=== PATIENT | female | born 1960 | race Two or more races ===

== ENCOUNTER 2018-12-26 00:18 | Inpatient (IN) | payer OTHER ==
[~2018-12-26] VITALS: Ht 165.1 cm; Wt 49.9 kg
--- NOTE | 2018-12-26 00:20 | NUR ---
ED Nurse Note: [facility]. Patients states that patient has been having black tarry stools. Patient had a syncopal episode. Patient's eased her to the ground. No s/s of head injury. BS on scene 208. Patient reports 10/10 pressure pain. AO4. Facial grimacing; and grasping site. VSS attached to monitor.
[2018-12-26] MEDS ORDERED: METFORMIN HCL500 M4 ORAL (00:23)
--- NOTE | 2018-12-26 00:40 | NUR ---
ED Nurse Note: Blood and urine collected; sent down to lab.
[2018-12-26] MEDS ORDERED: Morphine Sulfate 4mg/ml Inj (IV USE ONLY) IVP ONE ×2 (00:45→03:45)
[2018-12-26 00:57] VITALS: BP 116/96
[2018-12-26 00:59] LABS: BASOPHILS % (AUTO) 0.8 % (0.0-2.0); HEMATOCRIT 42.1 % (37.0-47.0); HEMOGLOBIN 14.2 G/DL (12.0-16.0); LYMPHOCYTES % (AUTO) 13.3 % (20.0-45.0); MEAN CORPUSCULAR VOLUME 80 FL (80-99); MONOCYTES % (AUTO) 5.4 % (1.0-10.0); NEUTROPHILS % (AUTO) 80.5 % (45.0-75.0); PLATELET COUNT 274 K/UL (150-450); RED BLOOD COUNT 5.26 M/UL (4.20-5.40); RED CELL DISTRIBUTION WIDTH 11.1 % (11.6-14.8); WHITE BLOOD COUNT 10.5 K/UL (4.8-10.8)
[2018-12-26 01:02] LABS: APPEARANCE,URINE CLEAR; BILIRUBIN, URINE NEGATIVE (NEGATIVE); COLOR,URINE PALE YELLOW; GLUCOSE, URINE (UA) 4+ (NEGATIVE); KETONES,URINE 4+ (NEGATIVE); LEUKOCYTE ESTERASE ,URINE 2+ (NEGATIVE); NITRITE,URINE NEGATIVE (NEGATIVE); PH,URINE 5 (4.5-8.0); PROTEIN,URINE 2+ (NEGATIVE); UROBILINOGEN,URINE NORMAL MG/DL (0.0-1.0)
[2018-12-26 01:11] LABS: ANION GAP 17 mmol/L (5-15); BLOOD UREA NITROGEN 34 mg/dL (7-18); CARBON DIOXIDE 22 MMOL/L (21-32); CHLORIDE 102 MMOL/L (98-107); CREATININE 1.2 MG/DL (0.55-1.30); POTASSIUM 4.1 MMOL/L (3.5-5.1); SODIUM 141 MMOL/L (136-145)
[2018-12-26 01:16] LABS: ALANINE AMINOTRANSFERASE 22 U/L (12-78); ALBUMIN 3.6 G/DL (3.4-5.0); ALBUMIN/GLOBULIN RATIO 0.7 (1.0-2.7); ALKALINE PHOSPHATASE 71 U/L (46-116); ASPARTATE AMINO TRANSFERASE 41 U/L (15-37); BILIRUBIN,TOTAL 0.5 MG/DL (0.2-1.0)
[2018-12-26] MEDS ORDERED: cefTRIAXone 1 GM in NS 55 ML IVPB ONE (01:30)
--- NOTE | 2018-12-26 01:35 | NUR ---
ED Nurse Note: states he will come back when pt wakes up. [phone]
--- NOTE | 2018-12-26 01:36 | Emergency Room Report ---
History of Present Illness General Chief Complaint: Syncope Source: Patient Present Illness HPI This is a 58-year-old female who has a history insulin-dependent diabetes. She presents with chief complaint of syncope. Also has nausea vomiting diarrhea. Patient is visiting from [place] for her brother's birthday green party. Since yesterday she has multiple episodes of vomiting and diarrhea. Also with diffuse abdominal cramping. Tonight she got up to go to the bathroom and had a syncopal episode. Witnessed by her . He was holding her and put her to the ground. Patient complaining of chest pain also. Unable to keep anything down. [place] dehydrated. Vomiting is nonbloody and nonbilious. Diarrhea is watery and profuse. Allergies: Coded Allergies: No Known Allergies (Unverified , 12/26/18) Patient History Past Medical History: see triage record, old chart reviewed, DM Past Surgical History: Pertinent Family History: none Social History: Denies: smoking Last Menstrual Period: UNK Now: No Immunizations: other Reviewed Nursing Documentation: PMH: Agreed; PSxH: Agreed Nursing Documentation-PMH Past Medical History: No History, Except For Hx Diabetes: Yes Review of Systems Eye: Denies: eye pain, blurred vision ENT: Denies: ear pain, nose congestion, throat swelling Respiratory: Denies: cough, shortness of breath Cardiovascular: Reports: chest pain; Denies: palpitations Gastrointestinal: Reports: abdominal pain, diarrhea, nausea, vomiting Musculoskeletal: Denies: back pain, joint pain Skin: Denies: rash Neurological: Denies: headache, numbness Endocrine: Denies: increased thirst, increased urine Hematologic/Lymphatic: Denies: easy bruising All Other Systems: negative except mentioned in HPI Physical Exam Vital Signs Date Time Temp Pulse Resp B/P (MAP) Pulse Ox O2 Delivery O2 Flow Rate FiO2 12/26/18 00:18 86 16 136/100 97 Room Air 12/26/18 00:57 98.7 vitals unremarkable Sp02 EP Interpretation: reviewed, normal General Appearance: well appearing, no apparent distress, alert Head: normocephalic, atraumatic Eyes: bilateral eye PERRL, bilateral eye EOMI ENT: hearing grossly normal, normal pharynx Neck: full range of motion, supple, no meningismus Respiratory: chest non-tender, lungs clear, normal breath sounds Cardiovascular #1: regular rate, rhythm, no murmur Gastrointestinal: no mass, no organomegaly, no bruit, non-distended, tenderness - Diffuse, decreased bowel sounds Musculoskeletal: back normal, gait/station normal, normal range of motion Psychiatric: mood/affect normal Skin: warm/dry Medical Decision Making Diagnostic Impression: Primary Impression: Abdominal pain Qualified Codes: R10.84 - Generalized abdominal pain Additional Impressions: Nausea vomiting and diarrhea Syncope and collapse Hyperglycemia due to type 1 diabetes mellitus Dehydration UTI (urinary tract infection) Qualified Codes: N30.00 - Acute cystitis without hematuria ER Course Patient presents with syncope secondary to dehydration. This is due to her nausea vomiting and diarrhea. She felt much better now. Blood sugars improved. No evidence of acute abdomen. Abdomen exam is soft. We'll discharge home. Lab Results Impression labs unremarkable EKG Diagnostic Results Rate: normal Rhythm: NSR ST Segments: no acute changes Rhythm Strip Diag. Results EP Interpretation: yes Rate: 83 Rhythm: NSR, no PVC's, no ectopy Chest X-Ray Diagnostic Results Chest X-Ray Diagnostic Results : Chest X-Ray Ordered: Yes # of Views/Limited/Complete: 1 View Indication: Chest Pain EP Interpretation: Yes Interpretation: no consolidation, no effusion, no pneumothorax, no acute cardiopulmonary disease Impression: No acute disease Electronically Signed by: Dinesh Brown MD Last Vital Signs Date Time Temp Pulse Resp B/P (MAP) Pulse Ox O2 Delivery O2 Flow Rate FiO2 12/26/18 01:22 98.7 12/26/18 00:57 90 16 116/96 97 Room Air Status: improved Disposition: HOME, SELF-CARE Condition: Stable Scripts Ondansetron* (ZOFRAN*) 4 Mg Tablet 4 MG ORAL Q6H PRN for Nausea & Vomiting, #10 TAB Prov: Dinesh Brown MD 12/26/18 Cephalexin* (KEFLEX*) 500 Mg Capsule 500 MG ORAL TID, #21 CAP Prov: Dinesh Brown MD 12/26/18 Referrals: NOT CHOSEN IPA/,REFERRING (PCP) Additional Instructions: Increase fluids. Follow-up with your DrTania in 7 days. Return if worse. Dinesh Brown MD Dec 26, 2018 01:36
[2018-12-26] MEDS ORDERED: CEPHALEXIN500 MG ORAL (02:52)
[2018-12-26] MEDS ORDERED: ZOFRAN4 M3 ORAL (02:52)
[2018-12-26] MEDS ORDERED: Pantoprazole Inj ONE (03:09)
[2018-12-26] MEDS ORDERED: Pantoprazole Inj IVP ONE (03:15)
--- NOTE | 2018-12-26 03:50 | NUR ---
TRANSFER TO FLOOR: Patient transferred to [facility] as ordered, per MD Asim . Report given to ALONZO Sandoval. Belongings list completed with receiving RN. PT AO4. ANDREI. VSS.
--- NOTE | 2018-12-26 04:10 | NUR ---
NURSE NOTES: Patient admitted from ER via rney for N/V/D/syncope. Patient aox4 at this time, weak d/t pain, but ambulatory. RAC 20g intact. Belongings verified at bedside, no valuables except for necklace/earrings worn by patient. Pt still moaning c/o epigastric pain, morphine given in ER prior to arrival to floor. Oriented to new room and unit, provided with call light, instructed to call for assistance. Call placed to Dr. Dailey for admission orders.
[2018-12-26] MEDS ORDERED: Acetaminophen 500mg (ES) tab ORAL PRN (04:30)
[2018-12-26] MEDS: Morphine Sulfate 4mg/ml Inj (IV USE ONLY) IVP PRN (06:46)
[2018-12-26 06:48] LABS: HEMATOCRIT 34.5 % (37.0-47.0); HEMOGLOBIN 11.5 G/DL (12.0-16.0); MEAN CORPUSCULAR VOLUME 82 FL (80-99); PLATELET COUNT 228 K/UL (150-450); RED BLOOD COUNT 4.21 M/UL (4.20-5.40); RED CELL DISTRIBUTION WIDTH 11.4 % (11.6-14.8); WHITE BLOOD COUNT 10.7 K/UL (4.8-10.8)
--- NOTE | 2018-12-26 07:45 | NUR ---
NURSE NOTES: Received report from Jaime ROSADO. On rounds patient is awake alert and oriented x4, in bed. No s/s acute distress noted. IVF running per order. Patient reporting pain and nausea that is controlled at this time. Fall precautions maintained. NPO maintained. Side rails upx3, bed low and locked, call light in reach. Will continue to monitor.
--- NOTE | 2018-12-26 07:47 | NUR ---
HAND-OFF: Report given to Vanesas ROSADO.
[2018-12-26 08:00] VITALS: BP 120/89
[2018-12-26 09:37] LABS: ALANINE AMINOTRANSFERASE 18 U/L (12-78); ALBUMIN 2.6 G/DL (3.4-5.0); ALBUMIN/GLOBULIN RATIO 0.7 (1.0-2.7); ALKALINE PHOSPHATASE 53 U/L (46-116); ANION GAP 12 mmol/L (5-15); ASPARTATE AMINO TRANSFERASE 14 U/L (15-37); BILIRUBIN,TOTAL 0.2 MG/DL (0.2-1.0); BLOOD UREA NITROGEN 28 mg/dL (7-18); CALCIUM 7.7 MG/DL (8.5-10.1); CARBON DIOXIDE 22 MMOL/L (21-32); CHLORIDE 110 MMOL/L (98-107); CREATININE 0.9 MG/DL (0.55-1.30); POTASSIUM 3.7 MMOL/L (3.5-5.1); SODIUM 144 MMOL/L (136-145)
[2018-12-26 12:00] VITALS: BP 124/83
--- NOTE | 2018-12-26 12:20 | Diagnostic Imaging Report ---
Indication: Dyspnea Comparison: None A single view chest radiograph was obtained. Findings: Cardiomediastinal appearance is within normal limits for age. The lungs are clear. Pulmonary vascularity is appropriate. The diaphragmatic contour is smooth and costophrenic angles are sharp. No pleural effusions are identified. The bones are unremarkable. Impression: No acute findings
--- NOTE | 2018-12-26 13:56 | NUR ---
*-* INSURANCE *-* ALL CLINICALS HAVE BEEN FAXED TO: [employer] REF#[id number] FAX CLINICALS TO [phone]
--- NOTE | 2018-12-26 15:29 | GI Initial Consult Note ---
History of Present Illness General Date patient seen: Dec 26, 2018 Time patient seen: 10:00 Reason for Hospitalization: Syncope Referring physician: LOU COVARRUBIAS Reason for Consultation: Persistent nausea vomiting Present Illness HPI This is a 58-year-old female who has a history insulin-dependent diabetes. She presents with chief complaint of syncope. Also has nausea vomiting diarrhea. Patient is visiting from [place] for her brother's birthday green party. Since yesterday she has multiple episodes of vomiting and diarrhea. Also with diffuse abdominal cramping. Tonight she got up to go to the bathroom and had a syncopal episode. Witnessed by her . He was holding her and put her to the ground. Patient complaining of chest pain also. Unable to keep anything down. [place] dehydrated. Vomiting is nonbloody and nonbilious. Diarrhea is watery and profuse. GI consulted for epigastric pain. Patient seen, awake alert oriented x4 has complaint of severe chest pain which she described as a pounding pressure. EKG was done in the emergency room noted a normal sinus rhythm. Negative chest x- ray. Normal troponin levels. Patient states that she is here visiting from [place], is vegetarian and had severe nausea vomiting for approximately 1 day. Patient denies any emesis or coffee-ground. In the patient stated she had severe diarrhea with no noted transient or melena. Patient has been n.p.o. for approximately 1 day, states her nausea vomiting has improved. No history of endoscopic or colonoscopy. Home Meds Reported Medications Metformin Hcl (METFORMIN HCL ER) 500 Mg Tab.er.24, ORAL DAILY, TAB 12/26/18 Med list reviewed/reconciled: Yes Allergies: Coded Allergies: No Known Allergies (Unverified , 12/26/18) Patient History History Provided By: Patient, Medical Record PMH Narrative Past Medical History: see triage record, old chart reviewed, DM Past Surgical History: Pertinent Family History: none Social History: Denies: smoking Last Menstrual Period: UNK Now: No Immunizations: other Reviewed Nursing Documentation: PMH: Agreed; PSxH: Agreed Nursing Documentation-PM Past Medical History: No History, Except For Hx Diabetes: Yes Past Surgical History: none Social History: Denies: smoking, alcohol use, drug use, other Review of Systems All Other Systems: negative except mentioned in HPI Physical Exam Vital Signs Date Time Temp Pulse Resp B/P (MAP) Pulse Ox O2 Delivery O2 Flow Rate FiO2 12/26/18 00:18 86 16 136/100 97 Room Air 12/26/18 00:57 98.7 Sp02 EP Interpretation: reviewed, normal Labs Laboratory Tests Test 12/26/18 00:30 12/26/18 00:50 12/26/18 05:10 12/26/18 07:50 White Blood Count 10.5 K/UL (4.8-10.8) 10.7 K/UL (4.8-10.8) Red Blood Count 5.26 M/UL (4.20-5.40) 4.21 M/UL (4.20-5.40) Hemoglobin 14.2 G/DL (12.0-16.0) 11.5 G/DL (12.0-16.0) L Hematocrit 42.1 % (37.0-47.0) 34.5 % (37.0-47.0) L Mean Corpuscular Volume 80 FL (80-99) 82 FL (80-99) Mean Corpuscular Hemoglobin 27.0 PG (27.0-31.0) 27.4 PG (27.0-31.0) Mean Corpuscular Hemoglobin Concent 33.8 G/DL (32.0-36.0) 33.4 G/DL (32.0-36.0) Red Cell Distribution Width 11.1 % (11.6-14.8) L 11.4 % (11.6-14.8) L Platelet Count 274 K/UL (150-450) 228 K/UL (150-450) Mean Platelet Volume 7.7 FL (6.5-10.1) 6.9 FL (6.5-10.1) Neutrophils (%) (Auto) 80.5 % (45.0-75.0) H % (45.0-75.0) Lymphocytes (%) (Auto) 13.3 % (20.0-45.0) L % (20.0-45.0) Monocytes (%) (Auto) 5.4 % (1.0-10.0) % (1.0-10.0) Eosinophils (%) (Auto) 0.0 % (0.0-3.0) % (0.0-3.0) Basophils (%) (Auto) 0.8 % (0.0-2.0) % (0.0-2.0) Sodium Level 141 MMOL/L (136-145) 144 MMOL/L (136-145) Potassium Level 4.1 MMOL/L (3.5-5.1) 3.7 MMOL/L (3.5-5.1) Chloride Level 102 MMOL/L (98-107) 110 MMOL/L (98-107) H Carbon Dioxide Level 22 MMOL/L (21-32) 22 MMOL/L (21-32) Anion Gap 17 mmol/L (5-15) H 12 mmol/L (5-15) Blood Urea Nitrogen 34 mg/dL (7-18) H 28 mg/dL (7-18) H Creatinine 1.2 MG/DL (0.55-1.30) 0.9 MG/DL (0.55-1.30) Estimat Glomerular Filtration Rate 46.2 mL/min (>60) > 60 mL/min (>60) Glucose Level 221 MG/DL (74-106) H 305 MG/DL (74-106) H Calcium Level 10.0 MG/DL (8.5-10.1) 7.7 MG/DL (8.5-10.1) #L Total Bilirubin 0.5 MG/DL (0.2-1.0) 0.2 MG/DL (0.2-1.0) Aspartate Amino Transf (AST/SGOT) 41 U/L (15-37) H 14 U/L (15-37) L Alanine Aminotransferase (ALT/SGPT) 22 U/L (12-78) 18 U/L (12-78) Alkaline Phosphatase 71 U/L (46-116) 53 U/L (46-116) Troponin I 0.000 ng/mL (0.000-0.056) Total Protein 8.7 G/DL (6.4-8.2) H 6.3 G/DL (6.4-8.2) L Albumin 3.6 G/DL (3.4-5.0) 2.6 G/DL (3.4-5.0) L Globulin 5.1 g/dL 3.7 g/dL Albumin/Globulin Ratio 0.7 (1.0-2.7) L 0.7 (1.0-2.7) L Lipase 41 U/L (73-393) L Urine Color Pale yellow Urine Appearance Clear Urine pH 5 (4.5-8.0) Urine Specific [place] 1.020 (1.005-1.035) Urine Protein 2+ (NEGATIVE) H Urine Glucose (UA) 4+ (NEGATIVE) H Urine Ketones 4+ (NEGATIVE) H Urine Blood 1+ (NEGATIVE) H Urine Nitrite Negative (NEGATIVE) Urine Bilirubin Negative (NEGATIVE) Urine Urobilinogen Normal MG/DL (0.0-1.0) Urine Leukocyte Esterase 2+ (NEGATIVE) H Urine RBC 2-4 /HPF (0 - 2) H Urine WBC 40-60 /HPF (0 - 2) H Urine Squamous Epithelial Cells Moderate /LPF (NONE/OCC) H Urine Bacteria Few /HPF (NONE) Differential Total Cells Counted 100 Neutrophils % (Manual) 84 % (45-75) H Lymphocytes % (Manual) 7 % (20-45) L Monocytes % (Manual) 4 % (1-10) Eosinophils % (Manual) 0 % (0-3) Basophils % (Manual) 0 % (0-2) Band Neutrophils 5 % (0-8) Platelet Estimate Adequate Platelet Morphology Normal Red Blood Cell Morphology Normal General Appearance: well appearing, no apparent distress, alert Head: normocephalic EENT: PERRL/EOMI, normal ENT inspection Neck: supple Respiratory: normal breath sounds, no respiratory distress Cardiovascular: normal rate Gastrointestinal: normal inspection, non tender, soft, normal bowel sounds, non -distended Rectal: deferred Genitourinary: no CVA tenderness Musculoskeletal: normal inspection, back normal Neurologic: normal inspection, alert, oriented x3, responsive Psychiatric: normal inspection, judgement/insight normal, memory normal Skin: normal inspection, normal color, no rash, warm/dry, palpation normal, well hydrated Lymphatic: normal inspection, no adenopathy Current Medications Current Medications Medications (Trade) Dose Ordered Sig/Adalberto Route PRN Reason Start Time Stop Time Status Last Admin Dose Admin Acetaminophen (Tylenol) 500 mg Q4H PRN ORAL Mild Pain/Temp > 100.5 12/26/18 04:30 01/25/19 04:29 Ceftriaxone Sodium 1 gm/ Dextrose 55 ml @ 110 mls/hr Q24H IVPB 12/26/18 20:00 01/02/19 19:59 Dextrose (Dextrose 50%) 25 ml Q30M PRN IV Hypoglycemia 12/26/18 04:30 01/25/19 04:29 Dextrose (Dextrose 50%) 50 ml Q30M PRN IV Hypoglycemia 12/26/18 04:30 01/25/19 04:29 Metoclopramide HCl (Reglan) 10 mg THREE TIMES A DAY ORAL 12/26/18 13:00 01/25/19 12:59 12/26/18 13:24 Morphine Sulfate (Morphine Sulfate) 2 mg Q4H PRN IVP mod-sev 4-10 pain 12/26/18 04:30 01/02/19 04:29 12/26/18 06:46 Ondansetron HCl (Zofran) 4 mg Q6H PRN IVP Nausea & Vomiting 12/26/18 04:30 01/25/19 04:29 12/26/18 13:24 Pantoprazole (Protonix) 40 mg BIAC ORAL 12/26/18 16:30 01/25/19 16:29 Sodium Chloride 1,000 ml @ 65 mls/hr [id number] IV 12/26/18 05:00 01/25/19 04:59 12/26/18 06:41 GI: Plan Problems: (1) Gastroparesis (2) Gastroenteritis (3) Electrolyte imbalance (4) Nausea vomiting and diarrhea (5) Abdominal pain (6) Dehydration (7) Hyperglycemia due to type 1 diabetes mellitus (8) GERD (gastroesophageal reflux disease) Plan cardiac work up negative Will consider endoscopy if patient has persistent abdominal pain We will give PPI twice daily Clear liquid diet, advance as tolerated PRN transfusions Zofran as needed, Reglan ATC for persistent vomiting p.o. And IV hydration plus electrolyte correction fu labs outpatient GI procedures Discussed with Dr. Graham. Thank you for this patient referral, we will follow. The patient was seen and examined at bedside and all new and available data was reviewed in the patients chart. I agree with the above findings, impression and plan. (Patient seen earlier today. Signature stamp does not reflect patient encounter time.). - MD Stephanie Rivera,[facility], [place] [employer] Dec 26, 2018 15:29
[2018-12-26 16:00] VITALS: BP 129/86
--- NOTE | 2018-12-26 16:55 | NUR ---
Social Service Note Letter completed per patient's request indicating date of hospitalization to provide airlines. Will continue to be available as needed.
--- NOTE | 2018-12-26 17:58 | Cardiology Report ---
APPROVED REPORT EKG Measurement Heart [id number] Normal sinus rhythm T wave abnormality, consider inferolateral ischemia Abnormal ECG
--- NOTE | 2018-12-26 19:00 | NUR ---
NURSE NOTES: Patient tolerating clear liquid diet well so far, will endorse to nightshift to advance per order. Reporting less pain, no episodes of emesis, 1 episode of nausea on my shift. Will continue to monitor.
--- NOTE | 2018-12-26 19:24 | NUR ---
HAND-OFF: Report given to Jaime ROSADO. Patient in stable condition.
[2018-12-26 20:00] VITALS: BP 144/90
--- NOTE | 2018-12-26 20:00 | NUR ---
NURSE NOTES: Patient received in bed, asleep, resting, easily arousable. No acute distress. IVF infusing. Denies pain. Commode at bedside. Call light in reach, instructed to call for assistance. Will continue to monitor.
[2018-12-26] MEDS: cefTRIAXone 1 GM in D5W 55 ML IVPB SCH (20:34)
--- NOTE | 2018-12-26 20:47 | NUR ---
CASE MANAGEMENT: REVIEW 58/F PRESENTED TO ED FROM A [facility] CC: INTRACTABLE VOMITING . PAIN 08/29 SI: DEHYDRATION . GASTROPARESIS T 98.7 HR 90 RR 16 BP 116/96 SAT 97% ROOM AIR H/H 11.5/34.5 BUN 34 IS: ZOFRAN IV X1 PROTONIX IV X1 NS IVF BOLUS X1 MORPHINE IV X1 CEFTRIAXONE IV X1 PATIENT ADMITTED TO MED/SURG UNIT 12/26/2017 DCP: PATIENT IS FROM A [facility]
[2018-12-26] MEDS ORDERED: Levemir Flexpen SUBQ SCH (22:30)
[2018-12-26] MEDS: NovoLOG Insulin Flexpen SUBQ SCH (22:34)
--- NOTE | 2018-12-26 23:30 | Consultation ---
DATE OF CONSULTATION: 12/26/2018 NOTE: POOR AUDIO INFECTIOUS DISEASE CONSULTATION CONSULTING PHYSICIAN: Ravi Roman M.D. PRIMARY ATTENDING PHYSICIAN: Ondina Dailey M.D. REASON FOR CONSULT: UTI. HISTORY OF PRESENT ILLNESS: The patient is a 58-year-old female with history of nausea vomiting after having a syncopal episode. The patient has nausea, vomiting, and pain in the abdomen. She went to the bathroom for vomiting and then passed out. Apparently, was there and prevented the fall. PAST MEDICAL HISTORY: Significant for diabetes mellitus. MEDICATIONS: Protonix, metoclopramide, Tylenol, morphine sulfate, Zofran, one dose ceftriaxone in ER. ALLERGIES: No known drug allergies. SOCIAL HISTORY: Originally from [place]. Lives in [place] and was in [place] with the family. . No history of alcohol, drug abuse, or smoking. REVIEW OF SYSTEMS: No fever. No chills. Has nausea. No more vomiting. Tolerate liquids. Left upper abdominal pain. No diarrhea. No problem passing urine. PHYSICAL EXAMINATION: VITAL SIGNS: Temperature 98.6, pulse 84, and blood pressure 124/82. GENERAL APPEARANCE: Seems to be in thin. In no acute distress. HEAD AND NECK: [place] conjunctiva. No oral lesion. HEART: Regular. LUNGS: Clear. ABDOMEN: Soft. No costovertebral angle tenderness. EXTREMITIES: Has no edema. LABORATORY DATA: WBC 7.4, hemoglobin 11.5, hematocrit 34.5, and platelets 233. Sodium 144, potassium 3.7, chloride 110, BUN 20, and creatinine 0.9. Glucose is 305. Chest x-ray was negative. UA showed wbc 40 to 60, rbc 2 to 4, leukocyte esterase 2+, nitrite negative, glucose 4+, and ketones 4+. IMPRESSION: Pyuria. UTI. The patient has nausea, vomiting, syncopal episode most likely was vasovagal. Dehydration. RECOMMENDATIONS: We will continue with ceftriaxone and hydration. We will follow up the cultures. At the end of my exam, I thank Dr. Dailey for involving me in the care of this patient. Ravi Roman M.D. DR: MONIK JOB#: [id number] CC: ZAIRE
[2018-12-27] VITALS: BP 148/91
--- NOTE | 2018-12-27 | History and Physical Report ---
DATE OF ADMISSION: 12/26/2018 NOTE: "POOR AUDIO QUALITY" HISTORY OF PRESENT ILLNESS: The patient is visiting with her from [place], [place], when the patient started having vomiting and diarrhea. The patient also had elevated sugar. The patient is diabetic, takes medications pills only for the past year and a half, mainly metformin. The patient has complained of diarrhea, vomiting, and abdominal cramps for the past 2 days and is very weak and also had some chest pain. Admitted for vomiting and elevated sugar. PAST MEDICAL HISTORY: Significant for NIDDM, GERD, glaucoma. PAST SURGICAL HISTORY: , possible eye surgery. ALLERGIES: No known allergies. MEDICATIONS: Include metformin. FAMILY HISTORY: Does have history of diabetes. SOCIAL HISTORY: The patient denies history of smoking. No history of drug and alcohol abuse. REVIEW OF SYSTEMS: HEENT: Denies headache. RESPIRATORY: Denies shortness of breath. Denies cough. CARDIOVASCULAR: Does have chest pain. Denies orthopnea. GASTROINTESTINAL: Reports having diarrhea, vomiting, and abdominal cramps for 2 days. No rectal bleeding. EXTREMITIES: Denies pain in lower extremities. CENTRAL NERVOUS SYSTEM: No change in vision or speech pattern. Feels very weak. PHYSICAL EXAMINATION: VITAL SIGNS: Temperature 98.5, pulse 88, blood pressure 120/89. HEENT: PERRLA. NECK: Supple. No lymphadenopathy. CHEST: Clear to auscultation CARDIOVASCULAR: Regular rate and rhythm. No murmurs or extra sounds. GASTROINTESTINAL: Mild epigastric tenderness. Abdomen is soft. No rebound. EXTREMITIES: No edema. Moves all four extremities. Reflexes on both sides. LABORATORY DATA: WBC 10.5, hemoglobin 15.2, platelet count . Sodium 141, potassium 4.1, BUN of 34, creatinine 1.2, glucose of 221. Lipase of 41. ASSESSMENT AND PLAN: Abdominal pain and cramps, diarrhea, vomiting, weakness, could be due to elevated sugar and the patient also has elevated sugar. I have basically consulted Dr. Graham, Dr. Bowen, Dr. Ravi Roman, Dr. Julio Beaver for the management of the blood sugar and also for as well as for fluid management as well as Dr. Graham will help us with finding out why the patient was having intractable vomiting. It could be due to elevated sugar. The patient admitted for dehydration as well. Ondina Dailey M.D. DR: Dao JOB#: [id number] CC:
[2018-12-27 03:51] VITALS: BP 134/82
[2018-12-27] MEDS: NovoLOG Insulin Flexpen SUBQ SCH ×4 (05:35→20:50)
[2018-12-27 06:54] LABS: BASOPHILS % (AUTO) 0.4 % (0.0-2.0); HEMATOCRIT 38.1 % (37.0-47.0); HEMOGLOBIN 12.8 G/DL (12.0-16.0); LYMPHOCYTES % (AUTO) 17.4 % (20.0-45.0); MEAN CORPUSCULAR VOLUME 81 FL (80-99); MONOCYTES % (AUTO) 4.9 % (1.0-10.0); NEUTROPHILS % (AUTO) 77.4 % (45.0-75.0); PLATELET COUNT 247 K/UL (150-450); RED BLOOD COUNT 4.69 M/UL (4.20-5.40); RED CELL DISTRIBUTION WIDTH 11.5 % (11.6-14.8); WHITE BLOOD COUNT 10.6 K/UL (4.8-10.8)
[2018-12-27 07:15] LABS: ANION GAP 16 mmol/L (5-15); BLOOD UREA NITROGEN 18 mg/dL (7-18); CALCIUM 8.2 MG/DL (8.5-10.1); CARBON DIOXIDE 21 MMOL/L (21-32); CHLORIDE 104 MMOL/L (98-107); CREATININE 0.8 MG/DL (0.55-1.30); PHOSPHORUS 1.5 MG/DL (2.5-4.9); POTASSIUM 2.9 MMOL/L (3.5-5.1); SODIUM 141 MMOL/L (136-145)
--- NOTE | 2018-12-27 07:21 | NUR ---
HAND-OFF: Report given to Aly ROSADO.
[2018-12-27 08:00] VITALS: BP 154/84
--- NOTE | 2018-12-27 08:07 | NUR ---
NURSE NOTES: Received report from ALONZO Sandoval. Pt is in the bed. AAO. On the RA. No s.s of respiratory distress or discomfort noted. Bed is in the lowest position. Call light is within the reach. Will continue to monitor
[2018-12-27] MEDS ORDERED: Potassium Phosphate 30 MM in NS 275 ML IV SCH (10:00)
--- NOTE | 2018-12-27 11:54 | GI Progress Note ---
Assessment/Plan Problems: (1) GERD (gastroesophageal reflux disease) ICD Codes: K21.9 - Gastro-esophageal reflux disease without esophagitis SNOMED: 365065712 (2) Hyperglycemia due to type 1 diabetes mellitus ICD Codes: E10.65 - Type 1 diabetes mellitus with hyperglycemia; R19.7 - Diarrhea, unspecified SNOMED: 072364904908895, 86663991 (3) Nausea vomiting and diarrhea ICD Codes: R11.2 - Nausea with vomiting, unspecified; R19.7 - Diarrhea, unspecified SNOMED: 9268001 (4) Gastroparesis ICD Codes: K31.84 - Gastroparesis SNOMED: 980813258 (5) Abdominal pain ICD Codes: R10.9 - Unspecified abdominal pain SNOMED: 93497977, 16838234 Qualifiers: Qualified Codes: R10.84 - Generalized abdominal pain (6) Electrolyte imbalance ICD Codes: E87.8 - Other disorders of electrolyte and fluid balance, not elsewhere classified SNOMED: 977052001 (7) Gastroenteritis ICD Codes: K52.9 - Noninfective gastroenteritis and colitis, unspecified SNOMED: 05895824 (8) Dehydration ICD Codes: E86.0 - Dehydration SNOMED: 21460495, 84846502 Status: not improved, unchanged Status Narrative Discussed with Dr. Graham Assessment/Plan cardiac work up negative EGD scheduled tomorrow. - NPO @ OR. We will give PPI twice daily Clear liquid diet, advance as tolerated PRN transfusions Zofran as needed, Reglan ATC for persistent vomiting p.o. And IV hydration plus electrolyte correction fu labs The patient was seen and examined at bedside and all new and available data was reviewed in the patients chart. I agree with the above findings, impression and plan. (Patient seen earlier today. Signature stamp does not reflect patient encounter time.). - Franco Graham MD Subjective Subjective Patient still complains of abdominal pain Still has complaint of overall generalized weakness Unable to tolerate food Objective Last 24 Hour Vital Signs Date Time Temp Pulse Resp B/P (MAP) Pulse Ox O2 Delivery O2 Flow Rate FiO2 12/27/18 09:00 Room Air 12/27/18 08:00 98.3 95 19 154/84 (107) 99 12/27/18 03:51 98.3 94 19 134/82 (99) 97 12/27/18 00:00 98.9 100 18 148/91 (110) 97 12/26/18 21:00 Room Air 12/26/18 20:00 98.6 82 18 144/90 (108) 97 12/26/18 16:00 98.8 80 18 129/86 (100) 98 12/26/18 12:00 98.6 84 18 124/83 (97) 97 Intake and Output 12/26/18 12/27/18 19:00 07:00 Intake Total 1600 ml 1065 ml Balance 1600 ml 1065 ml Intake Oral 820 ml 360 ml IV Total 780 ml 705 ml # Voids 6 3 Laboratory Tests Test 12/27/18 06:00 White Blood Count 10.6 K/UL (4.8-10.8) Red Blood Count 4.69 M/UL (4.20-5.40) Hemoglobin 12.8 G/DL (12.0-16.0) Hematocrit 38.1 % (37.0-47.0) Mean Corpuscular Volume 81 FL (80-99) Mean Corpuscular Hemoglobin 27.3 PG (27.0-31.0) Mean Corpuscular Hemoglobin Concent 33.7 G/DL (32.0-36.0) Red Cell Distribution Width 11.5 % (11.6-14.8) L Platelet Count 247 K/UL (150-450) Mean Platelet Volume 6.6 FL (6.5-10.1) Neutrophils (%) (Auto) 77.4 % (45.0-75.0) H Lymphocytes (%) (Auto) 17.4 % (20.0-45.0) L Monocytes (%) (Auto) 4.9 % (1.0-10.0) Eosinophils (%) (Auto) 0.0 % (0.0-3.0) Basophils (%) (Auto) 0.4 % (0.0-2.0) Sodium Level 141 MMOL/L (136-145) Potassium Level 2.9 MMOL/L (3.5-5.1) L Chloride Level 104 MMOL/L (98-107) Carbon Dioxide Level 21 MMOL/L (21-32) Anion Gap 16 mmol/L (5-15) H Blood Urea Nitrogen 18 mg/dL (7-18) Creatinine 0.8 MG/DL (0.55-1.30) Estimat Glomerular Filtration Rate > 60 mL/min (>60) Glucose Level 219 MG/DL (74-106) H Calcium Level 8.2 MG/DL (8.5-10.1) L Phosphorus Level 1.5 MG/DL (2.5-4.9) L Magnesium Level 1.8 MG/DL (1.8-2.4) Height (Feet): 5 Height (Inches): 4.00 Weight (Pounds): 124 General Appearance: WD/WN, no apparent distress, alert Cardiovascular: normal rate Respiratory/Chest: normal breath sounds, no respiratory distress Abdominal Exam: normal bowel sounds, non tender, soft Extremities: normal range of motion, non-tender Matt Brown NP Dec 27, 2018 11:54
[2018-12-27 12:00] VITALS: BP 147/82
--- NOTE | 2018-12-27 14:09 | Infectious Diseases Prog Note ---
Assessment/Plan Assessment/Plan A; Pyuria/UTI Syncope Dehydration DM Nausea/Vomiting Hypokalemia P: Continue Rocephin Will f/u cultures Subjective ROS Limited/Unobtainable: No Constitutional: Reports: no symptoms, other - feels better Respiratory: Reports: no symptoms Cardiovascular: Reports: no symptoms Gastrointestinal/Abdominal: Reports: no symptoms Genitourinary: Reports: no symptoms Skin: Reports: other - erythema & swelling of IV site Allergies: Coded Allergies: No Known Allergies (Unverified , 12/26/18) Objective Vital Signs Last 24 Hour Vital Signs Date Time Temp Pulse Resp B/P (MAP) Pulse Ox O2 Delivery O2 Flow Rate FiO2 12/27/18 12:00 98.1 91 20 147/82 (103) 100 91 12/27/18 09:00 Room Air 12/27/18 08:00 98.3 95 19 154/84 (107) 99 12/27/18 03:51 98.3 94 19 134/82 (99) 97 12/27/18 00:00 98.9 100 18 148/91 (110) 97 12/26/18 21:00 Room Air 12/26/18 20:00 98.6 82 18 144/90 (108) 97 12/26/18 16:00 98.8 80 18 129/86 (100) 98 Height (Feet): 5 Height (Inches): 4.00 Weight (Pounds): 124 General Appearance: no acute distress HEENT: mucous membranes moist Respiratory/Chest: lungs clear Cardiovascular: normal rate Abdomen: soft, non tender Extremities: no edema Neurologic/Psychiatric: alert, oriented x 3, responsive Microbiology Date/Time Source Procedure Growth Status 12/26/18 00:50 Urine,Clean Catch Urine Culture - Preliminary Gram Negative Bacillus 1 Resulted Laboratory Tests Test 12/27/18 06:00 White Blood Count 10.6 K/UL (4.8-10.8) Red Blood Count 4.69 M/UL (4.20-5.40) Hemoglobin 12.8 G/DL (12.0-16.0) Hematocrit 38.1 % (37.0-47.0) Mean Corpuscular Volume 81 FL (80-99) Mean Corpuscular Hemoglobin 27.3 PG (27.0-31.0) Mean Corpuscular Hemoglobin Concent 33.7 G/DL (32.0-36.0) Red Cell Distribution Width 11.5 % (11.6-14.8) L Platelet Count 247 K/UL (150-450) Mean Platelet Volume 6.6 FL (6.5-10.1) Neutrophils (%) (Auto) 77.4 % (45.0-75.0) H Lymphocytes (%) (Auto) 17.4 % (20.0-45.0) L Monocytes (%) (Auto) 4.9 % (1.0-10.0) Eosinophils (%) (Auto) 0.0 % (0.0-3.0) Basophils (%) (Auto) 0.4 % (0.0-2.0) Sodium Level 141 MMOL/L (136-145) Potassium Level 2.9 MMOL/L (3.5-5.1) L Chloride Level 104 MMOL/L (98-107) Carbon Dioxide Level 21 MMOL/L (21-32) Anion Gap 16 mmol/L (5-15) H Blood Urea Nitrogen 18 mg/dL (7-18) Creatinine 0.8 MG/DL (0.55-1.30) Estimat Glomerular Filtration Rate > 60 mL/min (>60) Glucose Level 219 MG/DL (74-106) H Calcium Level 8.2 MG/DL (8.5-10.1) L Phosphorus Level 1.5 MG/DL (2.5-4.9) L Magnesium Level 1.8 MG/DL (1.8-2.4) Current Medications Medications (Trade) Dose Ordered Sig/Adalberto Route PRN Reason Start Time Stop Time Status Last Admin Dose Admin Acetaminophen (Tylenol) 500 mg Q4H PRN ORAL Mild Pain/Temp > 100.5 12/26/18 04:30 01/25/19 04:29 Ceftriaxone Sodium 1 gm/ Dextrose 55 ml @ 110 mls/hr Q24H IVPB 12/26/18 20:00 01/02/19 19:59 12/26/18 20:34 Dextrose (Dextrose 50%) 25 ml Q30M PRN IV Hypoglycemia 12/26/18 04:30 01/25/19 04:29 Dextrose (Dextrose 50%) 50 ml Q30M PRN IV Hypoglycemia 12/26/18 04:30 01/25/19 04:29 Insulin Aspart (NovoLOG) BEFORE MEALS AND HS SUBQ 12/26/18 22:30 01/25/19 22:29 12/27/18 12:00 Insulin Detemir (Levemir) 15 units BEDTIME SUBQ 12/26/18 22:30 01/25/19 22:29 12/26/18 22:32 Metoclopramide HCl (Reglan) 10 mg THREE TIMES A DAY ORAL 12/26/18 13:00 01/25/19 12:59 12/27/18 09:14 Morphine Sulfate (Morphine Sulfate) 2 mg Q4H PRN IVP mod-sev 4-10 pain 12/26/18 04:30 01/02/19 04:29 12/26/18 06:46 Ondansetron HCl (Zofran) 4 mg Q6H PRN IVP Nausea & Vomiting 12/26/18 04:30 01/25/19 04:29 12/27/18 07:00 Pantoprazole (Protonix) 40 mg BIAC ORAL 12/26/18 16:30 01/25/19 16:29 12/27/18 05:35 Potassium Phosphate 30 mm/ Sodium Chloride 285 ml @ 47.5 mls/hr ONCE IV 12/27/18 10:00 12/27/18 18:00 12/27/18 10:11 Sodium Chloride 1,000 ml @ 65 mls/hr [id number] IV 12/26/18 05:00 01/25/19 04:59 12/27/18 11:57 Ravi Roman MD Dec 27, 2018 14:09
--- NOTE | 2018-12-27 15:13 | Consultation ---
Consult Note Consult Note This is a 58-year-old female who has a history insulin-dependent diabetes. She presents with chief complaint of syncope. Also has nausea vomiting diarrhea. Patient is visiting from [place] for her brother's birthday libertarian. Since yesterday she has multiple episodes of vomiting and diarrhea. Also with diffuse abdominal cramping. Tonight she got up to go to the bathroom and had a syncopal episode. Witnessed by her . He was holding her and put her to the ground. Patient complaining of chest pain also. Unable to keep anything down. [place] dehydrated. Vomiting is nonbloody and nonbilious. Diarrhea is watery and profuse. No Known Allergies (Unverified , 12/26/18) Past Medical History: see triage record, old chart reviewed, DM Past Surgical History: Pertinent Family History: none Social History: Denies: smoking Last Menstrual Period: UNK Now: No Immunizations: other Reviewed Nursing Documentation: PMH: Agreed; PSxH: Agreed Past Medical History: No History, Except For Hx Diabetes: Yes Assessment/Plan Dehydration UTI Electrolytre imbalance Syncope Abdominal pain Nausea vomiting and diarrhea Hyperglycemia due to type 1 diabetes mellitus increase HS Levemir k and Phos and Mag supplement Antibiotics Monitor Prabhakar Wong MD Dec 27, 2018 15:13
--- NOTE | 2018-12-27 15:30 | Consultation ---
DATE OF CONSULTATION: 12/27/2018 ENDOCRINOLOGY CONSULTATION: CONSULTING PHYSICIAN: Julio Beaver M.D. REFERRING PHYSICIAN: Ondina Dailey M.D. REASON FOR CONSULTATION: Diabetes management. HISTORY OF PRESENT ILLNESS: The patient is a 58-year-old female, visiting from [place], admitted to the hospital with elevated glucose, urinary tract infection. Glucose is elevated and Endocrinology was consulted to assist in management of hyperglycemia. The patient is on hormonal therapy. PAST MEDICAL HISTORY: 1. Diabetes. 2. GERD. 3. Glaucoma. PAST SURGICAL HISTORY: . ALLERGIES TO MEDICATIONS: None. MEDICATIONS: Metformin. FAMILY HISTORY: Diabetes. SOCIAL HISTORY: No smoking, alcohol, or drug use. REVIEW OF SYSTEMS: As per HPI. LABORATORY DATA: WBC 10, hemoglobin 12, hematocrit 38, platelets of 247. Sodium 145, potassium 3.7, chloride 110, bicarbonate 22, BUN 28, creatinine 0.9, glucose 307, calcium 7.7. PHYSICAL EXAMINATION: VITAL SIGNS: Blood pressure 138/82, pulse of 94, temperature 98.2, respiratory rate of 19. HEENT: Pupils are equal and reactive to light. Sclerae are anicteric. NECK: No JVD. HEART: Regular. LUNGS: Clear. ABDOMEN: Positive bowel sounds. EXTREMITIES: No clubbing, cyanosis, or edema. DIAGNOSES: 1. Urinary tract infection. 2. Diabetes out of control. 3. Abdominal pain. DISCUSSION: 1. Discontinue metformin due to current GI symptoms. 2. Start basal bolus insulin therapy with Levemir and NovoLog. Dosage will be adjusted to control. 3. Further adjustment according to blood glucose values. 4. Check hemoglobin A1c to assess diabetes control. Thank you, Dr. Dailey, for the courtesy of this consultation. Julio Beaver M.D. DR: ALONZO/TERESSA JOB#: [id number] CC:
[2018-12-27 16:00] VITALS: BP 144/77
[2018-12-27] MEDS ORDERED: Tubing IV Secondary IV ONE (16:33)
[2018-12-27] MEDS ORDERED: 1/2 NS 1000ml IV ONE (16:33)
--- NOTE | 2018-12-27 19:31 | NUR ---
HAND-OFF: Report given to ALONZO Andersen.
--- NOTE | 2018-12-27 19:53 | NUR ---
NURSE NOTES: Patient in bed, awake, alert and verbally responsive. ABle to make needs known. Respiration is even and unlabored. No complaint of pain or discomfort noted. IV site noted. Iv fluid is infusing as ordered. Skin is warm and dry to touch. NPO at midnight, patient is aware. Call light is at bedside. Will continue plan of care.
[2018-12-27 20:00] VITALS: BP 150/95
[2018-12-27] MEDS: cefTRIAXone 1 GM in D5W 55 ML IVPB SCH (20:46)
[2018-12-27] MEDS: Levemir Flexpen SUBQ SCH (20:49)
--- NOTE | 2018-12-27 21:51 | General Progress Note ---
Assessment/Plan Problem List: (1) Dehydration ICD Codes: E86.0 - Dehydration SNOMED: 53803646, 30446819 (2) Gastroenteritis ICD Codes: K52.9 - Noninfective gastroenteritis and colitis, unspecified SNOMED: 37738407 (3) Electrolyte imbalance ICD Codes: E87.8 - Other disorders of electrolyte and fluid balance, not elsewhere classified SNOMED: 182083684 (4) Abdominal pain ICD Codes: R10.9 - Unspecified abdominal pain SNOMED: 10812544, 25717486 Qualifiers: Qualified Codes: R10.84 - Generalized abdominal pain (5) Gastroparesis ICD Codes: K31.84 - Gastroparesis SNOMED: 630286484 (6) Nausea vomiting and diarrhea ICD Codes: R11.2 - Nausea with vomiting, unspecified; R19.7 - Diarrhea, unspecified SNOMED: 4157320 (7) Hyperglycemia due to type 1 diabetes mellitus ICD Codes: E10.65 - Type 1 diabetes mellitus with hyperglycemia; R19.7 - Diarrhea, unspecified SNOMED: 728017564034375, 61267683 (8) GERD (gastroesophageal reflux disease) ICD Codes: K21.9 - Gastro-esophageal reflux disease without esophagitis SNOMED: 029803771 Status: progressing Assessment/Plan nausea and vomitting is improving' niddm.sugar is improving weak lyte abnormality is improving r/o gastroenteritis Subjective Gastrointestinal/Abdominal: Reports: abdominal pain, nausea Allergies: Coded Allergies: No Known Allergies (Unverified , 12/26/18) Objective Last 24 Hour Vital Signs Date Time Temp Pulse Resp B/P (MAP) Pulse Ox O2 Delivery O2 Flow Rate FiO2 12/27/18 21:00 Room Air 12/27/18 20:00 97.9 94 17 150/95 (113) 97 12/27/18 16:00 98.7 87 18 144/77 (99) 99 12/27/18 12:00 98.1 91 20 147/82 (103) 100 91 12/27/18 09:00 Room Air 12/27/18 08:00 98.3 95 19 154/84 (107) 99 12/27/18 03:51 98.3 94 19 134/82 (99) 97 12/27/18 00:00 98.9 100 18 148/91 (110) 97 Intake and Output 12/26/18 12/27/18 19:00 07:00 Intake Total 1600 ml 1130 ml Balance 1600 ml 1130 ml Intake Oral 820 ml 360 ml IV Total 780 ml 770 ml # Voids 6 3 Laboratory Tests 12/27/18 06:00: White Blood Count 10.6, Red Blood Count 4.69, Hemoglobin 12.8, Hematocrit 38.1, Mean Corpuscular Volume 81, Mean Corpuscular Hemoglobin 27.3, Mean Corpuscular Hemoglobin Concent 33.7, Red Cell Distribution Width 11.5L, Platelet Count 247, Mean Platelet Volume 6.6, Neutrophils (%) (Auto) 77.4H, Lymphocytes (%) (Auto) 17.4L, Monocytes (%) (Auto) 4.9, Eosinophils (%) (Auto) 0.0, Basophils (%) (Auto ) 0.4, Sodium Level 141, Potassium Level 2.9L, Chloride Level 104, Carbon Dioxide Level 21, Anion Gap 16H, Blood Urea Nitrogen 18, Creatinine 0.8, Estimat Glomerular Filtration Rate > 60, Glucose Level 219H, Calcium Level 8.2L , Phosphorus Level 1.5L, Magnesium Level 1.8, C-Reactive Protein, Quantitative 2.9H Height (Feet): 5 Height (Inches): 4.00 Weight (Pounds): 124 Respiratory/Chest: lungs clear Abdomen: tender Ondina Dailey MD Dec 27, 2018 21:51
[2018-12-28] VITALS: BP 137/72
[2018-12-28 04:00] VITALS: BP 155/89
[2018-12-28] MEDS: NovoLOG Insulin Flexpen SUBQ SCH ×4 (06:27→21:26)
--- NOTE | 2018-12-28 06:59 | NUR ---
HAND-OFF: Report given to Gigi Lu.
[2018-12-28 07:06] LABS: BASOPHILS % (AUTO) 0.4 % (0.0-2.0); EOSINOPHILS % (AUTO) 0.1 % (0.0-3.0); HEMOGLOBIN 12.9 G/DL (12.0-16.0); LYMPHOCYTES % (AUTO) 34.3 % (20.0-45.0); MEAN CORPUSCULAR VOLUME 80 FL (80-99); MONOCYTES % (AUTO) 8.4 % (1.0-10.0); NEUTROPHILS % (AUTO) 56.7 % (45.0-75.0); PLATELET COUNT 223 K/UL (150-450); RED BLOOD COUNT 4.76 M/UL (4.20-5.40); RED CELL DISTRIBUTION WIDTH 11.3 % (11.6-14.8); WHITE BLOOD COUNT 7.5 K/UL (4.8-10.8)
--- NOTE | 2018-12-28 07:21 | Anethesia Preoperative Eval ---
Anesthesia Pre-op PMH/ROS General Date of Evaluation: Dec 28, 2018 Time of Evaluation: 07:19 Anesthesiologist: cat Mallampati Score Class I : Soft palate, uvula, fauces, pillars visible Class II: Soft palate, uvula, fauces visible Class III: Soft palate, base of uvula visible Class IV: Only hard plate visible Surgeon: yandel Diagnosis: gerd, intractable vomiting Surgical Procedure: egd Allergies: Coded Allergies: No Known Allergies (Unverified , 12/26/18) Anesthesia Pre-op Phys. Exam Physician Exam Last Vital Signs Date Time Temp Pulse Resp B/P (MAP) Pulse Ox O2 Delivery O2 Flow Rate FiO2 12/28/18 04:00 97.0 93 16 155/89 (111) 97 12/27/18 21:00 Room Air Anesthesia Pre-op A/P Labs Hematology Test 12/28/18 04:45 White Blood Count 7.5 K/UL (4.8-10.8) Red Blood Count 4.76 M/UL (4.20-5.40) Hemoglobin 12.9 G/DL (12.0-16.0) Hematocrit 38.0 % (37.0-47.0) Mean Corpuscular Volume 80 FL (80-99) Mean Corpuscular Hemoglobin 27.0 PG (27.0-31.0) Mean Corpuscular Hemoglobin Concent 33.8 G/DL (32.0-36.0) Red Cell Distribution Width 11.3 % (11.6-14.8) L Platelet Count 223 K/UL (150-450) Mean Platelet Volume 6.6 FL (6.5-10.1) Neutrophils (%) (Auto) 56.7 % (45.0-75.0) Lymphocytes (%) (Auto) 34.3 % (20.0-45.0) Monocytes (%) (Auto) 8.4 % (1.0-10.0) Eosinophils (%) (Auto) 0.1 % (0.0-3.0) Basophils (%) (Auto) 0.4 % (0.0-2.0) Coagulation Test 12/28/18 04:45 Prothrombin Time 10.7 SEC (9.30-11.50) Prothromb Time International Ratio 1.0 (0.9-1.1) Activated Partial Thromboplast Time 22 SEC (23-33) L Chemistry Test 12/28/18 04:45 Sodium Level Pending Potassium Level Pending Chloride Level Pending Carbon Dioxide Level Pending Blood Urea Nitrogen Pending Creatinine Pending Estimat Glomerular Filtration Rate Pending Glucose Level Pending Hemoglobin A1c Pending Uric Acid Pending Calcium Level Pending Phosphorus Level Pending Magnesium Level Pending Total Bilirubin Pending Gamma Glutamyl Transpeptidase Pending Aspartate Amino Transf (AST/SGOT) Pending Alanine Aminotransferase (ALT/SGPT) Pending Alkaline Phosphatase Pending Pro-B-Type Natriuretic Peptide Pending Total Protein Pending Albumin Pending Globulin Pending Triglycerides Level Pending Cholesterol Level Pending LDL Cholesterol Pending HDL Cholesterol Pending Cholesterol/HDL Ratio Pending Vitamin B12 Level Pending Folate Pending Thyroid Stimulating Hormone (TSH) Pending Risk Assessment & Plan Assessment: hypokalemic 2.9. today's lab pending. asa3 Plan: awaiting serum level for potassium. if still hypokalemic, it must be corrected prior to procedure. Katina Fuentes MD Dec 28, 2018 07:21
[2018-12-28 07:24] LABS: ALANINE AMINOTRANSFERASE 32 U/L (12-78); ALBUMIN 2.7 G/DL (3.4-5.0); ALBUMIN/GLOBULIN RATIO 0.7 (1.0-2.7); ALKALINE PHOSPHATASE 52 U/L (46-116); ANION GAP 11 mmol/L (5-15); ASPARTATE AMINO TRANSFERASE 18 U/L (15-37); BILIRUBIN,TOTAL 0.4 MG/DL (0.2-1.0); CALCIUM 8.3 MG/DL (8.5-10.1); CARBON DIOXIDE 27 MMOL/L (21-32); CHLORIDE 101 MMOL/L (98-107); CHOLESTEROL 183 MG/DL (< 200); CREATININE 0.5 MG/DL (0.55-1.30); GAMMA GLUTAMYL TRANSPEPTIDASE 41 U/L (5-85); HDL CHOLESTEROL 43 MG/DL (40-60); PHOSPHORUS 1.7 MG/DL (2.5-4.9); POTASSIUM 2.8 MMOL/L (3.5-5.1); SODIUM 139 MMOL/L (136-145); TRIGLYCERIDES 137 MG/DL (30-150)
[2018-12-28 07:31] LABS: BLOOD UREA NITROGEN 9 mg/dL (7-18)
--- NOTE | 2018-12-28 07:45 | NUR ---
NURSE NOTES: Received report from ALONZO Andersen. Pt is in the bed. On the RA. No s/s of respiratory distress or discomfort noted. Emphasized NPO and scheduled procedure. Pt verbalized understanding. Bed is in the lowest position. Call light is within the reach. Will continue to monitor
--- NOTE | 2018-12-28 07:53 | NUR ---
NURSE NOTES: Received call from Fior from the lab. Pt is positive for ESBL (urine). Dr Leana Roman notified
[2018-12-28 08:00] VITALS: BP 154/78
[2018-12-28] MEDS ORDERED: D5 1/2NS w/KCl 20mEq 1,000 ML IV SCH (10:00)
[2018-12-28 12:00] VITALS: BP 152/84
--- NOTE | 2018-12-28 14:45 | Nephrology Progress Note ---
Assessment/Plan Problem List: (1) Dehydration (2) UTI (urinary tract infection) (3) Gastroparesis (4) Nausea vomiting and diarrhea (5) Hyperglycemia due to type 1 diabetes mellitus Assessment Dehydration UTI Electrolytre imbalance Syncope Abdominal pain Nausea vomiting and diarrhea Hyperglycemia due to type 1 diabetes mellitus Plan add Zestril increase HS Levemir k and Phos and Mag supplement as needed Antibiotics Monitor lytes Subjective ROS Limited/Unobtainable: No Constitutional: Reports: weakness Objective Objective Last 24 Hour Vital Signs Date Time Temp Pulse Resp B/P (MAP) Pulse Ox O2 Delivery O2 Flow Rate FiO2 12/28/18 12:00 98.1 89 20 152/84 (106) 97 12/28/18 09:00 Room Air 12/28/18 08:00 99.3 98 18 154/78 (103) 97 12/28/18 04:00 97.0 93 16 155/89 (111) 97 12/28/18 00:00 97.7 90 16 137/72 (93) 100 12/27/18 21:00 Room Air 12/27/18 20:00 97.9 94 17 150/95 (113) 97 12/27/18 16:00 98.7 87 18 144/77 (99) 99 Intake and Output 12/27/18 12/28/18 19:00 07:00 Intake Total 865.0 ml 705 ml Balance 865.0 ml 705 ml Intake Oral 480 ml IV Total 385.0 ml 705 ml # Voids 4 4 Laboratory Tests 12/28/18 04:45: White Blood Count 7.5, Red Blood Count 4.76, Hemoglobin 12.9, Hematocrit 38.0, Mean Corpuscular Volume 80, Mean Corpuscular Hemoglobin 27.0, Mean Corpuscular Hemoglobin Concent 33.8, Red Cell Distribution Width 11.3L, Platelet Count 223, Mean Platelet Volume 6.6, Neutrophils (%) (Auto) 56.7, Lymphocytes (%) (Auto) 34.3, Monocytes (%) (Auto) 8.4, Eosinophils (%) (Auto) 0.1, Basophils (%) (Auto ) 0.4, Prothrombin Time 10.7, Prothromb Time International Ratio 1.0, Activated Partial Thromboplast Time 22L, Sodium Level 139, Potassium Level 2.8L, Chloride Level 101, Carbon Dioxide Level 27, Anion Gap 11, Blood Urea Nitrogen 9, Creatinine 0.5L, Estimat Glomerular Filtration Rate > 60, Glucose Level 123H, Hemoglobin A1c 13.7H, Uric Acid 5.6, Calcium Level 8.3L, Phosphorus Level 1.7L, Magnesium Level 2.3, Total Bilirubin 0.4, Gamma Glutamyl Transpeptidase 41, Aspartate Amino Transf (AST/SGOT) 18, Alanine Aminotransferase (ALT/SGPT) 32, Alkaline Phosphatase 52, Pro-B-Type Natriuretic Peptide 594H, Total Protein 6.5 , Albumin 2.7L, Globulin 3.8, Albumin/Globulin Ratio 0.7L, Triglycerides Level 137, Cholesterol Level 183, LDL Cholesterol 118H, HDL Cholesterol 43, Cholesterol/HDL Ratio 4.3, Vitamin B12 Level 907, Folate 18.3, Thyroid Stimulating Hormone (TSH) 0.843 Height (Feet): 5 Height (Inches): 5.00 Weight (Pounds): 124 General Appearance: no apparent distress Cardiovascular: tachycardia Respiratory/Chest: decreased breath sounds Abdomen: soft Prabhakar Bowen MD Dec 28, 2018 14:45
--- NOTE | 2018-12-28 14:55 | NUR ---
*-* INSURANCE *-* UPDATED CLINICALS HAVE BEEN FAXED TO: [facility] REF#[id number] FAX CLINICALS TO [phone]
[2018-12-28 16:00] VITALS: BP 149/95
--- NOTE | 2018-12-28 16:03 | GI Progress Note ---
Assessment/Plan Problems: (1) GERD (gastroesophageal reflux disease) ICD Codes: K21.9 - Gastro-esophageal reflux disease without esophagitis SNOMED: 237902890 (2) Hyperglycemia due to type 1 diabetes mellitus ICD Codes: E10.65 - Type 1 diabetes mellitus with hyperglycemia; R19.7 - Diarrhea, unspecified SNOMED: 542333471273861, 92577998 (3) Nausea vomiting and diarrhea ICD Codes: R11.2 - Nausea with vomiting, unspecified; R19.7 - Diarrhea, unspecified SNOMED: 8489973 (4) Gastroparesis ICD Codes: K31.84 - Gastroparesis SNOMED: 225450287 (5) Abdominal pain ICD Codes: R10.9 - Unspecified abdominal pain SNOMED: 95646074, 20963505 Qualifiers: Qualified Codes: R10.84 - Generalized abdominal pain (6) Electrolyte imbalance ICD Codes: E87.8 - Other disorders of electrolyte and fluid balance, not elsewhere classified SNOMED: 539370391 (7) Gastroenteritis ICD Codes: K52.9 - Noninfective gastroenteritis and colitis, unspecified SNOMED: 10898035 (8) Dehydration ICD Codes: E86.0 - Dehydration SNOMED: 60823573, 13651894 Status: stable Status Narrative Discussed with Dr. Graham. Assessment/Plan cardiac work up negative EGD cancelled due to hypokalemia. We will give PPI twice daily Clear liquid diet, advance as tolerated PRN transfusions Zofran as needed, Reglan ATC for persistent vomiting p.o. And IV hydration plus electrolyte correction fu labs The patient was seen and examined at bedside and all new and available data was reviewed in the patients chart. I agree with the above findings, impression and plan. (Patient seen earlier today. Signature stamp does not reflect patient encounter time.). - Franco Graham MD Subjective Subjective Patient still complains of abdominal pain Still has complaint of overall generalized weakness Unable to tolerate food has constant nausea Objective Last 24 Hour Vital Signs Date Time Temp Pulse Resp B/P (MAP) Pulse Ox O2 Delivery O2 Flow Rate FiO2 12/28/18 12:00 98.1 89 20 152/84 (106) 97 12/28/18 09:00 Room Air 12/28/18 08:00 99.3 98 18 154/78 (103) 97 12/28/18 04:00 97.0 93 16 155/89 (111) 97 12/28/18 00:00 97.7 90 16 137/72 (93) 100 12/27/18 21:00 Room Air 12/27/18 20:00 97.9 94 17 150/95 (113) 97 Intake and Output 12/27/18 12/28/18 19:00 07:00 Intake Total 865.0 ml 705 ml Balance 865.0 ml 705 ml Intake Oral 480 ml IV Total 385.0 ml 705 ml # Voids 4 4 Laboratory Tests Test 12/28/18 04:45 White Blood Count 7.5 K/UL (4.8-10.8) Red Blood Count 4.76 M/UL (4.20-5.40) Hemoglobin 12.9 G/DL (12.0-16.0) Hematocrit 38.0 % (37.0-47.0) Mean Corpuscular Volume 80 FL (80-99) Mean Corpuscular Hemoglobin 27.0 PG (27.0-31.0) Mean Corpuscular Hemoglobin Concent 33.8 G/DL (32.0-36.0) Red Cell Distribution Width 11.3 % (11.6-14.8) L Platelet Count 223 K/UL (150-450) Mean Platelet Volume 6.6 FL (6.5-10.1) Neutrophils (%) (Auto) 56.7 % (45.0-75.0) Lymphocytes (%) (Auto) 34.3 % (20.0-45.0) Monocytes (%) (Auto) 8.4 % (1.0-10.0) Eosinophils (%) (Auto) 0.1 % (0.0-3.0) Basophils (%) (Auto) 0.4 % (0.0-2.0) Prothrombin Time 10.7 SEC (9.30-11.50) Prothromb Time International Ratio 1.0 (0.9-1.1) Activated Partial Thromboplast Time 22 SEC (23-33) L Sodium Level 139 MMOL/L (136-145) Potassium Level 2.8 MMOL/L (3.5-5.1) L Chloride Level 101 MMOL/L (98-107) Carbon Dioxide Level 27 MMOL/L (21-32) Anion Gap 11 mmol/L (5-15) Blood Urea Nitrogen 9 mg/dL (7-18) Creatinine 0.5 MG/DL (0.55-1.30) L Estimat Glomerular Filtration Rate > 60 mL/min (>60) Glucose Level 123 MG/DL (74-106) H Hemoglobin A1c 13.7 % (4.3-6.0) H Uric Acid 5.6 MG/DL (2.6-7.2) Calcium Level 8.3 MG/DL (8.5-10.1) L Phosphorus Level 1.7 MG/DL (2.5-4.9) L Magnesium Level 2.3 MG/DL (1.8-2.4) Total Bilirubin 0.4 MG/DL (0.2-1.0) Gamma Glutamyl Transpeptidase 41 U/L (5-85) Aspartate Amino Transf (AST/SGOT) 18 U/L (15-37) Alanine Aminotransferase (ALT/SGPT) 32 U/L (12-78) Alkaline Phosphatase 52 U/L (46-116) C-Reactive Protein, Quantitative 1.0 mg/dL (0.00-0.90) H Pro-B-Type Natriuretic Peptide 594 pg/mL (0-125) H Total Protein 6.5 G/DL (6.4-8.2) Albumin 2.7 G/DL (3.4-5.0) L Globulin 3.8 g/dL Albumin/Globulin Ratio 0.7 (1.0-2.7) L Triglycerides Level 137 MG/DL (30-150) Cholesterol Level 183 MG/DL (< 200) LDL Cholesterol 118 mg/dL (<100) H HDL Cholesterol 43 MG/DL (40-60) Cholesterol/HDL Ratio 4.3 (3.3-4.4) Vitamin B12 Level 907 PG/ML (193-986) Folate 18.3 NG/ML (8.6-58.9) Thyroid Stimulating Hormone (TSH) 0.843 uiU/mL (0.358-3.740) Height (Feet): 5 Height (Inches): 5.00 Weight (Pounds): 124 General Appearance: WD/WN, no apparent distress, alert Cardiovascular: normal rate Respiratory/Chest: normal breath sounds, no respiratory distress Abdominal Exam: normal bowel sounds, non tender, soft Extremities: normal range of motion, non-tender Brown,Arabella-Leo ALMOND SORTER Dec 28, 2018 16:03
--- NOTE | 2018-12-28 16:07 | Infectious Diseases Prog Note ---
Assessment/Plan Assessment/Plan A; UTI with ESBL E. coli Syncope Dehydration DM Nausea/Vomiting Hypokalemia P: Change Rocephin to Cipro Waiting for EGD Subjective ROS Limited/Unobtainable: No Constitutional: Reports: fatigue Respiratory: Reports: no symptoms Cardiovascular: Reports: no symptoms Gastrointestinal/Abdominal: Reports: nausea, other - epigastric pain Genitourinary: Reports: no symptoms Allergies: Coded Allergies: No Known Allergies (Unverified , 12/26/18) Objective Vital Signs Last 24 Hour Vital Signs Date Time Temp Pulse Resp B/P (MAP) Pulse Ox O2 Delivery O2 Flow Rate FiO2 12/28/18 12:00 98.1 89 20 152/84 (106) 97 12/28/18 09:00 Room Air 12/28/18 08:00 99.3 98 18 154/78 (103) 97 12/28/18 04:00 97.0 93 16 155/89 (111) 97 12/28/18 00:00 97.7 90 16 137/72 (93) 100 12/27/18 21:00 Room Air 12/27/18 20:00 97.9 94 17 150/95 (113) 97 Height (Feet): 5 Height (Inches): 5.00 Weight (Pounds): 124 HEENT: mucous membranes moist Respiratory/Chest: normal breath sounds Cardiovascular: normal rate Abdomen: soft, non tender Extremities: no edema Neurologic/Psychiatric: alert, oriented x 3, responsive Microbiology Date/Time Source Procedure Growth Status 12/26/18 00:50 Urine,Clean Catch Urine Culture - Final Escherichia Coli - Esbl Complete Laboratory Tests Test 12/28/18 04:45 White Blood Count 7.5 K/UL (4.8-10.8) Red Blood Count 4.76 M/UL (4.20-5.40) Hemoglobin 12.9 G/DL (12.0-16.0) Hematocrit 38.0 % (37.0-47.0) Mean Corpuscular Volume 80 FL (80-99) Mean Corpuscular Hemoglobin 27.0 PG (27.0-31.0) Mean Corpuscular Hemoglobin Concent 33.8 G/DL (32.0-36.0) Red Cell Distribution Width 11.3 % (11.6-14.8) L Platelet Count 223 K/UL (150-450) Mean Platelet Volume 6.6 FL (6.5-10.1) Neutrophils (%) (Auto) 56.7 % (45.0-75.0) Lymphocytes (%) (Auto) 34.3 % (20.0-45.0) Monocytes (%) (Auto) 8.4 % (1.0-10.0) Eosinophils (%) (Auto) 0.1 % (0.0-3.0) Basophils (%) (Auto) 0.4 % (0.0-2.0) Prothrombin Time 10.7 SEC (9.30-11.50) Prothromb Time International Ratio 1.0 (0.9-1.1) Activated Partial Thromboplast Time 22 SEC (23-33) L Sodium Level 139 MMOL/L (136-145) Potassium Level 2.8 MMOL/L (3.5-5.1) L Chloride Level 101 MMOL/L (98-107) Carbon Dioxide Level 27 MMOL/L (21-32) Anion Gap 11 mmol/L (5-15) Blood Urea Nitrogen 9 mg/dL (7-18) Creatinine 0.5 MG/DL (0.55-1.30) L Estimat Glomerular Filtration Rate > 60 mL/min (>60) Glucose Level 123 MG/DL (74-106) H Hemoglobin A1c 13.7 % (4.3-6.0) H Uric Acid 5.6 MG/DL (2.6-7.2) Calcium Level 8.3 MG/DL (8.5-10.1) L Phosphorus Level 1.7 MG/DL (2.5-4.9) L Magnesium Level 2.3 MG/DL (1.8-2.4) Total Bilirubin 0.4 MG/DL (0.2-1.0) Gamma Glutamyl Transpeptidase 41 U/L (5-85) Aspartate Amino Transf (AST/SGOT) 18 U/L (15-37) Alanine Aminotransferase (ALT/SGPT) 32 U/L (12-78) Alkaline Phosphatase 52 U/L (46-116) C-Reactive Protein, Quantitative 1.0 mg/dL (0.00-0.90) H Pro-B-Type Natriuretic Peptide 594 pg/mL (0-125) H Total Protein 6.5 G/DL (6.4-8.2) Albumin 2.7 G/DL (3.4-5.0) L Globulin 3.8 g/dL Albumin/Globulin Ratio 0.7 (1.0-2.7) L Triglycerides Level 137 MG/DL (30-150) Cholesterol Level 183 MG/DL (< 200) LDL Cholesterol 118 mg/dL (<100) H HDL Cholesterol 43 MG/DL (40-60) Cholesterol/HDL Ratio 4.3 (3.3-4.4) Vitamin B12 Level 907 PG/ML (193-986) Folate 18.3 NG/ML (8.6-58.9) Thyroid Stimulating Hormone (TSH) 0.843 uiU/mL (0.358-3.740) Current Medications Medications (Trade) Dose Ordered Sig/Adalberto Route PRN Reason Start Time Stop Time Status Last Admin Dose Admin Acetaminophen (Tylenol) 500 mg Q4H PRN ORAL Mild Pain/Temp > 100.5 12/26/18 04:30 01/25/19 04:29 Ciprofloxacin (Cipro 500mg tab) 500 mg EVERY 12 HOURS ORAL 12/28/18 21:00 01/04/19 20:59 Dextrose (Dextrose 50%) 25 ml Q30M PRN IV Hypoglycemia 12/26/18 04:30 01/25/19 04:29 Dextrose (Dextrose 50%) 50 ml Q30M PRN IV Hypoglycemia 12/26/18 04:30 01/25/19 04:29 Dextrose/ Electrolytes 1,000 ml @ 50 mls/hr Q20H IV 12/28/18 16:00 01/27/19 15:59 Insulin Aspart (NovoLOG) BEFORE MEALS AND HS SUBQ 12/26/18 22:30 01/25/19 22:29 12/27/18 20:50 Insulin Detemir (Levemir) 25 units BEDTIME SUBQ 12/27/18 21:00 01/25/19 22:29 12/27/18 20:49 Lisinopril (Zestril) 2.5 mg DAILY ORAL 12/28/18 15:00 01/27/19 14:59 Metoclopramide HCl (Reglan) 10 mg THREE TIMES A DAY ORAL 12/26/18 13:00 01/25/19 12:59 12/27/18 09:14 Morphine Sulfate (Morphine Sulfate) 2 mg Q4H PRN IVP mod-sev 4-10 pain 12/26/18 04:30 01/02/19 04:29 12/26/18 06:46 Ondansetron HCl (Zofran) 4 mg Q6H PRN IVP Nausea & Vomiting 12/26/18 04:30 01/25/19 04:29 12/28/18 10:43 Pantoprazole (Protonix) 40 mg BIAC ORAL 12/26/18 16:30 01/25/19 16:29 12/28/18 06:13 Potassium Chloride (K-Dur) 40 meq TWICE A DAY ORAL 12/28/18 18:00 01/27/19 17:59 Sodium Phosphate 30 mm/Sodium Chloride 285 ml @ 47.5 mls/hr ONCE IVPB 12/28/18 17:00 12/28/18 23:00 Ravi Roman MD Dec 28, 2018 16:07
[2018-12-28] MEDS ORDERED: Sodium Phosphate 30 MM in NS 275 ML IVPB SCH (17:00)
[2018-12-28] MEDS: Lisinopril 2.5mg tab ORAL SCH (17:05)
--- NOTE | 2018-12-28 19:41 | NUR ---
HAND-OFF: Report given to ALONZO Gibson.
--- NOTE | 2018-12-28 19:55 | NUR ---
NURSE NOTES: Pt received asleep, woke up to say hello, sodium phosphate running, bed in lowest position, call light within reach, able to make needs known.
[2018-12-28 20:00] VITALS: BP 132/77
[2018-12-28] MEDS: Ciprofloxacin 500mg tab ORAL SCH (21:23)
[2018-12-28] MEDS: Levemir Flexpen SUBQ SCH (21:26)
--- NOTE | 2018-12-28 23:22 | General Progress Note ---
Assessment/Plan Problem List: (1) Dehydration ICD Codes: E86.0 - Dehydration SNOMED: 28393687, 89585884 (2) Gastroenteritis ICD Codes: K52.9 - Noninfective gastroenteritis and colitis, unspecified SNOMED: 22166997 (3) Electrolyte imbalance ICD Codes: E87.8 - Other disorders of electrolyte and fluid balance, not elsewhere classified SNOMED: 142183207 (4) Abdominal pain ICD Codes: R10.9 - Unspecified abdominal pain SNOMED: 65554578, 32521980 Qualifiers: Qualified Codes: R10.84 - Generalized abdominal pain (5) Gastroparesis ICD Codes: K31.84 - Gastroparesis SNOMED: 640061395 (6) Nausea vomiting and diarrhea ICD Codes: R11.2 - Nausea with vomiting, unspecified; R19.7 - Diarrhea, unspecified SNOMED: 2865986 (7) Hyperglycemia due to type 1 diabetes mellitus ICD Codes: E10.65 - Type 1 diabetes mellitus with hyperglycemia; R19.7 - Diarrhea, unspecified SNOMED: 814808953680452, 63757918 (8) GERD (gastroesophageal reflux disease) ICD Codes: K21.9 - Gastro-esophageal reflux disease without esophagitis SNOMED: 254493552 Status: progressing Assessment/Plan nausea and vomitting is improving' dc in am check labs afebrile niddm.sugar is improving weak lyte abnormality is improving Subjective Gastrointestinal/Abdominal: Reports: nausea Allergies: Coded Allergies: No Known Allergies (Unverified , 12/26/18) Objective Last 24 Hour Vital Signs Date Time Temp Pulse Resp B/P (MAP) Pulse Ox O2 Delivery O2 Flow Rate FiO2 12/28/18 21:00 Room Air 12/28/18 20:00 98.9 90 18 132/77 (95) 97 12/28/18 17:05 149/95 12/28/18 16:00 97.9 94 20 149/95 (113) 100 12/28/18 12:00 98.1 89 20 152/84 (106) 97 12/28/18 09:00 Room Air 12/28/18 08:00 99.3 98 18 154/78 (103) 97 12/28/18 04:00 97.0 93 16 155/89 (111) 97 12/28/18 00:00 97.7 90 16 137/72 (93) 100 Intake and Output 12/27/18 12/28/18 19:00 07:00 Intake Total 865.0 ml 705 ml Balance 865.0 ml 705 ml Intake Oral 480 ml IV Total 385.0 ml 705 ml # Voids 4 4 Laboratory Tests 12/28/18 04:45: White Blood Count 7.5, Red Blood Count 4.76, Hemoglobin 12.9, Hematocrit 38.0, Mean Corpuscular Volume 80, Mean Corpuscular Hemoglobin 27.0, Mean Corpuscular Hemoglobin Concent 33.8, Red Cell Distribution Width 11.3L, Platelet Count 223, Mean Platelet Volume 6.6, Neutrophils (%) (Auto) 56.7, Lymphocytes (%) (Auto) 34.3, Monocytes (%) (Auto) 8.4, Eosinophils (%) (Auto) 0.1, Basophils (%) (Auto ) 0.4, Prothrombin Time 10.7, Prothromb Time International Ratio 1.0, Activated Partial Thromboplast Time 22L, Sodium Level 139, Potassium Level 2.8L, Chloride Level 101, Carbon Dioxide Level 27, Anion Gap 11, Blood Urea Nitrogen 9, Creatinine 0.5L, Estimat Glomerular Filtration Rate > 60, Glucose Level 123H, Hemoglobin A1c 13.7H, Uric Acid 5.6, Calcium Level 8.3L, Phosphorus Level 1.7L, Magnesium Level 2.3, Total Bilirubin 0.4, Gamma Glutamyl Transpeptidase 41, Aspartate Amino Transf (AST/SGOT) 18, Alanine Aminotransferase (ALT/SGPT) 32, Alkaline Phosphatase 52, C-Reactive Protein, Quantitative 1.0H, Pro-B-Type Natriuretic Peptide 594H, Total Protein 6.5, Albumin 2.7L, Globulin 3.8, Albumin /Globulin Ratio 0.7L, Triglycerides Level 137, Cholesterol Level 183, LDL Cholesterol 118H, HDL Cholesterol 43, Cholesterol/HDL Ratio 4.3, Vitamin B12 Level 907, Folate 18.3, Thyroid Stimulating Hormone (TSH) 0.843 Height (Feet): 5 Height (Inches): 5.00 Weight (Pounds): 124 Respiratory/Chest: lungs clear Abdomen: soft Ondina Dailey MD Dec 28, 2018 23:22
[2018-12-29] VITALS: BP 150/90
[2018-12-29 04:00] VITALS: BP 157/88
[2018-12-29] MEDS: Morphine Sulfate 4mg/ml Inj (IV USE ONLY) IVP PRN (06:18)
[2018-12-29] MEDS: NovoLOG Insulin Flexpen SUBQ SCH ×4 (06:19→20:56)
[2018-12-29 07:02] LABS: ALANINE AMINOTRANSFERASE 29 U/L (12-78); ALBUMIN 2.4 G/DL (3.4-5.0); ALBUMIN/GLOBULIN RATIO 0.7 (1.0-2.7); ALKALINE PHOSPHATASE 53 U/L (46-116); ANION GAP 8 mmol/L (5-15); ASPARTATE AMINO TRANSFERASE 16 U/L (15-37); BILIRUBIN,TOTAL 0.6 MG/DL (0.2-1.0); BLOOD UREA NITROGEN 8 mg/dL (7-18); CALCIUM 8.3 MG/DL (8.5-10.1); CARBON DIOXIDE 29 MMOL/L (21-32); CHLORIDE 102 MMOL/L (98-107); CREATININE 0.5 MG/DL (0.55-1.30); PHOSPHORUS 2.6 MG/DL (2.5-4.9); SODIUM 139 MMOL/L (136-145)
[2018-12-29 07:05] LABS: POTASSIUM 2.7 MMOL/L (3.5-5.1)
[2018-12-29 07:09] LABS: BASOPHILS % (AUTO) 0.4 % (0.0-2.0); EOSINOPHILS % (AUTO) 0.2 % (0.0-3.0); HEMATOCRIT 36.3 % (37.0-47.0); HEMOGLOBIN 12.3 G/DL (12.0-16.0); LYMPHOCYTES % (AUTO) 38.9 % (20.0-45.0); MEAN CORPUSCULAR VOLUME 80 FL (80-99); MONOCYTES % (AUTO) 11.3 % (1.0-10.0); NEUTROPHILS % (AUTO) 49.2 % (45.0-75.0); PLATELET COUNT 206 K/UL (150-450); RED BLOOD COUNT 4.53 M/UL (4.20-5.40); RED CELL DISTRIBUTION WIDTH 11.1 % (11.6-14.8); WHITE BLOOD COUNT 5.4 K/UL (4.8-10.8)
[2018-12-29] MEDS ORDERED: Tubing IV Secondary IV ONE (07:40)
--- NOTE | 2018-12-29 07:43 | NUR ---
NURSE NOTES: received report from ALONZO Gibson. patient in bed, alert, verbally responsive. no distress noted. weak. iv intact. bed in the lowest position. call light within reach. alarm on. will continue to monitor.
--- NOTE | 2018-12-29 07:46 | NUR ---
NURSE NOTES: Called DR Bowen and left voicemail, pt K 2.7. Dr. Beaver ordered 40meq Potassium Oral now and 40 meq Potassium IV stat. Orders put in the system and endorsed to morning shift nurse Radha.
--- NOTE | 2018-12-29 07:50 | NUR ---
HAND-OFF: Report given to ALONZO Garcia.
--- NOTE | 2018-12-29 07:54 | General Progress Note ---
Assessment/Plan Problem List: (1) Diabetes mellitus out of control ICD Codes: E11.65 - Type 2 diabetes mellitus with hyperglycemia SNOMED: 21540153, 612693565 (2) Electrolyte imbalance ICD Codes: E87.8 - Other disorders of electrolyte and fluid balance, not elsewhere classified SNOMED: 102955853 (3) Abdominal pain ICD Codes: R10.9 - Unspecified abdominal pain SNOMED: 24520015, 16695512 Qualifiers: Qualified Codes: R10.84 - Generalized abdominal pain Assessment/Plan continue Levemir 25 units qhs continue NISS ac / hs KCL 40 mep IV and PO x one now Subjective Allergies: Coded Allergies: No Known Allergies (Unverified , 12/26/18) All Systems: reviewed and negative except above Subjective K continues to be low Item Value Date Time Bedside Blood Glucose 161 mg/dl H 12/29/18 0630 Bedside Blood Glucose 187 mg/dl H 12/28/18 2126 Bedside Blood Glucose 185 mg/dl H 12/28/18 1706 Bedside Blood Glucose 114 mg/dl 12/28/18 1130 Objective Last 24 Hour Vital Signs Date Time Temp Pulse Resp B/P (MAP) Pulse Ox O2 Delivery O2 Flow Rate FiO2 12/29/18 04:00 98.2 96 18 157/88 (111) 98 12/29/18 00:00 98.7 92 18 150/90 (110) 98 12/28/18 21:00 Room Air 12/28/18 20:00 98.9 90 18 132/77 (95) 97 12/28/18 17:05 149/95 12/28/18 16:00 97.9 94 20 149/95 (113) 100 12/28/18 12:00 98.1 89 20 152/84 (106) 97 12/28/18 09:00 Room Air 12/28/18 08:00 99.3 98 18 154/78 (103) 97 Intake and Output 12/28/18 12/29/18 18:59 06:59 Intake Total 1947.5 ml Output Total 1300 ml Balance 647.5 ml Intake Oral 1900 ml IV Total 47.5 ml Output Urine Total 1300 ml # Voids 3 Laboratory Tests 12/29/18 05:20: White Blood Count 5.4, Red Blood Count 4.53, Hemoglobin 12.3, Hematocrit 36.3L, Mean Corpuscular Volume 80, Mean Corpuscular Hemoglobin 27.2, Mean Corpuscular Hemoglobin Concent 34.0, Red Cell Distribution Width 11.1L, Platelet Count 206, Mean Platelet Volume 6.7, Neutrophils (%) (Auto) 49.2, Lymphocytes (%) (Auto) 38.9, Monocytes (%) (Auto) 11.3H, Eosinophils (%) (Auto) 0.2, Basophils (%) ( Auto) 0.4, Sodium Level 139, Potassium Level 2.7*L, Chloride Level 102, Carbon Dioxide Level 29, Anion Gap 8, Blood Urea Nitrogen 8, Creatinine 0.5L, Estimat Glomerular Filtration Rate > 60, Glucose Level 167H, Uric Acid 4.7, Calcium Level 8.3L, Phosphorus Level 2.6, Magnesium Level 1.7L, Total Bilirubin 0.6, Aspartate Amino Transf (AST/SGOT) 16, Alanine Aminotransferase (ALT/SGPT) 29, Alkaline Phosphatase 53, Pro-B-Type Natriuretic Peptide 487H, Total Protein 5.8L , Albumin 2.4L, Globulin 3.4, Albumin/Globulin Ratio 0.7L Height (Feet): 5 Height (Inches): 5.00 Weight (Pounds): 124 General Appearance: no apparent distress Neck: normal alignment Cardiovascular: normal rate Respiratory/Chest: lungs clear Abdomen: normal bowel sounds Objective Current Medications Medications (Trade) Dose Ordered Sig/Adalberto Route PRN Reason Start Time Stop Time Status Last Admin Dose Admin Acetaminophen (Tylenol) 500 mg Q4H PRN ORAL Mild Pain/Temp > 100.5 12/26/18 04:30 01/25/19 04:29 Ciprofloxacin (Cipro 500mg tab) 500 mg EVERY 12 HOURS ORAL 12/28/18 21:00 01/04/19 20:59 12/28/18 21:23 Dextrose (Dextrose 50%) 25 ml Q30M PRN IV Hypoglycemia 12/26/18 04:30 01/25/19 04:29 Dextrose (Dextrose 50%) 50 ml Q30M PRN IV Hypoglycemia 12/26/18 04:30 01/25/19 04:29 Dextrose/ Electrolytes 1,000 ml @ 50 mls/hr Q20H IV 12/28/18 16:00 01/27/19 15:59 Insulin Aspart (NovoLOG) BEFORE MEALS AND HS SUBQ 12/26/18 22:30 01/25/19 22:29 12/29/18 06:19 Insulin Detemir (Levemir) 25 units BEDTIME SUBQ 12/27/18 21:00 01/25/19 22:29 12/28/18 21:26 Lisinopril (Zestril) 2.5 mg DAILY ORAL 12/28/18 15:00 01/27/19 14:59 12/28/18 17:05 Metoclopramide HCl (Reglan) 10 mg THREE TIMES A DAY ORAL 12/26/18 13:00 01/25/19 12:59 12/28/18 17:04 Morphine Sulfate (Morphine Sulfate) 2 mg Q4H PRN IVP mod-sev 4-10 pain 12/26/18 04:30 01/02/19 04:29 12/29/18 06:18 Ondansetron HCl (Zofran) 4 mg Q6H PRN IVP Nausea & Vomiting 12/26/18 04:30 01/25/19 04:29 12/28/18 10:43 Pantoprazole (Protonix) 40 mg BIAC ORAL 12/26/18 16:30 01/25/19 16:29 12/29/18 06:15 Potassium Chloride 100 ml @ 100 mls/hr Q1H IVPB 12/29/18 08:00 12/29/18 11:59 Potassium Chloride (K-Dur) 40 meq ONCE ORAL 12/29/18 08:00 12/29/18 09:00 Potassium Chloride (K-Dur) 40 meq TWICE A DAY ORAL 12/28/18 18:00 01/27/19 17:59 12/28/18 17:05 Julio Beaver MD Dec 29, 2018 07:54
[2018-12-29 08:00] VITALS: BP 110/58
[2018-12-29] MEDS: Ciprofloxacin 500mg tab ORAL SCH ×2 (08:06→20:49)
[2018-12-29] MEDS: Lisinopril 2.5mg tab ORAL SCH ×3 (08:08→20:50)
--- NOTE | 2018-12-29 11:06 | Infectious Diseases Prog Note ---
Assessment/Plan Assessment/Plan antibiotics : ciprofloxacin A 1. e.coli UTI 2. diabetes mellitus 3. hypokalemia P 1. continue ciprofloxacin 2. will follow up cultures Subjective Constitutional: Denies: fever Respiratory: Reports: shortness of breath, dry cough Gastrointestinal/Abdominal: Reports: nausea, vomiting; Denies: diarrhea Musculoskeletal: Reports: pain - in abdomen Allergies: Coded Allergies: No Known Allergies (Unverified , 12/26/18) Objective Vital Signs Last 24 Hour Vital Signs Date Time Temp Pulse Resp B/P (MAP) Pulse Ox O2 Delivery O2 Flow Rate FiO2 12/29/18 09:00 Room Air 12/29/18 08:39 110/58 12/29/18 08:08 110/58 12/29/18 08:00 98.8 99 19 110/58 (75) 96 12/29/18 04:00 98.2 96 18 157/88 (111) 98 12/29/18 00:00 98.7 92 18 150/90 (110) 98 12/28/18 21:00 Room Air 12/28/18 20:00 98.9 90 18 132/77 (95) 97 12/28/18 17:05 149/95 12/28/18 16:00 97.9 94 20 149/95 (113) 100 12/28/18 12:00 98.1 89 20 152/84 (106) 97 Height (Feet): 5 Height (Inches): 5.00 Weight (Pounds): 124 Laboratory Tests Test 12/29/18 05:20 White Blood Count 5.4 K/UL (4.8-10.8) Red Blood Count 4.53 M/UL (4.20-5.40) Hemoglobin 12.3 G/DL (12.0-16.0) Hematocrit 36.3 % (37.0-47.0) L Mean Corpuscular Volume 80 FL (80-99) Mean Corpuscular Hemoglobin 27.2 PG (27.0-31.0) Mean Corpuscular Hemoglobin Concent 34.0 G/DL (32.0-36.0) Red Cell Distribution Width 11.1 % (11.6-14.8) L Platelet Count 206 K/UL (150-450) Mean Platelet Volume 6.7 FL (6.5-10.1) Neutrophils (%) (Auto) 49.2 % (45.0-75.0) Lymphocytes (%) (Auto) 38.9 % (20.0-45.0) Monocytes (%) (Auto) 11.3 % (1.0-10.0) H Eosinophils (%) (Auto) 0.2 % (0.0-3.0) Basophils (%) (Auto) 0.4 % (0.0-2.0) Sodium Level 139 MMOL/L (136-145) Potassium Level 2.7 MMOL/L (3.5-5.1) *L Chloride Level 102 MMOL/L (98-107) Carbon Dioxide Level 29 MMOL/L (21-32) Anion Gap 8 mmol/L (5-15) Blood Urea Nitrogen 8 mg/dL (7-18) Creatinine 0.5 MG/DL (0.55-1.30) L Estimat Glomerular Filtration Rate > 60 mL/min (>60) Glucose Level 167 MG/DL (74-106) H Uric Acid 4.7 MG/DL (2.6-7.2) Calcium Level 8.3 MG/DL (8.5-10.1) L Phosphorus Level 2.6 MG/DL (2.5-4.9) Magnesium Level 1.7 MG/DL (1.8-2.4) L Total Bilirubin 0.6 MG/DL (0.2-1.0) Aspartate Amino Transf (AST/SGOT) 16 U/L (15-37) Alanine Aminotransferase (ALT/SGPT) 29 U/L (12-78) Alkaline Phosphatase 53 U/L (46-116) Pro-B-Type Natriuretic Peptide 487 pg/mL (0-125) H Total Protein 5.8 G/DL (6.4-8.2) L Albumin 2.4 G/DL (3.4-5.0) L Globulin 3.4 g/dL Albumin/Globulin Ratio 0.7 (1.0-2.7) L Current Medications Medications (Trade) Dose Ordered Sig/Adalberto Route PRN Reason Start Time Stop Time Status Last Admin Dose Admin Acetaminophen (Tylenol) 500 mg Q4H PRN ORAL Mild Pain/Temp > 100.5 12/26/18 04:30 01/25/19 04:29 Ciprofloxacin (Cipro 500mg tab) 500 mg EVERY 12 HOURS ORAL 12/28/18 21:00 01/04/19 20:59 12/29/18 08:06 Dextrose (Dextrose 50%) 25 ml Q30M PRN IV Hypoglycemia 12/26/18 04:30 01/25/19 04:29 Dextrose (Dextrose 50%) 50 ml Q30M PRN IV Hypoglycemia 12/26/18 04:30 01/25/19 04:29 Dextrose/ Electrolytes 1,000 ml @ 50 mls/hr Q20H IV 12/28/18 16:00 01/27/19 15:59 Insulin Aspart (NovoLOG) BEFORE MEALS AND HS SUBQ 12/26/18 22:30 01/25/19 22:29 12/29/18 06:19 Insulin Detemir (Levemir) 25 units BEDTIME SUBQ 12/27/18 21:00 01/25/19 22:29 12/28/18 21:26 Lisinopril (Zestril) 2.5 mg Q12HR ORAL 12/29/18 09:00 01/28/19 08:59 Metoclopramide HCl (Reglan) 10 mg THREE TIMES A DAY ORAL 12/26/18 13:00 01/25/19 12:59 12/29/18 08:07 Morphine Sulfate (Morphine Sulfate) 2 mg Q4H PRN IVP mod-sev 4-10 pain 12/26/18 04:30 01/02/19 04:29 12/29/18 06:18 Ondansetron HCl (Zofran) 4 mg Q6H PRN IVP Nausea & Vomiting 12/26/18 04:30 01/25/19 04:29 12/29/18 08:07 Pantoprazole (Protonix) 40 mg BIAC ORAL 12/26/18 16:30 01/25/19 16:29 12/29/18 06:15 Potassium Chloride 100 ml @ 100 mls/hr Q1H IVPB 12/29/18 08:00 12/29/18 11:59 12/29/18 10:15 Potassium Chloride (K-Dur) 40 meq TWICE A DAY ORAL 12/28/18 18:00 01/27/19 17:59 12/29/18 08:39 Tray Moore MD Dec 29, 2018 11:06
[2018-12-29 12:00] VITALS: BP 140/81
--- NOTE | 2018-12-29 12:11 | Nephrology Progress Note ---
Assessment/Plan Problem List: (1) Dehydration (2) UTI (urinary tract infection) (3) Gastroparesis (4) Nausea vomiting and diarrhea (5) Hyperglycemia due to type 1 diabetes mellitus Assessment Dehydration UTI Electrolytre imbalance Syncope Abdominal pain Nausea vomiting and diarrhea Hyperglycemia due to type 1 diabetes mellitus Plan add Zestril increase HS Levemir k and Phos and Mag supplement as needed Antibiotics Monitor lytes Subjective ROS Limited/Unobtainable: No Constitutional: Reports: other - no diarrhea Objective Objective Last 24 Hour Vital Signs Date Time Temp Pulse Resp B/P (MAP) Pulse Ox O2 Delivery O2 Flow Rate FiO2 12/29/18 09:00 Room Air 12/29/18 08:39 110/58 12/29/18 08:08 110/58 12/29/18 08:00 98.8 99 19 110/58 (75) 96 12/29/18 04:00 98.2 96 18 157/88 (111) 98 12/29/18 00:00 98.7 92 18 150/90 (110) 98 12/28/18 21:00 Room Air 12/28/18 20:00 98.9 90 18 132/77 (95) 97 12/28/18 17:05 149/95 12/28/18 16:00 97.9 94 20 149/95 (113) 100 Intake and Output 12/28/18 12/29/18 19:00 07:00 Intake Total 1947.5 ml Output Total 1300 ml Balance 647.5 ml Intake Oral 1900 ml IV Total 47.5 ml Output Urine Total 1300 ml # Voids 3 Laboratory Tests 12/29/18 05:20: White Blood Count 5.4, Red Blood Count 4.53, Hemoglobin 12.3, Hematocrit 36.3L, Mean Corpuscular Volume 80, Mean Corpuscular Hemoglobin 27.2, Mean Corpuscular Hemoglobin Concent 34.0, Red Cell Distribution Width 11.1L, Platelet Count 206, Mean Platelet Volume 6.7, Neutrophils (%) (Auto) 49.2, Lymphocytes (%) (Auto) 38.9, Monocytes (%) (Auto) 11.3H, Eosinophils (%) (Auto) 0.2, Basophils (%) ( Auto) 0.4, Sodium Level 139, Potassium Level 2.7*L, Chloride Level 102, Carbon Dioxide Level 29, Anion Gap 8, Blood Urea Nitrogen 8, Creatinine 0.5L, Estimat Glomerular Filtration Rate > 60, Glucose Level 167H, Uric Acid 4.7, Calcium Level 8.3L, Phosphorus Level 2.6, Magnesium Level 1.7L, Total Bilirubin 0.6, Aspartate Amino Transf (AST/SGOT) 16, Alanine Aminotransferase (ALT/SGPT) 29, Alkaline Phosphatase 53, Pro-B-Type Natriuretic Peptide 487H, Total Protein 5.8L , Albumin 2.4L, Globulin 3.4, Albumin/Globulin Ratio 0.7L Height (Feet): 5 Height (Inches): 5.00 Weight (Pounds): 124 General Appearance: no apparent distress Respiratory/Chest: lungs clear Abdomen: soft Objective no change Prabhakar Bowen MD Dec 29, 2018 12:10
--- NOTE | 2018-12-29 14:35 | NUR ---
CASE MANAGEMENT: REVIEW SI: UTI . GASTROPARESIS EGD 12/28 T 98.8 89 RR 24 BP 157/88 SAT 96% ROOM AIR K 2.7 BNP 487 IS: REGLAN PO TID MAG SULFATE IV@100ML/HR CIPRO PO Q12HR K-DUR PO BID D5NS w/20mEq IVF @50ML/HR FULL LIQUID PO DIET MED/SURG STATUS DCP: PATIENT IS FROM A [facility]
[2018-12-29 16:00] VITALS: BP 156/98
--- NOTE | 2018-12-29 16:42 | GI Progress Note ---
Assessment/Plan Problems: (1) GERD (gastroesophageal reflux disease) ICD Codes: K21.9 - Gastro-esophageal reflux disease without esophagitis SNOMED: 447836515 (2) Hyperglycemia due to type 1 diabetes mellitus ICD Codes: E10.65 - Type 1 diabetes mellitus with hyperglycemia; R19.7 - Diarrhea, unspecified SNOMED: 094309701242930, 65067152 (3) Nausea vomiting and diarrhea ICD Codes: R11.2 - Nausea with vomiting, unspecified; R19.7 - Diarrhea, unspecified SNOMED: 9263624 (4) Gastroparesis ICD Codes: K31.84 - Gastroparesis SNOMED: 772954164 (5) Abdominal pain ICD Codes: R10.9 - Unspecified abdominal pain SNOMED: 48558581, 01798769 Qualifiers: Qualified Codes: R10.84 - Generalized abdominal pain (6) Electrolyte imbalance ICD Codes: E87.8 - Other disorders of electrolyte and fluid balance, not elsewhere classified SNOMED: 655444480 (7) Gastroenteritis ICD Codes: K52.9 - Noninfective gastroenteritis and colitis, unspecified SNOMED: 34384845 (8) Dehydration ICD Codes: E86.0 - Dehydration SNOMED: 41551390, 43439364 Status: unchanged Status Narrative Discussed with Dr. Graham. Assessment/Plan cardiac work up negative severe hypokalemia EGD cancelled due to hypokalemia, rescheduled for monday. electrolyte correction We will give PPI twice daily Clear liquid diet, advance as tolerated PRN transfusions Zofran as needed, Reglan ATC for persistent vomiting p.o. And IV hydration plus electrolyte correction fu labs The patient was seen and examined at bedside and all new and available data was reviewed in the patients chart. I agree with the above findings, impression and plan. (Patient seen earlier today. Signature stamp does not reflect patient encounter time.). - Franco Graham MD Subjective Subjective Patient still complains of abdominal pain Still has complaint of overall generalized weakness Unable to tolerate food has constant nausea Objective Last 24 Hour Vital Signs Date Time Temp Pulse Resp B/P (MAP) Pulse Ox O2 Delivery O2 Flow Rate FiO2 12/29/18 12:00 98.8 89 24 140/81 (100) 98 12/29/18 09:00 Room Air 12/29/18 08:39 110/58 12/29/18 08:08 110/58 12/29/18 08:00 98.8 99 19 110/58 (75) 96 12/29/18 04:00 98.2 96 18 157/88 (111) 98 12/29/18 00:00 98.7 92 18 150/90 (110) 98 12/28/18 21:00 Room Air 12/28/18 20:00 98.9 90 18 132/77 (95) 97 12/28/18 17:05 149/95 Intake and Output 12/28/18 12/29/18 19:00 07:00 Intake Total 1947.5 ml Output Total 1300 ml Balance 647.5 ml Intake Oral 1900 ml IV Total 47.5 ml Output Urine Total 1300 ml # Voids 3 Laboratory Tests Test 12/29/18 05:20 White Blood Count 5.4 K/UL (4.8-10.8) Red Blood Count 4.53 M/UL (4.20-5.40) Hemoglobin 12.3 G/DL (12.0-16.0) Hematocrit 36.3 % (37.0-47.0) L Mean Corpuscular Volume 80 FL (80-99) Mean Corpuscular Hemoglobin 27.2 PG (27.0-31.0) Mean Corpuscular Hemoglobin Concent 34.0 G/DL (32.0-36.0) Red Cell Distribution Width 11.1 % (11.6-14.8) L Platelet Count 206 K/UL (150-450) Mean Platelet Volume 6.7 FL (6.5-10.1) Neutrophils (%) (Auto) 49.2 % (45.0-75.0) Lymphocytes (%) (Auto) 38.9 % (20.0-45.0) Monocytes (%) (Auto) 11.3 % (1.0-10.0) H Eosinophils (%) (Auto) 0.2 % (0.0-3.0) Basophils (%) (Auto) 0.4 % (0.0-2.0) Sodium Level 139 MMOL/L (136-145) Potassium Level 2.7 MMOL/L (3.5-5.1) *L Chloride Level 102 MMOL/L (98-107) Carbon Dioxide Level 29 MMOL/L (21-32) Anion Gap 8 mmol/L (5-15) Blood Urea Nitrogen 8 mg/dL (7-18) Creatinine 0.5 MG/DL (0.55-1.30) L Estimat Glomerular Filtration Rate > 60 mL/min (>60) Glucose Level 167 MG/DL (74-106) H Uric Acid 4.7 MG/DL (2.6-7.2) Calcium Level 8.3 MG/DL (8.5-10.1) L Phosphorus Level 2.6 MG/DL (2.5-4.9) Magnesium Level 1.7 MG/DL (1.8-2.4) L Total Bilirubin 0.6 MG/DL (0.2-1.0) Aspartate Amino Transf (AST/SGOT) 16 U/L (15-37) Alanine Aminotransferase (ALT/SGPT) 29 U/L (12-78) Alkaline Phosphatase 53 U/L (46-116) Pro-B-Type Natriuretic Peptide 487 pg/mL (0-125) H Total Protein 5.8 G/DL (6.4-8.2) L Albumin 2.4 G/DL (3.4-5.0) L Globulin 3.4 g/dL Albumin/Globulin Ratio 0.7 (1.0-2.7) L Height (Feet): 5 Height (Inches): 5.00 Weight (Pounds): 124 General Appearance: WD/WN, no apparent distress, alert Cardiovascular: normal rate Respiratory/Chest: normal breath sounds, no respiratory distress Abdominal Exam: normal bowel sounds, non tender, soft Extremities: normal range of motion, non-tender Matt Brown NP Dec 29, 2018 16:42
--- NOTE | 2018-12-29 18:23 | General Progress Note ---
Assessment/Plan Problem List: (1) Dehydration ICD Codes: E86.0 - Dehydration SNOMED: 20586710, 28173092 (2) Gastroenteritis ICD Codes: K52.9 - Noninfective gastroenteritis and colitis, unspecified SNOMED: 30997159 (3) Electrolyte imbalance ICD Codes: E87.8 - Other disorders of electrolyte and fluid balance, not elsewhere classified SNOMED: 178040936 (4) Abdominal pain ICD Codes: R10.9 - Unspecified abdominal pain SNOMED: 58927993, 35780247 Qualifiers: Qualified Codes: R10.84 - Generalized abdominal pain (5) Gastroparesis ICD Codes: K31.84 - Gastroparesis SNOMED: 914953352 (6) Nausea vomiting and diarrhea ICD Codes: R11.2 - Nausea with vomiting, unspecified; R19.7 - Diarrhea, unspecified SNOMED: 4148055 (7) Hyperglycemia due to type 1 diabetes mellitus ICD Codes: E10.65 - Type 1 diabetes mellitus with hyperglycemia; R19.7 - Diarrhea, unspecified SNOMED: 264919678851492, 75753795 (8) GERD (gastroesophageal reflux disease) ICD Codes: K21.9 - Gastro-esophageal reflux disease without esophagitis SNOMED: 245884848 Status: progressing Assessment/Plan gastroparesis from diabetes r/o gastroenteritis nause no vomitting reviewed chart and labs Subjective ROS Limited/Unobtainable: Yes Allergies: Coded Allergies: No Known Allergies (Unverified , 12/26/18) Objective Last 24 Hour Vital Signs Date Time Temp Pulse Resp B/P (MAP) Pulse Ox O2 Delivery O2 Flow Rate FiO2 12/29/18 16:00 98.8 88 19 156/98 (117) 97 12/29/18 12:00 98.8 89 24 140/81 (100) 98 12/29/18 09:00 Room Air 12/29/18 08:39 110/58 12/29/18 08:08 110/58 12/29/18 08:00 98.8 99 19 110/58 (75) 96 12/29/18 04:00 98.2 96 18 157/88 (111) 98 12/29/18 00:00 98.7 92 18 150/90 (110) 98 12/28/18 21:00 Room Air 12/28/18 20:00 98.9 90 18 132/77 (95) 97 Intake and Output 2/8/19 2/9/19 19:00 07:00 Intake Total 1947.5 ml Output Total 1300 ml Balance 647.5 ml Intake Oral 1900 ml IV Total 47.5 ml Output Urine Total 1300 ml # Voids 3 Laboratory Tests 12/29/18 05:20: White Blood Count 5.4, Red Blood Count 4.53, Hemoglobin 12.3, Hematocrit 36.3L, Mean Corpuscular Volume 80, Mean Corpuscular Hemoglobin 27.2, Mean Corpuscular Hemoglobin Concent 34.0, Red Cell Distribution Width 11.1L, Platelet Count 206, Mean Platelet Volume 6.7, Neutrophils (%) (Auto) 49.2, Lymphocytes (%) (Auto) 38.9, Monocytes (%) (Auto) 11.3H, Eosinophils (%) (Auto) 0.2, Basophils (%) ( Auto) 0.4, Sodium Level 139, Potassium Level 2.7*L, Chloride Level 102, Carbon Dioxide Level 29, Anion Gap 8, Blood Urea Nitrogen 8, Creatinine 0.5L, Estimat Glomerular Filtration Rate > 60, Glucose Level 167H, Uric Acid 4.7, Calcium Level 8.3L, Phosphorus Level 2.6, Magnesium Level 1.7L, Total Bilirubin 0.6, Aspartate Amino Transf (AST/SGOT) 16, Alanine Aminotransferase (ALT/SGPT) 29, Alkaline Phosphatase 53, Pro-B-Type Natriuretic Peptide 487H, Total Protein 5.8L , Albumin 2.4L, Globulin 3.4, Albumin/Globulin Ratio 0.7L Height (Feet): 5 Height (Inches): 5.00 Weight (Pounds): 124 Cardiovascular: regular rhythm Respiratory/Chest: lungs clear Abdomen: soft Ondina Dailey MD Dec 29, 2018 18:23
--- NOTE | 2018-12-29 19:22 | NUR ---
HAND-OFF: Report given to ALONZO Francois.
[2018-12-29 20:00] VITALS: BP 131/82
--- NOTE | 2018-12-29 20:00 | NUR ---
NURSE NOTES: Patient received sitting on chair. IV is intact and patent, assisted to the bathroom and back to bed safely. IVF infusing. NAD at this time. Call light in reach. Will continue to monitor.
[2018-12-29] MEDS: Levemir Flexpen SUBQ SCH (20:56)
[2018-12-30] VITALS: BP 134/87
[2018-12-30 04:00] VITALS: BP 124/77
[2018-12-30] MEDS: NovoLOG Insulin Flexpen SUBQ SCH ×4 (06:05→20:15)
[2018-12-30 07:06] LABS: ALANINE AMINOTRANSFERASE 17 U/L (12-78); ALBUMIN 2.4 G/DL (3.4-5.0); ALBUMIN/GLOBULIN RATIO 0.7 (1.0-2.7); ALKALINE PHOSPHATASE 52 U/L (46-116); ANION GAP 6 mmol/L (5-15); ASPARTATE AMINO TRANSFERASE 13 U/L (15-37); BILIRUBIN,TOTAL 0.6 MG/DL (0.2-1.0); BLOOD UREA NITROGEN 8 mg/dL (7-18); CALCIUM 8.7 MG/DL (8.5-10.1); CARBON DIOXIDE 28 MMOL/L (21-32); CHLORIDE 107 MMOL/L (98-107); CREATININE 0.7 MG/DL (0.55-1.30); PHOSPHORUS 2.4 MG/DL (2.5-4.9); POTASSIUM 3.7 MMOL/L (3.5-5.1); SODIUM 141 MMOL/L (136-145)
[2018-12-30 07:11] LABS: BASOPHILS % (AUTO) 0.6 % (0.0-2.0); EOSINOPHILS % (AUTO) 1.6 % (0.0-3.0); HEMATOCRIT 35.5 % (37.0-47.0); LYMPHOCYTES % (AUTO) 52.9 % (20.0-45.0); MEAN CORPUSCULAR VOLUME 81 FL (80-99); MONOCYTES % (AUTO) 9.2 % (1.0-10.0); NEUTROPHILS % (AUTO) 35.8 % (45.0-75.0); PLATELET COUNT 222 K/UL (150-450); RED BLOOD COUNT 4.41 M/UL (4.20-5.40); WHITE BLOOD COUNT 6.7 K/UL (4.8-10.8)
--- NOTE | 2018-12-30 07:20 | NUR ---
HAND-OFF: Report given to Anne Marie ROSADO.
--- NOTE | 2018-12-30 07:36 | NUR ---
NURSE NOTES: Received patient in bed, resting and alert X4. Patient denies pain. No signs of respiratory distress. Patient in room air. Bed in lowest position, call light within reach. Will continue to monitor.
[2018-12-30 08:00] VITALS: BP 169/106
--- NOTE | 2018-12-30 08:15 | General Progress Note ---
Assessment/Plan Problem List: (1) Diabetes mellitus out of control ICD Codes: E11.65 - Type 2 diabetes mellitus with hyperglycemia SNOMED: 03104757, 974245233 (2) Electrolyte imbalance ICD Codes: E87.8 - Other disorders of electrolyte and fluid balance, not elsewhere classified SNOMED: 879236636 (3) Abdominal pain ICD Codes: R10.9 - Unspecified abdominal pain SNOMED: 89963256, 28157586 Qualifiers: Qualified Codes: R10.84 - Generalized abdominal pain Assessment/Plan continue Levemir 25 units qhs add Starlix 60 mg ac tid continue NISS ac / hs Subjective Allergies: Coded Allergies: No Known Allergies (Unverified , 12/26/18) All Systems: reviewed and negative except above Subjective events noted K is normal this morning EGD cancelled yesterday - scheduled for tomorrow fair glucose values Item Value Date Time Bedside Blood Glucose 127 mg/dl H 12/30/18 0623 Bedside Blood Glucose 264 mg/dl H 12/29/18 2100 Bedside Blood Glucose 173 mg/dl H 12/29/18 1635 Bedside Blood Glucose 130 mg/dl H 12/29/18 1216 Bedside Blood Glucose 161 mg/dl H 12/29/18 0630 Objective Last 24 Hour Vital Signs Date Time Temp Pulse Resp B/P (MAP) Pulse Ox O2 Delivery O2 Flow Rate FiO2 12/30/18 04:00 98.6 82 18 124/77 (93) 100 12/30/18 00:00 98.5 87 19 134/87 (103) 99 12/29/18 21:00 Room Air 12/29/18 20:50 122/71 12/29/18 20:00 99.7 87 18 131/82 (98) 98 12/29/18 16:00 98.8 88 19 156/98 (117) 97 12/29/18 12:00 98.8 89 24 140/81 (100) 98 12/29/18 09:00 Room Air 12/29/18 08:39 110/58 Intake and Output 12/29/18 12/30/18 18:59 06:59 Intake Total 1300 ml 960 ml Balance 1300 ml 960 ml Intake Oral 360 ml IV Total 100 ml 600 ml Other 1200 ml # Voids 2 Laboratory Tests 12/30/18 06:15: White Blood Count 6.7, Red Blood Count 4.41, Hemoglobin 12.0, Hematocrit 35.5L, Mean Corpuscular Volume 81, Mean Corpuscular Hemoglobin 27.3, Mean Corpuscular Hemoglobin Concent 33.9, Red Cell Distribution Width 11.0L, Platelet Count 222, Mean Platelet Volume 6.6, Neutrophils (%) (Auto) 35.8L, Lymphocytes (%) (Auto) 52.9H, Monocytes (%) (Auto) 9.2, Eosinophils (%) (Auto) 1.6, Basophils (%) (Auto ) 0.6, Sodium Level 141, Potassium Level 3.7, Chloride Level 107, Carbon Dioxide Level 28, Anion Gap 6, Blood Urea Nitrogen 8, Creatinine 0.7, Estimat Glomerular Filtration Rate > 60, Glucose Level 128H, Calcium Level 8.7, Phosphorus Level 2.4L, Magnesium Level 2.0, Total Bilirubin 0.6, Aspartate Amino Transf (AST/SGOT) 13L, Alanine Aminotransferase (ALT/SGPT) 17, Alkaline Phosphatase 52, Total Protein 5.8L, Albumin 2.4L, Globulin 3.4, Albumin/ Globulin Ratio 0.7L Height (Feet): 5 Height (Inches): 5.00 Weight (Pounds): 124 General Appearance: no apparent distress Neck: normal alignment Cardiovascular: normal rate Respiratory/Chest: lungs clear Abdomen: normal bowel sounds Edema: no edema noted Arm (L), no edema noted Arm (R), no edema noted Leg (L), no edema noted Leg (R), no edema noted Pedal (L), no edema noted Pedal (R), no edema noted Generalized Objective Current Medications Medications (Trade) Dose Ordered Sig/Adalberto Route PRN Reason Start Time Stop Time Status Last Admin Dose Admin Acetaminophen (Tylenol) 500 mg Q4H PRN ORAL Mild Pain/Temp > 100.5 12/26/18 04:30 01/25/19 04:29 Ciprofloxacin (Cipro 500mg tab) 500 mg EVERY 12 HOURS ORAL 12/28/18 21:00 01/04/19 20:59 12/29/18 20:49 Dextrose (Dextrose 50%) 25 ml Q30M PRN IV Hypoglycemia 12/26/18 04:30 01/25/19 04:29 Dextrose (Dextrose 50%) 50 ml Q30M PRN IV Hypoglycemia 12/26/18 04:30 01/25/19 04:29 Dextrose/ Electrolytes 1,000 ml @ 50 mls/hr Q20H IV 12/28/18 16:00 01/27/19 15:59 12/29/18 12:24 Insulin Aspart (NovoLOG) BEFORE MEALS AND HS SUBQ 12/26/18 22:30 01/25/19 22:29 12/30/18 06:05 Insulin Detemir (Levemir) 25 units BEDTIME SUBQ 12/27/18 21:00 01/25/19 22:29 12/29/18 20:56 Lisinopril (Zestril) 2.5 mg Q12HR ORAL 12/29/18 09:00 01/28/19 08:59 12/29/18 20:50 Metoclopramide HCl (Reglan) 5 mg THREE TIMES A DAY ORAL 12/29/18 13:00 01/25/19 12:59 12/29/18 18:39 Morphine Sulfate (Morphine Sulfate) 2 mg Q4H PRN IVP mod-sev 4-10 pain 12/26/18 04:30 01/02/19 04:29 12/29/18 06:18 Ondansetron HCl (Zofran) 4 mg Q6H PRN IVP Nausea & Vomiting 12/26/18 04:30 01/25/19 04:29 12/29/18 08:07 Pantoprazole (Protonix) 40 mg BIAC ORAL 12/26/18 16:30 01/25/19 16:29 12/30/18 06:01 Potassium Chloride (K-Dur) 40 meq TWICE A DAY ORAL 12/28/18 18:00 01/27/19 17:59 12/29/18 18:38 Julio Beaver MD Dec 30, 2018 08:15
[2018-12-30] MEDS: Morphine Sulfate 4mg/ml Inj (IV USE ONLY) IVP PRN (09:12)
[2018-12-30] MEDS: Lisinopril 2.5mg tab ORAL SCH ×2 (09:25→20:13)
[2018-12-30] MEDS: Ciprofloxacin 500mg tab ORAL SCH ×2 (09:25→20:12)
[2018-12-30] MEDS ORDERED: Potassium Phosphate 30 MM in NS 275 ML IV ONE (11:00)
[2018-12-30] MEDS: Nateglinide 60mg tab ORAL SCH ×3 (11:30→17:09)
--- NOTE | 2018-12-30 11:57 | Nephrology Progress Note ---
Assessment/Plan Problem List: (1) Dehydration (2) UTI (urinary tract infection) (3) Gastroparesis (4) Nausea vomiting and diarrhea (5) Hyperglycemia due to type 1 diabetes mellitus Assessment Dehydration UTI Electrolytre imbalance Syncope Abdominal pain Nausea vomiting and diarrhea Hyperglycemia due to type 1 diabetes mellitus Plan DC MS K phos add Zestril increase HS Levemir k and Phos and Mag supplement as needed Antibiotics Monitor lytes Subjective ROS Limited/Unobtainable: No Constitutional: Reports: malaise, other - nausea with pain shots Objective Objective Last 24 Hour Vital Signs Date Time Temp Pulse Resp B/P (MAP) Pulse Ox O2 Delivery O2 Flow Rate FiO2 12/30/18 09:25 169/106 12/30/18 09:00 Room Air 12/30/18 08:00 98.8 91 19 169/106 (127) 100 12/30/18 04:00 98.6 82 18 124/77 (93) 100 12/30/18 00:00 98.5 87 19 134/87 (103) 99 12/29/18 21:00 Room Air 12/29/18 20:50 122/71 12/29/18 20:00 99.7 87 18 131/82 (98) 98 12/29/18 16:00 98.8 88 19 156/98 (117) 97 12/29/18 12:00 98.8 89 24 140/81 (100) 98 Intake and Output 12/29/18 12/30/18 19:00 07:00 Intake Total 1350 ml 960 ml Balance 1350 ml 960 ml Intake Oral 360 ml IV Total 150 ml 600 ml Other 1200 ml # Voids 2 Laboratory Tests 12/30/18 06:15: White Blood Count 6.7, Red Blood Count 4.41, Hemoglobin 12.0, Hematocrit 35.5L, Mean Corpuscular Volume 81, Mean Corpuscular Hemoglobin 27.3, Mean Corpuscular Hemoglobin Concent 33.9, Red Cell Distribution Width 11.0L, Platelet Count 222, Mean Platelet Volume 6.6, Neutrophils (%) (Auto) 35.8L, Lymphocytes (%) (Auto) 52.9H, Monocytes (%) (Auto) 9.2, Eosinophils (%) (Auto) 1.6, Basophils (%) (Auto ) 0.6, Sodium Level 141, Potassium Level 3.7, Chloride Level 107, Carbon Dioxide Level 28, Anion Gap 6, Blood Urea Nitrogen 8, Creatinine 0.7, Estimat Glomerular Filtration Rate > 60, Glucose Level 128H, Calcium Level 8.7, Phosphorus Level 2.4L, Magnesium Level 2.0, Total Bilirubin 0.6, Aspartate Amino Transf (AST/SGOT) 13L, Alanine Aminotransferase (ALT/SGPT) 17, Alkaline Phosphatase 52, Total Protein 5.8L, Albumin 2.4L, Globulin 3.4, Albumin/ Globulin Ratio 0.7L Height (Feet): 5 Height (Inches): 5.00 Weight (Pounds): 124 General Appearance: no apparent distress Objective no change Prabhakar Bowne MD Dec 30, 2018 11:57
[2018-12-30 12:00] VITALS: BP 148/87
[2018-12-30] MEDS ORDERED: Hydromorphone 0.5mg/0.5ml inj IVP PRN (12:00)
--- NOTE | 2018-12-30 12:02 | Infectious Diseases Prog Note ---
Assessment/Plan Assessment/Plan A; UTI with ESBL E. coli Syncope Dehydration DM Nausea/Vomiting Hypokalemia corrected P: Continue Cipro Waiting for EGD Subjective ROS Limited/Unobtainable: Yes Constitutional: Reports: anorexia Respiratory: Reports: no symptoms Cardiovascular: Reports: no symptoms Gastrointestinal/Abdominal: Reports: other - epigastric pain Genitourinary: Reports: no symptoms Allergies: Coded Allergies: No Known Allergies (Unverified , 12/26/18) Objective Vital Signs Last 24 Hour Vital Signs Date Time Temp Pulse Resp B/P (MAP) Pulse Ox O2 Delivery O2 Flow Rate FiO2 12/30/18 09:25 169/106 12/30/18 09:00 Room Air 12/30/18 08:00 98.8 91 19 169/106 (127) 100 12/30/18 04:00 98.6 82 18 124/77 (93) 100 12/30/18 00:00 98.5 87 19 134/87 (103) 99 12/29/18 21:00 Room Air 12/29/18 20:50 122/71 12/29/18 20:00 99.7 87 18 131/82 (98) 98 12/29/18 16:00 98.8 88 19 156/98 (117) 97 12/29/18 12:00 98.8 89 24 140/81 (100) 98 Height (Feet): 5 Height (Inches): 5.00 Weight (Pounds): 124 General Appearance: no acute distress HEENT: mucous membranes moist Respiratory/Chest: lungs clear Cardiovascular: normal rate Abdomen: soft, non tender Extremities: no edema Neurologic/Psychiatric: alert, oriented x 3, responsive Laboratory Tests Test 12/30/18 06:15 White Blood Count 6.7 K/UL (4.8-10.8) Red Blood Count 4.41 M/UL (4.20-5.40) Hemoglobin 12.0 G/DL (12.0-16.0) Hematocrit 35.5 % (37.0-47.0) L Mean Corpuscular Volume 81 FL (80-99) Mean Corpuscular Hemoglobin 27.3 PG (27.0-31.0) Mean Corpuscular Hemoglobin Concent 33.9 G/DL (32.0-36.0) Red Cell Distribution Width 11.0 % (11.6-14.8) L Platelet Count 222 K/UL (150-450) Mean Platelet Volume 6.6 FL (6.5-10.1) Neutrophils (%) (Auto) 35.8 % (45.0-75.0) L Lymphocytes (%) (Auto) 52.9 % (20.0-45.0) H Monocytes (%) (Auto) 9.2 % (1.0-10.0) Eosinophils (%) (Auto) 1.6 % (0.0-3.0) Basophils (%) (Auto) 0.6 % (0.0-2.0) Sodium Level 141 MMOL/L (136-145) Potassium Level 3.7 MMOL/L (3.5-5.1) Chloride Level 107 MMOL/L (98-107) Carbon Dioxide Level 28 MMOL/L (21-32) Anion Gap 6 mmol/L (5-15) Blood Urea Nitrogen 8 mg/dL (7-18) Creatinine 0.7 MG/DL (0.55-1.30) Estimat Glomerular Filtration Rate > 60 mL/min (>60) Glucose Level 128 MG/DL (74-106) H Calcium Level 8.7 MG/DL (8.5-10.1) Phosphorus Level 2.4 MG/DL (2.5-4.9) L Magnesium Level 2.0 MG/DL (1.8-2.4) Total Bilirubin 0.6 MG/DL (0.2-1.0) Aspartate Amino Transf (AST/SGOT) 13 U/L (15-37) L Alanine Aminotransferase (ALT/SGPT) 17 U/L (12-78) Alkaline Phosphatase 52 U/L (46-116) Total Protein 5.8 G/DL (6.4-8.2) L Albumin 2.4 G/DL (3.4-5.0) L Globulin 3.4 g/dL Albumin/Globulin Ratio 0.7 (1.0-2.7) L Current Medications Medications (Trade) Dose Ordered Sig/Adalberto Route PRN Reason Start Time Stop Time Status Last Admin Dose Admin Acetaminophen (Tylenol) 500 mg Q4H PRN ORAL Mild Pain/Temp > 100.5 12/26/18 04:30 01/25/19 04:29 Acetaminophen (Tylenol) 650 mg Q6H ORAL 12/30/18 12:00 3/12/19 11:59 UNV Ciprofloxacin (Cipro 500mg tab) 500 mg EVERY 12 HOURS ORAL 12/28/18 21:00 01/04/19 20:59 12/30/18 09:25 Dextrose (Dextrose 50%) 25 ml Q30M PRN IV Hypoglycemia 12/26/18 04:30 01/25/19 04:29 Dextrose (Dextrose 50%) 50 ml Q30M PRN IV Hypoglycemia 12/26/18 04:30 01/25/19 04:29 Dextrose/ Electrolytes 1,000 ml @ 50 mls/hr Q20H IV 12/28/18 16:00 01/27/19 15:59 12/30/18 09:24 Insulin Aspart (NovoLOG) BEFORE MEALS AND HS SUBQ 12/26/18 22:30 01/25/19 22:29 12/30/18 06:05 Insulin Detemir (Levemir) 25 units BEDTIME SUBQ 12/27/18 21:00 01/25/19 22:29 12/29/18 20:56 Lisinopril (Zestril) 5 mg Q12HR ORAL 12/30/18 21:00 01/28/19 08:59 UNV Metoclopramide HCl (Reglan) 5 mg THREE TIMES A DAY ORAL 12/29/18 13:00 01/25/19 12:59 12/30/18 09:25 Nateglinide (Starlix) 60 mg TIAC ORAL 12/30/18 11:30 01/29/19 11:29 Ondansetron HCl (Zofran) 4 mg Q6H PRN IVP Nausea & Vomiting 12/26/18 04:30 01/25/19 04:29 12/30/18 09:25 Pantoprazole (Protonix) 40 mg BIAC ORAL 12/26/18 16:30 01/25/19 16:29 12/30/18 06:01 Potassium Phosphate 30 mm/ Sodium Chloride 285 ml @ 47.5 mls/hr ONCE ONCE IV 12/30/18 11:00 12/30/18 16:59 Potassium Chloride (K-Dur) 40 meq TWICE A DAY ORAL 12/28/18 18:00 01/27/19 17:59 12/29/18 18:38 Ravi Roman MD Dec 30, 2018 12:02
--- NOTE | 2018-12-30 13:29 | NUR ---
CASE MANAGEMENT: REVIEW 12/30/2018 SI: UTI . GASTROPARESIS EGD 12/28 T 98.1 HR 110 RR 18 B/P 141/73 SATS 99% ON RA NO LABS TODAY IS: REGLAN PO TID MAG SULFATE IV@100ML/HR CIPRO PO Q12HR K-DUR PO BID D5NS w/20mEq IVF @50ML/HR FULL LIQUID PO DIET MED/SURG STATUS DCP: PATIENT IS FROM [facility]
--- NOTE | 2018-12-30 16:40 | GI Progress Note ---
Assessment/Plan Problems: (1) GERD (gastroesophageal reflux disease) ICD Codes: K21.9 - Gastro-esophageal reflux disease without esophagitis SNOMED: 536196255 (2) Hyperglycemia due to type 1 diabetes mellitus ICD Codes: E10.65 - Type 1 diabetes mellitus with hyperglycemia; R19.7 - Diarrhea, unspecified SNOMED: 366335519042756, 23955518 (3) Nausea vomiting and diarrhea ICD Codes: R11.2 - Nausea with vomiting, unspecified; R19.7 - Diarrhea, unspecified SNOMED: 5874214 (4) Gastroparesis ICD Codes: K31.84 - Gastroparesis SNOMED: 609291846 (5) Abdominal pain ICD Codes: R10.9 - Unspecified abdominal pain SNOMED: 93478653, 16405037 Qualifiers: Qualified Codes: R10.84 - Generalized abdominal pain (6) Electrolyte imbalance ICD Codes: E87.8 - Other disorders of electrolyte and fluid balance, not elsewhere classified SNOMED: 264579471 (7) Gastroenteritis ICD Codes: K52.9 - Noninfective gastroenteritis and colitis, unspecified SNOMED: 25285746 (8) Dehydration ICD Codes: E86.0 - Dehydration SNOMED: 15127612, 62219415 Status: unchanged Status Narrative Discussed with Dr. Graham. Assessment/Plan cardiac work up negative severe hypokalemia EGD cancelled due to hypokalemia, rescheduled for tomorrow. electrolyte correction We will give PPI twice daily Clear liquid diet, advance as tolerated PRN transfusions Zofran as needed, Reglan ATC for persistent vomiting p.o. And IV hydration plus electrolyte correction fu labs The patient was seen and examined at bedside and all new and available data was reviewed in the patients chart. I agree with the above findings, impression and plan. (Patient seen earlier today. Signature stamp does not reflect patient encounter time.). - Franco Graham MD Subjective Subjective Patient still complains of abdominal pain Still has complaint of overall generalized weakness Unable to tolerate food has constant nausea Objective Last 24 Hour Vital Signs Date Time Temp Pulse Resp B/P (MAP) Pulse Ox O2 Delivery O2 Flow Rate FiO2 12/30/18 12:00 98.2 89 19 148/87 (107) 100 12/30/18 09:25 169/106 12/30/18 09:00 Room Air 12/30/18 08:00 98.8 91 19 169/106 (127) 100 12/30/18 04:00 98.6 82 18 124/77 (93) 100 12/30/18 00:00 98.5 87 19 134/87 (103) 99 12/29/18 21:00 Room Air 12/29/18 20:50 122/71 12/29/18 20:00 99.7 87 18 131/82 (98) 98 Intake and Output 12/29/18 12/30/18 19:00 07:00 Intake Total 1350 ml 960 ml Balance 1350 ml 960 ml Intake Oral 360 ml IV Total 150 ml 600 ml Other 1200 ml # Voids 2 Laboratory Tests Test 12/30/18 06:15 White Blood Count 6.7 K/UL (4.8-10.8) Red Blood Count 4.41 M/UL (4.20-5.40) Hemoglobin 12.0 G/DL (12.0-16.0) Hematocrit 35.5 % (37.0-47.0) L Mean Corpuscular Volume 81 FL (80-99) Mean Corpuscular Hemoglobin 27.3 PG (27.0-31.0) Mean Corpuscular Hemoglobin Concent 33.9 G/DL (32.0-36.0) Red Cell Distribution Width 11.0 % (11.6-14.8) L Platelet Count 222 K/UL (150-450) Mean Platelet Volume 6.6 FL (6.5-10.1) Neutrophils (%) (Auto) 35.8 % (45.0-75.0) L Lymphocytes (%) (Auto) 52.9 % (20.0-45.0) H Monocytes (%) (Auto) 9.2 % (1.0-10.0) Eosinophils (%) (Auto) 1.6 % (0.0-3.0) Basophils (%) (Auto) 0.6 % (0.0-2.0) Sodium Level 141 MMOL/L (136-145) Potassium Level 3.7 MMOL/L (3.5-5.1) Chloride Level 107 MMOL/L (98-107) Carbon Dioxide Level 28 MMOL/L (21-32) Anion Gap 6 mmol/L (5-15) Blood Urea Nitrogen 8 mg/dL (7-18) Creatinine 0.7 MG/DL (0.55-1.30) Estimat Glomerular Filtration Rate > 60 mL/min (>60) Glucose Level 128 MG/DL (74-106) H Calcium Level 8.7 MG/DL (8.5-10.1) Phosphorus Level 2.4 MG/DL (2.5-4.9) L Magnesium Level 2.0 MG/DL (1.8-2.4) Total Bilirubin 0.6 MG/DL (0.2-1.0) Aspartate Amino Transf (AST/SGOT) 13 U/L (15-37) L Alanine Aminotransferase (ALT/SGPT) 17 U/L (12-78) Alkaline Phosphatase 52 U/L (46-116) Total Protein 5.8 G/DL (6.4-8.2) L Albumin 2.4 G/DL (3.4-5.0) L Globulin 3.4 g/dL Albumin/Globulin Ratio 0.7 (1.0-2.7) L Height (Feet): 5 Height (Inches): 5.00 Weight (Pounds): 124 General Appearance: WD/WN, no apparent distress, alert Cardiovascular: normal rate Respiratory/Chest: normal breath sounds, no respiratory distress Abdominal Exam: normal bowel sounds, non tender, soft Extremities: normal range of motion, non-tender Matt Brown NP Dec 30, 2018 16:40
--- NOTE | 2018-12-30 19:48 | NUR ---
HAND-OFF: Report given to Katina Hurtado RN.
[2018-12-30 20:00] VITALS: BP 116/66
--- NOTE | 2018-12-30 20:00 | NUR ---
NURSE NOTES: Addendum: 12/31/18 at 0256 by CHASE FOSS RN NURSE NOTES: 12/30/181999: Patient received. Assisted with ambulation to bathroom. Consent for EGD signed, placed in chart. No distress noted. IV site intact and patent, fluids running. NPO at midnight. Will continue to monitor.
[2018-12-30] MEDS: Levemir Flexpen SUBQ SCH (20:23)
--- NOTE | 2018-12-30 21:27 | General Progress Note ---
Assessment/Plan Problem List: (1) Dehydration ICD Codes: E86.0 - Dehydration SNOMED: 39897058, 00774967 (2) Gastroenteritis ICD Codes: K52.9 - Noninfective gastroenteritis and colitis, unspecified SNOMED: 12407615 (3) Electrolyte imbalance ICD Codes: E87.8 - Other disorders of electrolyte and fluid balance, not elsewhere classified SNOMED: 979584741 (4) Abdominal pain ICD Codes: R10.9 - Unspecified abdominal pain SNOMED: 20144924, 86035864 Qualifiers: Qualified Codes: R10.84 - Generalized abdominal pain (5) Gastroparesis ICD Codes: K31.84 - Gastroparesis SNOMED: 636830756 (6) Nausea vomiting and diarrhea ICD Codes: R11.2 - Nausea with vomiting, unspecified; R19.7 - Diarrhea, unspecified SNOMED: 9508082 (7) Hyperglycemia due to type 1 diabetes mellitus ICD Codes: E10.65 - Type 1 diabetes mellitus with hyperglycemia; R19.7 - Diarrhea, unspecified SNOMED: 437640772707619, 78080660 (8) GERD (gastroesophageal reflux disease) ICD Codes: K21.9 - Gastro-esophageal reflux disease without esophagitis SNOMED: 105642505 Status: progressing Assessment/Plan still nausious niddm check lytes afebrile no vomitting reviewed chart and labs Subjective ROS Limited/Unobtainable: Yes Allergies: Coded Allergies: No Known Allergies (Unverified , 12/26/18) Objective Last 24 Hour Vital Signs Date Time Temp Pulse Resp B/P (MAP) Pulse Ox O2 Delivery O2 Flow Rate FiO2 12/30/18 20:13 116/66 12/30/18 20:00 98.1 78 18 116/66 (83) 99 12/30/18 12:00 98.2 89 19 148/87 (107) 100 12/30/18 09:25 169/106 12/30/18 09:00 Room Air 12/30/18 08:00 98.8 91 19 169/106 (127) 100 12/30/18 04:00 98.6 82 18 124/77 (93) 100 12/30/18 00:00 98.5 87 19 134/87 (103) 99 Intake and Output 12/29/18 12/30/18 19:00 07:00 Intake Total 1350 ml 960 ml Balance 1350 ml 960 ml Intake Oral 360 ml IV Total 150 ml 600 ml Other 1200 ml # Voids 2 Laboratory Tests 12/30/18 06:15: White Blood Count 6.7, Red Blood Count 4.41, Hemoglobin 12.0, Hematocrit 35.5L, Mean Corpuscular Volume 81, Mean Corpuscular Hemoglobin 27.3, Mean Corpuscular Hemoglobin Concent 33.9, Red Cell Distribution Width 11.0L, Platelet Count 222, Mean Platelet Volume 6.6, Neutrophils (%) (Auto) 35.8L, Lymphocytes (%) (Auto) 52.9H, Monocytes (%) (Auto) 9.2, Eosinophils (%) (Auto) 1.6, Basophils (%) (Auto ) 0.6, Sodium Level 141, Potassium Level 3.7, Chloride Level 107, Carbon Dioxide Level 28, Anion Gap 6, Blood Urea Nitrogen 8, Creatinine 0.7, Estimat Glomerular Filtration Rate > 60, Glucose Level 128H, Calcium Level 8.7, Phosphorus Level 2.4L, Magnesium Level 2.0, Total Bilirubin 0.6, Aspartate Amino Transf (AST/SGOT) 13L, Alanine Aminotransferase (ALT/SGPT) 17, Alkaline Phosphatase 52, Total Protein 5.8L, Albumin 2.4L, Globulin 3.4, Albumin/ Globulin Ratio 0.7L Height (Feet): 5 Height (Inches): 5.00 Weight (Pounds): 124 Cardiovascular: normal rate Respiratory/Chest: lungs clear Abdomen: soft Ondina Dailey MD Dec 30, 2018 21:27
[2018-12-31] VITALS (10 sets, daily range): BP systolic 86–159; BP diastolic 60–89
[2018-12-31] MEDS: Nateglinide 60mg tab ORAL SCH ×3 (05:51→17:24)
[2018-12-31] MEDS: NovoLOG Insulin Flexpen SUBQ SCH ×4 (06:40→20:25)
[2018-12-31 06:58] LABS: BASOPHILS % (AUTO) 0.6 % (0.0-2.0); EOSINOPHILS % (AUTO) 2.4 % (0.0-3.0); HEMATOCRIT 39.7 % (37.0-47.0); HEMOGLOBIN 13.3 G/DL (12.0-16.0); LYMPHOCYTES % (AUTO) 45.9 % (20.0-45.0); MEAN CORPUSCULAR VOLUME 81 FL (80-99); MONOCYTES % (AUTO) 7.5 % (1.0-10.0); NEUTROPHILS % (AUTO) 43.7 % (45.0-75.0); PLATELET COUNT 280 K/UL (150-450); RED BLOOD COUNT 4.92 M/UL (4.20-5.40); RED CELL DISTRIBUTION WIDTH 11.4 % (11.6-14.8); WHITE BLOOD COUNT 6.9 K/UL (4.8-10.8)
--- NOTE | 2018-12-31 07:01 | NUR ---
HAND-OFF: Report given to ALONZO Regalado.
[2018-12-31 07:06] LABS: INR 1.1 (0.9-1.1)
[2018-12-31 07:07] LABS: ANION GAP 6 mmol/L (5-15); BLOOD UREA NITROGEN 6 mg/dL (7-18); CARBON DIOXIDE 28 MMOL/L (21-32); CHLORIDE 106 MMOL/L (98-107); CREATININE 0.6 MG/DL (0.55-1.30); POTASSIUM 3.9 MMOL/L (3.5-5.1); SODIUM 140 MMOL/L (136-145)
--- NOTE | 2018-12-31 07:07 | General Progress Note ---
Assessment/Plan Problem List: (1) Diabetes mellitus out of control ICD Codes: E11.65 - Type 2 diabetes mellitus with hyperglycemia SNOMED: 94715707, 312034868 (2) Electrolyte imbalance ICD Codes: E87.8 - Other disorders of electrolyte and fluid balance, not elsewhere classified SNOMED: 828333834 (3) Abdominal pain ICD Codes: R10.9 - Unspecified abdominal pain SNOMED: 24624133, 00823764 Qualifiers: Qualified Codes: R10.84 - Generalized abdominal pain Assessment/Plan continue Levemir 25 units qhs continue Starlix 60 mg ac tid continue NISS ac / hs Rx for diabetic medications left in chart Subjective Allergies: Coded Allergies: No Known Allergies (Unverified , 12/26/18) All Systems: reviewed and negative except above Subjective events noted Item Value Date Time Bedside Blood Glucose 159 mg/dl H 12/31/18 0640 Bedside Blood Glucose 159 mg/dl H 12/30/18 2100 Bedside Blood Glucose 135 mg/dl H 12/30/18 1717 Bedside Blood Glucose 137 mg/dl H 12/30/18 1217 Bedside Blood Glucose 127 mg/dl H 12/30/18 0623 Objective Last 24 Hour Vital Signs Date Time Temp Pulse Resp B/P (MAP) Pulse Ox O2 Delivery O2 Flow Rate FiO2 12/31/18 04:00 98.1 82 18 141/87 (105) 97 12/30/18 21:00 Room Air 12/30/18 20:13 116/66 12/30/18 20:00 98.1 78 18 116/66 (83) 99 12/30/18 12:00 98.2 89 19 148/87 (107) 100 12/30/18 09:25 169/106 12/30/18 09:00 Room Air 12/30/18 08:00 98.8 91 19 169/106 (127) 100 Intake and Output 12/30/18 12/31/18 18:59 06:59 Intake Total 650 ml Balance 650 ml IV Total 50 ml Other 600 ml # Voids 3 Laboratory Tests 12/31/18 06:30: White Blood Count 6.9, Red Blood Count 4.92, Hemoglobin 13.3, Hematocrit 39.7, Mean Corpuscular Volume 81, Mean Corpuscular Hemoglobin 27.0, Mean Corpuscular Hemoglobin Concent 33.4, Red Cell Distribution Width 11.4L, Platelet Count 280, Mean Platelet Volume 6.6, Neutrophils (%) (Auto) 43.7L, Lymphocytes (%) (Auto) 45.9H, Monocytes (%) (Auto) 7.5, Eosinophils (%) (Auto) 2.4, Basophils (%) (Auto ) 0.6, Prothrombin Time [Pending], Prothromb Time International Ratio [Pending] , Activated Partial Thromboplast Time [Pending], Sodium Level [Pending], Potassium Level [Pending], Chloride Level [Pending], Carbon Dioxide Level [ Pending], Blood Urea Nitrogen [Pending], Creatinine [Pending], Estimat Glomerular Filtration Rate [Pending], Glucose Level [Pending], Calcium Level [ Pending] Height (Feet): 5 Height (Inches): 5.00 Weight (Pounds): 124 General Appearance: no apparent distress Neck: normal alignment Cardiovascular: normal rate Respiratory/Chest: lungs clear Abdomen: normal bowel sounds Pelvis: normal external exam Objective Current Medications Medications (Trade) Dose Ordered Sig/Adalberto Route PRN Reason Start Time Stop Time Status Last Admin Dose Admin Acetaminophen (Tylenol) 500 mg Q4H PRN ORAL Mild Pain/Temp > 100.5 12/26/18 04:30 01/25/19 04:29 Acetaminophen (Tylenol) 650 mg Q6HR ORAL 12/30/18 12:00 01/29/19 11:59 Ciprofloxacin (Cipro 500mg tab) 500 mg EVERY 12 HOURS ORAL 12/28/18 21:00 01/04/19 20:59 12/30/18 20:12 Dextrose (Dextrose 50%) 25 ml Q30M PRN IV Hypoglycemia 12/26/18 04:30 01/25/19 04:29 Dextrose (Dextrose 50%) 50 ml Q30M PRN IV Hypoglycemia 12/26/18 04:30 01/25/19 04:29 Dextrose/ Electrolytes 1,000 ml @ 50 mls/hr Q20H IV 12/28/18 16:00 01/27/19 15:59 12/30/18 09:24 Hydromorphone HCl (Dilaudid) 0.5 mg Q4H PRN IVP For brak through Pain 12/30/18 12:00 01/06/19 11:59 12/30/18 14:27 Insulin Aspart (NovoLOG) BEFORE MEALS AND HS SUBQ 12/26/18 22:30 01/25/19 22:29 12/31/18 06:40 Insulin Detemir (Levemir) 25 units BEDTIME SUBQ 12/27/18 21:00 01/25/19 22:29 12/30/18 20:23 Lisinopril (Zestril) 5 mg Q12HR ORAL 12/30/18 21:00 01/28/19 08:59 12/30/18 20:13 Metoclopramide HCl (Reglan) 5 mg THREE TIMES A DAY ORAL 12/29/18 13:00 01/25/19 12:59 12/30/18 17:09 Nateglinide (Starlix) 60 mg TIAC ORAL 12/30/18 11:30 01/29/19 11:29 12/30/18 17:09 Ondansetron HCl (Zofran) 4 mg Q6H PRN IVP Nausea & Vomiting 12/26/18 04:30 01/25/19 04:29 12/30/18 09:25 Pantoprazole (Protonix) 40 mg BIAC ORAL 12/26/18 16:30 01/25/19 16:29 12/30/18 17:09 Potassium Chloride (K-Dur) 40 meq TWICE A DAY ORAL 12/28/18 18:00 01/27/19 17:59 12/30/18 17:10 Julio Beaver MD Dec 31, 2018 07:07
--- NOTE | 2018-12-31 07:49 | NUR ---
NURSE NOTES: pt in bed with no sob nor in any form of distress noted. EGD on hold due to no anesthesiologist at this time. Per GI RN, they will come back for pt when the anesthesiologist available. kept NPO. will continue to monitor
[2018-12-31] MEDS ORDERED: LR 1000ml 1,000 ML IVLG SCH (08:58)
--- NOTE | 2018-12-31 08:58 | Anethesia Preoperative Eval ---
Anesthesia Pre-op PMH/ROS General Date of Evaluation: Dec 31, 2018 Anesthesiologist: Edwardo ASA Score: ASA 2 Mallampati Score Class I : Soft palate, uvula, fauces, pillars visible Class II: Soft palate, uvula, fauces visible Class III: Soft palate, base of uvula visible Class IV: Only hard plate visible Mallampati Classification: Class II Surgeon: Santos Diagnosis: N/V Surgical Procedure: EGD Anesthesia History: none Family History: no anesthesia problems Allergies: Coded Allergies: No Known Allergies (Unverified , 12/26/18) Medications: see eMAR Patient NPO?: Yes NPO Date: Dec 30, 2018 NPO Time: 22:00 Past Medical History Cardiovascular: Denies: HTN, CAD, NV, valve dz, arrhythmia, other Pulmonary: Denies: asthma, COPD, LEAH, other Gastrointestinal/Genitourinary: Reports: GERD; Denies: CRI, ESRD, other Neurologic/Psychiatric: Denies: dementia, CVA, depression/anxiety, TIA, other Endocrine: Reports: DM; Denies: hypothyroidism, steroids, other HEENT: Denies: cataract (L), cataract (R), glaucoma, SQUAXIN (L), SQUAXIN (R), other Hematology/Immune: Denies: anemia, DVT, bleeding disorder, other Musculoskeletal/Integumentary: Denies: OA, RA, DJD, DDD, edema, other PSxH Narrative: c/s, eye sx Anesthesia Pre-op Phys. Exam Physician Exam Last Vital Signs Date Time Temp Pulse Resp B/P (MAP) Pulse Ox O2 Delivery O2 Flow Rate FiO2 12/31/18 04:00 98.1 82 18 141/87 (105) 97 12/30/18 21:00 Room Air Constitutional: NAD Cardiovascular: RRR Respiratory: CTA Airway Exam Mallampati Score: Class II MO: full ROM: full Anesthesia Pre-op A/P Labs Hematology Test 12/31/18 06:30 White Blood Count 6.9 K/UL (4.8-10.8) Red Blood Count 4.92 M/UL (4.20-5.40) Hemoglobin 13.3 G/DL (12.0-16.0) Hematocrit 39.7 % (37.0-47.0) Mean Corpuscular Volume 81 FL (80-99) Mean Corpuscular Hemoglobin 27.0 PG (27.0-31.0) Mean Corpuscular Hemoglobin Concent 33.4 G/DL (32.0-36.0) Red Cell Distribution Width 11.4 % (11.6-14.8) L Platelet Count 280 K/UL (150-450) Mean Platelet Volume 6.6 FL (6.5-10.1) Neutrophils (%) (Auto) 43.7 % (45.0-75.0) L Lymphocytes (%) (Auto) 45.9 % (20.0-45.0) H Monocytes (%) (Auto) 7.5 % (1.0-10.0) Eosinophils (%) (Auto) 2.4 % (0.0-3.0) Basophils (%) (Auto) 0.6 % (0.0-2.0) Coagulation Test 12/31/18 06:30 Prothrombin Time 11.1 SEC (9.30-11.50) Prothromb Time International Ratio 1.1 (0.9-1.1) Activated Partial Thromboplast Time 22 SEC (23-33) L Chemistry Test 12/31/18 06:30 Sodium Level 140 MMOL/L (136-145) Potassium Level 3.9 MMOL/L (3.5-5.1) Chloride Level 106 MMOL/L (98-107) Carbon Dioxide Level 28 MMOL/L (21-32) Anion Gap 6 mmol/L (5-15) Blood Urea Nitrogen 6 mg/dL (7-18) L Creatinine 0.6 MG/DL (0.55-1.30) Estimat Glomerular Filtration Rate > 60 mL/min (>60) Glucose Level 159 MG/DL (74-106) H Calcium Level 9.0 MG/DL (8.5-10.1) Studies Pre-op Studies: EKG - sr Risk Assessment & Plan Assessment: ASA II Plan: MAC Status Change Before Surgery: No Pre-Antibiotics Drug: N/A Marquita Meyer MD Dec 31, 2018 08:58
[2018-12-31] MEDS ORDERED: DiphenhydrAMINE 50mg/ml Inj IVP PRN (09:00)
[2018-12-31] MEDS ORDERED: Propofol 200mg/20ml IV ONE (09:00)
[2018-12-31] MEDS ORDERED: Lidocaine 1% MPF 10mg/ml 5ml ONE (09:00)
[2018-12-31] MEDS ORDERED: LR 1000ml ONE (09:00)
[2018-12-31] MEDS ORDERED: Metoclopramide 10mg/2ml Inj IVP PRN (09:00)
--- NOTE | 2018-12-31 09:01 | Immediate Post-Op Evaluation ---
Immediate Post-Op Evalulation Immediate Post-Op Evalulation Procedure: EGD Date of Evaluation: Dec 31, 2018 Time of Evaluation: 09:29 IV Fluids: 150 Blood Products: 0 Estimated Blood Loss: 0 Urinary Output: 0 Blood Pressure Systolic: 105 Blood Pressure Diastolic: 68 Pulse Rate: 78 Respiratory Rate: 16 O2 Sat by Pulse Oximetry: 100 Temperature (Fahrenheit): 97.6 Pain Score (1-10): 0 Nausea: No Vomiting: No Complications 0 Patient Status: awake, reacts, patent, none Hydration Status: adequate Drug: N/A Marquita Meyer MD Dec 31, 2018 09:01
--- NOTE | 2018-12-31 09:06 | Pre-Procedure Note/Attestation ---
Pre-Procedure Note/Attestation Complete Prior to Procedure Planned Procedure: not applicable Procedure Narrative: egd Indications for Procedure Pre-Operative Diagnosis: N/V Attestation I attest that I discussed the nature of the procedure; its benefits; risks and complications; and alternatives (and the risks and benefits of such alternatives ), prior to the procedure, with the patient (or the patient's legal strategic partnership representative). I attest that, if there was a reasonable possibility of needing a blood transfusion, the patient (or the patient's legal strategic partnership representative) was given the [facility] standardized written summary, pursuant to the Samuel [place] Blood Safety Act ([place] Health and Safety Code # 1645, as amended). I attest that I re-evaluated the patient just prior to the surgery and that there has been no change in the patient's H&P, except as documented below: Franco Graham MD Dec 31, 2018 09:06
[2018-12-31] MEDS ORDERED: NS 500ML IVPB ONE (09:07)
--- NOTE | 2018-12-31 09:22 | Endoscopy Procedure Note ---
Endoscopy Procedure Note General Indication for Procedure: nausea and vomiting Procedures Performed: EGD Operative Findings/Diagnosis: candidia esophagitis Specimen: yes Pt Tolerated Procedure Well: Yes Estimated Blood Loss: none Anesthesia Anesthesiologist: [place] Anesthesia: MAC Inserted Devices Implant(s) used?: No GI Core Measures 50 yrs or older w/o bx or poly: Not Applicable 10yrs. F/U not recommended: Not Applicable Franco Graham MD Dec 31, 2018 09:22
--- NOTE | 2018-12-31 09:49 | 48 Hour Post Anesthesia Eval ---
Post Anesthesia Evaluation Procedure: EGD Date of Evaluation: Dec 31, 2018 Airway: patent Nausea: No Vomiting: No Pain Intensity: 0 Hydration Status: adequate Cardiopulmonary Status: at baseline Mental Status/LOC: patient returned to baseline Post-Anesthesia Complications: 0 Follow-up care needed: N/A - further care as per Marquita Zhao MD Dec 31, 2018 09:49
[2018-12-31] MEDS: Ciprofloxacin 500mg tab ORAL SCH ×2 (10:23→20:24)
[2018-12-31] MEDS: Lisinopril 2.5mg tab ORAL SCH ×2 (10:24→20:28)
[2018-12-31 11:22] LABS: PHOSPHORUS 3.7 MG/DL (2.5-4.9)
--- NOTE | 2018-12-31 12:34 | Infectious Diseases Prog Note ---
Assessment/Plan Assessment/Plan A; Marilyn esophagitis UTI with ESBL E. coli Syncope Dehydration DM Nausea/Vomiting Hypokalemia corrected P: Continue Cipro increase dose of Fluconazole to 400 mg Subjective ROS Limited/Unobtainable: No HEENT: Reports: other Respiratory: Reports: no symptoms Gastrointestinal/Abdominal: Reports: no symptoms, other - had EGD today Genitourinary: Reports: no symptoms Allergies: Coded Allergies: No Known Allergies (Unverified , 12/26/18) Objective Vital Signs Last 24 Hour Vital Signs Date Time Temp Pulse Resp B/P (MAP) Pulse Ox O2 Delivery O2 Flow Rate FiO2 12/31/18 10:24 119/81 12/31/18 09:47 97.4 75 16 129/89 97 12/31/18 09:47 78 16 100 12/31/18 09:40 77 16 130/80 98 12/31/18 09:35 74 15 114/71 100 12/31/18 09:30 75 14 111/85 100 Nasal Cannula 3 12/31/18 09:24 97.6 78 16 105/68 100 Nasal Cannula 3 12/31/18 09:00 Room Air 12/31/18 08:00 98.2 81 18 119/69 (86) 97 12/31/18 04:00 98.1 82 18 141/87 (105) 97 12/30/18 21:00 Room Air 12/30/18 20:13 116/66 12/30/18 20:00 98.1 78 18 116/66 (83) 99 Height (Feet): 5 Height (Inches): 5.00 Weight (Pounds): 124 General Appearance: no acute distress HEENT: mucous membranes moist Respiratory/Chest: normal breath sounds Cardiovascular: normal rate Abdomen: soft, non tender Neurologic/Psychiatric: alert, oriented x 3, responsive Laboratory Tests Test 12/31/18 06:30 White Blood Count 6.9 K/UL (4.8-10.8) Red Blood Count 4.92 M/UL (4.20-5.40) Hemoglobin 13.3 G/DL (12.0-16.0) Hematocrit 39.7 % (37.0-47.0) Mean Corpuscular Volume 81 FL (80-99) Mean Corpuscular Hemoglobin 27.0 PG (27.0-31.0) Mean Corpuscular Hemoglobin Concent 33.4 G/DL (32.0-36.0) Red Cell Distribution Width 11.4 % (11.6-14.8) L Platelet Count 280 K/UL (150-450) Mean Platelet Volume 6.6 FL (6.5-10.1) Neutrophils (%) (Auto) 43.7 % (45.0-75.0) L Lymphocytes (%) (Auto) 45.9 % (20.0-45.0) H Monocytes (%) (Auto) 7.5 % (1.0-10.0) Eosinophils (%) (Auto) 2.4 % (0.0-3.0) Basophils (%) (Auto) 0.6 % (0.0-2.0) Prothrombin Time 11.1 SEC (9.30-11.50) Prothromb Time International Ratio 1.1 (0.9-1.1) Activated Partial Thromboplast Time 22 SEC (23-33) L Sodium Level 140 MMOL/L (136-145) Potassium Level 3.9 MMOL/L (3.5-5.1) Chloride Level 106 MMOL/L (98-107) Carbon Dioxide Level 28 MMOL/L (21-32) Anion Gap 6 mmol/L (5-15) Blood Urea Nitrogen 6 mg/dL (7-18) L Creatinine 0.6 MG/DL (0.55-1.30) Estimat Glomerular Filtration Rate > 60 mL/min (>60) Glucose Level 159 MG/DL (74-106) H Calcium Level 9.0 MG/DL (8.5-10.1) Phosphorus Level 3.7 MG/DL (2.5-4.9) Magnesium Level 1.8 MG/DL (1.8-2.4) Current Medications Medications (Trade) Dose Ordered Sig/Adalberto Route PRN Reason Start Time Stop Time Status Last Admin Dose Admin Acetaminophen (Tylenol) 500 mg Q4H PRN ORAL Mild Pain/Temp > 100.5 12/26/18 04:30 01/25/19 04:29 Acetaminophen (Tylenol) 650 mg Q4H PRN ORAL Mild Pain (Pain Scale 1-3) 12/31/18 09:00 12/31/18 14:00 Acetaminophen (Tylenol) 650 mg Q6HR ORAL 12/30/18 12:00 01/29/19 11:59 12/31/18 12:15 Ciprofloxacin (Cipro 500mg tab) 500 mg EVERY 12 HOURS ORAL 12/28/18 21:00 01/04/19 20:59 12/31/18 10:23 Dextrose (Dextrose 50%) 25 ml Q30M PRN IV Hypoglycemia 12/26/18 04:30 01/25/19 04:29 Dextrose (Dextrose 50%) 50 ml Q30M PRN IV Hypoglycemia 12/26/18 04:30 01/25/19 04:29 Dextrose/ Electrolytes 1,000 ml @ 50 mls/hr Q20H IV 12/28/18 16:00 01/27/19 15:59 12/30/18 09:24 Diphenhydramine HCl (Benadryl) 25 mg Q15M PRN IVP Itching 12/31/18 09:00 12/31/18 14:00 Fluconazole (Diflucan) 100 mg DAILY ORAL 01/01/19 09:00 01/08/19 08:59 Hydralazine HCl (Apresoline) 5 mg Q30M PRN IV SBP>160 OR___/DBP>90 OR___ 12/31/18 09:00 12/31/18 14:00 Hydromorphone HCl (Dilaudid) 0.5 mg Q4H PRN IVP For brak through Pain 12/30/18 12:00 01/06/19 11:59 12/30/18 14:27 Insulin Aspart (NovoLOG) BEFORE MEALS AND HS SUBQ 12/26/18 22:30 01/25/19 22:29 12/31/18 12:17 Insulin Detemir (Levemir) 25 units BEDTIME SUBQ 12/27/18 21:00 01/25/19 22:29 12/30/18 20:23 Lactated Ringer's 1,000 ml @ 10 mls/hr Q24H IVLG 12/31/18 08:58 12/31/18 14:00 Lisinopril (Zestril) 5 mg Q12HR ORAL 12/30/18 21:00 01/28/19 08:59 12/31/18 10:24 Metoclopramide HCl (Reglan) 5 mg THREE TIMES A DAY ORAL 12/29/18 13:00 01/25/19 12:59 12/31/18 12:19 Metoclopramide HCl (Reglan) 10 mg Q1H PRN IVP Nausea & Vomiting 12/31/18 09:00 12/31/18 14:00 Nateglinide (Starlix) 60 mg TIAC ORAL 12/30/18 11:30 01/29/19 11:29 12/31/18 12:14 Ondansetron HCl (Zofran) 4 mg Q1H PRN IVP Nausea & Vomiting 12/31/18 09:00 12/31/18 14:00 Ondansetron HCl (Zofran) 4 mg Q6H PRN IVP Nausea & Vomiting 12/26/18 04:30 01/25/19 04:29 12/30/18 09:25 Pantoprazole (Protonix) 40 mg BIAC ORAL 12/26/18 16:30 01/25/19 16:29 12/30/18 17:09 Potassium Chloride (K-Dur) 40 meq TWICE A DAY ORAL 12/28/18 18:00 01/27/19 17:59 12/31/18 10:23 Ravi Roman MD Dec 31, 2018 12:34
--- NOTE | 2018-12-31 12:50 | Nephrology Progress Note ---
Assessment/Plan Problem List: (1) Dehydration (2) UTI (urinary tract infection) (3) Gastroparesis (4) Nausea vomiting and diarrhea (5) Hyperglycemia due to type 1 diabetes mellitus Assessment Dehydration UTI Electrolytre imbalance Syncope Abdominal pain Nausea vomiting and diarrhea Hyperglycemia due to type 1 diabetes mellitus Plan DC MS K phos add Zestril increase HS Levemir k and Phos and Mag supplement as needed Antibiotics Monitor lytes Subjective ROS Limited/Unobtainable: No Constitutional: Reports: malaise Objective Objective Last 24 Hour Vital Signs Date Time Temp Pulse Resp B/P (MAP) Pulse Ox O2 Delivery O2 Flow Rate FiO2 12/31/18 10:24 119/81 12/31/18 09:47 97.4 75 16 129/89 97 12/31/18 09:47 78 16 100 12/31/18 09:40 77 16 130/80 98 12/31/18 09:35 74 15 114/71 100 12/31/18 09:30 75 14 111/85 100 Nasal Cannula 3 12/31/18 09:24 97.6 78 16 105/68 100 Nasal Cannula 3 12/31/18 09:00 Room Air 12/31/18 08:00 98.2 81 18 119/69 (86) 97 12/31/18 04:00 98.1 82 18 141/87 (105) 97 12/30/18 21:00 Room Air 12/30/18 20:13 116/66 12/30/18 20:00 98.1 78 18 116/66 (83) 99 Intake and Output 12/30/18 12/31/18 18:59 06:59 Intake Total 650 ml Balance 650 ml IV Total 50 ml Other 600 ml # Voids 3 Laboratory Tests 12/31/18 06:30: White Blood Count 6.9, Red Blood Count 4.92, Hemoglobin 13.3, Hematocrit 39.7, Mean Corpuscular Volume 81, Mean Corpuscular Hemoglobin 27.0, Mean Corpuscular Hemoglobin Concent 33.4, Red Cell Distribution Width 11.4L, Platelet Count 280, Mean Platelet Volume 6.6, Neutrophils (%) (Auto) 43.7L, Lymphocytes (%) (Auto) 45.9H, Monocytes (%) (Auto) 7.5, Eosinophils (%) (Auto) 2.4, Basophils (%) (Auto ) 0.6, Prothrombin Time 11.1, Prothromb Time International Ratio 1.1, Activated Partial Thromboplast Time 22L, Sodium Level 140, Potassium Level 3.9, Chloride Level 106, Carbon Dioxide Level 28, Anion Gap 6, Blood Urea Nitrogen 6L, Creatinine 0.6, Estimat Glomerular Filtration Rate > 60, Glucose Level 159H, Calcium Level 9.0, Phosphorus Level 3.7, Magnesium Level 1.8 Height (Feet): 5 Height (Inches): 5.00 Weight (Pounds): 124 General Appearance: no apparent distress Objective no change Prabhakar Bowen MD Dec 31, 2018 12:50
--- NOTE | 2018-12-31 13:30 | NUR ---
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 97.4 HR 87 RR 18 B/P 129/84 RA 98% IS: DIFLUCAN PO CIPRO PO IVF D5KCL @ 50ML/HR MED/SURG STATUS
[2018-12-31] MEDS ORDERED: Gastrograffin 30ml ORAL PRN (14:30)
[2018-12-31] MEDS ORDERED: Gastrograffin 30ml RECTAL PRN (14:30)
[2018-12-31] MEDS ORDERED: Isovue-300 100ml vial INJ PRN (14:30)
--- NOTE | 2018-12-31 14:30 | Procedure Note ---
DATE OF PROCEDURE: 12/31/2018 SURGEON: Franco Graham M.D. PROCEDURE: Upper endoscopy with biopsy. ANESTHESIA: Per Dr. Brooke. INSTRUMENT: Olympus adult flexible upper endoscope. INDICATION: Persistent nausea and vomiting. REASON FOR PROCEDURE: The procedure, risks, benefits, and possible consequences, including hemorrhage, aspiration, perforation and infection, and alternative treatments, were explained to the patient/legal guardian by Dr. Franco Graham and the patient/legal guardian understood and accepted these risks. PROCEDURE IN DETAIL: After informed consent was obtained and the patient was adequately sedated, the Olympus upper endoscope was advanced from mouth into the second portion of duodenum and retroflexion was performed in the stomach. The patient's GE junction was found to be about 37 cm from the incisors. There was evidence of possible Marilyn esophagitis in the esophagus. With this white patches, we did a brush biopsy to diagnose. In the stomach, there was diffuse gastritis. Random biopsies from antrum and body was obtained to rule out H. pylori infection. The rest of the examination grossly within normal limits. At this time, the upper endoscope was retrieved and procedure was terminated. SUMMARY OF FINDINGS: 1. Possible Marilyn esophagitis. 2. Gastritis, status post biopsy. RECOMMENDATION: 1. Start fluconazole 100 mg p.o. daily for 7 to 10 days. 2. Follow up biopsy results and treat accordingly. 3. The patient's nausea and vomiting possibly due to combination of the diabetes and also UTI. If the patient has persistent vomiting, we will recommend CT of the abdomen and pelvis. I want to thank, Dr. Ondina Dailey, for this kind referral. Franco Graham M.D. DR: TAY JOB#: [id number] CC: Ondina Dailey M.D.; Fax#: [phone] [facility]
--- NOTE | 2018-12-31 19:21 | NUR ---
HAND-OFF: Report given to ALONZO Zafar.
--- NOTE | 2018-12-31 19:21 | NUR ---
NURSE NOTES: Received patient on bed sitting, no s/s of any distress, denies any pain as of this time. IV line patent and intact, NPO post MN patient is aware. Bed in low position and locked, call light within reach, will continue to monitor.
[2018-12-31] MEDS: Levemir Flexpen SUBQ SCH (20:26)
[2018-12-31] MEDS ORDERED: Zolpidem 5mg tab ORAL PRN (20:45)
--- NOTE | 2018-12-31 21:33 | General Progress Note ---
Assessment/Plan Problem List: (1) Dehydration ICD Codes: E86.0 - Dehydration SNOMED: 28697700, 56209748 (2) Gastroenteritis ICD Codes: K52.9 - Noninfective gastroenteritis and colitis, unspecified SNOMED: 12816490 (3) Electrolyte imbalance ICD Codes: E87.8 - Other disorders of electrolyte and fluid balance, not elsewhere classified SNOMED: 089360170 (4) Abdominal pain ICD Codes: R10.9 - Unspecified abdominal pain SNOMED: 57619898, 58002236 Qualifiers: Qualified Codes: R10.84 - Generalized abdominal pain (5) Gastroparesis ICD Codes: K31.84 - Gastroparesis SNOMED: 472002360 (6) Nausea vomiting and diarrhea ICD Codes: R11.2 - Nausea with vomiting, unspecified; R19.7 - Diarrhea, unspecified SNOMED: 0540618 (7) Hyperglycemia due to type 1 diabetes mellitus ICD Codes: E10.65 - Type 1 diabetes mellitus with hyperglycemia; R19.7 - Diarrhea, unspecified SNOMED: 957451215965979, 20710072 (8) GERD (gastroesophageal reflux disease) ICD Codes: K21.9 - Gastro-esophageal reflux disease without esophagitis SNOMED: 096314120 Status: progressing Assessment/Plan has jessica esophagitis diflucan was ordered no vomitting reviewed chart and labs Subjective ROS Limited/Unobtainable: Yes Constitutional: Reports: no symptoms Allergies: Coded Allergies: No Known Allergies (Unverified , 12/26/18) Objective Last 24 Hour Vital Signs Date Time Temp Pulse Resp B/P (MAP) Pulse Ox O2 Delivery O2 Flow Rate FiO2 12/31/18 20:28 96/60 12/31/18 17:51 98.3 12/31/18 16:00 98.3 86 18 152/89 (110) 98 12/31/18 12:00 98.3 87 18 159/86 (110) 99 12/31/18 10:24 119/81 12/31/18 09:47 97.4 75 16 129/89 97 12/31/18 09:47 78 16 100 12/31/18 09:40 77 16 130/80 98 12/31/18 09:35 74 15 114/71 100 12/31/18 09:30 75 14 111/85 100 Nasal Cannula 3 2/11/19 09:24 97.6 78 16 105/68 100 Nasal Cannula 3 12/31/18 09:00 Room Air 12/31/18 08:00 98.2 81 18 119/69 (86) 97 12/31/18 04:00 98.1 82 18 141/87 (105) 97 Intake and Output 12/30/18 12/31/18 19:00 07:00 Intake Total 600 ml Balance 600 ml Other 600 ml # Voids 3 Laboratory Tests 12/31/18 06:30: White Blood Count 6.9, Red Blood Count 4.92, Hemoglobin 13.3, Hematocrit 39.7, Mean Corpuscular Volume 81, Mean Corpuscular Hemoglobin 27.0, Mean Corpuscular Hemoglobin Concent 33.4, Red Cell Distribution Width 11.4L, Platelet Count 280, Mean Platelet Volume 6.6, Neutrophils (%) (Auto) 43.7L, Lymphocytes (%) (Auto) 45.9H, Monocytes (%) (Auto) 7.5, Eosinophils (%) (Auto) 2.4, Basophils (%) (Auto ) 0.6, Prothrombin Time 11.1, Prothromb Time International Ratio 1.1, Activated Partial Thromboplast Time 22L, Sodium Level 140, Potassium Level 3.9, Chloride Level 106, Carbon Dioxide Level 28, Anion Gap 6, Blood Urea Nitrogen 6L, Creatinine 0.6, Estimat Glomerular Filtration Rate > 60, Glucose Level 159H, Calcium Level 9.0, Phosphorus Level 3.7, Magnesium Level 1.8 Height (Feet): 5 Height (Inches): 5.00 Weight (Pounds): 124 Cardiovascular: normal rate Respiratory/Chest: lungs clear Abdomen: soft Ondina Dailey MD Dec 31, 2018 21:33
[2019-01-01 04:00] VITALS: BP 134/76
[2019-01-01] MEDS: Nateglinide 60mg tab ORAL SCH ×3 (06:12→16:56)
[2019-01-01] MEDS: NovoLOG Insulin Flexpen SUBQ SCH ×4 (06:13→20:45)
--- NOTE | 2019-01-01 06:51 | General Progress Note ---
Assessment/Plan Problem List: (1) Diabetes mellitus out of control ICD Codes: E11.65 - Type 2 diabetes mellitus with hyperglycemia SNOMED: 27414582, 888898953 (2) Electrolyte imbalance ICD Codes: E87.8 - Other disorders of electrolyte and fluid balance, not elsewhere classified SNOMED: 076487680 (3) Abdominal pain ICD Codes: R10.9 - Unspecified abdominal pain SNOMED: 41813267, 07007191 Qualifiers: Qualified Codes: R10.84 - Generalized abdominal pain Assessment/Plan continue Levemir 25 units qhs continue Starlix 60 mg ac tid continue NISS ac / hs Rx for diabetic medications left in chart Subjective Allergies: Coded Allergies: No Known Allergies (Unverified , 12/26/18) All Systems: reviewed and negative except above Subjective events noted Item Value Date Time Bedside Blood Glucose 162 mg/dl H 01/01/19 0625 Bedside Blood Glucose 223 mg/dl H 12/31/18 2100 Bedside Blood Glucose 274 mg/dl H 12/31/18 1727 Bedside Blood Glucose 242 mg/dl H 12/31/18 1217 Bedside Blood Glucose 159 mg/dl H 12/31/18 0640 Objective Last 24 Hour Vital Signs Date Time Temp Pulse Resp B/P (MAP) Pulse Ox O2 Delivery O2 Flow Rate FiO2 01/01/19 04:00 97.5 76 16 134/76 (95) 98 12/31/18 21:00 Room Air 12/31/18 20:28 96/60 12/31/18 20:00 96.8 83 16 97/60 (72) 98 12/31/18 17:51 98.3 12/31/18 16:00 98.3 86 18 152/89 (110) 98 12/31/18 12:00 98.3 87 18 159/86 (110) 99 12/31/18 10:24 119/81 12/31/18 09:47 97.4 75 16 129/89 97 12/31/18 09:47 78 16 100 12/31/18 09:40 77 16 130/80 98 12/31/18 09:35 74 15 114/71 100 12/31/18 09:30 75 14 111/85 100 Nasal Cannula 3 12/31/18 09:24 97.6 78 16 105/68 100 Nasal Cannula 3 12/31/18 09:00 Room Air 12/31/18 08:00 98.2 81 18 119/69 (86) 97 Intake and Output 12/31/18 01/01/19 19:00 07:00 Intake Total 600 ml Output Total 0 ml Balance 600 ml Intake Oral 480 ml IV Total 120 ml Estimated Blood Loss 0 ml # Voids 3 3 Height (Feet): 5 Height (Inches): 5.00 Weight (Pounds): 124 General Appearance: no apparent distress Neck: normal alignment Cardiovascular: normal rate Respiratory/Chest: lungs clear Abdomen: normal bowel sounds Objective Current Medications Medications (Trade) Dose Ordered Sig/Adalberto Route PRN Reason Start Time Stop Time Status Last Admin Dose Admin Acetaminophen (Tylenol) 500 mg Q4H PRN ORAL Mild Pain/Temp > 100.5 12/26/18 04:30 01/25/19 04:29 Acetaminophen (Tylenol) 650 mg Q6HR ORAL 12/30/18 12:00 01/29/19 11:59 01/01/19 06:13 Ciprofloxacin (Cipro 500mg tab) 500 mg EVERY 12 HOURS ORAL 12/28/18 21:00 01/04/19 20:59 12/31/18 20:24 Dextrose (Dextrose 50%) 25 ml Q30M PRN IV Hypoglycemia 12/26/18 04:30 01/25/19 04:29 Dextrose (Dextrose 50%) 50 ml Q30M PRN IV Hypoglycemia 12/26/18 04:30 01/25/19 04:29 Dextrose/ Electrolytes 1,000 ml @ 50 mls/hr Q20H IV 12/28/18 16:00 01/27/19 15:59 12/31/18 18:00 Diatrizoate Meglum/ Diatrizoate Sod (Gastrografin) 30 ml NOW PRN ORAL Radiology Procedure 12/31/18 14:30 01/01/19 23:59 Diatrizoate Meglum/ Diatrizoate Sod (Gastrografin) 60 ml NOW PRN RECTAL Radiology Procedure 12/31/18 14:30 01/01/19 23:59 Fluconazole (Diflucan) 400 mg DAILY ORAL 01/01/19 09:00 01/08/19 08:59 Hydromorphone HCl (Dilaudid) 0.5 mg Q4H PRN IVP For brak through Pain 12/30/18 12:00 01/06/19 11:59 12/30/18 14:27 Insulin Aspart (NovoLOG) BEFORE MEALS AND HS SUBQ 12/26/18 22:30 01/25/19 22:29 01/01/19 06:13 Insulin Detemir (Levemir) 25 units BEDTIME SUBQ 12/27/18 21:00 01/25/19 22:29 12/31/18 20:26 Iopamidol (Isovue-300 100ml) 100 ml NOW PRN INJ Radiology Procedure 12/31/18 14:30 01/01/19 23:59 Lisinopril (Zestril) 5 mg Q12HR ORAL 12/30/18 21:00 01/28/19 08:59 12/31/18 10:24 Metoclopramide HCl (Reglan) 5 mg THREE TIMES A DAY ORAL 12/29/18 13:00 01/25/19 12:59 12/31/18 17:21 Nateglinide (Starlix) 60 mg TIAC ORAL 12/30/18 11:30 01/29/19 11:29 01/01/19 06:12 Ondansetron HCl (Zofran) 4 mg Q6H PRN IVP Nausea & Vomiting 12/26/18 04:30 01/25/19 04:29 12/30/18 09:25 Pantoprazole (Protonix) 40 mg BIAC ORAL 12/26/18 16:30 01/25/19 16:29 01/01/19 06:12 Potassium Chloride (K-Dur) 40 meq TWICE A DAY ORAL 12/28/18 18:00 01/27/19 17:59 12/31/18 17:21 Zolpidem Tartrate (Ambien) 5 mg HSPRN PRN ORAL Insomnia 12/31/18 20:45 01/07/19 20:44 12/31/18 20:43 Julio Beaver MD Jan 01, 2019 06:51
--- NOTE | 2019-01-01 07:25 | NUR ---
HAND-OFF: Report given to Javi ROSADO.
--- NOTE | 2019-01-01 07:25 | NUR ---
NURSE NOTES: pt in bed with no sob nor in any form of distress noted. denies any n/v. IVF running with no adverse reaction noted. call light within reach. will continue to monitor
[2019-01-01 08:00] VITALS: BP 136/80
[2019-01-01 08:09] LABS: BASOPHILS % (AUTO) 0.5 % (0.0-2.0); EOSINOPHILS % (AUTO) 2.2 % (0.0-3.0); HEMATOCRIT 35.2 % (37.0-47.0); HEMOGLOBIN 11.9 G/DL (12.0-16.0); LYMPHOCYTES % (AUTO) 44.8 % (20.0-45.0); MEAN CORPUSCULAR VOLUME 81 FL (80-99); MONOCYTES % (AUTO) 8.2 % (1.0-10.0); NEUTROPHILS % (AUTO) 44.4 % (45.0-75.0); PLATELET COUNT 230 K/UL (150-450); RED BLOOD COUNT 4.32 M/UL (4.20-5.40); RED CELL DISTRIBUTION WIDTH 11.4 % (11.6-14.8); WHITE BLOOD COUNT 5.7 K/UL (4.8-10.8)
[2019-01-01] MEDS: Ciprofloxacin 500mg tab ORAL SCH ×2 (08:10→20:44)
[2019-01-01] MEDS: Lisinopril 2.5mg tab ORAL SCH ×2 (08:10→20:46)
[2019-01-01] MEDS: Fluconazole 100mg tab ORAL SCH (08:14)
[2019-01-01 08:18] LABS: ANION GAP 7 mmol/L (5-15); BLOOD UREA NITROGEN 4 mg/dL (7-18); CALCIUM 8.8 MG/DL (8.5-10.1); CARBON DIOXIDE 26 MMOL/L (21-32); CHLORIDE 109 MMOL/L (98-107); CREATININE 0.6 MG/DL (0.55-1.30); SODIUM 142 MMOL/L (136-145)
[2019-01-01] MEDS ORDERED: Fluconazole 100mg tab ORAL SCH (09:00)
--- NOTE | 2019-01-01 09:28 | NUR ---
*-* INSURANCE *-* UPDATED CLINICALS HAVE BEEN FAXED TO: [facility] REF#[id number] TORREY:HUSAM P:[phone] F:[phone]
[2019-01-01 09:42] LABS: PHOSPHORUS 2.8 MG/DL (2.5-4.9)
--- NOTE | 2019-01-01 11:10 | Nephrology Progress Note ---
Assessment/Plan Problem List: (1) Dehydration (2) UTI (urinary tract infection) (3) Gastroparesis (4) Nausea vomiting and diarrhea (5) Hyperglycemia due to type 1 diabetes mellitus (6) Marilyn esophagitis Assessment Dehydration UTI Electrolytre imbalance Syncope Abdominal pain Nausea vomiting and diarrhea Hyperglycemia due to type 1 diabetes mellitus Plan DC MS K and phos and mag as needed add Zestril DC IV fluid BS control Antibiotics on Fluconozol Monitor lytes Subjective ROS Limited/Unobtainable: No Constitutional: Reports: malaise Objective Objective Last 24 Hour Vital Signs Date Time Temp Pulse Resp B/P (MAP) Pulse Ox O2 Delivery O2 Flow Rate FiO2 01/01/19 09:56 Room Air 01/01/19 08:10 136/80 01/01/19 08:00 97.7 78 18 136/80 (98) 98 01/01/19 04:00 97.5 76 16 134/76 (95) 98 12/31/18 21:00 Room Air 12/31/18 20:28 96/60 12/31/18 20:00 96.8 83 16 97/60 (72) 98 12/31/18 17:51 98.3 12/31/18 16:00 98.3 86 18 152/89 (110) 98 12/31/18 12:00 98.3 87 18 159/86 (110) 99 Intake and Output 12/31/18 01/01/19 19:00 07:00 Intake Total 650 ml 600 ml Output Total 0 ml Balance 650 ml 600 ml Intake Oral 480 ml IV Total 170 ml 600 ml Estimated Blood Loss 0 ml # Voids 3 3 Laboratory Tests 01/01/19 07:30: White Blood Count 5.7, Red Blood Count 4.32, Hemoglobin 11.9L, Hematocrit 35.2L , Mean Corpuscular Volume 81, Mean Corpuscular Hemoglobin 27.5, Mean Corpuscular Hemoglobin Concent 33.7, Red Cell Distribution Width 11.4L, Platelet Count 230, Mean Platelet Volume 6.7, Neutrophils (%) (Auto) 44.4L, Lymphocytes (%) (Auto) 44.8, Monocytes (%) (Auto) 8.2, Eosinophils (%) (Auto) 2.2, Basophils (%) (Auto) 0.5, Sodium Level 142, Potassium Level 4.0, Chloride Level 109H, Carbon Dioxide Level 26, Anion Gap 7, Blood Urea Nitrogen 4L, Creatinine 0.6, Estimat Glomerular Filtration Rate > 60, Glucose Level 141H, Calcium Level 8.8, Phosphorus Level 2.8, Magnesium Level 1.6L Height (Feet): 5 Height (Inches): 5.00 Weight (Pounds): 124 General Appearance: no apparent distress Respiratory/Chest: lungs clear Abdomen: soft Objective no change Prabhakar Bowen MD Jan 01, 2019 11:09
--- NOTE | 2019-01-01 11:42 | NUR ---
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 97.5 HR 76 RR 16 B/P 134/76 MG 1.6 IS: MAGNESIUM IV DIFLUCAN PO CIPRO PO K-DUR PO PROTONIX PO MED/SURG STATUS
[2019-01-01 12:00] VITALS: BP 133/79
--- NOTE | 2019-01-01 13:40 | Infectious Diseases Prog Note ---
Assessment/Plan Assessment/Plan A; Marilyn esophagitis UTI with ESBL E. coli Syncope Dehydration DM Nausea/Vomiting Hypokalemia corrected P: Continue Cipro X 1 day Continue Fluconazole 400 mg X 2 weeks Will f/u CT scan of abdomen Subjective ROS Limited/Unobtainable: No Constitutional: Reports: no symptoms Respiratory: Reports: no symptoms Cardiovascular: Reports: no symptoms Gastrointestinal/Abdominal: Reports: diarrhea, other - developed after taking contranst for CT Genitourinary: Reports: no symptoms Allergies: Coded Allergies: No Known Allergies (Unverified , 12/26/18) Objective Vital Signs Last 24 Hour Vital Signs Date Time Temp Pulse Resp B/P (MAP) Pulse Ox O2 Delivery O2 Flow Rate FiO2 01/01/19 13:00 97.7 01/01/19 12:00 98.1 91 18 133/79 (97) 98 01/01/19 09:56 Room Air 01/01/19 08:10 136/80 01/01/19 08:00 97.7 78 18 136/80 (98) 98 01/01/19 04:00 97.5 76 16 134/76 (95) 98 12/31/18 21:00 Room Air 12/31/18 20:28 96/60 12/31/18 20:00 96.8 83 16 97/60 (72) 98 12/31/18 16:00 98.3 86 18 152/89 (110) 98 Height (Feet): 5 Height (Inches): 5.00 Weight (Pounds): 124 General Appearance: no acute distress HEENT: mucous membranes moist Respiratory/Chest: lungs clear Cardiovascular: normal rate Abdomen: soft, non tender Extremities: no edema Neurologic/Psychiatric: alert, oriented x 3, responsive Laboratory Tests Test 01/01/19 07:30 White Blood Count 5.7 K/UL (4.8-10.8) Red Blood Count 4.32 M/UL (4.20-5.40) Hemoglobin 11.9 G/DL (12.0-16.0) L Hematocrit 35.2 % (37.0-47.0) L Mean Corpuscular Volume 81 FL (80-99) Mean Corpuscular Hemoglobin 27.5 PG (27.0-31.0) Mean Corpuscular Hemoglobin Concent 33.7 G/DL (32.0-36.0) Red Cell Distribution Width 11.4 % (11.6-14.8) L Platelet Count 230 K/UL (150-450) Mean Platelet Volume 6.7 FL (6.5-10.1) Neutrophils (%) (Auto) 44.4 % (45.0-75.0) L Lymphocytes (%) (Auto) 44.8 % (20.0-45.0) Monocytes (%) (Auto) 8.2 % (1.0-10.0) Eosinophils (%) (Auto) 2.2 % (0.0-3.0) Basophils (%) (Auto) 0.5 % (0.0-2.0) Sodium Level 142 MMOL/L (136-145) Potassium Level 4.0 MMOL/L (3.5-5.1) Chloride Level 109 MMOL/L (98-107) H Carbon Dioxide Level 26 MMOL/L (21-32) Anion Gap 7 mmol/L (5-15) Blood Urea Nitrogen 4 mg/dL (7-18) L Creatinine 0.6 MG/DL (0.55-1.30) Estimat Glomerular Filtration Rate > 60 mL/min (>60) Glucose Level 141 MG/DL (74-106) H Calcium Level 8.8 MG/DL (8.5-10.1) Phosphorus Level 2.8 MG/DL (2.5-4.9) Magnesium Level 1.6 MG/DL (1.8-2.4) L Current Medications Medications (Trade) Dose Ordered Sig/Adalberto Route PRN Reason Start Time Stop Time Status Last Admin Dose Admin Acetaminophen (Tylenol) 500 mg Q4H PRN ORAL Mild Pain/Temp > 100.5 12/26/18 04:30 01/25/19 04:29 Acetaminophen (Tylenol) 650 mg Q6HR ORAL 12/30/18 12:00 01/29/19 11:59 01/01/19 12:30 Ciprofloxacin (Cipro 500mg tab) 500 mg EVERY 12 HOURS ORAL 12/28/18 21:00 01/04/19 20:59 01/01/19 08:10 Dextrose (Dextrose 50%) 25 ml Q30M PRN IV Hypoglycemia 12/26/18 04:30 01/25/19 04:29 Dextrose (Dextrose 50%) 50 ml Q30M PRN IV Hypoglycemia 12/26/18 04:30 01/25/19 04:29 Diatrizoate Meglum/ Diatrizoate Sod (Gastrografin) 30 ml NOW PRN ORAL Radiology Procedure 12/31/18 14:30 01/01/19 23:59 Diatrizoate Meglum/ Diatrizoate Sod (Gastrografin) 60 ml NOW PRN RECTAL Radiology Procedure 12/31/18 14:30 01/01/19 23:59 Fluconazole (Diflucan) 400 mg DAILY ORAL 01/01/19 09:00 01/08/19 08:59 01/01/19 08:14 Hydromorphone HCl (Dilaudid) 0.5 mg Q4H PRN IVP For brak through Pain 12/30/18 12:00 01/06/19 11:59 12/30/18 14:27 Insulin Aspart (NovoLOG) BEFORE MEALS AND HS SUBQ 12/26/18 22:30 01/25/19 22:29 01/01/19 12:29 Insulin Detemir (Levemir) 25 units BEDTIME SUBQ 12/27/18 21:00 01/25/19 22:29 12/31/18 20:26 Iopamidol (Isovue-300 100ml) 100 ml NOW PRN INJ Radiology Procedure 12/31/18 14:30 01/01/19 23:59 Lisinopril (Zestril) 5 mg Q12HR ORAL 12/30/18 21:00 01/28/19 08:59 01/01/19 08:10 Magnesium Sulfate 100 ml @ 100 mls/hr Q1H IVPB 01/01/19 12:00 01/01/19 15:59 01/01/19 12:29 Metoclopramide HCl (Reglan) 5 mg THREE TIMES A DAY ORAL 12/29/18 13:00 01/25/19 12:59 01/01/19 12:29 Nateglinide (Starlix) 60 mg TIAC ORAL 12/30/18 11:30 01/29/19 11:29 01/01/19 12:29 Ondansetron HCl (Zofran) 4 mg Q6H PRN IVP Nausea & Vomiting 12/26/18 04:30 01/25/19 04:29 2/10/19 09:25 Pantoprazole (Protonix) 40 mg BIAC ORAL 12/26/18 16:30 01/25/19 16:29 01/01/19 06:12 Potassium Chloride (K-Dur) 40 meq TWICE A DAY ORAL 12/28/18 18:00 01/27/19 17:59 01/01/19 08:10 Zolpidem Tartrate (Ambien) 5 mg HSPRN PRN ORAL Insomnia 12/31/18 20:45 01/07/19 20:44 12/31/18 20:43 Ravi Roman MD Jan 01, 2019 13:40
--- NOTE | 2019-01-01 14:37 | Diagnostic Imaging Report ---
Clinical Indication: Abdominal pain, nausea, vomiting, diarrhea Technique: Patient given oral contrast. IV administration nonionic contrast. Venous phase spiral acquisition obtained through the abdomen and pelvis. Multiplanar reconstructions were generated. Total dose length product 527.54 mGycm. CTDIvol(s) 11.05 mGy. Dose reduction achieved using automated exposure control Comparison: none Findings: The appendix is normal. No evidence of diverticulosis or diverticulitis. Contrast is seen throughout the entirety of the large and small bowel. No small bowel distention or small bowel wall thickening. Distal esophagus, stomach, duodenum are unremarkable. No free or loculated intraperitoneal gas or fluid is evident. Unremarkable gallbladder. No biliary ductal dilatation. The liver is equivocally mildly hypoattenuating. No focal abnormality. The pancreas, spleen, right adrenal are unremarkable. The left adrenal demonstrates a mass which measures 2.2 cm long axis dimension. The kidneys are unremarkable. No retroperitoneal or mesenteric mass or adenopathy. No pelvic mass or adenopathy. The uterus and ovaries are unremarkable. The bladder is unremarkable. The included lung bases are clear. The bones demonstrate an unusual appearance of the right L1 transverse process, probably posttraumatic in nature. Impression: No acute abnormality demonstrated 2.2 cm left adrenal mass, appearance nonspecific. Further evaluation with adrenal protocol CT is recommended Equivocal mild hepatic hypoattenuation, if real could indicate mild fatty changes Unusual appearance to the right L1 transverse process, suspect old injury The CT scanner at [facility] is accredited by the [employer] and the scans are performed using protocols designed to limit radiation exposure to as low as reasonably achievable to attain images of sufficient resolution adequate for diagnostic evaluation.
--- NOTE | 2019-01-01 15:06 | NUR ---
P.T Note: P.T evaluation completed and treatment initiated. Please refer to P.T evaluation for current functional status. Skilled P.T service is warranted to improve strength , balance and endurance for return to PLOF during stay.
--- NOTE | 2019-01-01 15:10 | GI Progress Note ---
Assessment/Plan Problems: (1) GERD (gastroesophageal reflux disease) ICD Codes: K21.9 - Gastro-esophageal reflux disease without esophagitis SNOMED: 517223584 (2) Hyperglycemia due to type 1 diabetes mellitus ICD Codes: E10.65 - Type 1 diabetes mellitus with hyperglycemia; R19.7 - Diarrhea, unspecified SNOMED: 588613063313278, 00506630 (3) Nausea vomiting and diarrhea ICD Codes: R11.2 - Nausea with vomiting, unspecified; R19.7 - Diarrhea, unspecified SNOMED: 4528778 (4) Gastroparesis ICD Codes: K31.84 - Gastroparesis SNOMED: 971547276 (5) Abdominal pain ICD Codes: R10.9 - Unspecified abdominal pain SNOMED: 94718406, 15782036 Qualifiers: Qualified Codes: R10.84 - Generalized abdominal pain (6) Electrolyte imbalance ICD Codes: E87.8 - Other disorders of electrolyte and fluid balance, not elsewhere classified SNOMED: 961639949 (7) Gastroenteritis ICD Codes: K52.9 - Noninfective gastroenteritis and colitis, unspecified SNOMED: 07544487 (8) Dehydration ICD Codes: E86.0 - Dehydration SNOMED: 52275791, 58781971 Status: stable Status Narrative Discussed with Dr. Graham. Assessment/Plan cardiac work up negative severe hypokalemia CT AP negative SUMMARY OF FINDINGS: 1. Possible Marilyn esophagitis. >> follow up biopsy 2. Gastritis, status post biopsy. RECOMMENDATION: 1. Start fluconazole 100 mg p.o. daily for 7 to 10 days. 2. Follow up biopsy results and treat accordingly. 3. The patient's nausea and vomiting possibly due to combination of the diabetes and also UTI. dc planning, fu with ID for abx tx The patient was seen and examined at bedside and all new and available data was reviewed in the patients chart. I agree with the above findings, impression and plan. (Patient seen earlier today. Signature stamp does not reflect patient encounter time.). - Franco Graham MD Subjective Subjective Patient still complains of abdominal pain Still has complaint of overall generalized weakness Unable to tolerate food has constant nausea Objective Last 24 Hour Vital Signs Date Time Temp Pulse Resp B/P (MAP) Pulse Ox O2 Delivery O2 Flow Rate FiO2 01/01/19 13:00 97.7 01/01/19 12:00 98.1 91 18 133/79 (97) 98 01/01/19 09:56 Room Air 01/01/19 08:10 136/80 01/01/19 08:00 97.7 78 18 136/80 (98) 98 01/01/19 04:00 97.5 76 16 134/76 (95) 98 12/31/18 21:00 Room Air 12/31/18 20:28 96/60 12/31/18 20:00 96.8 83 16 97/60 (72) 98 12/31/18 16:00 98.3 86 18 152/89 (110) 98 Intake and Output 12/31/18 01/01/19 18:59 06:59 Intake Total 600 ml 600 ml Output Total 0 ml Balance 600 ml 600 ml Intake Oral 480 ml IV Total 120 ml 600 ml Estimated Blood Loss 0 ml # Voids 3 3 Laboratory Tests Test 01/01/19 07:30 White Blood Count 5.7 K/UL (4.8-10.8) Red Blood Count 4.32 M/UL (4.20-5.40) Hemoglobin 11.9 G/DL (12.0-16.0) L Hematocrit 35.2 % (37.0-47.0) L Mean Corpuscular Volume 81 FL (80-99) Mean Corpuscular Hemoglobin 27.5 PG (27.0-31.0) Mean Corpuscular Hemoglobin Concent 33.7 G/DL (32.0-36.0) Red Cell Distribution Width 11.4 % (11.6-14.8) L Platelet Count 230 K/UL (150-450) Mean Platelet Volume 6.7 FL (6.5-10.1) Neutrophils (%) (Auto) 44.4 % (45.0-75.0) L Lymphocytes (%) (Auto) 44.8 % (20.0-45.0) Monocytes (%) (Auto) 8.2 % (1.0-10.0) Eosinophils (%) (Auto) 2.2 % (0.0-3.0) Basophils (%) (Auto) 0.5 % (0.0-2.0) Sodium Level 142 MMOL/L (136-145) Potassium Level 4.0 MMOL/L (3.5-5.1) Chloride Level 109 MMOL/L (98-107) H Carbon Dioxide Level 26 MMOL/L (21-32) Anion Gap 7 mmol/L (5-15) Blood Urea Nitrogen 4 mg/dL (7-18) L Creatinine 0.6 MG/DL (0.55-1.30) Estimat Glomerular Filtration Rate > 60 mL/min (>60) Glucose Level 141 MG/DL (74-106) H Calcium Level 8.8 MG/DL (8.5-10.1) Phosphorus Level 2.8 MG/DL (2.5-4.9) Magnesium Level 1.6 MG/DL (1.8-2.4) L Height (Feet): 5 Height (Inches): 5.00 Weight (Pounds): 124 General Appearance: WD/WN, no apparent distress, alert Cardiovascular: normal rate Respiratory/Chest: normal breath sounds, no respiratory distress Abdominal Exam: normal bowel sounds, non tender, soft Extremities: normal range of motion, non-tender Matt Brown NP Jan 01, 2019 15:10
--- NOTE | 2019-01-01 15:42 | NUR ---
*-* INSURANCE *-* UPDATED CLINICALS HAVE BEEN FAXED TO: [facility] REF#[id number] TORREY:HUSAM P:[phone] F:[phone]
[2019-01-01 16:00] VITALS: BP 152/83
--- NOTE | 2019-01-01 19:32 | NUR ---
HAND-OFF: Report given to ALONZO Zafar.
--- NOTE | 2019-01-01 19:32 | NUR ---
NURSE NOTES: Received patient on bed awake, no s/s of any distress, denies any pain as of this time. IV line patent and intact, bed in low position and locked, will continue to monitor.
[2019-01-01 20:26] VITALS: BP 105/65
--- NOTE | 2019-01-01 21:43 | General Progress Note ---
Assessment/Plan Problem List: (1) Dehydration ICD Codes: E86.0 - Dehydration SNOMED: 39219968, 15563266 (2) Gastroenteritis ICD Codes: K52.9 - Noninfective gastroenteritis and colitis, unspecified SNOMED: 12883843 (3) Electrolyte imbalance ICD Codes: E87.8 - Other disorders of electrolyte and fluid balance, not elsewhere classified SNOMED: 784254125 (4) Abdominal pain ICD Codes: R10.9 - Unspecified abdominal pain SNOMED: 93091349, 80025623 Qualifiers: Qualified Codes: R10.84 - Generalized abdominal pain (5) Gastroparesis ICD Codes: K31.84 - Gastroparesis SNOMED: 314821610 (6) Nausea vomiting and diarrhea ICD Codes: R11.2 - Nausea with vomiting, unspecified; R19.7 - Diarrhea, unspecified SNOMED: 6700037 (7) Hyperglycemia due to type 1 diabetes mellitus ICD Codes: E10.65 - Type 1 diabetes mellitus with hyperglycemia; R19.7 - Diarrhea, unspecified SNOMED: 177361739882516, 68472188 (8) GERD (gastroesophageal reflux disease) ICD Codes: K21.9 - Gastro-esophageal reflux disease without esophagitis SNOMED: 419564318 Status: progressing Assessment/Plan has jessica esophagitis diflucan was ordered no vomitting dysphagia improving mild nausea niddm sugar improving Subjective ROS Limited/Unobtainable: Yes Constitutional: Reports: no symptoms Allergies: Coded Allergies: No Known Allergies (Unverified , 12/26/18) Objective Last 24 Hour Vital Signs Date Time Temp Pulse Resp B/P (MAP) Pulse Ox O2 Delivery O2 Flow Rate FiO2 01/01/19 21:00 Room Air 01/01/19 20:46 105/65 01/01/19 20:26 97.3 81 18 105/65 (78) 99 01/01/19 17:28 98.7 01/01/19 16:00 98.7 73 18 152/83 (106) 99 01/01/19 12:00 98.1 91 18 133/79 (97) 98 01/01/19 09:56 Room Air 01/01/19 08:10 136/80 01/01/19 08:00 97.7 78 18 136/80 (98) 98 01/01/19 04:00 97.5 76 16 134/76 (95) 98 Intake and Output 12/31/18 01/01/19 19:00 07:00 Intake Total 650 ml 600 ml Output Total 0 ml Balance 650 ml 600 ml Intake Oral 480 ml IV Total 170 ml 600 ml Estimated Blood Loss 0 ml # Voids 3 3 Laboratory Tests 01/01/19 07:30: White Blood Count 5.7, Red Blood Count 4.32, Hemoglobin 11.9L, Hematocrit 35.2L , Mean Corpuscular Volume 81, Mean Corpuscular Hemoglobin 27.5, Mean Corpuscular Hemoglobin Concent 33.7, Red Cell Distribution Width 11.4L, Platelet Count 230, Mean Platelet Volume 6.7, Neutrophils (%) (Auto) 44.4L, Lymphocytes (%) (Auto) 44.8, Monocytes (%) (Auto) 8.2, Eosinophils (%) (Auto) 2.2, Basophils (%) (Auto) 0.5, Sodium Level 142, Potassium Level 4.0, Chloride Level 109H, Carbon Dioxide Level 26, Anion Gap 7, Blood Urea Nitrogen 4L, Creatinine 0.6, Estimat Glomerular Filtration Rate > 60, Glucose Level 141H, Calcium Level 8.8, Phosphorus Level 2.8, Magnesium Level 1.6L Height (Feet): 5 Height (Inches): 5.00 Weight (Pounds): 124 Neck: supple Cardiovascular: normal rate Respiratory/Chest: lungs clear Abdomen: soft Ondina Dailey MD Jan 01, 2019 21:43
[2019-01-01] MEDS: Levemir Flexpen SUBQ SCH (22:05)
--- NOTE | 2019-01-01 22:08 | NUR ---
Called Dr. Beaver at 22:00 to inform him that patient's blood sugar via accucheck is 114gm%.Gave patient Novolog 2 units. Doctor ordered that Levemir 16 units be given instead of 25 units.
[2019-01-02] VITALS: BP 125/67
[2019-01-02] MEDS: Nateglinide 60mg tab ORAL SCH ×3 (06:12→17:08)
[2019-01-02] MEDS: NovoLOG Insulin Flexpen SUBQ SCH ×4 (06:14→22:09)
--- NOTE | 2019-01-02 06:34 | General Progress Note ---
Assessment/Plan Problem List: (1) Diabetes mellitus out of control ICD Codes: E11.65 - Type 2 diabetes mellitus with hyperglycemia SNOMED: 36307221, 953772738 (2) Electrolyte imbalance ICD Codes: E87.8 - Other disorders of electrolyte and fluid balance, not elsewhere classified SNOMED: 128144001 (3) Abdominal pain ICD Codes: R10.9 - Unspecified abdominal pain SNOMED: 81724635, 87409845 Qualifiers: Qualified Codes: R10.84 - Generalized abdominal pain Assessment/Plan continue Levemir 25 units qhs continue Starlix 60 mg ac tid continue NISS ac / hs Rx for diabetic medications left in chart Subjective ROS Limited/Unobtainable: Yes Allergies: Coded Allergies: No Known Allergies (Unverified , 12/26/18) Subjective events noted Item Value Date Time Bedside Blood Glucose 138 mg/dl H 01/02/19 0616 Bedside Blood Glucose 114 mg/dl 01/01/19 2205 Bedside Blood Glucose 254 mg/dl H 01/01/19 1700 Bedside Blood Glucose 128 mg/dl H 01/01/19 1229 Bedside Blood Glucose 162 mg/dl H 01/01/19 0625 Objective Last 24 Hour Vital Signs Date Time Temp Pulse Resp B/P (MAP) Pulse Ox O2 Delivery O2 Flow Rate FiO2 01/02/19 00:02 97.3 01/02/19 00:00 97.3 83 18 125/67 (86) 100 01/01/19 21:00 Room Air 01/01/19 20:46 105/65 01/01/19 20:26 97.3 81 18 105/65 (78) 99 01/01/19 16:00 98.7 73 18 152/83 (106) 99 01/01/19 12:00 98.1 91 18 133/79 (97) 98 01/01/19 09:56 Room Air 01/01/19 08:10 136/80 01/01/19 08:00 97.7 78 18 136/80 (98) 98 Intake and Output 01/01/19 01/02/19 19:00 07:00 Intake Total 1180 ml 240 ml Balance 1180 ml 240 ml Intake Oral 680 ml 240 ml IV Total 500 ml # Voids 3 2 Laboratory Tests 01/01/19 07:30: White Blood Count 5.7, Red Blood Count 4.32, Hemoglobin 11.9L, Hematocrit 35.2L , Mean Corpuscular Volume 81, Mean Corpuscular Hemoglobin 27.5, Mean Corpuscular Hemoglobin Concent 33.7, Red Cell Distribution Width 11.4L, Platelet Count 230, Mean Platelet Volume 6.7, Neutrophils (%) (Auto) 44.4L, Lymphocytes (%) (Auto) 44.8, Monocytes (%) (Auto) 8.2, Eosinophils (%) (Auto) 2.2, Basophils (%) (Auto) 0.5, Sodium Level 142, Potassium Level 4.0, Chloride Level 109H, Carbon Dioxide Level 26, Anion Gap 7, Blood Urea Nitrogen 4L, Creatinine 0.6, Estimat Glomerular Filtration Rate > 60, Glucose Level 141H, Calcium Level 8.8, Phosphorus Level 2.8, Magnesium Level 1.6L Height (Feet): 5 Height (Inches): 5.00 Weight (Pounds): 123 General Appearance: no apparent distress Neck: normal alignment Cardiovascular: normal rate Respiratory/Chest: lungs clear Abdomen: normal bowel sounds Pelvis: normal external exam Objective Current Medications Medications (Trade) Dose Ordered Sig/Adalberto Route PRN Reason Start Time Stop Time Status Last Admin Dose Admin Acetaminophen (Tylenol) 500 mg Q4H PRN ORAL Mild Pain/Temp > 100.5 12/26/18 04:30 01/25/19 04:29 Acetaminophen (Tylenol) 650 mg Q6HR ORAL 12/30/18 12:00 01/29/19 11:59 01/02/19 06:13 Ciprofloxacin (Cipro 500mg tab) 500 mg EVERY 12 HOURS ORAL 12/28/18 21:00 01/04/19 20:59 01/01/19 20:44 Dextrose (Dextrose 50%) 25 ml Q30M PRN IV Hypoglycemia 12/26/18 04:30 01/25/19 04:29 Dextrose (Dextrose 50%) 50 ml Q30M PRN IV Hypoglycemia 12/26/18 04:30 01/25/19 04:29 Fluconazole (Diflucan) 400 mg DAILY ORAL 01/01/19 09:00 01/08/19 08:59 01/01/19 08:14 Hydromorphone HCl (Dilaudid) 0.5 mg Q4H PRN IVP For brak through Pain 12/30/18 12:00 01/06/19 11:59 12/30/18 14:27 Insulin Aspart (NovoLOG) BEFORE MEALS AND HS SUBQ 12/26/18 22:30 01/25/19 22:29 01/02/19 06:14 Insulin Detemir (Levemir) 25 units BEDTIME SUBQ 12/27/18 21:00 01/25/19 22:29 01/01/19 22:05 Lisinopril (Zestril) 5 mg Q12HR ORAL 12/30/18 21:00 01/28/19 08:59 01/01/19 08:10 Metoclopramide HCl (Reglan) 5 mg THREE TIMES A DAY ORAL 12/29/18 13:00 01/25/19 12:59 01/01/19 16:58 Nateglinide (Starlix) 60 mg TIAC ORAL 12/30/18 11:30 01/29/19 11:29 01/02/19 06:12 Ondansetron HCl (Zofran) 4 mg Q6H PRN IVP Nausea & Vomiting 12/26/18 04:30 01/25/19 04:29 12/30/18 09:25 Pantoprazole (Protonix) 40 mg BIAC ORAL 12/26/18 16:30 01/25/19 16:29 01/02/19 06:12 Potassium Chloride (K-Dur) 40 meq TWICE A DAY ORAL 12/28/18 18:00 01/27/19 17:59 01/01/19 16:58 Zolpidem Tartrate (Ambien) 5 mg HSPRN PRN ORAL Insomnia 12/31/18 20:45 01/07/19 20:44 12/31/18 20:43 Julio Beaver MD Jan 02, 2019 06:34
--- NOTE | 2019-01-02 07:25 | NUR ---
HAND-OFF: Report given to ALONZO Santos.
--- NOTE | 2019-01-02 07:48 | NUR ---
NURSE NOTES: Received patient from Andrade RN and Xin RN, no distress noted, bed is locked and in lowest position, patient is up in bed eating breakfast, call light within reach, will continue to monitor.
[2019-01-02 08:00] VITALS: BP 147/85
[2019-01-02] MEDS: Fluconazole 100mg tab ORAL SCH (09:05)
[2019-01-02] MEDS: Lisinopril 2.5mg tab ORAL SCH ×2 (09:05→22:03)
[2019-01-02] MEDS: Ciprofloxacin 500mg tab ORAL SCH (09:05)
--- NOTE | 2019-01-02 11:14 | GI Progress Note ---
Assessment/Plan Problems: (1) GERD (gastroesophageal reflux disease) ICD Codes: K21.9 - Gastro-esophageal reflux disease without esophagitis SNOMED: 326200781 (2) Hyperglycemia due to type 1 diabetes mellitus ICD Codes: E10.65 - Type 1 diabetes mellitus with hyperglycemia; R19.7 - Diarrhea, unspecified SNOMED: 867340880841393, 98936922 (3) Nausea vomiting and diarrhea ICD Codes: R11.2 - Nausea with vomiting, unspecified; R19.7 - Diarrhea, unspecified SNOMED: 5625461 (4) Gastroparesis ICD Codes: K31.84 - Gastroparesis SNOMED: 037214758 (5) Abdominal pain ICD Codes: R10.9 - Unspecified abdominal pain SNOMED: 46138068, 07932332 Qualifiers: Qualified Codes: R10.84 - Generalized abdominal pain (6) Electrolyte imbalance ICD Codes: E87.8 - Other disorders of electrolyte and fluid balance, not elsewhere classified SNOMED: 269091480 (7) Gastroenteritis ICD Codes: K52.9 - Noninfective gastroenteritis and colitis, unspecified SNOMED: 03457372 (8) Dehydration ICD Codes: E86.0 - Dehydration SNOMED: 32983375, 34393806 (9) Orthostatic hypotension ICD Codes: I95.1 - Orthostatic hypotension SNOMED: 60462506 Status: stable, progressing Status Narrative Discussed with Dr. Graham Assessment/Plan cardiac work up negative severe hypokalemia CT AP negative Orthostatic hypotension; systolic drop of approximately 50 mmHg from sitting to standing. SUMMARY OF FINDINGS: 1. Possible Marilyn esophagitis. >> follow up biopsy 2. Gastritis, status post biopsy. RECOMMENDATION: 1. Start fluconazole 100 mg p.o. daily for 7 to 10 days. 2. Follow up biopsy results and treat accordingly. 3. The patient's nausea and vomiting possibly due to combination of the diabetes and also UTI. dc planning, fu with ID for abx tx Will need follow-up with cardiology for orthostatic hypotension The patient was seen and examined at bedside and all new and available data was reviewed in the patients chart. I agree with the above findings, impression and plan. (Patient seen earlier today. Signature stamp does not reflect patient encounter time.). - Franco Graham MD Subjective Subjective Patient still complains of abdominal pain Still has complaint of overall generalized weakness Unable to tolerate food has constant nausea and dizziness Objective Last 24 Hour Vital Signs Date Time Temp Pulse Resp B/P (MAP) Pulse Ox O2 Delivery O2 Flow Rate FiO2 01/02/19 09:05 147/85 01/02/19 08:45 Room Air 01/02/19 08:00 98.7 91 18 147/85 (105) 98 01/02/19 00:02 97.3 01/02/19 00:00 97.3 83 18 125/67 (86) 100 01/01/19 21:00 Room Air 01/01/19 20:46 105/65 01/01/19 20:26 97.3 81 18 105/65 (78) 99 01/01/19 16:00 98.7 73 18 152/83 (106) 99 01/01/19 12:00 98.1 91 18 133/79 (97) 98 Intake and Output 01/01/19 01/02/19 19:00 07:00 Intake Total 1180 ml 240 ml Balance 1180 ml 240 ml Intake Oral 680 ml 240 ml IV Total 500 ml # Voids 3 2 Height (Feet): 5 Height (Inches): 5.00 Weight (Pounds): 123 General Appearance: WD/WN, no apparent distress, alert Cardiovascular: normal rate Respiratory/Chest: normal breath sounds, no respiratory distress Abdominal Exam: normal bowel sounds, non tender, soft Extremities: normal range of motion, non-tender Matt Brown NP Jan 02, 2019 11:14
[2019-01-02 12:00] VITALS: BP 137/87
--- NOTE | 2019-01-02 12:00 | NUR ---
*-* INSURANCE *-* UPDATED CLINICALS HAVE BEEN FAXED TO: [facility] REF#[id number] TORREY:HUSAM P:[phone] F:[phone]
--- NOTE | 2019-01-02 12:35 | Nephrology Progress Note ---
Assessment/Plan Problem List: (1) Dehydration (2) UTI (urinary tract infection) (3) Gastroparesis (4) Nausea vomiting and diarrhea (5) Hyperglycemia due to type 1 diabetes mellitus (6) Marilyn esophagitis Assessment Dehydration UTI Electrolytre imbalance Syncope Abdominal pain Nausea vomiting and diarrhea Hyperglycemia due to type 1 diabetes mellitus Plan no labs today- DC MS K and phos and mag as needed add Zestril DC IV fluid BS control Antibiotics on Fluconozol Monitor lytes Subjective ROS Limited/Unobtainable: No Constitutional: Reports: malaise Objective Objective Last 24 Hour Vital Signs Date Time Temp Pulse Resp B/P (MAP) Pulse Ox O2 Delivery O2 Flow Rate FiO2 01/02/19 09:05 147/85 01/02/19 08:45 Room Air 01/02/19 08:00 98.7 91 18 147/85 (105) 98 01/02/19 00:02 97.3 01/02/19 00:00 97.3 83 18 125/67 (86) 100 01/01/19 21:00 Room Air 01/01/19 20:46 105/65 01/01/19 20:26 97.3 81 18 105/65 (78) 99 01/01/19 16:00 98.7 73 18 152/83 (106) 99 Intake and Output 01/01/19 01/02/19 19:00 07:00 Intake Total 1180 ml 240 ml Balance 1180 ml 240 ml Intake Oral 680 ml 240 ml IV Total 500 ml # Voids 3 2 Height (Feet): 5 Height (Inches): 5.00 Weight (Pounds): 123 General Appearance: no apparent distress Cardiovascular: normal rate Respiratory/Chest: decreased breath sounds Abdomen: soft Objective no change Prabhakar Bowen MD Jan 02, 2019 12:35
--- NOTE | 2019-01-02 12:41 | Infectious Diseases Prog Note ---
Assessment/Plan Assessment/Plan A; Marilyn esophagitis UTI with ESBL E. coli treated Syncope Dehydration DM Nausea/Vomiting treated Hypokalemia corrected P: Discontinue Cipro X 1 day Continue Fluconazole 400 mg X 2 weeks HIV test Subjective ROS Limited/Unobtainable: No Respiratory: Reports: no symptoms Cardiovascular: Reports: no symptoms Gastrointestinal/Abdominal: Reports: no symptoms Genitourinary: Reports: no symptoms Allergies: Coded Allergies: No Known Allergies (Unverified , 12/26/18) Objective Vital Signs Last 24 Hour Vital Signs Date Time Temp Pulse Resp B/P (MAP) Pulse Ox O2 Delivery O2 Flow Rate FiO2 01/02/19 09:05 147/85 01/02/19 08:45 Room Air 01/02/19 08:00 98.7 91 18 147/85 (105) 98 01/02/19 00:02 97.3 01/02/19 00:00 97.3 83 18 125/67 (86) 100 01/01/19 21:00 Room Air 01/01/19 20:46 105/65 01/01/19 20:26 97.3 81 18 105/65 (78) 99 01/01/19 16:00 98.7 73 18 152/83 (106) 99 Height (Feet): 5 Height (Inches): 5.00 Weight (Pounds): 123 General Appearance: no acute distress HEENT: mucous membranes moist Respiratory/Chest: lungs clear Cardiovascular: normal rate Abdomen: soft, non tender Extremities: no edema Neurologic/Psychiatric: alert, oriented x 3, responsive Current Medications Medications (Trade) Dose Ordered Sig/Adalberto Route PRN Reason Start Time Stop Time Status Last Admin Dose Admin Acetaminophen (Tylenol) 500 mg Q4H PRN ORAL Mild Pain/Temp > 100.5 12/26/18 04:30 01/25/19 04:29 Acetaminophen (Tylenol) 650 mg Q6HR ORAL 12/30/18 12:00 01/29/19 11:59 01/02/19 06:13 Ciprofloxacin (Cipro 500mg tab) 500 mg EVERY 12 HOURS ORAL 12/28/18 21:00 01/04/19 20:59 01/02/19 09:05 Dextrose (Dextrose 50%) 25 ml Q30M PRN IV Hypoglycemia 12/26/18 04:30 01/25/19 04:29 Dextrose (Dextrose 50%) 50 ml Q30M PRN IV Hypoglycemia 12/26/18 04:30 01/25/19 04:29 Fluconazole (Diflucan) 400 mg DAILY ORAL 01/01/19 09:00 01/08/19 08:59 01/02/19 09:05 Hydromorphone HCl (Dilaudid) 0.5 mg Q4H PRN IVP For brak through Pain 12/30/18 12:00 01/06/19 11:59 12/30/18 14:27 Insulin Aspart (NovoLOG) BEFORE MEALS AND HS SUBQ 12/26/18 22:30 01/25/19 22:29 01/02/19 12:08 Insulin Detemir (Levemir) 25 units BEDTIME SUBQ 12/27/18 21:00 01/25/19 22:29 01/01/19 22:05 Lisinopril (Zestril) 5 mg Q12HR ORAL 12/30/18 21:00 01/28/19 08:59 01/02/19 09:05 Metoclopramide HCl (Reglan) 5 mg THREE TIMES A DAY ORAL 12/29/18 13:00 01/25/19 12:59 01/02/19 12:06 Nateglinide (Starlix) 60 mg TIAC ORAL 12/30/18 11:30 01/29/19 11:29 01/02/19 12:06 Ondansetron HCl (Zofran) 4 mg Q6H PRN IVP Nausea & Vomiting 12/26/18 04:30 01/25/19 04:29 12/30/18 09:25 Pantoprazole (Protonix) 40 mg BIAC ORAL 12/26/18 16:30 01/25/19 16:29 01/02/19 06:12 Potassium Chloride (K-Dur) 40 meq TWICE A DAY ORAL 12/28/18 18:00 01/27/19 17:59 01/01/19 16:58 Zolpidem Tartrate (Ambien) 5 mg HSPRN PRN ORAL Insomnia 12/31/18 20:45 01/07/19 20:44 12/31/18 20:43 Ravi Roman MD Jan 02, 2019 12:41
--- NOTE | 2019-01-02 14:26 | NUR ---
RD ASSESSMENT & RECOMMENDATIONS SEE CARE ACTIVITY FOR COMPLETE ASSESSMENT DAILY ESTIMATED NEEDS: Needs based on DM/ 55.8kg 25-30 kcals/kg 0142-0714 total kcals 1-1.3 g protein/kg 56-73 g total protein 25-30 mL/kg 8744-4860 total fluid mLs NUTRITION DIAGNOSIS: * Altered nutrition related lab values R/T diabetes as evidenced by A1C of 13.7, elev POC glu (138 114 254 128 162), urine glucose 4+. * Altered GI function R/T gastroparesis, GERD as evidenced by pt admitted c/o n/v, abdominal pain, now resolved. CURRENT DIET:CCHO LOW PO DIET RECOMMENDATIONS: CCHO LOW, BLAND, LOW FAT diet ADDITIONAL RECOMMENDATIONS: * Weekly standing wts- possible recent wt loss * Monitor BGs closely- improved since adm * DM diet ed/handout provided on 01/02 * Monitor lytes, replete as needed * Monitor PO tolerance * 1 carb snacks TID
[2019-01-02 16:00] VITALS: BP 150/86
--- NOTE | 2019-01-02 19:44 | NUR ---
HAND-OFF: Report given to Karin ROSADO.
--- NOTE | 2019-01-02 19:45 | NUR ---
NURSE NOTES: Received report from ALONZO Santos. Patient A&Ox4, on room air. No signs of distress or labored breathing. IV intact, patent, and saline locked. Denies pain. Bed in lowest position with call light in reach. Will continue with plan of care.
[2019-01-02 20:00] VITALS: BP 120/74
--- NOTE | 2019-01-02 21:31 | General Progress Note ---
Assessment/Plan Problem List: (1) Dehydration ICD Codes: E86.0 - Dehydration SNOMED: 74351752, 63883046 (2) Gastroenteritis ICD Codes: K52.9 - Noninfective gastroenteritis and colitis, unspecified SNOMED: 69740429 (3) Electrolyte imbalance ICD Codes: E87.8 - Other disorders of electrolyte and fluid balance, not elsewhere classified SNOMED: 294006864 (4) Abdominal pain ICD Codes: R10.9 - Unspecified abdominal pain SNOMED: 61759867, 89872527 Qualifiers: Qualified Codes: R10.84 - Generalized abdominal pain (5) Gastroparesis ICD Codes: K31.84 - Gastroparesis SNOMED: 482170302 (6) Nausea vomiting and diarrhea ICD Codes: R11.2 - Nausea with vomiting, unspecified; R19.7 - Diarrhea, unspecified SNOMED: 4412094 (7) Hyperglycemia due to type 1 diabetes mellitus ICD Codes: E10.65 - Type 1 diabetes mellitus with hyperglycemia; R19.7 - Diarrhea, unspecified SNOMED: 652831236957374, 64757966 (8) GERD (gastroesophageal reflux disease) ICD Codes: K21.9 - Gastro-esophageal reflux disease without esophagitis SNOMED: 395230585 Status: progressing Assessment/Plan has jessica esophagitis diflucan was ordered no vomitting dysphagia improving mild nausea niddmd no cp clinically improving keeping food down Subjective ROS Limited/Unobtainable: Yes Allergies: Coded Allergies: No Known Allergies (Unverified , 12/26/18) Objective Last 24 Hour Vital Signs Date Time Temp Pulse Resp B/P (MAP) Pulse Ox O2 Delivery O2 Flow Rate FiO2 01/02/19 16:00 98.1 89 18 150/86 (107) 100 01/02/19 12:00 98.6 88 18 137/87 (104) 98 01/02/19 09:05 147/85 01/02/19 08:45 Room Air 01/02/19 08:00 98.7 91 18 147/85 (105) 98 01/02/19 00:02 97.3 01/02/19 00:00 97.3 83 18 125/67 (86) 100 Intake and Output 01/01/19 01/02/19 19:00 07:00 Intake Total 1180 ml 240 ml Balance 1180 ml 240 ml Intake Oral 680 ml 240 ml IV Total 500 ml # Voids 3 2 Laboratory Tests 01/02/19 15:00: C-Reactive Protein, Quantitative < 0.4 Height (Feet): 5 Height (Inches): 5.00 Weight (Pounds): 123 Neck: supple Cardiovascular: normal rate Respiratory/Chest: lungs clear Abdomen: soft Ondina Dailey MD Jan 02, 2019 21:31
[2019-01-02] MEDS: Levemir Flexpen SUBQ SCH (22:09)
[2019-01-03 04:00] VITALS: BP 159/92
--- NOTE | 2019-01-03 06:16 | General Progress Note ---
Assessment/Plan Problem List: (1) Diabetes mellitus out of control ICD Codes: E11.65 - Type 2 diabetes mellitus with hyperglycemia SNOMED: 87260049, 944960664 (2) Electrolyte imbalance ICD Codes: E87.8 - Other disorders of electrolyte and fluid balance, not elsewhere classified SNOMED: 135903400 (3) Abdominal pain ICD Codes: R10.9 - Unspecified abdominal pain SNOMED: 65542096, 11181102 Qualifiers: Qualified Codes: R10.84 - Generalized abdominal pain Assessment/Plan continue Levemir 25 units qhs continue Starlix 60 mg ac tid continue NISS ac / hs Rx for diabetic medications left in chart Subjective Allergies: Coded Allergies: No Known Allergies (Unverified , 12/26/18) Subjective events noted Item Value Date Time Bedside Blood Glucose 234 mg/dl H 01/02/19 2209 Bedside Blood Glucose 187 mg/dl H 01/02/19 1708 Bedside Blood Glucose 225 mg/dl H 01/02/19 1208 Bedside Blood Glucose 138 mg/dl H 01/02/19 0616 Objective Last 24 Hour Vital Signs Date Time Temp Pulse Resp B/P (MAP) Pulse Ox O2 Delivery O2 Flow Rate FiO2 01/03/19 04:00 98.7 86 17 159/92 (114) 99 01/02/19 22:03 120/74 01/02/19 21:00 Room Air 01/02/19 20:00 98.2 92 18 120/74 (89) 99 01/02/19 16:00 98.1 89 18 150/86 (107) 100 01/02/19 12:00 98.6 88 18 137/87 (104) 98 01/02/19 09:05 147/85 01/02/19 08:45 Room Air 01/02/19 08:00 98.7 91 18 147/85 (105) 98 Intake and Output 01/02/19 01/03/19 19:00 07:00 Intake Total 360 ml Balance 360 ml Intake Oral 360 ml # Voids 2 2 Laboratory Tests 01/02/19 15:00: C-Reactive Protein, Quantitative < 0.4 Height (Feet): 5 Height (Inches): 5.00 Weight (Pounds): 123 General Appearance: no apparent distress Neck: normal alignment Cardiovascular: normal rate Respiratory/Chest: lungs clear Abdomen: normal bowel sounds Objective Current Medications Medications (Trade) Dose Ordered Sig/Adalberto Route PRN Reason Start Time Stop Time Status Last Admin Dose Admin Acetaminophen (Tylenol) 500 mg Q4H PRN ORAL Mild Pain/Temp > 100.5 12/26/18 04:30 01/25/19 04:29 Acetaminophen (Tylenol) 650 mg Q6HR ORAL 12/30/18 12:00 01/29/19 11:59 01/02/19 06:13 Dextrose (Dextrose 50%) 25 ml Q30M PRN IV Hypoglycemia 12/26/18 04:30 01/25/19 04:29 Dextrose (Dextrose 50%) 50 ml Q30M PRN IV Hypoglycemia 12/26/18 04:30 01/25/19 04:29 Fluconazole (Diflucan) 400 mg DAILY ORAL 01/01/19 09:00 01/08/19 08:59 01/02/19 09:05 Hydromorphone HCl (Dilaudid) 0.5 mg Q4H PRN IVP For brak through Pain 12/30/18 12:00 01/06/19 11:59 12/30/18 14:27 Insulin Aspart (NovoLOG) BEFORE MEALS AND HS SUBQ 12/26/18 22:30 01/25/19 22:29 01/02/19 22:09 Insulin Detemir (Levemir) 25 units BEDTIME SUBQ 12/27/18 21:00 01/25/19 22:29 01/02/19 22:09 Lisinopril (Zestril) 5 mg Q12HR ORAL 12/30/18 21:00 01/28/19 08:59 01/02/19 22:03 Metoclopramide HCl (Reglan) 5 mg THREE TIMES A DAY ORAL 12/29/18 13:00 01/25/19 12:59 01/02/19 17:09 Nateglinide (Starlix) 60 mg TIAC ORAL 12/30/18 11:30 01/29/19 11:29 01/02/19 17:08 Ondansetron HCl (Zofran) 4 mg Q6H PRN IVP Nausea & Vomiting 12/26/18 04:30 01/25/19 04:29 12/30/18 09:25 Pantoprazole (Protonix) 40 mg BIAC ORAL 12/26/18 16:30 01/25/19 16:29 01/02/19 17:09 Potassium Chloride (K-Dur) 40 meq TWICE A DAY ORAL 12/28/18 18:00 01/27/19 17:59 01/01/19 16:58 Zolpidem Tartrate (Ambien) 5 mg HSPRN PRN ORAL Insomnia 12/31/18 20:45 01/07/19 20:44 12/31/18 20:43 Julio Beaver MD Jan 03, 2019 06:15
[2019-01-03] MEDS: NovoLOG Insulin Flexpen SUBQ SCH ×4 (07:10→21:21)
[2019-01-03] MEDS: Nateglinide 60mg tab ORAL SCH ×3 (07:15→17:15)
[2019-01-03 07:19] LABS: BASOPHILS % (AUTO) 0.8 % (0.0-2.0); EOSINOPHILS % (AUTO) 1.7 % (0.0-3.0); HEMATOCRIT 37.8 % (37.0-47.0); HEMOGLOBIN 12.4 G/DL (12.0-16.0); LYMPHOCYTES % (AUTO) 43.9 % (20.0-45.0); MEAN CORPUSCULAR VOLUME 82 FL (80-99); MONOCYTES % (AUTO) 9.8 % (1.0-10.0); NEUTROPHILS % (AUTO) 43.9 % (45.0-75.0); PLATELET COUNT 253 K/UL (150-450); RED BLOOD COUNT 4.58 M/UL (4.20-5.40); RED CELL DISTRIBUTION WIDTH 12.1 % (11.6-14.8); WHITE BLOOD COUNT 5.6 K/UL (4.8-10.8)
[2019-01-03 07:23] LABS: ALANINE AMINOTRANSFERASE 19 U/L (12-78); ALBUMIN 2.7 G/DL (3.4-5.0); ALBUMIN/GLOBULIN RATIO 0.8 (1.0-2.7); ALKALINE PHOSPHATASE 55 U/L (46-116); ANION GAP 7 mmol/L (5-15); ASPARTATE AMINO TRANSFERASE 16 U/L (15-37); BILIRUBIN,TOTAL 0.2 MG/DL (0.2-1.0); BLOOD UREA NITROGEN 5 mg/dL (7-18); CALCIUM 8.7 MG/DL (8.5-10.1); CARBON DIOXIDE 29 MMOL/L (21-32); CHLORIDE 104 MMOL/L (98-107); CREATININE 0.6 MG/DL (0.55-1.30); PHOSPHORUS 3.8 MG/DL (2.5-4.9); POTASSIUM 3.7 MMOL/L (3.5-5.1); SODIUM 140 MMOL/L (136-145)
--- NOTE | 2019-01-03 07:36 | NUR ---
NURSE NOTES: Received patient from Karin RN, patient is up in bed, eating breakfast, no distress noted, bed is locked and in lowest position, call light within reach, will continue to monitor.
--- NOTE | 2019-01-03 07:37 | NUR ---
HAND-OFF: Report given to ALONZO Santos.
[2019-01-03 08:00] VITALS: BP 154/94
[2019-01-03] MEDS: Lisinopril 2.5mg tab ORAL SCH (08:37)
[2019-01-03] MEDS: Fluconazole 100mg tab ORAL SCH (08:38)
--- NOTE | 2019-01-03 10:45 | Nephrology Progress Note ---
Assessment/Plan Problem List: (1) Orthostatic hypertension (2) Dehydration (3) UTI (urinary tract infection) (4) Gastroparesis (5) Nausea vomiting and diarrhea (6) Hyperglycemia due to type 1 diabetes mellitus (7) Marilyn esophagitis Assessment Dehydration UTI Electrolytre imbalance Syncope Abdominal pain Nausea vomiting and diarrhea Hyperglycemia due to type 1 diabetes mellitus Plan stop Zestril BP check standing only DC MS K and phos and mag as needed DC IV fluid BS control Antibiotics on Fluconozol Monitor lytes Subjective ROS Limited/Unobtainable: No Constitutional: Reports: other - dizzy on standing up Objective Objective Last 24 Hour Vital Signs Date Time Temp Pulse Resp B/P (MAP) Pulse Ox O2 Delivery O2 Flow Rate FiO2 01/03/19 08:37 154/94 01/03/19 08:30 Room Air 01/03/19 08:00 98.5 91 18 154/94 (114) 100 91 01/03/19 04:00 98.7 86 17 159/92 (114) 99 01/02/19 22:03 120/74 01/02/19 21:00 Room Air 01/02/19 20:00 98.2 92 18 120/74 (89) 99 01/02/19 16:00 98.1 89 18 150/86 (107) 100 01/02/19 12:00 98.6 88 18 137/87 (104) 98 Intake and Output 01/02/19 01/03/19 19:00 07:00 Intake Total 360 ml Balance 360 ml Intake Oral 360 ml # Voids 2 2 Laboratory Tests 01/02/19 15:00: C-Reactive Protein, Quantitative < 0.4 01/03/19 05:25: White Blood Count 5.6, Red Blood Count 4.58, Hemoglobin 12.4, Hematocrit 37.8, Mean Corpuscular Volume 82, Mean Corpuscular Hemoglobin 27.0, Mean Corpuscular Hemoglobin Concent 32.7, Red Cell Distribution Width 12.1, Platelet Count 253, Mean Platelet Volume 6.6, Neutrophils (%) (Auto) 43.9L, Lymphocytes (%) (Auto) 43.9, Monocytes (%) (Auto) 9.8, Eosinophils (%) (Auto) 1.7, Basophils (%) (Auto ) 0.8, Sodium Level 140, Potassium Level 3.7, Chloride Level 104, Carbon Dioxide Level 29, Anion Gap 7, Blood Urea Nitrogen 5L, Creatinine 0.6, Estimat Glomerular Filtration Rate > 60, Glucose Level 192H, Uric Acid 3.3, Calcium Level 8.7, Phosphorus Level 3.8, Magnesium Level 1.7L, Total Bilirubin 0.2, Aspartate Amino Transf (AST/SGOT) 16, Alanine Aminotransferase (ALT/SGPT) 19, Alkaline Phosphatase 55, Pro-B-Type Natriuretic Peptide 139H, Total Protein 6.3L , Albumin 2.7L, Globulin 3.6, Albumin/Globulin Ratio 0.8L, HIV (1&2) Antibody Rapid Negative Height (Feet): 5 Height (Inches): 5.00 Weight (Pounds): 123 General Appearance: no apparent distress Objective no change Prabhakar Bowen MD Jan 03, 2019 10:45
--- NOTE | 2019-01-03 10:46 | GI Progress Note ---
Assessment/Plan Problems: (1) GERD (gastroesophageal reflux disease) ICD Codes: K21.9 - Gastro-esophageal reflux disease without esophagitis SNOMED: 103965133 (2) Hyperglycemia due to type 1 diabetes mellitus ICD Codes: E10.65 - Type 1 diabetes mellitus with hyperglycemia; R19.7 - Diarrhea, unspecified SNOMED: 145557626761976, 16694200 (3) Nausea vomiting and diarrhea ICD Codes: R11.2 - Nausea with vomiting, unspecified; R19.7 - Diarrhea, unspecified SNOMED: 9578061 (4) Gastroparesis ICD Codes: K31.84 - Gastroparesis SNOMED: 928967608 (5) Abdominal pain ICD Codes: R10.9 - Unspecified abdominal pain SNOMED: 78206946, 29919154 Qualifiers: Qualified Codes: R10.84 - Generalized abdominal pain (6) Electrolyte imbalance ICD Codes: E87.8 - Other disorders of electrolyte and fluid balance, not elsewhere classified SNOMED: 071158288 (7) Gastroenteritis ICD Codes: K52.9 - Noninfective gastroenteritis and colitis, unspecified SNOMED: 47145341 (8) Dehydration ICD Codes: E86.0 - Dehydration SNOMED: 65165577, 14232563 (9) Orthostatic hypotension ICD Codes: I95.1 - Orthostatic hypotension SNOMED: 81318305 Status: stable Status Narrative Discussed with Dr. Graham Assessment/Plan cardiac work up negative severe hypokalemia CT AP negative Orthostatic hypotension; systolic drop of approximately 50 mmHg from sitting to standing. SUMMARY OF FINDINGS: 1. Possible Marilyn esophagitis. >> follow up biopsy 2. Gastritis, status post biopsy. RECOMMENDATION: 1. Start fluconazole 100 mg p.o. daily for 7 to 10 days. 2. Follow up biopsy results and treat accordingly. 3. The patient's nausea and vomiting possibly due to combination of the diabetes and also UTI. dc planning, fu with ID for abx tx Will need follow-up for consultation with cardiology for orthostatic hypotension The patient was seen and examined at bedside and all new and available data was reviewed in the patients chart. I agree with the above findings, impression and plan. (Patient seen earlier today. Signature stamp does not reflect patient encounter time.). - Franco Graham MD Subjective Subjective Abdominal pain is improved Still has complaint of overall generalized weakness Unable to tolerate food has constant nausea and dizziness Objective Last 24 Hour Vital Signs Date Time Temp Pulse Resp B/P (MAP) Pulse Ox O2 Delivery O2 Flow Rate FiO2 01/03/19 08:37 154/94 01/03/19 08:30 Room Air 01/03/19 08:00 98.5 91 18 154/94 (114) 100 91 01/03/19 04:00 98.7 86 17 159/92 (114) 99 01/02/19 22:03 120/74 01/02/19 21:00 Room Air 01/02/19 20:00 98.2 92 18 120/74 (89) 99 01/02/19 16:00 98.1 89 18 150/86 (107) 100 01/02/19 12:00 98.6 88 18 137/87 (104) 98 Intake and Output 01/02/19 01/03/19 19:00 07:00 Intake Total 360 ml Balance 360 ml Intake Oral 360 ml # Voids 2 2 Laboratory Tests Test 01/02/19 15:00 01/03/19 05:25 C-Reactive Protein, Quantitative < 0.4 mg/dL (0.00-0.90) White Blood Count 5.6 K/UL (4.8-10.8) Red Blood Count 4.58 M/UL (4.20-5.40) Hemoglobin 12.4 G/DL (12.0-16.0) Hematocrit 37.8 % (37.0-47.0) Mean Corpuscular Volume 82 FL (80-99) Mean Corpuscular Hemoglobin 27.0 PG (27.0-31.0) Mean Corpuscular Hemoglobin Concent 32.7 G/DL (32.0-36.0) Red Cell Distribution Width 12.1 % (11.6-14.8) Platelet Count 253 K/UL (150-450) Mean Platelet Volume 6.6 FL (6.5-10.1) Neutrophils (%) (Auto) 43.9 % (45.0-75.0) L Lymphocytes (%) (Auto) 43.9 % (20.0-45.0) Monocytes (%) (Auto) 9.8 % (1.0-10.0) Eosinophils (%) (Auto) 1.7 % (0.0-3.0) Basophils (%) (Auto) 0.8 % (0.0-2.0) Sodium Level 140 MMOL/L (136-145) Potassium Level 3.7 MMOL/L (3.5-5.1) Chloride Level 104 MMOL/L (98-107) Carbon Dioxide Level 29 MMOL/L (21-32) Anion Gap 7 mmol/L (5-15) Blood Urea Nitrogen 5 mg/dL (7-18) L Creatinine 0.6 MG/DL (0.55-1.30) Estimat Glomerular Filtration Rate > 60 mL/min (>60) Glucose Level 192 MG/DL (74-106) H Uric Acid 3.3 MG/DL (2.6-7.2) Calcium Level 8.7 MG/DL (8.5-10.1) Phosphorus Level 3.8 MG/DL (2.5-4.9) Magnesium Level 1.7 MG/DL (1.8-2.4) L Total Bilirubin 0.2 MG/DL (0.2-1.0) Aspartate Amino Transf (AST/SGOT) 16 U/L (15-37) Alanine Aminotransferase (ALT/SGPT) 19 U/L (12-78) Alkaline Phosphatase 55 U/L (46-116) Pro-B-Type Natriuretic Peptide 139 pg/mL (0-125) H Total Protein 6.3 G/DL (6.4-8.2) L Albumin 2.7 G/DL (3.4-5.0) L Globulin 3.6 g/dL Albumin/Globulin Ratio 0.8 (1.0-2.7) L HIV (1&2) Antibody Rapid Negative (NEGATIVE) Height (Feet): 5 Height (Inches): 5.00 Weight (Pounds): 123 General Appearance: WD/WN, no apparent distress, alert Cardiovascular: normal rate Respiratory/Chest: normal breath sounds, no respiratory distress Abdominal Exam: normal bowel sounds, non tender, soft Extremities: normal range of motion, non-tender Matt Brown NP Jan 03, 2019 10:45
--- NOTE | 2019-01-03 11:09 | General Progress Note ---
Assessment/Plan Problem List: (1) Dehydration ICD Codes: E86.0 - Dehydration SNOMED: 04225167, 48949878 (2) Gastroenteritis ICD Codes: K52.9 - Noninfective gastroenteritis and colitis, unspecified SNOMED: 05664901 (3) Electrolyte imbalance ICD Codes: E87.8 - Other disorders of electrolyte and fluid balance, not elsewhere classified SNOMED: 263467284 (4) Abdominal pain ICD Codes: R10.9 - Unspecified abdominal pain SNOMED: 23019346, 69488747 Qualifiers: Qualified Codes: R10.84 - Generalized abdominal pain (5) Gastroparesis ICD Codes: K31.84 - Gastroparesis SNOMED: 886765276 (6) Nausea vomiting and diarrhea ICD Codes: R11.2 - Nausea with vomiting, unspecified; R19.7 - Diarrhea, unspecified SNOMED: 3976726 (7) Hyperglycemia due to type 1 diabetes mellitus ICD Codes: E10.65 - Type 1 diabetes mellitus with hyperglycemia; R19.7 - Diarrhea, unspecified SNOMED: 202967130005350, 65543396 (8) GERD (gastroesophageal reflux disease) ICD Codes: K21.9 - Gastro-esophageal reflux disease without esophagitis SNOMED: 015795402 Status: progressing Assessment/Plan has jessica esophagitis diflucan was ordered no vomitting dysphagia improving lytes are improving niddm is improving orthostatic hypotension. Subjective ROS Limited/Unobtainable: Yes Allergies: Coded Allergies: No Known Allergies (Unverified , 12/26/18) Objective Last 24 Hour Vital Signs Date Time Temp Pulse Resp B/P (MAP) Pulse Ox O2 Delivery O2 Flow Rate FiO2 01/03/19 08:37 154/94 01/03/19 08:30 Room Air 01/03/19 08:00 98.5 91 18 154/94 (114) 100 91 01/03/19 04:00 98.7 86 17 159/92 (114) 99 01/02/19 22:03 120/74 01/02/19 21:00 Room Air 01/02/19 20:00 98.2 92 18 120/74 (89) 99 01/02/19 16:00 98.1 89 18 150/86 (107) 100 01/02/19 12:00 98.6 88 18 137/87 (104) 98 Intake and Output 01/02/19 01/03/19 18:59 06:59 Intake Total 360 ml Balance 360 ml Intake Oral 360 ml # Voids 2 2 Laboratory Tests 01/02/19 15:00: C-Reactive Protein, Quantitative < 0.4 01/03/19 05:25: White Blood Count 5.6, Red Blood Count 4.58, Hemoglobin 12.4, Hematocrit 37.8, Mean Corpuscular Volume 82, Mean Corpuscular Hemoglobin 27.0, Mean Corpuscular Hemoglobin Concent 32.7, Red Cell Distribution Width 12.1, Platelet Count 253, Mean Platelet Volume 6.6, Neutrophils (%) (Auto) 43.9L, Lymphocytes (%) (Auto) 43.9, Monocytes (%) (Auto) 9.8, Eosinophils (%) (Auto) 1.7, Basophils (%) (Auto ) 0.8, Sodium Level 140, Potassium Level 3.7, Chloride Level 104, Carbon Dioxide Level 29, Anion Gap 7, Blood Urea Nitrogen 5L, Creatinine 0.6, Estimat Glomerular Filtration Rate > 60, Glucose Level 192H, Uric Acid 3.3, Calcium Level 8.7, Phosphorus Level 3.8, Magnesium Level 1.7L, Total Bilirubin 0.2, Aspartate Amino Transf (AST/SGOT) 16, Alanine Aminotransferase (ALT/SGPT) 19, Alkaline Phosphatase 55, Pro-B-Type Natriuretic Peptide 139H, Total Protein 6.3L , Albumin 2.7L, Globulin 3.6, Albumin/Globulin Ratio 0.8L, HIV (1&2) Antibody Rapid Negative Height (Feet): 5 Height (Inches): 5.00 Weight (Pounds): 123 Neck: supple Cardiovascular: normal rate Respiratory/Chest: lungs clear Ondina Dailey MD Jan 03, 2019 11:09
[2019-01-03 12:00] VITALS: BP 138/83
--- NOTE | 2019-01-03 13:19 | Infectious Diseases Prog Note ---
Assessment/Plan Assessment/Plan A; Marilyn esophagitis UTI with ESBL E. coli treated Syncope Dehydration DM Nausea/Vomiting treated Hypokalemia corrected P: Continue Fluconazole 400 mg X 2 weeks agree with discharge Subjective ROS Limited/Unobtainable: No HEENT: Reports: no symptoms Respiratory: Reports: no symptoms Cardiovascular: Reports: no symptoms Gastrointestinal/Abdominal: Reports: no symptoms Genitourinary: Reports: no symptoms Allergies: Coded Allergies: No Known Allergies (Unverified , 12/26/18) Objective Vital Signs Last 24 Hour Vital Signs Date Time Temp Pulse Resp B/P (MAP) Pulse Ox O2 Delivery O2 Flow Rate FiO2 01/03/19 12:00 97.8 97 18 138/83 (101) 100 97 01/03/19 08:37 154/94 01/03/19 08:30 Room Air 01/03/19 08:00 98.5 91 18 154/94 (114) 100 91 01/03/19 04:00 98.7 86 17 159/92 (114) 99 01/02/19 22:03 120/74 01/02/19 21:00 Room Air 01/02/19 20:00 98.2 92 18 120/74 (89) 99 01/02/19 16:00 98.1 89 18 150/86 (107) 100 Height (Feet): 5 Height (Inches): 5.00 Weight (Pounds): 123 General Appearance: no acute distress HEENT: mucous membranes moist Respiratory/Chest: lungs clear Cardiovascular: normal rate Abdomen: soft, non tender Extremities: no edema Neurologic/Psychiatric: alert, oriented x 3, responsive Laboratory Tests Test 01/02/19 15:00 01/03/19 05:25 C-Reactive Protein, Quantitative < 0.4 mg/dL (0.00-0.90) White Blood Count 5.6 K/UL (4.8-10.8) Red Blood Count 4.58 M/UL (4.20-5.40) Hemoglobin 12.4 G/DL (12.0-16.0) Hematocrit 37.8 % (37.0-47.0) Mean Corpuscular Volume 82 FL (80-99) Mean Corpuscular Hemoglobin 27.0 PG (27.0-31.0) Mean Corpuscular Hemoglobin Concent 32.7 G/DL (32.0-36.0) Red Cell Distribution Width 12.1 % (11.6-14.8) Platelet Count 253 K/UL (150-450) Mean Platelet Volume 6.6 FL (6.5-10.1) Neutrophils (%) (Auto) 43.9 % (45.0-75.0) L Lymphocytes (%) (Auto) 43.9 % (20.0-45.0) Monocytes (%) (Auto) 9.8 % (1.0-10.0) Eosinophils (%) (Auto) 1.7 % (0.0-3.0) Basophils (%) (Auto) 0.8 % (0.0-2.0) Sodium Level 140 MMOL/L (136-145) Potassium Level 3.7 MMOL/L (3.5-5.1) Chloride Level 104 MMOL/L (98-107) Carbon Dioxide Level 29 MMOL/L (21-32) Anion Gap 7 mmol/L (5-15) Blood Urea Nitrogen 5 mg/dL (7-18) L Creatinine 0.6 MG/DL (0.55-1.30) Estimat Glomerular Filtration Rate > 60 mL/min (>60) Glucose Level 192 MG/DL (74-106) H Uric Acid 3.3 MG/DL (2.6-7.2) Calcium Level 8.7 MG/DL (8.5-10.1) Phosphorus Level 3.8 MG/DL (2.5-4.9) Magnesium Level 1.7 MG/DL (1.8-2.4) L Total Bilirubin 0.2 MG/DL (0.2-1.0) Aspartate Amino Transf (AST/SGOT) 16 U/L (15-37) Alanine Aminotransferase (ALT/SGPT) 19 U/L (12-78) Alkaline Phosphatase 55 U/L (46-116) Pro-B-Type Natriuretic Peptide 139 pg/mL (0-125) H Total Protein 6.3 G/DL (6.4-8.2) L Albumin 2.7 G/DL (3.4-5.0) L Globulin 3.6 g/dL Albumin/Globulin Ratio 0.8 (1.0-2.7) L HIV (1&2) Antibody Rapid Negative (NEGATIVE) Current Medications Medications (Trade) Dose Ordered Sig/Adalberto Route PRN Reason Start Time Stop Time Status Last Admin Dose Admin Acetaminophen (Tylenol) 500 mg Q4H PRN ORAL Mild Pain/Temp > 100.5 12/26/18 04:30 01/25/19 04:29 Acetaminophen (Tylenol) 650 mg Q6HR ORAL 12/30/18 12:00 01/29/19 11:59 01/02/19 06:13 Dextrose (Dextrose 50%) 25 ml Q30M PRN IV Hypoglycemia 12/26/18 04:30 01/25/19 04:29 Dextrose (Dextrose 50%) 50 ml Q30M PRN IV Hypoglycemia 12/26/18 04:30 01/25/19 04:29 Fluconazole (Diflucan) 400 mg DAILY ORAL 01/01/19 09:00 01/08/19 08:59 01/03/19 08:38 Hydromorphone HCl (Dilaudid) 0.5 mg Q4H PRN IVP For brak through Pain 12/30/18 12:00 01/06/19 11:59 12/30/18 14:27 Insulin Aspart (NovoLOG) BEFORE MEALS AND HS SUBQ 12/26/18 22:30 01/25/19 22:29 01/03/19 12:47 Insulin Detemir (Levemir) 25 units BEDTIME SUBQ 12/27/18 21:00 01/25/19 22:29 01/02/19 22:09 Metoclopramide HCl (Reglan) 5 mg THREE TIMES A DAY ORAL 12/29/18 13:00 01/25/19 12:59 01/03/19 12:42 Nateglinide (Starlix) 60 mg TIAC ORAL 12/30/18 11:30 01/29/19 11:29 01/03/19 12:42 Ondansetron HCl (Zofran) 4 mg Q6H PRN IVP Nausea & Vomiting 12/26/18 04:30 01/25/19 04:29 12/30/18 09:25 Pantoprazole (Protonix) 40 mg BIAC ORAL 12/26/18 16:30 01/25/19 16:29 01/03/19 07:16 Potassium Chloride (K-Dur) 40 meq TWICE A DAY ORAL 12/28/18 18:00 01/27/19 17:59 01/03/19 08:37 Zolpidem Tartrate (Ambien) 5 mg HSPRN PRN ORAL Insomnia 12/31/18 20:45 01/07/19 20:44 12/31/18 20:43 Ravi Roman MD Jan 03, 2019 13:19
[2019-01-03 16:00] VITALS: BP 135/83
--- NOTE | 2019-01-03 19:24 | NUR ---
HAND-OFF: Report given to Ganesh ROSADO.
--- NOTE | 2019-01-03 19:48 | NUR ---
NURSE NOTES: patient in bed, awake, alert and verbally responsive. Able to make needs known. Respiration is even and unlabored. NO complaint of pain or discomfort noted. Abdomen is soft and non distended. Skin is warm and dry to touch. IV site is patent. No complaint of dizziness noted. Bed in low and locked position. Provided safe environment.Call light is at bedside. Will continue plan of care.
[2019-01-03 20:00] VITALS: BP_SYST 122; BP_SYST 77; BP_DIAS 51; BP_DIAS 76
--- NOTE | 2019-01-03 21:03 | NUR ---
CASE MANAGEMENT: REVIEW 01/03/2019 SI: UTI . GASTROPARESIS EGD 12/28 T 98.1 HR 97 RR 19 B/P 135/83 SATS 100% ON RA BUN 5 GLUCOSE 192 MG 1.7 IS: REGLAN PO TID MAG SULFATE IV@100ML/HR CIPRO PO Q12HR K-DUR PO BID D5NS w/20mEq IVF @50ML/HR FULL LIQUID PO DIET MED/SURG STATUS DCP: PATIENT IS FROM [facility]
[2019-01-03] MEDS: Levemir Flexpen SUBQ SCH (21:20)
[2019-01-04 04:00] VITALS: BP_SYST 100; BP_SYST 66; BP_DIAS 43; BP_DIAS 56
[2019-01-04] MEDS: NovoLOG Insulin Flexpen SUBQ SCH ×4 (05:59→22:08)
[2019-01-04] MEDS: Nateglinide 60mg tab ORAL SCH (05:59)
--- NOTE | 2019-01-04 06:57 | General Progress Note ---
Assessment/Plan Problem List: (1) Diabetes mellitus out of control ICD Codes: E11.65 - Type 2 diabetes mellitus with hyperglycemia SNOMED: 37251564, 761596573 (2) Electrolyte imbalance ICD Codes: E87.8 - Other disorders of electrolyte and fluid balance, not elsewhere classified SNOMED: 437773036 (3) Abdominal pain ICD Codes: R10.9 - Unspecified abdominal pain SNOMED: 53100503, 55042633 Qualifiers: Qualified Codes: R10.84 - Generalized abdominal pain Assessment/Plan continue Levemir 25 units qhs increase Starlix to 120 mg ac tid continue NISS ac / hs Rx for diabetic medications left in chart Subjective Allergies: Coded Allergies: No Known Allergies (Unverified , 12/26/18) All Systems: reviewed and negative except above Subjective events mealtime glucose elevated Item Value Date Time Bedside Blood Glucose 114 mg/dl 01/04/19 0616 Bedside Blood Glucose 293 mg/dl H 01/03/19 2121 Bedside Blood Glucose 193 mg/dl H 01/03/19 1717 Bedside Blood Glucose 211 mg/dl H 01/03/19 1247 Bedside Blood Glucose 166 mg/dl H 01/03/19 0710 Bedside Blood Glucose 166 mg/dl H 01/03/19 0630 Objective Last 24 Hour Vital Signs Date Time Temp Pulse Resp B/P (MAP) Pulse Ox O2 Delivery O2 Flow Rate FiO2 01/04/19 04:00 97.7 95 20 100/56 (71) 100 01/04/19 04:00 97.7 95 20 66/43 (51) 100 01/03/19 21:00 Room Air 01/03/19 20:00 97.7 95 20 77/51 (60) 100 01/03/19 20:00 97.7 95 20 122/76 (91) 100 01/03/19 16:00 98.1 97 19 135/83 (100) 100 97 01/03/19 12:00 97.8 97 18 138/83 (101) 100 97 01/03/19 08:37 154/94 01/03/19 08:30 Room Air 01/03/19 08:00 98.5 91 18 154/94 (114) 100 91 Intake and Output 01/03/19 01/04/19 19:00 07:00 Intake Total 500 ml 1000 ml Balance 500 ml 1000 ml Intake Oral 500 ml 1000 ml # Voids 3 2 Height (Feet): 5 Height (Inches): 5.00 Weight (Pounds): 123 General Appearance: no apparent distress Neck: normal alignment Cardiovascular: normal rate Respiratory/Chest: normal breath sounds Abdomen: normal bowel sounds Pelvis: normal external exam Objective Current Medications Medications (Trade) Dose Ordered Sig/Adalberto Route PRN Reason Start Time Stop Time Status Last Admin Dose Admin Acetaminophen (Tylenol) 500 mg Q4H PRN ORAL Mild Pain/Temp > 100.5 12/26/18 04:30 01/25/19 04:29 Acetaminophen (Tylenol) 650 mg Q6HR ORAL 12/30/18 12:00 01/29/19 11:59 01/02/19 06:13 Dextrose (Dextrose 50%) 25 ml Q30M PRN IV Hypoglycemia 12/26/18 04:30 01/25/19 04:29 Dextrose (Dextrose 50%) 50 ml Q30M PRN IV Hypoglycemia 12/26/18 04:30 01/25/19 04:29 Fluconazole (Diflucan) 400 mg DAILY ORAL 01/01/19 09:00 01/08/19 08:59 01/03/19 08:38 Hydromorphone HCl (Dilaudid) 0.5 mg Q4H PRN IVP For brak through Pain 12/30/18 12:00 01/06/19 11:59 12/30/18 14:27 Insulin Aspart (NovoLOG) BEFORE MEALS AND HS SUBQ 12/26/18 22:30 01/25/19 22:29 01/03/19 21:21 Insulin Detemir (Levemir) 25 units BEDTIME SUBQ 12/27/18 21:00 01/25/19 22:29 01/03/19 21:20 Metoclopramide HCl (Reglan) 5 mg THREE TIMES A DAY ORAL 12/29/18 13:00 01/25/19 12:59 01/03/19 17:15 Nateglinide (Starlix) 60 mg TIAC ORAL 12/30/18 11:30 01/29/19 11:29 01/04/19 05:59 Ondansetron HCl (Zofran) 4 mg Q6H PRN IVP Nausea & Vomiting 12/26/18 04:30 01/25/19 04:29 12/30/18 09:25 Pantoprazole (Protonix) 40 mg BIAC ORAL 12/26/18 16:30 01/25/19 16:29 01/04/19 05:59 Potassium Chloride (K-Dur) 40 meq TWICE A DAY ORAL 12/28/18 18:00 01/27/19 17:59 01/03/19 17:15 Zolpidem Tartrate (Ambien) 5 mg HSPRN PRN ORAL Insomnia 12/31/18 20:45 01/07/19 20:44 12/31/18 20:43 Julio Beaver MD Jan 04, 2019 06:57
[2019-01-04 07:28] LABS: ANION GAP 7 mmol/L (5-15); BLOOD UREA NITROGEN 4 mg/dL (7-18); CALCIUM 9.3 MG/DL (8.5-10.1); CARBON DIOXIDE 27 MMOL/L (21-32); CHLORIDE 105 MMOL/L (98-107); CREATININE 0.6 MG/DL (0.55-1.30); POTASSIUM 3.7 MMOL/L (3.5-5.1); SODIUM 139 MMOL/L (136-145)
--- NOTE | 2019-01-04 07:34 | NUR ---
HAND-OFF: Report given to Gigi Regalado.
[2019-01-04 08:00] VITALS: BP 76/42
[2019-01-04 08:08] LABS: BASOPHILS % (AUTO) 0.8 % (0.0-2.0); EOSINOPHILS % (AUTO) 1.9 % (0.0-3.0); HEMATOCRIT 39.8 % (37.0-47.0); HEMOGLOBIN 13.2 G/DL (12.0-16.0); LYMPHOCYTES % (AUTO) 40.9 % (20.0-45.0); MEAN CORPUSCULAR VOLUME 83 FL (80-99); MONOCYTES % (AUTO) 10.8 % (1.0-10.0); NEUTROPHILS % (AUTO) 45.6 % (45.0-75.0); PLATELET COUNT 300 K/UL (150-450); RED BLOOD COUNT 4.79 M/UL (4.20-5.40); RED CELL DISTRIBUTION WIDTH 12.3 % (11.6-14.8); WHITE BLOOD COUNT 6.2 K/UL (4.8-10.8)
[2019-01-04] MEDS: Fluconazole 100mg tab ORAL SCH (09:06)
--- NOTE | 2019-01-04 10:17 | NUR ---
NURSE NOTES: pt in bed with no sob nor in any form of distress noted. pt still noted with hypotension with standing position. All due meds given as ordered. c/o dizziness. Assisted pt to the bathroom. Fall risk provided. Will inform MD for change of condition.
--- NOTE | 2019-01-04 10:52 | General Progress Note ---
Assessment/Plan Problem List: (1) Orthostatic hypertension ICD Codes: I10 - Essential (primary) hypertension SNOMED: 66351509 (2) Marilyn esophagitis ICD Codes: B37.81 - Candidal esophagitis SNOMED: 89405769 (3) Diabetes mellitus out of control ICD Codes: E11.65 - Type 2 diabetes mellitus with hyperglycemia SNOMED: 96876148, 888094344 (4) GERD (gastroesophageal reflux disease) ICD Codes: K21.9 - Gastro-esophageal reflux disease without esophagitis SNOMED: 929828931 (5) Abdominal pain ICD Codes: R10.9 - Unspecified abdominal pain SNOMED: 19549312, 35719511 Qualifiers: Qualified Codes: R10.84 - Generalized abdominal pain Assessment/Plan cardiac work up negative severe hypokalemia CT AP negative Orthostatic hypotension; systolic drop of approximately 50 mmHg from sitting to standing. SUMMARY OF FINDINGS: 1. Possible Marilyn esophagitis. >> follow up biopsy 2. Gastritis, status post biopsy. RECOMMENDATION: 1. fluconazole 100 mg p.o. daily for 7 to 10 days. 2. Follow up biopsy results and treat accordingly. Subjective ROS Limited/Unobtainable: Yes Allergies: Coded Allergies: No Known Allergies (Unverified , 12/26/18) Subjective dizziness Objective Last 24 Hour Vital Signs Date Time Temp Pulse Resp B/P (MAP) Pulse Ox O2 Delivery O2 Flow Rate FiO2 01/04/19 09:52 Room Air 01/04/19 08:00 97.8 97 20 76/42 (53) 100 01/04/19 04:00 97.7 95 20 100/56 (71) 100 01/04/19 04:00 97.7 95 20 66/43 (51) 100 01/03/19 21:00 Room Air 01/03/19 20:00 97.7 95 20 77/51 (60) 100 01/03/19 20:00 97.7 95 20 122/76 (91) 100 01/03/19 16:00 98.1 97 19 135/83 (100) 100 97 01/03/19 12:00 97.8 97 18 138/83 (101) 100 97 Intake and Output 01/03/19 01/04/19 18:59 06:59 Intake Total 500 ml 1000 ml Balance 500 ml 1000 ml Intake Oral 500 ml 1000 ml # Voids 3 2 Laboratory Tests 01/04/19 06:46: White Blood Count 6.2, Red Blood Count 4.79, Hemoglobin 13.2, Hematocrit 39.8, Mean Corpuscular Volume 83, Mean Corpuscular Hemoglobin 27.5, Mean Corpuscular Hemoglobin Concent 33.1, Red Cell Distribution Width 12.3, Platelet Count 300, Mean Platelet Volume 6.9, Neutrophils (%) (Auto) 45.6, Lymphocytes (%) (Auto) 40.9, Monocytes (%) (Auto) 10.8H, Eosinophils (%) (Auto) 1.9, Basophils (%) ( Auto) 0.8, Sodium Level 139, Potassium Level 3.7, Chloride Level 105, Carbon Dioxide Level 27, Anion Gap 7, Blood Urea Nitrogen 4L, Creatinine 0.6, Estimat Glomerular Filtration Rate > 60, Glucose Level 120H, Calcium Level 9.3 Height (Feet): 5 Height (Inches): 5.00 Weight (Pounds): 123 General Appearance: alert EENT: normal ENT inspection Neck: supple Cardiovascular: tachycardia Respiratory/Chest: decreased breath sounds Abdomen: normal bowel sounds, non tender, soft Extremities: non-tender Franco Graham MD Jan 04, 2019 10:52
--- NOTE | 2019-01-04 11:07 | NUR ---
NURSE NOTES: Called dr. Dailey and Anya. Per Dr. Dailey, transfer pt to Tele. Per Dr. Joyner, stat 2d echo and NS bolus x1. will follow up accordingly.
--- NOTE | 2019-01-04 12:04 | Infectious Diseases Prog Note ---
Assessment/Plan Assessment/Plan A; Marilyn esophagitis UTI with ESBL E. coli treated Syncope Dehydration DM Nausea/Vomiting treated Hypokalemia corrected Hypotension P: decrease Fluconazole to 200 mg daily Case was D/W GI specialist Subjective ROS Limited/Unobtainable: No Constitutional: Reports: other - dizzieness Respiratory: Reports: no symptoms Cardiovascular: Reports: other - hypotensive Gastrointestinal/Abdominal: Reports: no symptoms Genitourinary: Reports: no symptoms Neurologic: Reports: no symptoms Allergies: Coded Allergies: No Known Allergies (Unverified , 12/26/18) Objective Vital Signs Last 24 Hour Vital Signs Date Time Temp Pulse Resp B/P (MAP) Pulse Ox O2 Delivery O2 Flow Rate FiO2 01/04/19 09:52 Room Air 01/04/19 08:00 97.8 97 20 76/42 (53) 100 01/04/19 04:00 97.7 95 20 100/56 (71) 100 01/04/19 04:00 97.7 95 20 66/43 (51) 100 01/03/19 21:00 Room Air 01/03/19 20:00 97.7 95 20 77/51 (60) 100 01/03/19 20:00 97.7 95 20 122/76 (91) 100 01/03/19 16:00 98.1 97 19 135/83 (100) 100 97 Height (Feet): 5 Height (Inches): 5.00 Weight (Pounds): 123 General Appearance: no acute distress HEENT: mucous membranes moist Respiratory/Chest: lungs clear Cardiovascular: normal rate Abdomen: soft, non tender Extremities: no edema Neurologic/Psychiatric: alert, oriented x 3, responsive Laboratory Tests Test 01/04/19 06:46 White Blood Count 6.2 K/UL (4.8-10.8) Red Blood Count 4.79 M/UL (4.20-5.40) Hemoglobin 13.2 G/DL (12.0-16.0) Hematocrit 39.8 % (37.0-47.0) Mean Corpuscular Volume 83 FL (80-99) Mean Corpuscular Hemoglobin 27.5 PG (27.0-31.0) Mean Corpuscular Hemoglobin Concent 33.1 G/DL (32.0-36.0) Red Cell Distribution Width 12.3 % (11.6-14.8) Platelet Count 300 K/UL (150-450) Mean Platelet Volume 6.9 FL (6.5-10.1) Neutrophils (%) (Auto) 45.6 % (45.0-75.0) Lymphocytes (%) (Auto) 40.9 % (20.0-45.0) Monocytes (%) (Auto) 10.8 % (1.0-10.0) H Eosinophils (%) (Auto) 1.9 % (0.0-3.0) Basophils (%) (Auto) 0.8 % (0.0-2.0) Sodium Level 139 MMOL/L (136-145) Potassium Level 3.7 MMOL/L (3.5-5.1) Chloride Level 105 MMOL/L (98-107) Carbon Dioxide Level 27 MMOL/L (21-32) Anion Gap 7 mmol/L (5-15) Blood Urea Nitrogen 4 mg/dL (7-18) L Creatinine 0.6 MG/DL (0.55-1.30) Estimat Glomerular Filtration Rate > 60 mL/min (>60) Glucose Level 120 MG/DL (74-106) H Calcium Level 9.3 MG/DL (8.5-10.1) Current Medications Medications (Trade) Dose Ordered Sig/Adalberto Route PRN Reason Start Time Stop Time Status Last Admin Dose Admin Acetaminophen (Tylenol) 500 mg Q4H PRN ORAL Mild Pain/Temp > 100.5 12/26/18 04:30 01/25/19 04:29 Acetaminophen (Tylenol) 650 mg Q6HR ORAL 12/30/18 12:00 01/29/19 11:59 01/02/19 06:13 Dextrose (Dextrose 50%) 25 ml Q30M PRN IV Hypoglycemia 12/26/18 04:30 01/25/19 04:29 Dextrose (Dextrose 50%) 50 ml Q30M PRN IV Hypoglycemia 12/26/18 04:30 01/25/19 04:29 Fluconazole (Diflucan) 400 mg DAILY ORAL 01/01/19 09:00 01/08/19 08:59 01/04/19 09:06 Hydromorphone HCl (Dilaudid) 0.5 mg Q4H PRN IVP For brak through Pain 12/30/18 12:00 01/06/19 11:59 12/30/18 14:27 Insulin Aspart (NovoLOG) BEFORE MEALS AND HS SUBQ 12/26/18 22:30 01/25/19 22:29 01/03/19 21:21 Insulin Detemir (Levemir) 25 units BEDTIME SUBQ 12/27/18 21:00 01/25/19 22:29 01/03/19 21:20 Metoclopramide HCl (Reglan) 5 mg THREE TIMES A DAY ORAL 12/29/18 13:00 01/25/19 12:59 01/04/19 09:06 Nateglinide (Starlix) 120 mg TIAC ORAL 01/04/19 11:30 01/29/19 11:29 Ondansetron HCl (Zofran) 4 mg Q6H PRN IVP Nausea & Vomiting 12/26/18 04:30 01/25/19 04:29 12/30/18 09:25 Pantoprazole (Protonix) 40 mg BIAC ORAL 12/26/18 16:30 01/25/19 16:29 01/04/19 05:59 Potassium Chloride (K-Dur) 40 meq TWICE A DAY ORAL 12/28/18 18:00 01/27/19 17:59 01/03/19 17:15 Zolpidem Tartrate (Ambien) 5 mg HSPRN PRN ORAL Insomnia 12/31/18 20:45 01/07/19 20:44 12/31/18 20:43 Ravi Roman MD Jan 04, 2019 12:04
[2019-01-04 12:05] VITALS: BP 126/80
--- NOTE | 2019-01-04 12:24 | General Progress Note ---
Assessment/Plan Problem List: (1) Dehydration ICD Codes: E86.0 - Dehydration SNOMED: 13448988, 22995480 (2) Gastroenteritis ICD Codes: K52.9 - Noninfective gastroenteritis and colitis, unspecified SNOMED: 68718273 (3) Electrolyte imbalance ICD Codes: E87.8 - Other disorders of electrolyte and fluid balance, not elsewhere classified SNOMED: 525264729 (4) Abdominal pain ICD Codes: R10.9 - Unspecified abdominal pain SNOMED: 93147704, 83071727 Qualifiers: Qualified Codes: R10.84 - Generalized abdominal pain (5) Gastroparesis ICD Codes: K31.84 - Gastroparesis SNOMED: 539368875 (6) Nausea vomiting and diarrhea ICD Codes: R11.2 - Nausea with vomiting, unspecified; R19.7 - Diarrhea, unspecified SNOMED: 8863071 (7) Hyperglycemia due to type 1 diabetes mellitus ICD Codes: E10.65 - Type 1 diabetes mellitus with hyperglycemia; R19.7 - Diarrhea, unspecified SNOMED: 852453620035599, 54522007 (8) GERD (gastroesophageal reflux disease) ICD Codes: K21.9 - Gastro-esophageal reflux disease without esophagitis SNOMED: 204819823 Status: deteriorating Assessment/Plan has jessica esophagitis worsening hypotensin and bradycardia so transferred to [facility] bed consulted dr plummer for bradycardia niddm midrodine? Subjective ROS Limited/Unobtainable: Yes Allergies: Coded Allergies: No Known Allergies (Unverified , 12/26/18) Subjective dizzy when gets up Objective Last 24 Hour Vital Signs Date Time Temp Pulse Resp B/P (MAP) Pulse Ox O2 Delivery O2 Flow Rate FiO2 01/04/19 12:05 97.9 81 20 126/80 (95) 100 01/04/19 09:52 Room Air 01/04/19 08:00 97.8 97 20 76/42 (53) 100 01/04/19 04:00 97.7 95 20 100/56 (71) 100 01/04/19 04:00 97.7 95 20 66/43 (51) 100 01/03/19 21:00 Room Air 01/03/19 20:00 97.7 95 20 77/51 (60) 100 01/03/19 20:00 97.7 95 20 122/76 (91) 100 01/03/19 16:00 98.1 97 19 135/83 (100) 100 97 Intake and Output 01/03/19 01/04/19 18:59 06:59 Intake Total 500 ml 1000 ml Balance 500 ml 1000 ml Intake Oral 500 ml 1000 ml # Voids 3 2 Laboratory Tests 01/04/19 06:46: White Blood Count 6.2, Red Blood Count 4.79, Hemoglobin 13.2, Hematocrit 39.8, Mean Corpuscular Volume 83, Mean Corpuscular Hemoglobin 27.5, Mean Corpuscular Hemoglobin Concent 33.1, Red Cell Distribution Width 12.3, Platelet Count 300, Mean Platelet Volume 6.9, Neutrophils (%) (Auto) 45.6, Lymphocytes (%) (Auto) 40.9, Monocytes (%) (Auto) 10.8H, Eosinophils (%) (Auto) 1.9, Basophils (%) ( Auto) 0.8, Sodium Level 139, Potassium Level 3.7, Chloride Level 105, Carbon Dioxide Level 27, Anion Gap 7, Blood Urea Nitrogen 4L, Creatinine 0.6, Estimat Glomerular Filtration Rate > 60, Glucose Level 120H, Calcium Level 9.3 Height (Feet): 5 Height (Inches): 5.00 Weight (Pounds): 123 Neck: non-tender Cardiovascular: bradycardia Respiratory/Chest: lungs clear Ondina Dailey MD Jan 04, 2019 12:24
--- NOTE | 2019-01-04 13:42 | Cardiac Electrophysiology PN ---
Subjective Subjective [id number] Objective Last 24 Hour Vital Signs Date Time Temp Pulse Resp B/P (MAP) Pulse Ox O2 Delivery O2 Flow Rate FiO2 01/04/19 13:00 97.9 01/04/19 12:05 97.9 81 20 126/80 (95) 100 01/04/19 09:52 Room Air 01/04/19 08:00 97.8 97 20 76/42 (53) 100 01/04/19 04:00 97.7 95 20 100/56 (71) 100 01/04/19 04:00 97.7 95 20 66/43 (51) 100 01/03/19 21:00 Room Air 01/03/19 20:00 97.7 95 20 77/51 (60) 100 01/03/19 20:00 97.7 95 20 122/76 (91) 100 01/03/19 16:00 98.1 97 19 135/83 (100) 100 97 Intake and Output 01/03/19 01/04/19 19:00 07:00 Intake Total 500 ml 1000 ml Balance 500 ml 1000 ml Intake Oral 500 ml 1000 ml # Voids 3 2 Laboratory Tests Test 01/04/19 06:46 White Blood Count 6.2 K/UL (4.8-10.8) Red Blood Count 4.79 M/UL (4.20-5.40) Hemoglobin 13.2 G/DL (12.0-16.0) Hematocrit 39.8 % (37.0-47.0) Mean Corpuscular Volume 83 FL (80-99) Mean Corpuscular Hemoglobin 27.5 PG (27.0-31.0) Mean Corpuscular Hemoglobin Concent 33.1 G/DL (32.0-36.0) Red Cell Distribution Width 12.3 % (11.6-14.8) Platelet Count 300 K/UL (150-450) Mean Platelet Volume 6.9 FL (6.5-10.1) Neutrophils (%) (Auto) 45.6 % (45.0-75.0) Lymphocytes (%) (Auto) 40.9 % (20.0-45.0) Monocytes (%) (Auto) 10.8 % (1.0-10.0) H Eosinophils (%) (Auto) 1.9 % (0.0-3.0) Basophils (%) (Auto) 0.8 % (0.0-2.0) Sodium Level 139 MMOL/L (136-145) Potassium Level 3.7 MMOL/L (3.5-5.1) Chloride Level 105 MMOL/L (98-107) Carbon Dioxide Level 27 MMOL/L (21-32) Anion Gap 7 mmol/L (5-15) Blood Urea Nitrogen 4 mg/dL (7-18) L Creatinine 0.6 MG/DL (0.55-1.30) Estimat Glomerular Filtration Rate > 60 mL/min (>60) Glucose Level 120 MG/DL (74-106) H Calcium Level 9.3 MG/DL (8.5-10.1) Serafin Joyner MD Jan 04, 2019 13:42
--- NOTE | 2019-01-04 14:40 | Consultation ---
History of Present Illness General Date patient seen: Jan 04, 2019 Time patient seen: 14:15 Chief Complaint: Syncope Referring physician: LOU COVARRUBIAS Reason for Consultation: Persistent nausea vomiting Present Illness Allergies: Coded Allergies: No Known Allergies (Unverified , 12/26/18) Medication History Scheduled Metformin Hcl (Metformin Hcl Er), Unknown Dose ORAL DAILY, (Reported) Patient History History Provided By: Patient Healthcare decision maker Resuscitation status Full Code Advanced Directive on File Past Medical/Surgical History Past Medical/Surgical History: (1) Syncope and collapse (2) Dehydration (3) Gastroenteritis (4) Electrolyte imbalance (5) Abdominal pain (6) Gastroparesis (7) Nausea vomiting and diarrhea (8) Hyperglycemia due to type 1 diabetes mellitus (9) GERD (gastroesophageal reflux disease) (10) UTI (urinary tract infection) (11) Diabetes mellitus out of control (12) Marilyn esophagitis (13) Orthostatic hypotension (14) Orthostatic hypertension Review of Systems Constitutional: Reports: see HPI Eye: Reports: no symptoms ENT: Reports: no symptoms Physical Exam General Appearance: WD/WN, alert Lines, tubes and drains: peripheral HEENT: normocephalic, atraumatic, mucous membranes moist, PERRL, EOMI, pharynx normal, no JVD, carotid(s) normal, other - Ears WNL bilaterally-canal and tms. Neck: non-tender, normal alignment, normal inspection Last 24 Hour Vital Signs Date Time Temp Pulse Resp B/P (MAP) Pulse Ox O2 Delivery O2 Flow Rate FiO2 01/04/19 13:00 97.9 01/04/19 12:05 97.9 81 20 126/80 (95) 100 01/04/19 09:52 Room Air 01/04/19 08:00 97.8 97 20 76/42 (53) 100 01/04/19 04:00 97.7 95 20 100/56 (71) 100 01/04/19 04:00 97.7 95 20 66/43 (51) 100 01/03/19 21:00 Room Air 01/03/19 20:00 97.7 95 20 77/51 (60) 100 01/03/19 20:00 97.7 95 20 122/76 (91) 100 01/03/19 16:00 98.1 97 19 135/83 (100) 100 97 Intake and Output 01/03/19 01/04/19 19:00 07:00 Intake Total 500 ml 1000 ml Balance 500 ml 1000 ml Intake Oral 500 ml 1000 ml # Voids 3 2 Laboratory Tests Test 01/04/19 06:46 White Blood Count 6.2 K/UL (4.8-10.8) Red Blood Count 4.79 M/UL (4.20-5.40) Hemoglobin 13.2 G/DL (12.0-16.0) Hematocrit 39.8 % (37.0-47.0) Mean Corpuscular Volume 83 FL (80-99) Mean Corpuscular Hemoglobin 27.5 PG (27.0-31.0) Mean Corpuscular Hemoglobin Concent 33.1 G/DL (32.0-36.0) Red Cell Distribution Width 12.3 % (11.6-14.8) Platelet Count 300 K/UL (150-450) Mean Platelet Volume 6.9 FL (6.5-10.1) Neutrophils (%) (Auto) 45.6 % (45.0-75.0) Lymphocytes (%) (Auto) 40.9 % (20.0-45.0) Monocytes (%) (Auto) 10.8 % (1.0-10.0) H Eosinophils (%) (Auto) 1.9 % (0.0-3.0) Basophils (%) (Auto) 0.8 % (0.0-2.0) Sodium Level 139 MMOL/L (136-145) Potassium Level 3.7 MMOL/L (3.5-5.1) Chloride Level 105 MMOL/L (98-107) Carbon Dioxide Level 27 MMOL/L (21-32) Anion Gap 7 mmol/L (5-15) Blood Urea Nitrogen 4 mg/dL (7-18) L Creatinine 0.6 MG/DL (0.55-1.30) Estimat Glomerular Filtration Rate > 60 mL/min (>60) Glucose Level 120 MG/DL (74-106) H Calcium Level 9.3 MG/DL (8.5-10.1) Height (Feet): 5 Height (Inches): 5.00 Weight (Pounds): 123 Medications Current Medications Medications (Trade) Dose Ordered Sig/Adalberto Route PRN Reason Start Time Stop Time Status Last Admin Dose Admin Acetaminophen (Tylenol) 500 mg Q4H PRN ORAL Mild Pain/Temp > 100.5 12/26/18 04:30 01/25/19 04:29 Acetaminophen (Tylenol) 650 mg Q6HR ORAL 12/30/18 12:00 01/29/19 11:59 01/04/19 12:30 Dextrose (Dextrose 50%) 25 ml Q30M PRN IV Hypoglycemia 12/26/18 04:30 01/25/19 04:29 Dextrose (Dextrose 50%) 50 ml Q30M PRN IV Hypoglycemia 12/26/18 04:30 01/25/19 04:29 Fluconazole (Diflucan) 200 mg DAILY ORAL 01/05/19 09:00 01/08/19 08:59 Hydromorphone HCl (Dilaudid) 0.5 mg Q4H PRN IVP For brak through Pain 12/30/18 12:00 01/06/19 11:59 12/30/18 14:27 Insulin Aspart (NovoLOG) BEFORE MEALS AND HS SUBQ 12/26/18 22:30 01/25/19 22:29 01/04/19 12:32 Insulin Detemir (Levemir) 25 units BEDTIME SUBQ 12/27/18 21:00 01/25/19 22:29 01/03/19 21:20 Metoclopramide HCl (Reglan) 5 mg THREE TIMES A DAY ORAL 12/29/18 13:00 01/25/19 12:59 01/04/19 12:30 Nateglinide (Starlix) 120 mg TIAC ORAL 01/04/19 11:30 01/29/19 11:29 01/04/19 12:30 Ondansetron HCl (Zofran) 4 mg Q6H PRN IVP Nausea & Vomiting 12/26/18 04:30 01/25/19 04:29 12/30/18 09:25 Pantoprazole (Protonix) 40 mg BIAC ORAL 12/26/18 16:30 01/25/19 16:29 01/04/19 05:59 Potassium Chloride (K-Dur) 40 meq TWICE A DAY ORAL 12/28/18 18:00 01/27/19 17:59 01/03/19 17:15 Zolpidem Tartrate (Ambien) 5 mg HSPRN PRN ORAL Insomnia 12/31/18 20:45 01/07/19 20:44 12/31/18 20:43 Assessment/Plan Status: other Status Narrative This does not appear to be an ENT issue. ENT exam is normal. She does have other issues that may account for her syncope-hypotension, electrolyte imbalance secondary to nausea and vomiting, DM. Please reconsult if you feel is indicated. Thank you for asking for my attention the treatment of this pt. Josef Watson MD Jan 04, 2019 14:40
--- NOTE | 2019-01-04 15:40 | NUR ---
NURSE NOTES: pt transferred to tele with stable condition. VSS.
--- NOTE | 2019-01-04 15:43 | NUR ---
HAND-OFF: Report given to ALONZO Ortiz.
[2019-01-04 16:00] VITALS: BP 126/62
[2019-01-04] MEDS ORDERED: Hydromorphone 0.5mg/0.5ml inj IVP PRN (16:00)
[2019-01-04] MEDS ORDERED: Acetaminophen 500mg (ES) tab ORAL PRN (16:30)
--- NOTE | 2019-01-04 17:45 | Nephrology Progress Note ---
Assessment/Plan Problem List: (1) Orthostatic hypertension (2) Dehydration (3) UTI (urinary tract infection) (4) Gastroparesis (5) Nausea vomiting and diarrhea (6) Hyperglycemia due to type 1 diabetes mellitus (7) Marilyn esophagitis Assessment Dehydration UTI Electrolytre imbalance Syncope Abdominal pain Nausea vomiting and diarrhea Hyperglycemia due to type 1 diabetes mellitus Plan trial Midodrine- fasting cortisol check Off all BP meds BP check standing only DC MS K and phos and mag as needed DC IV fluid BS control Antibiotics on Fluconozol Monitor lytes Subjective ROS Limited/Unobtainable: No Constitutional: Reports: malaise, other - dizziness Objective Objective Last 24 Hour Vital Signs Date Time Temp Pulse Resp B/P (MAP) Pulse Ox O2 Delivery O2 Flow Rate FiO2 01/04/19 13:00 97.9 01/04/19 12:05 97.9 81 20 126/80 (95) 100 01/04/19 09:52 Room Air 01/04/19 08:00 97.8 97 20 76/42 (53) 100 01/04/19 04:00 97.7 95 20 100/56 (71) 100 01/04/19 04:00 97.7 95 20 66/43 (51) 100 01/03/19 21:00 Room Air 01/03/19 20:00 97.7 95 20 77/51 (60) 100 01/03/19 20:00 97.7 95 20 122/76 (91) 100 Intake and Output 01/03/19 01/04/19 19:00 07:00 Intake Total 500 ml 1000 ml Balance 500 ml 1000 ml Intake Oral 500 ml 1000 ml # Voids 3 2 Laboratory Tests 01/04/19 06:46: White Blood Count 6.2, Red Blood Count 4.79, Hemoglobin 13.2, Hematocrit 39.8, Mean Corpuscular Volume 83, Mean Corpuscular Hemoglobin 27.5, Mean Corpuscular Hemoglobin Concent 33.1, Red Cell Distribution Width 12.3, Platelet Count 300, Mean Platelet Volume 6.9, Neutrophils (%) (Auto) 45.6, Lymphocytes (%) (Auto) 40.9, Monocytes (%) (Auto) 10.8H, Eosinophils (%) (Auto) 1.9, Basophils (%) ( Auto) 0.8, Sodium Level 139, Potassium Level 3.7, Chloride Level 105, Carbon Dioxide Level 27, Anion Gap 7, Blood Urea Nitrogen 4L, Creatinine 0.6, Estimat Glomerular Filtration Rate > 60, Glucose Level 120H, Calcium Level 9.3 Height (Feet): 5 Height (Inches): 5.00 Weight (Pounds): 123 General Appearance: no apparent distress, other - dizzy Cardiovascular: normal rate Respiratory/Chest: decreased breath sounds Abdomen: soft Objective no change Prabhakar Bowen MD Jan 04, 2019 17:45
[2019-01-04 20:00] VITALS: BP 129/78
--- NOTE | 2019-01-04 20:15 | Consultation ---
DATE OF CONSULTATION: 01/04/2019 CARDIOLOGY CONSULTATION: CONSULTING PHYSICIAN: Serafin Joyner M.D. REFERRING PHYSICIAN: Ondina Dailey M.D. REASON FOR CONSULTATION: Hypotension and bradycardia. HISTORY OF PRESENT ILLNESS: The patient is a 58-year-old lady with history of insulin-dependent diabetes who was admitted to the hospital with syncope on 12/27/2018. The patient also has nausea, vomiting, and diarrhea. The patient is originally from [place] and is visiting her brother's birthday. The patient was evaluated by Dr. Beaver and was found to have dehydration as well as hyperglycemia. Last night, the patient was bradycardic and hypotensive and cardiac electrophysiology consultation was obtained for evaluation. It is of note the patient had already undergone EGD by Dr. Graham that showed gastroesophageal reflux disease with esophagitis and gastroparesis. REVIEW OF SYSTEMS: Negative other than what was mentioned in history of present illness. PAST MEDICAL HISTORY: As mentioned above. FAMILY HISTORY: Noncontributory. SOCIAL HISTORY: She lives with family. Does not smoke or drink alcohol. PHYSICAL EXAMINATION: VITAL SIGNS: Blood pressure was as low as 66/43 at 4 a.m., then improved to 70s/42 with heart rate of 97. HEAD AND NECK: Shows no JVD. LUNGS: Clear. CARDIOVASCULAR: Regular S1 and S2 with no murmur or gallop. ABDOMEN: Soft. EXTREMITIES: No pitting edema. LABORATORY DATA: White count of 6.2, hemoglobin 13.2, hematocrit 39.8, platelet count of 300. Sodium 139, potassium 3.7, BUN of 4, creatinine 0.6, and glucose of 120. INR is 1.1. ASSESSMENT AND PLAN: 1. Hypotension. We will give the patient 500 mL of normal saline. We will transfer the patient to telemetry for closer monitoring. We will get an echocardiogram and completely rule out [facility] protocol. It could be secondary to the patient's severe diabetic autonomic dysfunction. 2. Insulin-dependent diabetes. Further evaluation by Dr. Beaver. 3. Esophageal candidiasis, on Diflucan per Dr. Graham. 4. Gastroesophageal reflux disease. Thank you very much, Dr. Dailey, for allowing me to participate in the care of this patient. Please do not hesitate to contact me for any questions regarding my evaluation. Serafin Joyner M.D. DR: ARMANDO JOB#: [id number] CC:
[2019-01-04] MEDS ORDERED: Zolpidem 5mg tab ORAL PRN (20:45)
[2019-01-04] MEDS ORDERED: Levemir Flexpen SUBQ SCH (21:00)
[2019-01-05] VITALS: BP 91/58
[2019-01-05 04:00] VITALS: BP 97/62
[2019-01-05 05:54] LABS: PHOSPHORUS 3.9 MG/DL (2.5-4.9)
[2019-01-05 06:04] LABS: ALANINE AMINOTRANSFERASE 22 U/L (12-78); ALBUMIN 2.7 G/DL (3.4-5.0); ALBUMIN/GLOBULIN RATIO 0.8 (1.0-2.7); ALKALINE PHOSPHATASE 56 U/L (46-116); ANION GAP 8 mmol/L (5-15); ASPARTATE AMINO TRANSFERASE 19 U/L (15-37); BILIRUBIN,TOTAL 0.2 MG/DL (0.2-1.0); BLOOD UREA NITROGEN 5 mg/dL (7-18); CALCIUM 8.5 MG/DL (8.5-10.1); CARBON DIOXIDE 28 MMOL/L (21-32); CHLORIDE 108 MMOL/L (98-107); CREATININE 0.6 MG/DL (0.55-1.30); POTASSIUM 3.9 MMOL/L (3.5-5.1); SODIUM 144 MMOL/L (136-145)
[2019-01-05] MEDS: NovoLOG Insulin Flexpen SUBQ SCH ×4 (06:20→21:17)
--- NOTE | 2019-01-05 07:30 | NUR ---
HAND-OFF: Report given to ALONZO Harper.
--- NOTE | 2019-01-05 07:42 | NUR ---
NURSE NOTES: Received pt. and report from ALONZO Lozano. Patient is sitting at the edge of bed, eating breakfast. Alert and oriented x4. social work therapist is in placed. Call light and bed side table within reach. Bed is in the lowest position with two side rails up and locked. No acute distress noted at this time. Will continue to monitor and follow plan of care.
[2019-01-05 08:00] VITALS: BP 117/73
--- NOTE | 2019-01-05 08:16 | General Progress Note ---
Assessment/Plan Problem List: (1) Diabetes mellitus out of control ICD Codes: E11.65 - Type 2 diabetes mellitus with hyperglycemia SNOMED: 74769600, 526627334 (2) Electrolyte imbalance ICD Codes: E87.8 - Other disorders of electrolyte and fluid balance, not elsewhere classified SNOMED: 873612672 (3) Abdominal pain ICD Codes: R10.9 - Unspecified abdominal pain SNOMED: 20558038, 99895121 Qualifiers: Qualified Codes: R10.84 - Generalized abdominal pain Assessment/Plan reduce Levemir to 20 units qhs continue Starlix 120 mg ac tid continue NISS ac / hs follow am cortisol level - pending Rx for diabetic medications left in chart Subjective Allergies: Coded Allergies: No Known Allergies (Unverified , 12/26/18) All Systems: reviewed and negative except above Subjective events noted evaluated by Dr Joyner for hypotension am cortisol ordered by Dr Bowen r/o AI overall glycemic control improved - fasting value low normal Item Value Date Time Bedside Blood Glucose 82 mg/dl 01/05/19 0620 Bedside Blood Glucose 157 mg/dl H 01/04/19 2208 Bedside Blood Glucose 142 mg/dl H 01/04/19 1730 Bedside Blood Glucose 266 mg/dl H 01/04/19 1232 Objective Last 24 Hour Vital Signs Date Time Temp Pulse Resp B/P (MAP) Pulse Ox O2 Delivery O2 Flow Rate FiO2 01/05/19 04:00 97.7 80 18 97/62 (74) 100 01/05/19 04:00 80 01/05/19 00:00 99.3 82 18 91/58 (69) 100 01/05/19 00:00 82 01/04/19 21:00 Room Air 01/04/19 20:00 99.0 95 20 129/78 (95) 100 01/04/19 20:00 95 01/04/19 16:00 98.5 78 18 126/62 (83) 100 01/04/19 13:00 97.9 01/04/19 12:05 97.9 81 20 126/80 (95) 100 01/04/19 09:52 Room Air Intake and Output 01/04/19 01/05/19 19:00 07:00 Intake Total 1119 ml Balance 1119 ml Intake Oral 120 ml IV Total 999 ml # Voids 1 3 Laboratory Tests 01/04/19 18:20: Troponin I 0.000 01/05/19 03:09: Troponin I 0.000, Sodium Level 144, Potassium Level 3.9, Chloride Level 108H, Carbon Dioxide Level 28, Anion Gap 8, Blood Urea Nitrogen 5L, Creatinine 0.6, Estimat Glomerular Filtration Rate > 60, Glucose Level 74, Uric Acid 4.1, Calcium Level 8.5, Phosphorus Level 3.9, Magnesium Level 1.7L, Total Bilirubin 0.2, Aspartate Amino Transf (AST/SGOT) 19, Alanine Aminotransferase (ALT/SGPT) 22, Alkaline Phosphatase 56, Pro-B-Type Natriuretic Peptide 57, Total Protein 5.9L, Albumin 2.7L, Globulin 3.2, Albumin/Globulin Ratio 0.8L, Cortisol AM Sample [Pending] Height (Feet): 5 Height (Inches): 5.00 Weight (Pounds): 123 General Appearance: no apparent distress Neck: normal alignment Cardiovascular: normal rate Respiratory/Chest: lungs clear Abdomen: normal bowel sounds Edema: no edema noted Arm (L), no edema noted Arm (R), no edema noted Leg (L), no edema noted Leg (R), no edema noted Pedal (L), no edema noted Pedal (R), no edema noted Generalized Objective Current Medications Medications (Trade) Dose Ordered Sig/Adalberto Route PRN Reason Start Time Stop Time Status Last Admin Dose Admin Acetaminophen (Tylenol) 500 mg Q4H PRN ORAL Mild Pain/Temp > 100.5 01/04/19 16:30 01/25/19 04:29 Acetaminophen (Tylenol) 650 mg Q6HR ORAL 01/04/19 18:00 01/29/19 11:59 Dextrose (Dextrose 50%) 25 ml Q30M PRN IV Hypoglycemia 01/04/19 15:30 01/25/19 04:29 Dextrose (Dextrose 50%) 50 ml Q30M PRN IV Hypoglycemia 01/04/19 15:30 01/25/19 04:29 Fluconazole (Diflucan) 200 mg DAILY ORAL 01/05/19 09:00 01/08/19 08:59 Hydromorphone HCl (Dilaudid) 0.5 mg Q4H PRN IVP For breakthrough Pain 01/04/19 16:00 01/06/19 11:59 Insulin Aspart (NovoLOG) BEFORE MEALS AND HS SUBQ 01/04/19 16:30 01/25/19 22:29 01/04/19 22:08 Insulin Detemir (Levemir) 25 units BEDTIME SUBQ 01/04/19 21:00 01/25/19 22:29 01/04/19 22:06 Midodrine (Pro-Amatine) 2.5 mg THREE TIMES A DAY ORAL 01/04/19 18:00 02/03/19 17:59 01/04/19 18:21 Nateglinide (Starlix) 120 mg TIAC ORAL 01/04/19 16:30 01/29/19 11:29 01/05/19 06:26 Ondansetron HCl (Zofran) 4 mg Q6H PRN IVP Nausea & Vomiting 01/04/19 16:30 01/25/19 04:29 Pantoprazole (Protonix) 40 mg BIAC ORAL 01/04/19 16:30 01/25/19 16:29 01/05/19 06:26 Potassium Chloride (K-Dur) 40 meq TWICE A DAY ORAL 01/04/19 18:00 01/27/19 17:59 01/04/19 17:27 Zolpidem Tartrate (Ambien) 5 mg HSPRN PRN ORAL Insomnia 01/04/19 20:45 01/07/19 20:44 Julio Beaver MD Jan 05, 2019 08:16
[2019-01-05] MEDS: Fluconazole 100mg tab ORAL SCH (08:32)
[2019-01-05] MEDS ORDERED: Fluconazole 100mg tab ORAL SCH (09:00)
--- NOTE | 2019-01-05 09:04 | NUR ---
PT Note Patient has been transferred to telemetry unit. Will need a new order to continue/resume physical therapy.
--- NOTE | 2019-01-05 10:39 | NUR ---
CASE MANAGEMENT: REVIEW 01/05/2019 SI: UTI . GASTROPARESIS EGD 12/28 T 98.1 HR 97 RR 18 B/P 117/73 SATS 97% ON RA CL 108 BUN 5 MG 1.7 IS: REGLAN PO TID MAG SULFATE IV@100ML/HR CIPRO PO Q12HR K-DUR PO BID D5NS w/20mEq IVF @50ML/HR FULL LIQUID PO DIET MED/SURG STATUS DCP: PATIENT IS FROM [facility]
--- NOTE | 2019-01-05 11:44 | General Progress Note ---
Assessment/Plan Problem List: (1) Orthostatic hypertension ICD Codes: I10 - Essential (primary) hypertension SNOMED: 18371040 (2) Marilyn esophagitis ICD Codes: B37.81 - Candidal esophagitis SNOMED: 61777374 (3) Diabetes mellitus out of control ICD Codes: E11.65 - Type 2 diabetes mellitus with hyperglycemia SNOMED: 16354829, 605762943 (4) GERD (gastroesophageal reflux disease) ICD Codes: K21.9 - Gastro-esophageal reflux disease without esophagitis SNOMED: 058601759 (5) Abdominal pain ICD Codes: R10.9 - Unspecified abdominal pain SNOMED: 32710582, 11311282 Qualifiers: Qualified Codes: R10.84 - Generalized abdominal pain Assessment/Plan cardiac work up negative severe hypokalemia CT AP negative Orthostatic hypotension; systolic drop of approximately 50 mmHg from sitting to standing. SUMMARY OF FINDINGS: 1. Possible Marilyn esophagitis. >> follow up biopsy 2. Gastritis, status post biopsy. RECOMMENDATION: 1. fluconazole 100 mg p.o. daily for 7 to 10 days. 2. Follow up biopsy results and treat accordingly. Subjective ROS Limited/Unobtainable: Yes Allergies: Coded Allergies: No Known Allergies (Unverified , 12/26/18) Subjective dizziness Objective Last 24 Hour Vital Signs Date Time Temp Pulse Resp B/P (MAP) Pulse Ox O2 Delivery O2 Flow Rate FiO2 01/05/19 09:00 Room Air 01/05/19 08:00 98.1 97 18 117/73 (88) 97 01/05/19 08:00 98 01/05/19 04:00 97.7 80 18 97/62 (74) 100 01/05/19 04:00 80 01/05/19 00:00 99.3 82 18 91/58 (69) 100 01/05/19 00:00 82 01/04/19 21:00 Room Air 01/04/19 20:00 99.0 95 20 129/78 (95) 100 01/04/19 20:00 95 01/04/19 16:00 98.5 78 18 126/62 (83) 100 01/04/19 13:00 97.9 01/04/19 12:05 97.9 81 20 126/80 (95) 100 Intake and Output 01/04/19 01/05/19 18:59 06:59 Intake Total 1119 ml Balance 1119 ml Intake Oral 120 ml IV Total 999 ml # Voids 1 3 Laboratory Tests 01/04/19 18:20: Troponin I 0.000 01/05/19 03:09: Troponin I 0.000, Sodium Level 144, Potassium Level 3.9, Chloride Level 108H, Carbon Dioxide Level 28, Anion Gap 8, Blood Urea Nitrogen 5L, Creatinine 0.6, Estimat Glomerular Filtration Rate > 60, Glucose Level 74, Uric Acid 4.1, Calcium Level 8.5, Phosphorus Level 3.9, Magnesium Level 1.7L, Total Bilirubin 0.2, Aspartate Amino Transf (AST/SGOT) 19, Alanine Aminotransferase (ALT/SGPT) 22, Alkaline Phosphatase 56, Pro-B-Type Natriuretic Peptide 57, Total Protein 5.9L, Albumin 2.7L, Globulin 3.2, Albumin/Globulin Ratio 0.8L, Cortisol AM Sample [Pending] Height (Feet): 5 Height (Inches): 5.00 Weight (Pounds): 123 General Appearance: alert EENT: normal ENT inspection Neck: supple Cardiovascular: normal rate Respiratory/Chest: lungs clear Abdomen: normal bowel sounds, non tender, soft Extremities: non-tender Franco Graham MD Jan 05, 2019 11:44
[2019-01-05 12:00] VITALS: BP 131/86
--- NOTE | 2019-01-05 13:02 | Nephrology Progress Note ---
Assessment/Plan Problem List: (1) Orthostatic hypertension (2) Dehydration (3) UTI (urinary tract infection) (4) Gastroparesis (5) Nausea vomiting and diarrhea (6) Hyperglycemia due to type 1 diabetes mellitus (7) Marilyn esophagitis Assessment Dehydration UTI Electrolytre imbalance Syncope Abdominal pain Nausea vomiting and diarrhea Hyperglycemia due to type 1 diabetes mellitus Plan trial Midodrine- seems to have been helpful fasting cortisol check- pending Off all BP meds BP check standing only K and phos and mag as needed DC IV fluid BS control Antibiotics on Fluconozol Monitor lytes Subjective ROS Limited/Unobtainable: No Constitutional: Reports: malaise, other - less dizzy Objective Objective Last 24 Hour Vital Signs Date Time Temp Pulse Resp B/P (MAP) Pulse Ox O2 Delivery O2 Flow Rate FiO2 01/05/19 09:00 Room Air 01/05/19 08:00 98.1 97 18 117/73 (88) 97 01/05/19 08:00 98 01/05/19 04:00 97.7 80 18 97/62 (74) 100 01/05/19 04:00 80 01/05/19 00:00 99.3 82 18 91/58 (69) 100 01/05/19 00:00 82 01/04/19 21:00 Room Air 01/04/19 20:00 99.0 95 20 129/78 (95) 100 01/04/19 20:00 95 01/04/19 16:00 98.5 78 18 126/62 (83) 100 Intake and Output 01/04/19 01/05/19 18:59 06:59 Intake Total 1119 ml Balance 1119 ml Intake Oral 120 ml IV Total 999 ml # Voids 1 3 Laboratory Tests 01/04/19 18:20: Troponin I 0.000 01/05/19 03:09: Troponin I 0.000, Sodium Level 144, Potassium Level 3.9, Chloride Level 108H, Carbon Dioxide Level 28, Anion Gap 8, Blood Urea Nitrogen 5L, Creatinine 0.6, Estimat Glomerular Filtration Rate > 60, Glucose Level 74, Uric Acid 4.1, Calcium Level 8.5, Phosphorus Level 3.9, Magnesium Level 1.7L, Total Bilirubin 0.2, Aspartate Amino Transf (AST/SGOT) 19, Alanine Aminotransferase (ALT/SGPT) 22, Alkaline Phosphatase 56, Pro-B-Type Natriuretic Peptide 57, Total Protein 5.9L, Albumin 2.7L, Globulin 3.2, Albumin/Globulin Ratio 0.8L, Cortisol AM Sample [Pending] Height (Feet): 5 Height (Inches): 5.00 Weight (Pounds): 123 General Appearance: no apparent distress Cardiovascular: other - variable Respiratory/Chest: lungs clear Abdomen: soft Objective no change Prabhakar Bowen MD Jan 05, 2019 13:02
[2019-01-05] MEDS: Magnesium Oxide 400mg tab ORAL SCH ×2 (13:25→17:30)
--- NOTE | 2019-01-05 13:44 | Cardiac Electrophysiology PN ---
Assessment/Plan Assessment/Plan 1. Hypotension. Transfered the patient to telemetry . Echocardiogram pending. Ruled out [place] It could be secondary to the patient's severe diabetic autonomic dysfunction. 2. Insulin-dependent diabetes. Further evaluation by Dr. Beaver. 3. Esophageal candidiasis, on Diflucan per Dr. Graham. 4. Gastroesophageal reflux disease. Subjective Subjective Feeling better. Still dizzy. Family at bedside Objective Last 24 Hour Vital Signs Date Time Temp Pulse Resp B/P (MAP) Pulse Ox O2 Delivery O2 Flow Rate FiO2 01/05/19 12:00 98.2 89 18 131/86 (101) 98 01/05/19 09:00 Room Air 01/05/19 08:00 98.1 97 18 117/73 (88) 97 01/05/19 08:00 98 01/05/19 04:00 97.7 80 18 97/62 (74) 100 01/05/19 04:00 80 01/05/19 00:00 99.3 82 18 91/58 (69) 100 01/05/19 00:00 82 01/04/19 21:00 Room Air 01/04/19 20:00 99.0 95 20 129/78 (95) 100 01/04/19 20:00 95 01/04/19 16:00 98.5 78 18 126/62 (83) 100 Intake and Output 01/04/19 01/05/19 18:59 06:59 Intake Total 1119 ml Balance 1119 ml Intake Oral 120 ml IV Total 999 ml # Voids 1 3 Laboratory Tests Test 01/04/19 18:20 01/05/19 03:09 Troponin I 0.000 ng/mL (0.000-0.056) 0.000 ng/mL (0.000-0.056) Sodium Level 144 MMOL/L (136-145) Potassium Level 3.9 MMOL/L (3.5-5.1) Chloride Level 108 MMOL/L (98-107) H Carbon Dioxide Level 28 MMOL/L (21-32) Anion Gap 8 mmol/L (5-15) Blood Urea Nitrogen 5 mg/dL (7-18) L Creatinine 0.6 MG/DL (0.55-1.30) Estimat Glomerular Filtration Rate > 60 mL/min (>60) Glucose Level 74 MG/DL (74-106) Uric Acid 4.1 MG/DL (2.6-7.2) Calcium Level 8.5 MG/DL (8.5-10.1) Phosphorus Level 3.9 MG/DL (2.5-4.9) Magnesium Level 1.7 MG/DL (1.8-2.4) L Total Bilirubin 0.2 MG/DL (0.2-1.0) Aspartate Amino Transf (AST/SGOT) 19 U/L (15-37) Alanine Aminotransferase (ALT/SGPT) 22 U/L (12-78) Alkaline Phosphatase 56 U/L (46-116) Pro-B-Type Natriuretic Peptide 57 pg/mL (0-125) Total Protein 5.9 G/DL (6.4-8.2) L Albumin 2.7 G/DL (3.4-5.0) L Globulin 3.2 g/dL Albumin/Globulin Ratio 0.8 (1.0-2.7) L Cortisol AM Sample Pending Objective HEAD AND NECK: Shows no JVD. LUNGS: Clear. CARDIOVASCULAR: Regular S1 and S2 with no murmur or gallop. ABDOMEN: Soft. EXTREMITIES: No pitting edema. Serafin Joyner MD Jan 05, 2019 13:44
[2019-01-05 16:00] VITALS: BP 124/71
--- NOTE | 2019-01-05 18:36 | General Progress Note ---
Assessment/Plan Problem List: (1) Dehydration ICD Codes: E86.0 - Dehydration SNOMED: 16854225, 17873861 (2) Gastroenteritis ICD Codes: K52.9 - Noninfective gastroenteritis and colitis, unspecified SNOMED: 82762491 (3) Electrolyte imbalance ICD Codes: E87.8 - Other disorders of electrolyte and fluid balance, not elsewhere classified SNOMED: 718353068 (4) Abdominal pain ICD Codes: R10.9 - Unspecified abdominal pain SNOMED: 26369366, 74350977 Qualifiers: Qualified Codes: R10.84 - Generalized abdominal pain (5) Gastroparesis ICD Codes: K31.84 - Gastroparesis SNOMED: 692907621 (6) Nausea vomiting and diarrhea ICD Codes: R11.2 - Nausea with vomiting, unspecified; R19.7 - Diarrhea, unspecified SNOMED: 8230329 (7) Hyperglycemia due to type 1 diabetes mellitus ICD Codes: E10.65 - Type 1 diabetes mellitus with hyperglycemia; R19.7 - Diarrhea, unspecified SNOMED: 010647307518405, 71330162 (8) GERD (gastroesophageal reflux disease) ICD Codes: K21.9 - Gastro-esophageal reflux disease without esophagitis SNOMED: 392185087 Status: progressing Assessment/Plan has jessica esophagitis worsening hypotensin and bradycardia autonomic dysfuncition so transferred to [facility] bed consulted dr plummer for bradycardia niddm midrodine started Subjective ROS Limited/Unobtainable: Yes Allergies: Coded Allergies: No Known Allergies (Unverified , 12/26/18) Subjective dizzy when gets up Objective Last 24 Hour Vital Signs Date Time Temp Pulse Resp B/P (MAP) Pulse Ox O2 Delivery O2 Flow Rate FiO2 01/05/19 16:00 98.1 83 18 124/71 (88) 99 01/05/19 16:00 89 01/05/19 12:00 85 01/05/19 12:00 98.2 89 18 131/86 (101) 98 01/05/19 09:00 Room Air 01/05/19 08:00 98.1 97 18 117/73 (88) 97 01/05/19 08:00 98 01/05/19 04:00 97.7 80 18 97/62 (74) 100 01/05/19 04:00 80 01/05/19 00:00 99.3 82 18 91/58 (69) 100 01/05/19 00:00 82 01/04/19 21:00 Room Air 01/04/19 20:00 99.0 95 20 129/78 (95) 100 01/04/19 20:00 95 Intake and Output 01/04/19 01/05/19 19:00 07:00 Intake Total 1119 ml Balance 1119 ml Intake Oral 120 ml IV Total 999 ml # Voids 1 3 Laboratory Tests 01/05/19 03:09: Sodium Level 144, Potassium Level 3.9, Chloride Level 108H, Carbon Dioxide Level 28, Anion Gap 8, Blood Urea Nitrogen 5L, Creatinine 0.6, Estimat Glomerular Filtration Rate > 60, Glucose Level 74, Uric Acid 4.1, Calcium Level 8.5, Phosphorus Level 3.9, Magnesium Level 1.7L, Total Bilirubin 0.2, Aspartate Amino Transf (AST/SGOT) 19, Alanine Aminotransferase (ALT/SGPT) 22, Alkaline Phosphatase 56, Troponin I 0.000, Pro-B-Type Natriuretic Peptide 57, Total Protein 5.9L, Albumin 2.7L, Globulin 3.2, Albumin/Globulin Ratio 0.8L, Cortisol AM Sample [Pending] Height (Feet): 5 Height (Inches): 5.00 Weight (Pounds): 123 Cardiovascular: normal rate Respiratory/Chest: lungs clear Abdomen: soft Ondina Dailey MD Jan 05, 2019 18:36
--- NOTE | 2019-01-05 19:42 | NUR ---
HAND-OFF: Report given to
--- NOTE | 2019-01-05 19:43 | NUR ---
NURSE NOTES: Received report from ALONZO Harper. Pt is awake and resting in bed. In no acute distress. Bed in lowest position, call light within reach. Will continue plan of care.
[2019-01-05 20:00] VITALS: BP 123/72
[2019-01-05] MEDS ORDERED: Levemir Flexpen SUBQ SCH (21:00)
[2019-01-06] VITALS (9 sets, daily range): BP systolic 84–152; BP diastolic 49–89
[2019-01-06] MEDS: NovoLOG Insulin Flexpen SUBQ SCH ×4 (06:30→20:59)
--- NOTE | 2019-01-06 06:45 | NUR ---
NURSE NOTES: Pt c/o dizzyness upon sitting up. Checked BP, result was 76/49. Rechecked on other arm and its 84/49. Put pt back in lying position with BLE elevated. Dr. Joyner notified, new orders received, read back and carried out.
--- NOTE | 2019-01-06 07:10 | NUR ---
HAND-OFF: Report given to ALONZO Harper.
--- NOTE | 2019-01-06 07:14 | NUR ---
NURSE NOTES: Received report from ALONZO Lozano. Patient is sitting in bed, eating breakfast. Breathing even and non labored on room air. No signs and symptoms of acute distress at this time. NS bolus is running. Bed in lowest position with two side rails up. Call light and bed side table within reach. Will continue to monitor and follow plan of care.
--- NOTE | 2019-01-06 07:56 | General Progress Note ---
Assessment/Plan Problem List: (1) Diabetes mellitus out of control ICD Codes: E11.65 - Type 2 diabetes mellitus with hyperglycemia SNOMED: 71869896, 247965293 (2) Electrolyte imbalance ICD Codes: E87.8 - Other disorders of electrolyte and fluid balance, not elsewhere classified SNOMED: 983213814 (3) Abdominal pain ICD Codes: R10.9 - Unspecified abdominal pain SNOMED: 08613928, 40971854 Qualifiers: Qualified Codes: R10.84 - Generalized abdominal pain Assessment/Plan reduce Levemir to 18 units qhs continue Starlix 120 mg ac tid add Metformin 500 mg tid continue NISS ac / hs - lower dosage follow am cortisol level - pending Subjective Allergies: Coded Allergies: No Known Allergies (Unverified , 12/26/18) All Systems: reviewed and negative except above Subjective events noted hypoglycemic this morning Item Value Date Time Bedside Blood Glucose 81 mg/dl 01/06/19 0630 Bedside Blood Glucose 251 mg/dl H 01/05/19 2215 Bedside Blood Glucose 120 mg/dl 01/05/19 1650 Bedside Blood Glucose 255 mg/dl H 01/05/19 1217 Objective Last 24 Hour Vital Signs Date Time Temp Pulse Resp B/P (MAP) Pulse Ox O2 Delivery O2 Flow Rate FiO2 01/06/19 04:00 74 01/06/19 04:00 97.6 74 18 92/64 (73) 97 01/06/19 01:00 98.0 83 18 109/71 (84) 96 01/06/19 00:00 83 01/06/19 00:00 98.0 83 18 109/71 (84) 96 01/05/19 21:00 Room Air 01/05/19 20:00 97.9 96 18 123/72 (89) 98 01/05/19 20:00 96 01/05/19 16:00 98.1 83 18 124/71 (88) 99 01/05/19 16:00 89 01/05/19 12:00 85 01/05/19 12:00 98.2 89 18 131/86 (101) 98 01/05/19 09:00 Room Air 01/05/19 08:00 98.1 97 18 117/73 (88) 97 01/05/19 08:00 98 Intake and Output 01/05/19 01/06/19 19:00 07:00 Intake Total 730 ml 600 ml Balance 730 ml 600 ml Intake Oral 730 ml 600 ml # Voids 3 3 # Bowel Movements 2 Height (Feet): 5 Height (Inches): 5.00 Weight (Pounds): 123 General Appearance: no apparent distress Neck: normal alignment Cardiovascular: normal rate Respiratory/Chest: lungs clear Abdomen: normal bowel sounds Objective Current Medications Medications (Trade) Dose Ordered Sig/Adalberto Route PRN Reason Start Time Stop Time Status Last Admin Dose Admin Acetaminophen (Tylenol) 500 mg Q4H PRN ORAL Mild Pain/Temp > 100.5 01/04/19 16:30 01/25/19 04:29 Acetaminophen (Tylenol) 650 mg Q6HR ORAL 01/04/19 18:00 01/29/19 11:59 Dextrose (Dextrose 50%) 25 ml Q30M PRN IV Hypoglycemia 01/04/19 15:30 01/25/19 04:29 Dextrose (Dextrose 50%) 50 ml Q30M PRN IV Hypoglycemia 01/04/19 15:30 01/25/19 04:29 Fluconazole (Diflucan) 200 mg DAILY ORAL 01/05/19 09:00 01/08/19 08:59 01/05/19 08:32 Hydromorphone HCl (Dilaudid) 0.5 mg Q4H PRN IVP For breakthrough Pain 01/04/19 16:00 01/06/19 11:59 Insulin Aspart (NovoLOG) BEFORE MEALS AND HS SUBQ 01/04/19 16:30 01/25/19 22:29 01/05/19 21:17 Insulin Detemir (Levemir) 20 units BEDTIME SUBQ 01/05/19 21:00 01/25/19 22:29 01/05/19 22:15 Magnesium Oxide (Mag-Ox 400mg) 400 mg THREE TIMES A DAY ORAL 01/05/19 13:00 02/04/19 12:59 01/05/19 17:30 Midodrine (Pro-Amatine) 2.5 mg THREE TIMES A DAY ORAL 01/04/19 18:00 02/03/19 17:59 01/05/19 17:30 Nateglinide (Starlix) 120 mg TIAC ORAL 01/04/19 16:30 01/29/19 11:29 01/06/19 06:33 Ondansetron HCl (Zofran) 4 mg Q6H PRN IVP Nausea & Vomiting 01/04/19 16:30 01/25/19 04:29 Pantoprazole (Protonix) 40 mg BIAC ORAL 01/04/19 16:30 01/25/19 16:29 01/06/19 06:33 Potassium Chloride (K-Dur) 40 meq TWICE A DAY ORAL 01/04/19 18:00 01/27/19 17:59 01/05/19 17:30 Sodium Chloride 1,000 ml @ 999 mls/hr Q1H1M ONCE IV 01/06/19 07:00 01/06/19 08:00 01/06/19 06:57 Zolpidem Tartrate (Ambien) 5 mg HSPRN PRN ORAL Insomnia 01/04/19 20:45 01/07/19 20:44 Julio Beaver MD Jan 06, 2019 07:56
[2019-01-06] MEDS: Magnesium Oxide 400mg tab ORAL SCH ×3 (08:03→17:28)
[2019-01-06] MEDS: Fluconazole 100mg tab ORAL SCH (08:04)
--- NOTE | 2019-01-06 11:02 | Infectious Diseases Prog Note ---
Assessment/Plan Assessment/Plan A; Marilyn esophagitis UTI with ESBL E. coli treated Syncope Dehydration DM Nausea/Vomiting treated Hypokalemia corrected Hypotension P: Continue Fluconazole Subjective ROS Limited/Unobtainable: No Constitutional: Reports: no symptoms, other - feels better Respiratory: Reports: no symptoms Cardiovascular: Reports: other - diziness on standing, hypotensive in am Gastrointestinal/Abdominal: Reports: no symptoms Genitourinary: Reports: no symptoms Allergies: Coded Allergies: No Known Allergies (Unverified , 12/26/18) Objective Vital Signs Last 24 Hour Vital Signs Date Time Temp Pulse Resp B/P (MAP) Pulse Ox O2 Delivery O2 Flow Rate FiO2 01/06/19 09:00 Room Air 01/06/19 04:00 74 01/06/19 04:00 97.6 74 18 92/64 (73) 97 01/06/19 01:00 98.0 83 18 109/71 (84) 96 01/06/19 00:00 83 01/06/19 00:00 98.0 83 18 109/71 (84) 96 01/05/19 21:00 Room Air 01/05/19 20:00 97.9 96 18 123/72 (89) 98 01/05/19 20:00 96 01/05/19 16:00 98.1 83 18 124/71 (88) 99 01/05/19 16:00 89 01/05/19 12:00 85 01/05/19 12:00 98.2 89 18 131/86 (101) 98 Height (Feet): 5 Height (Inches): 5.00 Weight (Pounds): 123 General Appearance: no acute distress HEENT: mucous membranes moist Respiratory/Chest: lungs clear Cardiovascular: normal rate Abdomen: soft, non tender Extremities: no edema Neurologic/Psychiatric: alert, oriented x 3, responsive Current Medications Medications (Trade) Dose Ordered Sig/Adalberto Route PRN Reason Start Time Stop Time Status Last Admin Dose Admin Acetaminophen (Tylenol) 500 mg Q4H PRN ORAL Mild Pain/Temp > 100.5 01/04/19 16:30 01/25/19 04:29 Acetaminophen (Tylenol) 650 mg Q6HR ORAL 01/04/19 18:00 01/29/19 11:59 Dextrose (Dextrose 50%) 25 ml Q30M PRN IV Hypoglycemia 01/04/19 15:30 01/25/19 04:29 Dextrose (Dextrose 50%) 50 ml Q30M PRN IV Hypoglycemia 01/04/19 15:30 01/25/19 04:29 Fluconazole (Diflucan) 200 mg DAILY ORAL 01/05/19 09:00 01/08/19 08:59 01/06/19 08:04 Hydromorphone HCl (Dilaudid) 0.5 mg Q4H PRN IVP For breakthrough Pain 01/04/19 16:00 01/06/19 11:59 Insulin Aspart (NovoLOG) BEFORE MEALS AND HS SUBQ 01/06/19 11:30 02/05/19 11:29 Insulin Detemir (Levemir) 18 units BEDTIME SUBQ 01/06/19 21:00 01/25/19 22:29 Magnesium Oxide (Mag-Ox 400mg) 400 mg THREE TIMES A DAY ORAL 01/05/19 13:00 02/04/19 12:59 01/06/19 08:03 Metformin HCl (Glucophage) 500 mg TIAC ORAL 01/06/19 11:30 02/05/19 11:29 Midodrine (Pro-Amatine) 2.5 mg THREE TIMES A DAY ORAL 01/04/19 18:00 02/03/19 17:59 01/06/19 08:03 Nateglinide (Starlix) 120 mg TIAC ORAL 01/04/19 16:30 01/29/19 11:29 01/06/19 06:33 Ondansetron HCl (Zofran) 4 mg Q6H PRN IVP Nausea & Vomiting 01/04/19 16:30 01/25/19 04:29 Pantoprazole (Protonix) 40 mg BIAC ORAL 01/04/19 16:30 01/25/19 16:29 01/06/19 06:33 Potassium Chloride (K-Dur) 40 meq TWICE A DAY ORAL 01/04/19 18:00 01/27/19 17:59 01/06/19 08:04 Zolpidem Tartrate (Ambien) 5 mg HSPRN PRN ORAL Insomnia 01/04/19 20:45 01/07/19 20:44 Ravi Roman MD Jan 06, 2019 11:02
[2019-01-06] MEDS: metFORMIN 500mg tab ORAL SCH ×2 (11:48→16:39)
--- NOTE | 2019-01-06 12:03 | General Progress Note ---
Assessment/Plan Problem List: (1) Orthostatic hypertension ICD Codes: I10 - Essential (primary) hypertension SNOMED: 90321084 (2) Marilyn esophagitis ICD Codes: B37.81 - Candidal esophagitis SNOMED: 22730719 (3) Diabetes mellitus out of control ICD Codes: E11.65 - Type 2 diabetes mellitus with hyperglycemia SNOMED: 06386589, 346888912 (4) GERD (gastroesophageal reflux disease) ICD Codes: K21.9 - Gastro-esophageal reflux disease without esophagitis SNOMED: 618660535 (5) Abdominal pain ICD Codes: R10.9 - Unspecified abdominal pain SNOMED: 82563726, 23506823 Qualifiers: Qualified Codes: R10.84 - Generalized abdominal pain Assessment/Plan cardiac work up negative severe hypokalemia CT AP negative Orthostatic hypotension; systolic drop of approximately 50 mmHg from sitting to standing. SUMMARY OF FINDINGS: 1. Possible Marilyn esophagitis. >> follow up biopsy 2. Gastritis, status post biopsy. RECOMMENDATION: 1. fluconazole p.o. daily for 7 to 10 days. 2. Follow up biopsy results and treat accordingly. 3.fu endocrinology Subjective ROS Limited/Unobtainable: Yes Allergies: Coded Allergies: No Known Allergies (Unverified , 12/26/18) Subjective dizziness Objective Last 24 Hour Vital Signs Date Time Temp Pulse Resp B/P (MAP) Pulse Ox O2 Delivery O2 Flow Rate FiO2 01/06/19 09:45 150/89 (109) 01/06/19 09:00 Room Air 01/06/19 08:00 93 01/06/19 08:00 96.3 94 18 112/64 (80) 99 01/06/19 04:00 74 01/06/19 04:00 97.6 74 18 92/64 (73) 97 01/06/19 01:00 98.0 83 18 109/71 (84) 96 01/06/19 00:00 83 01/06/19 00:00 98.0 83 18 109/71 (84) 96 01/05/19 21:00 Room Air 01/05/19 20:00 97.9 96 18 123/72 (89) 98 01/05/19 20:00 96 01/05/19 16:00 98.1 83 18 124/71 (88) 99 01/05/19 16:00 89 Intake and Output 01/05/19 01/06/19 19:00 07:00 Intake Total 730 ml 600 ml Balance 730 ml 600 ml Intake Oral 730 ml 600 ml # Voids 3 3 # Bowel Movements 2 Height (Feet): 5 Height (Inches): 5.00 Weight (Pounds): 123 General Appearance: alert EENT: normal ENT inspection Neck: supple Cardiovascular: normal rate Respiratory/Chest: decreased breath sounds Abdomen: normal bowel sounds, non tender, soft Extremities: non-tender Franco Graham MD Jan 06, 2019 12:03
--- NOTE | 2019-01-06 12:47 | Nephrology Progress Note ---
Assessment/Plan Problem List: (1) Orthostatic hypertension (2) Dehydration (3) UTI (urinary tract infection) (4) Gastroparesis (5) Nausea vomiting and diarrhea (6) Hyperglycemia due to type 1 diabetes mellitus (7) Marilyn esophagitis Assessment Dehydration UTI Electrolytre imbalance Syncope Abdominal pain Nausea vomiting and diarrhea Hyperglycemia due to type 1 diabetes mellitus Plan trial Midodrine- seems to have been helpful fasting cortisol check- pending Off all BP meds BP check standing only K and phos and mag as needed DC IV fluid BS control Antibiotics on Fluconozol Monitor lytes Subjective ROS Limited/Unobtainable: No Objective Objective Last 24 Hour Vital Signs Date Time Temp Pulse Resp B/P (MAP) Pulse Ox O2 Delivery O2 Flow Rate FiO2 01/06/19 12:00 97.2 83 18 140/80 (100) 100 01/06/19 09:45 150/89 (109) 01/06/19 09:00 Room Air 01/06/19 08:00 93 01/06/19 08:00 96.3 94 18 112/64 (80) 99 01/06/19 04:00 74 01/06/19 04:00 97.6 74 18 92/64 (73) 97 01/06/19 01:00 98.0 83 18 109/71 (84) 96 01/06/19 00:00 83 01/06/19 00:00 98.0 83 18 109/71 (84) 96 01/05/19 21:00 Room Air 01/05/19 20:00 97.9 96 18 123/72 (89) 98 01/05/19 20:00 96 01/05/19 16:00 98.1 83 18 124/71 (88) 99 01/05/19 16:00 89 Intake and Output 01/05/19 01/06/19 18:59 06:59 Intake Total 730 ml 600 ml Balance 730 ml 600 ml Intake Oral 730 ml 600 ml # Voids 3 3 # Bowel Movements 2 Height (Feet): 5 Height (Inches): 5.00 Weight (Pounds): 123 General Appearance: no apparent distress Objective no change Prabhakar Bowen MD Jan 06, 2019 12:47
--- NOTE | 2019-01-06 13:18 | General Progress Note ---
Assessment/Plan Problem List: (1) Dehydration ICD Codes: E86.0 - Dehydration SNOMED: 69197917, 37349688 (2) Gastroenteritis ICD Codes: K52.9 - Noninfective gastroenteritis and colitis, unspecified SNOMED: 78740764 (3) Electrolyte imbalance ICD Codes: E87.8 - Other disorders of electrolyte and fluid balance, not elsewhere classified SNOMED: 035566118 (4) Abdominal pain ICD Codes: R10.9 - Unspecified abdominal pain SNOMED: 57489825, 54528220 Qualifiers: Qualified Codes: R10.84 - Generalized abdominal pain (5) Gastroparesis ICD Codes: K31.84 - Gastroparesis SNOMED: 598090769 (6) Nausea vomiting and diarrhea ICD Codes: R11.2 - Nausea with vomiting, unspecified; R19.7 - Diarrhea, unspecified SNOMED: 6973344 (7) Hyperglycemia due to type 1 diabetes mellitus ICD Codes: E10.65 - Type 1 diabetes mellitus with hyperglycemia; R19.7 - Diarrhea, unspecified SNOMED: 477950835387471, 51609547 (8) GERD (gastroesophageal reflux disease) ICD Codes: K21.9 - Gastro-esophageal reflux disease without esophagitis SNOMED: 677622367 Status: stable, progressing Assessment/Plan has jessica esophagitis worsening hypotensin and santos has vertigo informed dr hendricks re vertigo niddm midrodine started Subjective ROS Limited/Unobtainable: Yes Allergies: Coded Allergies: No Known Allergies (Unverified , 12/26/18) Subjective dizzy when gets up Objective Last 24 Hour Vital Signs Date Time Temp Pulse Resp B/P (MAP) Pulse Ox O2 Delivery O2 Flow Rate FiO2 01/06/19 12:00 97.2 83 18 140/80 (100) 100 01/06/19 09:45 150/89 (109) 01/06/19 09:00 Room Air 01/06/19 08:00 93 01/06/19 08:00 96.3 94 18 112/64 (80) 99 01/06/19 04:00 74 01/06/19 04:00 97.6 74 18 92/64 (73) 97 01/06/19 01:00 98.0 83 18 109/71 (84) 96 01/06/19 00:00 83 01/06/19 00:00 98.0 83 18 109/71 (84) 96 01/05/19 21:00 Room Air 01/05/19 20:00 97.9 96 18 123/72 (89) 98 01/05/19 20:00 96 01/05/19 16:00 98.1 83 18 124/71 (88) 99 01/05/19 16:00 89 Intake and Output 01/05/19 01/06/19 18:59 06:59 Intake Total 730 ml 600 ml Balance 730 ml 600 ml Intake Oral 730 ml 600 ml # Voids 3 3 # Bowel Movements 2 Height (Feet): 5 Height (Inches): 5.00 Weight (Pounds): 123 Neck: supple Cardiovascular: normal rate Respiratory/Chest: lungs clear, no respiratory distress Ondina Dailey MD Jan 06, 2019 13:18
[2019-01-06] MEDS ORDERED: Gadavist 7.5mMol/7.5ml vial IV PRN (19:00)
--- NOTE | 2019-01-06 19:17 | NUR ---
HAND-OFF: Report given to ALONZO Lozano.
[2019-01-06] MEDS: Levemir Flexpen SUBQ SCH (21:00)
[2019-01-07] VITALS: BP 110/64
[2019-01-07 04:00] VITALS: BP 101/51
[2019-01-07] MEDS: metFORMIN 500mg tab ORAL SCH ×3 (06:24→17:19)
[2019-01-07] MEDS: NovoLOG Insulin Flexpen SUBQ SCH ×4 (06:26→20:47)
--- NOTE | 2019-01-07 07:18 | NUR ---
HAND-OFF: Report given to ALONZO Alegria.
[2019-01-07 08:00] VITALS: BP 98/58
--- NOTE | 2019-01-07 08:05 | NUR ---
NURSE NOTES: Patient sitting in chair, awake and alert, bed in lowest position, call light within reach, in no apparent distress.
--- NOTE | 2019-01-07 08:33 | General Progress Note ---
Assessment/Plan Problem List: (1) Diabetes mellitus out of control ICD Codes: E11.65 - Type 2 diabetes mellitus with hyperglycemia SNOMED: 76314909, 305931183 (2) Electrolyte imbalance ICD Codes: E87.8 - Other disorders of electrolyte and fluid balance, not elsewhere classified SNOMED: 215374471 (3) Abdominal pain ICD Codes: R10.9 - Unspecified abdominal pain SNOMED: 28723780, 09044244 Qualifiers: Qualified Codes: R10.84 - Generalized abdominal pain Assessment/Plan continue Levemir 18 units qhs continue Starlix 120 mg ac tid continue Metformin 500 mg tid continue NISS ac / hs - lower dosage follow am cortisol level - pending Rx left in chart for diabetic medications Subjective Allergies: Coded Allergies: No Known Allergies (Unverified , 12/26/18) All Systems: reviewed and negative except above Subjective events noted feeling dizzy tolerating Metformin Item Value Date Time Bedside Blood Glucose 105 mg/dl 01/07/19 0626 Bedside Blood Glucose 240 mg/dl H 01/06/19 2100 Bedside Blood Glucose 162 mg/dl H 01/06/19 1643 Bedside Blood Glucose 244 mg/dl H 01/06/19 1312 Bedside Blood Glucose 81 mg/dl 01/06/19 0630 Objective Last 24 Hour Vital Signs Date Time Temp Pulse Resp B/P (MAP) Pulse Ox O2 Delivery O2 Flow Rate FiO2 01/07/19 04:00 77 01/07/19 04:00 98.0 77 20 101/51 (68) 98 01/07/19 00:00 98.4 83 20 110/64 (79) 98 01/07/19 00:00 83 01/06/19 21:00 Room Air 01/06/19 20:00 97.9 89 20 152/83 (106) 98 01/06/19 20:00 89 01/06/19 16:00 92 01/06/19 16:00 97.2 91 18 139/84 (102) 98 01/06/19 12:00 97.2 83 18 140/80 (100) 100 01/06/19 12:00 87 01/06/19 09:45 150/89 (109) 01/06/19 09:00 Room Air Intake and Output 01/06/19 01/07/19 19:00 07:00 Intake Total 740 ml Balance 740 ml Intake Oral 740 ml # Voids 3 1 Height (Feet): 5 Height (Inches): 5.00 Weight (Pounds): 123 General Appearance: no apparent distress Neck: normal alignment Cardiovascular: normal rate Respiratory/Chest: lungs clear Pelvis: normal external exam Edema: no edema noted Arm (L), no edema noted Arm (R), no edema noted Leg (L), no edema noted Leg (R), no edema noted Pedal (L), no edema noted Pedal (R), no edema noted Generalized Objective Current Medications Medications (Trade) Dose Ordered Sig/Adalberto Route PRN Reason Start Time Stop Time Status Last Admin Dose Admin Acetaminophen (Tylenol) 500 mg Q4H PRN ORAL Mild Pain/Temp > 100.5 01/04/19 16:30 01/25/19 04:29 Acetaminophen (Tylenol) 650 mg Q6HR ORAL 01/04/19 18:00 01/29/19 11:59 Dextrose (Dextrose 50%) 25 ml Q30M PRN IV Hypoglycemia 01/04/19 15:30 01/25/19 04:29 Dextrose (Dextrose 50%) 50 ml Q30M PRN IV Hypoglycemia 01/04/19 15:30 01/25/19 04:29 Fluconazole (Diflucan) 200 mg DAILY ORAL 01/05/19 09:00 01/08/19 08:59 01/06/19 08:04 Gadobutrol (Gadavist) 7.5 mmol NOW PRN IV Radiology Procedure 01/06/19 19:00 01/10/19 18:47 Insulin Aspart (NovoLOG) BEFORE MEALS AND HS SUBQ 01/06/19 11:30 02/05/19 11:29 01/06/19 20:59 Insulin Detemir (Levemir) 18 units BEDTIME SUBQ 01/06/19 21:00 01/25/19 22:29 01/06/19 21:00 Magnesium Oxide (Mag-Ox 400mg) 400 mg THREE TIMES A DAY ORAL 01/05/19 13:00 02/04/19 12:59 01/06/19 17:28 Metformin HCl (Glucophage) 500 mg TIAC ORAL 01/06/19 11:30 02/05/19 11:29 01/07/19 06:24 Midodrine (Pro-Amatine) 2.5 mg THREE TIMES A DAY ORAL 01/04/19 18:00 02/03/19 17:59 01/06/19 17:28 Nateglinide (Starlix) 120 mg TIAC ORAL 01/04/19 16:30 01/29/19 11:29 01/07/19 06:24 Ondansetron HCl (Zofran) 4 mg Q6H PRN IVP Nausea & Vomiting 01/04/19 16:30 01/25/19 04:29 Pantoprazole (Protonix) 40 mg BIAC ORAL 01/04/19 16:30 01/25/19 16:29 01/07/19 06:24 Potassium Chloride (K-Dur) 40 meq TWICE A DAY ORAL 01/04/19 18:00 01/27/19 17:59 01/06/19 17:28 Zolpidem Tartrate (Ambien) 5 mg HSPRN PRN ORAL Insomnia 01/04/19 20:45 01/07/19 20:44 Julio Beaver MD Jan 07, 2019 08:33
[2019-01-07] MEDS: Fluconazole 100mg tab ORAL SCH (09:34)
[2019-01-07] MEDS: Magnesium Oxide 400mg tab ORAL SCH ×3 (09:35→17:20)
--- NOTE | 2019-01-07 10:07 | GI Progress Note ---
Assessment/Plan Problems: (1) GERD (gastroesophageal reflux disease) ICD Codes: K21.9 - Gastro-esophageal reflux disease without esophagitis SNOMED: 796176043 (2) Hyperglycemia due to type 1 diabetes mellitus ICD Codes: E10.65 - Type 1 diabetes mellitus with hyperglycemia; R19.7 - Diarrhea, unspecified SNOMED: 290461311329825, 41424208 (3) Nausea vomiting and diarrhea ICD Codes: R11.2 - Nausea with vomiting, unspecified; R19.7 - Diarrhea, unspecified SNOMED: 2652652 (4) Gastroparesis ICD Codes: K31.84 - Gastroparesis SNOMED: 894893312 (5) Abdominal pain ICD Codes: R10.9 - Unspecified abdominal pain SNOMED: 83061452, 00797298 Qualifiers: Qualified Codes: R10.84 - Generalized abdominal pain (6) Electrolyte imbalance ICD Codes: E87.8 - Other disorders of electrolyte and fluid balance, not elsewhere classified SNOMED: 918545286 (7) Gastroenteritis ICD Codes: K52.9 - Noninfective gastroenteritis and colitis, unspecified SNOMED: 62206084 (8) Dehydration ICD Codes: E86.0 - Dehydration SNOMED: 12311786, 29416086 (9) Orthostatic hypotension ICD Codes: I95.1 - Orthostatic hypotension SNOMED: 49075902 Status: unchanged Status Narrative Discussed with Dr. Graham Assessment/Plan cardiac work up negative severe hypokalemia CT AP negative Orthostatic hypotension; systolic drop of approximately 50 mmHg from sitting to standing. SUMMARY OF FINDINGS: 1. Possible Marilyn esophagitis. >> follow up biopsy 2. Gastritis, status post biopsy. RECOMMENDATION: 1. fluconazole p.o. daily for 7 to 10 days. 2. Follow up biopsy results and treat accordingly. 3.fu endocrinology Follow-up cardiac recommendations for orthostatic hypotension The patient was seen and examined at bedside and all new and available data was reviewed in the patients chart. I agree with the above findings, impression and plan. (Patient seen earlier today. Signature stamp does not reflect patient encounter time.). - Franco Graham MD Subjective Subjective Abdominal pain is improved Still has complaint of overall generalized weakness Unable to tolerate food has constant nausea and dizziness Objective Last 24 Hour Vital Signs Date Time Temp Pulse Resp B/P (MAP) Pulse Ox O2 Delivery O2 Flow Rate FiO2 01/07/19 08:00 97.3 90 20 98/58 (71) 98 01/07/19 04:00 77 01/07/19 04:00 98.0 77 20 101/51 (68) 98 01/07/19 00:00 98.4 83 20 110/64 (79) 98 01/07/19 00:00 83 01/06/19 21:00 Room Air 01/06/19 20:00 97.9 89 20 152/83 (106) 98 01/06/19 20:00 89 01/06/19 16:00 92 01/06/19 16:00 97.2 91 18 139/84 (102) 98 01/06/19 12:00 97.2 83 18 140/80 (100) 100 01/06/19 12:00 87 Intake and Output 01/06/19 01/07/19 19:00 07:00 Intake Total 740 ml Balance 740 ml Intake Oral 740 ml # Voids 3 1 Height (Feet): 5 Height (Inches): 5.00 Weight (Pounds): 123 General Appearance: WD/WN, no apparent distress, alert Cardiovascular: normal rate Respiratory/Chest: normal breath sounds, no respiratory distress Abdominal Exam: normal bowel sounds, non tender, soft Extremities: normal range of motion, non-tender Matt Brown NP Jan 07, 2019 10:07
--- NOTE | 2019-01-07 11:02 | Infectious Diseases Prog Note ---
Assessment/Plan Assessment/Plan antibiotics : fluconazole A 1. jessica esophagitis 2. e.coli UTI s/p rx 3. diabetes mellitus P 1. continue fluconazole 2. will follow up cultures Subjective Constitutional: Denies: fever, chills Respiratory: Denies: shortness of breath, dry cough Gastrointestinal/Abdominal: Denies: nausea, vomiting, diarrhea Musculoskeletal: Denies: pain Allergies: Coded Allergies: No Known Allergies (Unverified , 12/26/18) Objective Vital Signs Last 24 Hour Vital Signs Date Time Temp Pulse Resp B/P (MAP) Pulse Ox O2 Delivery O2 Flow Rate FiO2 01/07/19 09:00 Room Air 01/07/19 08:00 97.3 90 20 98/58 (71) 98 01/07/19 08:00 95 01/07/19 04:00 77 01/07/19 04:00 98.0 77 20 101/51 (68) 98 01/07/19 00:00 98.4 83 20 110/64 (79) 98 01/07/19 00:00 83 01/06/19 21:00 Room Air 01/06/19 20:00 97.9 89 20 152/83 (106) 98 01/06/19 20:00 89 01/06/19 16:00 92 01/06/19 16:00 97.2 91 18 139/84 (102) 98 01/06/19 12:00 97.2 83 18 140/80 (100) 100 01/06/19 12:00 87 Height (Feet): 5 Height (Inches): 5.00 Weight (Pounds): 123 Respiratory/Chest: lungs clear Cardiovascular: normal rate, regular rhythm, no gallop/murmur Abdomen: soft, non tender Extremities: no edema Current Medications Medications (Trade) Dose Ordered Sig/Adalberto Route PRN Reason Start Time Stop Time Status Last Admin Dose Admin Acetaminophen (Tylenol) 500 mg Q4H PRN ORAL Mild Pain/Temp > 100.5 01/04/19 16:30 01/25/19 04:29 Acetaminophen (Tylenol) 650 mg Q6HR ORAL 01/04/19 18:00 01/29/19 11:59 Dextrose (Dextrose 50%) 25 ml Q30M PRN IV Hypoglycemia 01/04/19 15:30 01/25/19 04:29 Dextrose (Dextrose 50%) 50 ml Q30M PRN IV Hypoglycemia 01/04/19 15:30 01/25/19 04:29 Fluconazole (Diflucan) 200 mg DAILY ORAL 01/05/19 09:00 01/08/19 08:59 01/07/19 09:34 Gadobutrol (Gadavist) 7.5 mmol NOW PRN IV Radiology Procedure 01/06/19 19:00 01/10/19 18:47 Insulin Aspart (NovoLOG) BEFORE MEALS AND HS SUBQ 01/06/19 11:30 02/05/19 11:29 01/06/19 20:59 Insulin Detemir (Levemir) 18 units BEDTIME SUBQ 01/06/19 21:00 01/25/19 22:29 01/06/19 21:00 Magnesium Oxide (Mag-Ox 400mg) 400 mg THREE TIMES A DAY ORAL 01/05/19 13:00 02/04/19 12:59 01/07/19 09:35 Metformin HCl (Glucophage) 500 mg TIAC ORAL 01/06/19 11:30 02/05/19 11:29 01/07/19 06:24 Midodrine (Pro-Amatine) 2.5 mg THREE TIMES A DAY ORAL 01/04/19 18:00 02/03/19 17:59 01/07/19 09:33 Nateglinide (Starlix) 120 mg TIAC ORAL 01/04/19 16:30 01/29/19 11:29 01/07/19 06:24 Ondansetron HCl (Zofran) 4 mg Q6H PRN IVP Nausea & Vomiting 01/04/19 16:30 01/25/19 04:29 Pantoprazole (Protonix) 40 mg BIAC ORAL 01/04/19 16:30 01/25/19 16:29 01/07/19 06:24 Potassium Chloride (K-Dur) 40 meq TWICE A DAY ORAL 01/04/19 18:00 01/27/19 17:59 01/07/19 09:34 Zolpidem Tartrate (Ambien) 5 mg HSPRN PRN ORAL Insomnia 01/04/19 20:45 01/07/19 20:44 Tray Moore MD Jan 07, 2019 11:02
--- NOTE | 2019-01-07 11:44 | Diagnostic Imaging Report ---
Indication: Dizziness. Syncope Technique: The head was imaged in a 1.5 Joana magnet. Sequences obtained include sagittal and axial T1 FLAIR, axial T2 fast spin echo with fat saturation, axial T2 FLAIR, diffusion and ADC map. Gadolinium-enhanced axial and coronal T1 FLAIR obtained also. Comparison: None Findings: There is mild prominence of the sulci, ventricles, and basal cisterns consistent with atrophy. Mild, nonspecific T2 hyperintensity noted within white matter. This may be due to chronic small vessel disease. No abnormal enhancement is identified. There is no restricted diffusion. Bernal-white differentiation is normal. There is no mass effect, midline shift, edema, or hemorrhage. There are no abnormal extra-axial or intra-axial fluid collections. The corpus callosum and sella are unremarkable. The brainstem and cerebellum are unremarkable. Bone marrow signal within the visualized osseous structures appears age appropriate and unremarkable otherwise. Impression: No acute intracranial findings. Age-related findings including atrophy and evidence of chronic small vessel disease involving white matter tracts.
[2019-01-07 12:00] VITALS: BP 134/76
--- NOTE | 2019-01-07 12:43 | Nephrology Progress Note ---
Assessment/Plan Problem List: (1) Orthostatic hypertension (2) Dehydration (3) UTI (urinary tract infection) (4) Gastroparesis (5) Nausea vomiting and diarrhea (6) Hyperglycemia due to type 1 diabetes mellitus (7) Marilyn esophagitis Assessment Dehydration UTI Electrolytre imbalance Syncope Abdominal pain Nausea vomiting and diarrhea Hyperglycemia due to type 1 diabetes mellitus Plan Trial Midodrine- seems to have been helpful fasting cortisol check- pending Off all BP meds BP check standing only K and phos and mag as needed DC IV fluid BS control Antibiotics on Fluconozol Monitor lytes Subjective ROS Limited/Unobtainable: No Constitutional: Reports: malaise Objective Objective Last 24 Hour Vital Signs Date Time Temp Pulse Resp B/P (MAP) Pulse Ox O2 Delivery O2 Flow Rate FiO2 01/07/19 09:00 Room Air 01/07/19 08:00 97.3 90 20 98/58 (71) 98 01/07/19 08:00 95 01/07/19 04:00 77 01/07/19 04:00 98.0 77 20 101/51 (68) 98 01/07/19 00:00 98.4 83 20 110/64 (79) 98 01/07/19 00:00 83 01/06/19 21:00 Room Air 01/06/19 20:00 97.9 89 20 152/83 (106) 98 01/06/19 20:00 89 01/06/19 16:00 92 01/06/19 16:00 97.2 91 18 139/84 (102) 98 Intake and Output 01/06/19 01/07/19 19:00 07:00 Intake Total 740 ml Balance 740 ml Intake Oral 740 ml # Voids 3 1 Height (Feet): 5 Height (Inches): 5.00 Weight (Pounds): 123 General Appearance: no apparent distress Cardiovascular: normal peripheral pulses Respiratory/Chest: lungs clear Abdomen: non tender Objective no change Prabhakar Bowen MD Jan 07, 2019 12:43
--- NOTE | 2019-01-07 13:07 | NUR ---
MRI BRAIN W/WO COMPLETED
--- NOTE | 2019-01-07 14:36 | Cardiac Electrophysiology PN ---
Assessment/Plan Assessment/Plan 1. Hypotension. Transferred to telemetry . Echocardiogram pending. Ruled out [place] It could be secondary to the patient's severe diabetic autonomic dysfunction. 2. Insulin-dependent diabetes. Further evaluation by Dr. Beaver. 3. Esophageal candidiasis, on Diflucan per Dr. Graham. 4. Gastroesophageal reflux disease. 5. Dizziness. MRI Brain was negative Subjective Subjective Feeling better. Still dizzy. Awaiting MRI brain Objective Last 24 Hour Vital Signs Date Time Temp Pulse Resp B/P (MAP) Pulse Ox O2 Delivery O2 Flow Rate FiO2 01/07/19 12:09 97.3 01/07/19 12:00 97.3 80 21 134/76 (95) 99 01/07/19 12:00 83 01/07/19 09:00 Room Air 01/07/19 08:00 97.3 90 20 98/58 (71) 98 01/07/19 08:00 95 01/07/19 04:00 77 01/07/19 04:00 98.0 77 20 101/51 (68) 98 01/07/19 00:00 98.4 83 20 110/64 (79) 98 01/07/19 00:00 83 01/06/19 21:00 Room Air 01/06/19 20:00 97.9 89 20 152/83 (106) 98 01/06/19 20:00 89 01/06/19 16:00 92 01/06/19 16:00 97.2 91 18 139/84 (102) 98 Intake and Output 01/06/19 01/07/19 19:00 07:00 Intake Total 740 ml Balance 740 ml Intake Oral 740 ml # Voids 3 1 Objective HEAD AND NECK: No JVD. LUNGS: Clear. CARDIOVASCULAR: Regular S1 and S2 with no murmur or gallop. ABDOMEN: Soft. EXTREMITIES: No pitting edema. Serafin Joyner MD Jan 07, 2019 14:36
--- NOTE | 2019-01-07 14:51 | General Progress Note ---
Assessment/Plan Problem List: (1) Dehydration ICD Codes: E86.0 - Dehydration SNOMED: 34991102, 46631026 (2) Gastroenteritis ICD Codes: K52.9 - Noninfective gastroenteritis and colitis, unspecified SNOMED: 98294050 (3) Electrolyte imbalance ICD Codes: E87.8 - Other disorders of electrolyte and fluid balance, not elsewhere classified SNOMED: 566991009 (4) Abdominal pain ICD Codes: R10.9 - Unspecified abdominal pain SNOMED: 70466028, 97628863 Qualifiers: Qualified Codes: R10.84 - Generalized abdominal pain (5) Gastroparesis ICD Codes: K31.84 - Gastroparesis SNOMED: 576766482 (6) Nausea vomiting and diarrhea ICD Codes: R11.2 - Nausea with vomiting, unspecified; R19.7 - Diarrhea, unspecified SNOMED: 6191630 (7) Hyperglycemia due to type 1 diabetes mellitus ICD Codes: E10.65 - Type 1 diabetes mellitus with hyperglycemia; R19.7 - Diarrhea, unspecified SNOMED: 893768504762907, 72216812 (8) GERD (gastroesophageal reflux disease) ICD Codes: K21.9 - Gastro-esophageal reflux disease without esophagitis SNOMED: 776656122 Status: progressing Assessment/Plan has jessica esophagitis mri per dr hendricks for vertigo afebrile hypotensin and santos has vertigo informed dr hendricks re vertigo niddm midrodine started Subjective ROS Limited/Unobtainable: Yes Allergies: Coded Allergies: No Known Allergies (Unverified , 12/26/18) Subjective dizzy when gets up Objective Last 24 Hour Vital Signs Date Time Temp Pulse Resp B/P (MAP) Pulse Ox O2 Delivery O2 Flow Rate FiO2 01/07/19 12:09 97.3 01/07/19 12:00 97.3 80 21 134/76 (95) 99 01/07/19 12:00 83 01/07/19 09:00 Room Air 01/07/19 08:00 97.3 90 20 98/58 (71) 98 01/07/19 08:00 95 01/07/19 04:00 77 01/07/19 04:00 98.0 77 20 101/51 (68) 98 01/07/19 00:00 98.4 83 20 110/64 (79) 98 01/07/19 00:00 83 01/06/19 21:00 Room Air 01/06/19 20:00 97.9 89 20 152/83 (106) 98 01/06/19 20:00 89 01/06/19 16:00 92 01/06/19 16:00 97.2 91 18 139/84 (102) 98 Intake and Output 01/06/19 01/07/19 19:00 07:00 Intake Total 740 ml Balance 740 ml Intake Oral 740 ml # Voids 3 1 Height (Feet): 5 Height (Inches): 5.00 Weight (Pounds): 123 Neck: supple Cardiovascular: normal rate Respiratory/Chest: lungs clear Ondina Dailey MD Jan 07, 2019 14:50
--- NOTE | 2019-01-07 15:55 | NUR ---
*-* INSURANCE *-* UPDATED CLINICALS HAVE BEEN FAXED TO: [facility] REF#[id number] TORREY:HUSAM P:[phone] F:[phone]
[2019-01-07 16:00] VITALS: BP 147/81
--- NOTE | 2019-01-07 16:01 | NUR ---
NURSE NOTES: Left message on voicemail of Dr. Stefan Roman notifying that Dr. Ondina Dailey is discharging patient and antibiotics per Dr. Stefan Roman, if any. Addendum: 01/07/19 at 1605 by YOLANDE STARK RN ERROR: Disregard above note.
--- NOTE | 2019-01-07 19:50 | NUR ---
HAND-OFF: Report given to Sury Hale RN. Patient sitting up in bed, awake and alert, bed in lowest position, call light within reach, in no apparent distress.
--- NOTE | 2019-01-07 19:52 | NUR ---
NURSE NOTES: Received report from ALONZO Alegria. Patient awake, alert and verbally responsive. No SOB, no acute distress, denies any pain nor any discomfort at this time. IV site on R FA #22, patent and intact. Bed at lowest position, call light within reach, instructed to press call light for any assistance, verbalized understanding. Will continue plan of care.
[2019-01-07 20:00] VITALS: BP 134/77
[2019-01-07] MEDS: Levemir Flexpen SUBQ SCH (20:47)
--- NOTE | 2019-01-08 02:15 | Consultation ---
DATE OF CONSULTATION: 01/07/2019 NEUROLOGICAL CONSULTATION: CONSULTING PHYSICIAN: Jaron Mansfield M.D. CHIEF COMPLAINT: This is the first [facility] admission for this 58-year-old right-handed Haitian woman who is admitted with chief complaint of vomiting, diarrhea, abdominal pain. I was asked to see the patient because of dizziness and vertigo. The patient was brought to the ER on 12/26/2018 complaining of vomiting and diarrhea. She was at her brother's birthday alliance party at that time. She also has profuse abdominal cramping. She went to the bathroom, got up, and fainted. She has no seizures or blackouts. She was also complaining of some chest pain. She got dehydrated well. The patient was brought to the ER. The patient had hemoglobin of 14.2 with normochromic normocytic indices. The patient has a left shift. Her white count was 10,500, platelet count 174,000. Hemoglobin dropped at that the time, on 01/04/2019 of 13.2. White count of 11.9 on 01/01/2019. Her white count declined as well and now it is 5200. The patient in the in the 2. The patient had an EKG on admission, which showed no T-wave abnormality, consider inferolateral ischemia. The patient had a chest x-ray on 12/26/2018, which revealed no acute findings. No other abnormalities. The patient's urine on 12/26/2018 revealed urine wbc's of 40 to 60 with 2+ leukocyte esterase. There was 2+ protein, 4+ glucose, 4+ ketones, and a specific gravity of 1.020 with a pH of 5. Coagulation was normal. The PT and PTT were normal. The patient's chemistries on 12/26/2018 revealed glucose of 305, which progressively decreased over time with treatment. Chloride was 110, sodium was 144, BUN was 28, creatinine was 0.9. GFR was normal. AST was 14, which is low. Total protein is 6.3 with an albumin of 2.6, low. C-reactive protein on 12/27/2018 2.9, which was elevated. Her potassium initially was normal, but fell on 12/27/2018 to 2.9 and 12/28/2018 to 2.8. 06:11 became normal. Glucose has remained high. The glucose in 01/03/2019 was 192. On 01/04/2019, it is 120. On 01/05/2019, it is 74. On 01/01/2019, the patient had an abdominal and pelvic CT scan, which revealed a 2.2 left adrenal mass, equivocal mild hepatic hypoattenuation, and an unusual appearance to the right L1 transverse process, possibly a known injury. There are no other acute abnormalities. The patient had an MRI scan of the brain today, which revealed no acute intracranial findings. There are age-related findings including atrophy and evidence of chronic small vessel disease involving white matter tracts. The patient was seen by multiple specialists including GI who thought she had gastroparesis, gastroenteritis, electrolyte imbalance, dehydration, hyperglycemia, and GERD. Endoscopy was considered. She was given Zofran. The patient had surgical procedure on 12/28/2018. Report is not available. She continued to have constant nausea and abdominal pain. The patient also was seen by Infectious Disease in consultation, Dr. Rodrigues. The patient was placed on Cipro. The patient was treated with fluids, fluconazole orally, Levemir, magnesium, metformin, midodrine, nateglinide (Starlix), Zofran, Protonix, and Ambien. The patient's urinary culture on 12/26/2018 revealed E. coli. The patient did complain of dizzy spell, which felt like vertigo and she had near-syncope or syncope when she came to the hospital on 12/26/2018. Her dizzy spells last anywhere from 2 to 5 minutes and they occur generally with standing up or sitting. There is no nausea or vomiting at this time. She denies any hearing loss or tinnitus. It sounds like she might have horizontal oscillopsia lasting 3 to 4 minutes with dizzy spells. There is no dysarthria or dysphagia or diplopia. No loss of smell or taste. Her dizzy spells are not aggravated by Valsalva maneuver or loud noises. When she closes her eyes, the dizziness is improved. She does not have a history of tobacco use or illegal drug use or alcohol use. There is no history of thyroid disease, cancer, palpitations, or shortness of breath at this time. There is no previous blackout spells or seizures prior to 12/26/2018. She denies any tuberculosis, malaria. She has had headaches with a dizzy spell, however, mild. She has had mild headaches in the past. Her vital signs do orthostasis on her because of the dizziness. Looking at her vital signs, she has had blood pressure of 84/49 on 01/06/2019. The patient has occasional foot pain. She denies any paresthesias or dysesthesias. There is no family history of neurologic disease. PAST MEDICAL HISTORY: 1. AODM. 2. Marilyn esophagitis discovered on this admission. 3. Probable autonomic neuropathy noted on this admission. MEDICATIONS: She is only on metformin 500 mg as an outpatient. ALLERGIES: She denies any allergies. SOCIAL HISTORY: She is . Has 1 child in good health. She had 1 stillbirth and 1 child in early infancy. SURGERIES: She had 3 C-sections. FAMILY HISTORY: Mother of complications of diabetes. Father is . She does not know why. She has siblings who are healthy except for 1 brother with diabetes. REVIEW OF SYSTEMS: Her appetite is good. Weight was good. Prior to her injury, her weight is stable at 130 pounds, and 5 feet 2 inches tall. PHYSICAL EXAMINATION: GENERAL: She is a well-developed, well-nourished woman, lying in bed, in no acute distress. VITAL SIGNS: Blood pressure is 98/58, pulse is 90, regular, respirations 20, SpO2 is 98. HEENT: Examination of head, eyes, ears, nose and throat revealed cataract formation and some poor dentition. NECK: There is posterior cervical tenderness. No muscle spasm or limitation of motion. Carotids are +1. No bruits were appreciated. LUNGS: Clear to auscultation. CARDIOVASCULAR: PMI was not felt. JVP appeared to be flat. The patient's heart tones were distant. She appeared to have a normal S1 and S2 is physiologically split. There is no S3, S4, murmurs, or rubs. ABDOMEN: The abdomen is slightly obese. Bowel sounds intact. No tenderness, masses or organomegaly. BACK: There is no tenderness to percussion. EXTREMITIES: Peripheral pulses were +1 including posterior tibialis pulse. NEUROLOGIC: Mental status, she is alert and oriented. Judgment is poor. Affect is appropriate to her mood. Memory, immediate recall 3/3 objects, recent recall 2/3 objects in 5 minutes and past is intact. Orientation to time, she knows it is 01/07/2019 that was Monday. She knew she was at [facility], second floor. Person, she is oriented to person. Language function, spoken speech is fluent Polish was basically fluent, given second language. She did spell world forward and spelling it backwards spelled "dlyw." There is no right or left confusion or . CRANIAL NERVE EXAMINATION: CRANIAL NERVE II: Visual hoffman are intact to confrontation. Fundi were not well visualized. CRANIAL NERVES III, IV, AND : Extraocular motility is full.. Pupils are approximately 3 mm, basically round, sluggishly reactive to light. CRANIAL NERVE V: Facial and corneal sensations were intact to fine touch. Pterygoid strength 5/5. CRANIAL NERVE VII: Facial strength is 5/5. CRANIAL NERVE VIII: Auditory acuity is intact bilaterally to whisper. head thrust is negative. jm Hallpike maneuver is negative. CRANIAL NERVES IX AND X: Gag is intact bilaterally. CRANIAL NERVE XI: Sternocleidomastoid strength is 5/5. CRANIAL NERVE XII: Tongue protrudes in the midline without fasciculations or atrophy. MUSCULOSKELETAL: Muscle bulk and tone are normal. Strength is 5/5 proximally and distally without pronator drift. Reflexes are +1 in the upper extremity and 0 at the knees and ankles with downgoing toes and testing for Babinski response. COORDINATION: [id number], pmpk-[id number]-pmef testing, and rapid alternating movements were normal. GAIT AND STATION: The patient has a normal based gait. heel and toe walk are normal. Romberg was negative. SENSORY: Proprioception is intact. Vibration was reduced to the ankles including fine touch as far as I can tell are normal. IMPRESSION: DIABETIC sensory, motor, peripheral neuropathy involving the large fibers. she probably has a small fiber disease including an autonomic neuropathy causing hypotension, gastroparesis, pupillary abnormalities, sluggish reaction to light. This is the probable cause of the dizzy spells probably related to hypotension, although she has a good history of actual vertigo. However, the head thrust test was negative along with accelerated Romberg test and right now she does not have any vertigo. MRI scan of the brain of course does not show much except for microvascular disease. This is not unusual given her age and her diabetes. The patient will need to have her fluids replenished. We can continue on her metformin and midodrine. Right now, I want to treat her with meclizine. This could change later Thank you for this interesting case, Dr. Dailey. Jaron Mansfield MD DR: CALLIE JOB#: [id number] CC: ZAIRE
--- NOTE | 2019-01-08 03:20 | NUR ---
NURSE NOTES: Patient asleep, breathing even and unlabored, no s/sx of pain nor any discomfort at this time. Remains sinus rhythm at lead carpenter. Bed at lowest position, call light within reach. Will continue to monitor.
[2019-01-08 04:00] VITALS: BP 96/62
[2019-01-08] MEDS: metFORMIN 500mg tab ORAL SCH ×3 (06:20→17:36)
[2019-01-08] MEDS: NovoLOG Insulin Flexpen SUBQ SCH ×4 (06:21→20:42)
--- NOTE | 2019-01-08 06:34 | General Progress Note ---
Assessment/Plan Problem List: (1) Diabetes mellitus out of control ICD Codes: E11.65 - Type 2 diabetes mellitus with hyperglycemia SNOMED: 03794763, 267802374 (2) Electrolyte imbalance ICD Codes: E87.8 - Other disorders of electrolyte and fluid balance, not elsewhere classified SNOMED: 500549676 (3) Abdominal pain ICD Codes: R10.9 - Unspecified abdominal pain SNOMED: 68885336, 17052396 Qualifiers: Qualified Codes: R10.84 - Generalized abdominal pain Assessment/Plan continue Levemir 18 units qhs continue Starlix 120 mg ac tid continue Metformin 500 mg tid continue NISS ac / hs - lower dosage am cortisol level in normal range Rx left in chart for diabetic medications Subjective Allergies: Coded Allergies: No Known Allergies (Unverified , 12/26/18) All Systems: reviewed and negative except above Subjective events noted Item Value Date Time Bedside Blood Glucose 76 mg/dl 01/08/19 0621 Bedside Blood Glucose 233 mg/dl H 01/07/19 2100 Bedside Blood Glucose 204 mg/dl H 01/07/19 1722 Bedside Blood Glucose 235 mg/dl H 01/07/19 1319 Bedside Blood Glucose 105 mg/dl 01/07/19 0626 Objective Last 24 Hour Vital Signs Date Time Temp Pulse Resp B/P (MAP) Pulse Ox O2 Delivery O2 Flow Rate FiO2 01/08/19 04:00 97.9 96 19 96/62 (73) 98 01/08/19 04:00 74 01/08/19 00:00 80 01/08/19 00:00 80 01/07/19 21:00 Room Air 01/07/19 20:00 86 01/07/19 20:00 97.8 86 18 134/77 (96) 99 01/07/19 16:00 82 01/07/19 16:00 96.8 79 16 147/81 (103) 98 01/07/19 12:09 97.3 01/07/19 12:00 97.3 80 21 134/76 (95) 99 01/07/19 12:00 83 01/07/19 09:00 Room Air 01/07/19 08:00 97.3 90 20 98/58 (71) 98 01/07/19 08:00 95 Intake and Output 01/07/19 01/08/19 19:00 07:00 Intake Total 1300 ml 360 ml Balance 1300 ml 360 ml Intake Oral 1300 ml 360 ml # Voids 2 Height (Feet): 5 Height (Inches): 5.00 Weight (Pounds): 123 General Appearance: no apparent distress Neck: normal alignment Cardiovascular: normal rate Respiratory/Chest: lungs clear Abdomen: normal bowel sounds Objective Current Medications Medications (Trade) Dose Ordered Sig/Adalberto Route PRN Reason Start Time Stop Time Status Last Admin Dose Admin Acetaminophen (Tylenol) 500 mg Q4H PRN ORAL Mild Pain/Temp > 100.5 01/04/19 16:30 01/25/19 04:29 Acetaminophen (Tylenol) 650 mg Q6HR ORAL 01/04/19 18:00 01/29/19 11:59 01/07/19 11:39 Dextrose (Dextrose 50%) 25 ml Q30M PRN IV Hypoglycemia 01/04/19 15:30 01/25/19 04:29 Dextrose (Dextrose 50%) 50 ml Q30M PRN IV Hypoglycemia 01/04/19 15:30 01/25/19 04:29 Fluconazole (Diflucan) 200 mg DAILY ORAL 01/05/19 09:00 01/08/19 08:59 01/07/19 09:34 Gadobutrol (Gadavist) 7.5 mmol NOW PRN IV Radiology Procedure 01/06/19 19:00 01/10/19 18:47 Insulin Aspart (NovoLOG) BEFORE MEALS AND HS SUBQ 01/06/19 11:30 02/05/19 11:29 01/07/19 20:47 Insulin Detemir (Levemir) 18 units BEDTIME SUBQ 01/06/19 21:00 01/25/19 22:29 01/07/19 20:47 Magnesium Oxide (Mag-Ox 400mg) 400 mg THREE TIMES A DAY ORAL 01/05/19 13:00 02/04/19 12:59 01/07/19 17:20 Metformin HCl (Glucophage) 500 mg TIAC ORAL 01/06/19 11:30 02/05/19 11:29 01/08/19 06:20 Midodrine (Pro-Amatine) 2.5 mg THREE TIMES A DAY ORAL 01/04/19 18:00 02/03/19 17:59 01/07/19 17:19 Nateglinide (Starlix) 120 mg TIAC ORAL 01/04/19 16:30 01/29/19 11:29 01/08/19 06:21 Ondansetron HCl (Zofran) 4 mg Q6H PRN IVP Nausea & Vomiting 01/04/19 16:30 01/25/19 04:29 Pantoprazole (Protonix) 40 mg BIAC ORAL 01/04/19 16:30 01/25/19 16:29 01/08/19 06:21 Potassium Chloride (K-Dur) 40 meq TWICE A DAY ORAL 01/04/19 18:00 01/27/19 17:59 01/07/19 17:20 Julio Beaver MD Jan 08, 2019 06:34
--- NOTE | 2019-01-08 07:27 | NUR ---
HAND-OFF: Report given to ALONZO Arriaza. Endorsed plan of care.
--- NOTE | 2019-01-08 07:30 | NUR ---
NURSE NOTES: Received report from Sury ROSADO. Pt is awake, alert, oriented x4, sitting up at bedside, having breakfast. Denies pain or any other discomfort at this time. On room air with no respiratory distress. IV access on right FA #[id number], saline lock, patent/intact. Skin is intact. Pt is ambulatory, has been having episodes of dizziness related to orthostatic hypotension during previous shift, however pt denies any dizziness this morning. Call light is placed within easy reach, bed in lowest position, two side rails up, brakes engaged. Will continue to monitor pt and follow plan of care per MD orders and protocol. Addendum: 01/08/19 at 1058 by NAKUL THOMAS RN Observed pt ambulate 20 steps in the hallway with steady gait without assistance after administration of Midodrine as scheduled. Pt denies any dizziness at this time. Pt ambulated back to her room without assist in steady gait.
[2019-01-08 07:57] LABS: BASOPHILS % (AUTO) 0.8 % (0.0-2.0); EOSINOPHILS % (AUTO) 1.9 % (0.0-3.0); HEMATOCRIT 36.2 % (37.0-47.0); HEMOGLOBIN 11.8 G/DL (12.0-16.0); LYMPHOCYTES % (AUTO) 42.8 % (20.0-45.0); MEAN CORPUSCULAR VOLUME 83 FL (80-99); MONOCYTES % (AUTO) 9.1 % (1.0-10.0); NEUTROPHILS % (AUTO) 45.3 % (45.0-75.0); PLATELET COUNT 278 K/UL (150-450); RED BLOOD COUNT 4.34 M/UL (4.20-5.40); RED CELL DISTRIBUTION WIDTH 12.7 % (11.6-14.8); WHITE BLOOD COUNT 6.2 K/UL (4.8-10.8)
[2019-01-08 08:00] VITALS: BP 118/71
[2019-01-08 08:17] LABS: ANION GAP 5 mmol/L (5-15); BLOOD UREA NITROGEN 6 mg/dL (7-18); CALCIUM 8.6 MG/DL (8.5-10.1); CARBON DIOXIDE 30 MMOL/L (21-32); CHLORIDE 108 MMOL/L (98-107); CREATININE 0.5 MG/DL (0.55-1.30); POTASSIUM 3.7 MMOL/L (3.5-5.1); SODIUM 143 MMOL/L (136-145)
[2019-01-08] MEDS: Magnesium Oxide 400mg tab ORAL SCH ×3 (09:58→17:36)
--- NOTE | 2019-01-08 10:51 | Infectious Diseases Prog Note ---
Assessment/Plan Assessment/Plan A; Marilyn esophagitis UTI with ESBL E. coli treated Syncope Dehydration DM Nausea/Vomiting treated Hypokalemia corrected Hypotension P: Continue Fluconazole X 5 days Subjective ROS Limited/Unobtainable: No Constitutional: Reports: no symptoms Cardiovascular: Reports: other - diziness & hypotension in morning Gastrointestinal/Abdominal: Reports: no symptoms Genitourinary: Reports: no symptoms Neurologic: Reports: no symptoms Allergies: Coded Allergies: No Known Allergies (Unverified , 12/26/18) Objective Vital Signs Last 24 Hour Vital Signs Date Time Temp Pulse Resp B/P (MAP) Pulse Ox O2 Delivery O2 Flow Rate FiO2 01/08/19 09:00 Room Air 01/08/19 08:00 98 01/08/19 08:00 97 99 01/08/19 08:00 97.0 97 20 118/71 (87) 97 01/08/19 04:00 97.9 96 19 96/62 (73) 98 01/08/19 04:00 74 01/08/19 00:00 80 01/08/19 00:00 80 01/07/19 21:00 Room Air 01/07/19 20:00 86 01/07/19 20:00 97.8 86 18 134/77 (96) 99 01/07/19 16:00 82 01/07/19 16:00 96.8 79 16 147/81 (103) 98 01/07/19 12:09 97.3 01/07/19 12:00 97.3 80 21 134/76 (95) 99 01/07/19 12:00 83 Height (Feet): 5 Height (Inches): 5.00 Weight (Pounds): 123 General Appearance: no acute distress HEENT: mucous membranes moist Respiratory/Chest: lungs clear Cardiovascular: normal rate Abdomen: soft, non tender Extremities: no edema Neurologic/Psychiatric: alert, oriented x 3, responsive Laboratory Tests Test 01/08/19 05:34 White Blood Count 6.2 K/UL (4.8-10.8) Red Blood Count 4.34 M/UL (4.20-5.40) Hemoglobin 11.8 G/DL (12.0-16.0) L Hematocrit 36.2 % (37.0-47.0) L Mean Corpuscular Volume 83 FL (80-99) Mean Corpuscular Hemoglobin 27.0 PG (27.0-31.0) Mean Corpuscular Hemoglobin Concent 32.5 G/DL (32.0-36.0) Red Cell Distribution Width 12.7 % (11.6-14.8) Platelet Count 278 K/UL (150-450) Mean Platelet Volume 6.5 FL (6.5-10.1) Neutrophils (%) (Auto) 45.3 % (45.0-75.0) Lymphocytes (%) (Auto) 42.8 % (20.0-45.0) Monocytes (%) (Auto) 9.1 % (1.0-10.0) Eosinophils (%) (Auto) 1.9 % (0.0-3.0) Basophils (%) (Auto) 0.8 % (0.0-2.0) Sodium Level 143 MMOL/L (136-145) Potassium Level 3.7 MMOL/L (3.5-5.1) Chloride Level 108 MMOL/L (98-107) H Carbon Dioxide Level 30 MMOL/L (21-32) Anion Gap 5 mmol/L (5-15) Blood Urea Nitrogen 6 mg/dL (7-18) L Creatinine 0.5 MG/DL (0.55-1.30) L Estimat Glomerular Filtration Rate > 60 mL/min (>60) Glucose Level 76 MG/DL (74-106) Calcium Level 8.6 MG/DL (8.5-10.1) Phosphorus Level 4.0 MG/DL (2.5-4.9) Magnesium Level 1.8 MG/DL (1.8-2.4) Current Medications Medications (Trade) Dose Ordered Sig/Adalberto Route PRN Reason Start Time Stop Time Status Last Admin Dose Admin Acetaminophen (Tylenol) 500 mg Q4H PRN ORAL Mild Pain/Temp > 100.5 01/04/19 16:30 01/25/19 04:29 Acetaminophen (Tylenol) 650 mg Q6HR ORAL 01/04/19 18:00 01/29/19 11:59 01/07/19 11:39 Dextrose (Dextrose 50%) 25 ml Q30M PRN IV Hypoglycemia 01/04/19 15:30 01/25/19 04:29 Dextrose (Dextrose 50%) 50 ml Q30M PRN IV Hypoglycemia 01/04/19 15:30 01/25/19 04:29 Gadobutrol (Gadavist) 7.5 mmol NOW PRN IV Radiology Procedure 01/06/19 19:00 01/10/19 18:47 Insulin Aspart (NovoLOG) BEFORE MEALS AND HS SUBQ 01/06/19 11:30 02/05/19 11:29 01/07/19 20:47 Insulin Detemir (Levemir) 18 units BEDTIME SUBQ 01/06/19 21:00 01/25/19 22:29 01/07/19 20:47 Magnesium Oxide (Mag-Ox 400mg) 400 mg THREE TIMES A DAY ORAL 01/05/19 13:00 02/04/19 12:59 01/08/19 09:58 Metformin HCl (Glucophage) 500 mg TIAC ORAL 01/06/19 11:30 02/05/19 11:29 01/08/19 06:20 Midodrine (Pro-Amatine) 2.5 mg THREE TIMES A DAY ORAL 01/04/19 18:00 02/03/19 17:59 01/08/19 09:58 Nateglinide (Starlix) 120 mg TIAC ORAL 01/04/19 16:30 01/29/19 11:29 01/08/19 06:21 Ondansetron HCl (Zofran) 4 mg Q6H PRN IVP Nausea & Vomiting 01/04/19 16:30 01/25/19 04:29 Pantoprazole (Protonix) 40 mg BIAC ORAL 01/04/19 16:30 01/25/19 16:29 01/08/19 06:21 Potassium Chloride (K-Dur) 40 meq TWICE A DAY ORAL 01/04/19 18:00 01/27/19 17:59 01/08/19 09:58 Ravi Roman MD Jan 08, 2019 10:51
--- NOTE | 2019-01-08 11:09 | GI Progress Note ---
Assessment/Plan Problems: (1) GERD (gastroesophageal reflux disease) ICD Codes: K21.9 - Gastro-esophageal reflux disease without esophagitis SNOMED: 040859908 (2) Hyperglycemia due to type 1 diabetes mellitus ICD Codes: E10.65 - Type 1 diabetes mellitus with hyperglycemia; R19.7 - Diarrhea, unspecified SNOMED: 692005504544278, 63044298 (3) Nausea vomiting and diarrhea ICD Codes: R11.2 - Nausea with vomiting, unspecified; R19.7 - Diarrhea, unspecified SNOMED: 9875545 (4) Gastroparesis ICD Codes: K31.84 - Gastroparesis SNOMED: 534567613 (5) Abdominal pain ICD Codes: R10.9 - Unspecified abdominal pain SNOMED: 72108515, 95573835 Qualifiers: Qualified Codes: R10.84 - Generalized abdominal pain (6) Electrolyte imbalance ICD Codes: E87.8 - Other disorders of electrolyte and fluid balance, not elsewhere classified SNOMED: 893377395 (7) Gastroenteritis ICD Codes: K52.9 - Noninfective gastroenteritis and colitis, unspecified SNOMED: 48515486 (8) Dehydration ICD Codes: E86.0 - Dehydration SNOMED: 01286446, 96455729 (9) Orthostatic hypotension ICD Codes: I95.1 - Orthostatic hypotension SNOMED: 68977673 Status: unchanged Status Narrative Discussed with Dr. Graham. Assessment/Plan CT AP negative Orthostatic hypotension; systolic drop of approximately 50 mmHg from sitting to standing. SUMMARY OF FINDINGS: 1. Possible Marilyn esophagitis. >> follow up biopsy 2. Gastritis, status post biopsy. RECOMMENDATION: 1. fluconazole p.o. daily for 7 to 10 days. 2. Follow up biopsy results and treat accordingly. 3.fu endocrinology Per sr. consultant recommendations for orthostatic hypotension zofran prn, reglan for persistent N/V electrolyte correction IV/PO hydration The patient was seen and examined at bedside and all new and available data was reviewed in the patients chart. I agree with the above findings, impression and plan. (Patient seen earlier today. Signature stamp does not reflect patient encounter time.). - Franco Graham MD Subjective Subjective Abdominal pain is improved Still has complaint of overall generalized weakness Unable to tolerate food has constant nausea and dizziness Objective Last 24 Hour Vital Signs Date Time Temp Pulse Resp B/P (MAP) Pulse Ox O2 Delivery O2 Flow Rate FiO2 01/08/19 09:00 Room Air 01/08/19 08:00 98 01/08/19 08:00 97 99 01/08/19 08:00 97.0 97 20 118/71 (87) 97 01/08/19 04:00 97.9 96 19 96/62 (73) 98 01/08/19 04:00 74 01/08/19 00:00 80 01/08/19 00:00 80 01/07/19 21:00 Room Air 01/07/19 20:00 86 01/07/19 20:00 97.8 86 18 134/77 (96) 99 01/07/19 16:00 82 01/07/19 16:00 96.8 79 16 147/81 (103) 98 01/07/19 12:09 97.3 01/07/19 12:00 97.3 80 21 134/76 (95) 99 01/07/19 12:00 83 Intake and Output 01/07/19 01/08/19 19:00 07:00 Intake Total 1300 ml 360 ml Balance 1300 ml 360 ml Intake Oral 1300 ml 360 ml # Voids 2 Laboratory Tests Test 01/08/19 05:34 White Blood Count 6.2 K/UL (4.8-10.8) Red Blood Count 4.34 M/UL (4.20-5.40) Hemoglobin 11.8 G/DL (12.0-16.0) L Hematocrit 36.2 % (37.0-47.0) L Mean Corpuscular Volume 83 FL (80-99) Mean Corpuscular Hemoglobin 27.0 PG (27.0-31.0) Mean Corpuscular Hemoglobin Concent 32.5 G/DL (32.0-36.0) Red Cell Distribution Width 12.7 % (11.6-14.8) Platelet Count 278 K/UL (150-450) Mean Platelet Volume 6.5 FL (6.5-10.1) Neutrophils (%) (Auto) 45.3 % (45.0-75.0) Lymphocytes (%) (Auto) 42.8 % (20.0-45.0) Monocytes (%) (Auto) 9.1 % (1.0-10.0) Eosinophils (%) (Auto) 1.9 % (0.0-3.0) Basophils (%) (Auto) 0.8 % (0.0-2.0) Sodium Level 143 MMOL/L (136-145) Potassium Level 3.7 MMOL/L (3.5-5.1) Chloride Level 108 MMOL/L (98-107) H Carbon Dioxide Level 30 MMOL/L (21-32) Anion Gap 5 mmol/L (5-15) Blood Urea Nitrogen 6 mg/dL (7-18) L Creatinine 0.5 MG/DL (0.55-1.30) L Estimat Glomerular Filtration Rate > 60 mL/min (>60) Glucose Level 76 MG/DL (74-106) Calcium Level 8.6 MG/DL (8.5-10.1) Phosphorus Level 4.0 MG/DL (2.5-4.9) Magnesium Level 1.8 MG/DL (1.8-2.4) Height (Feet): 5 Height (Inches): 5.00 Weight (Pounds): 123 General Appearance: WD/WN, no apparent distress, alert Cardiovascular: normal rate Respiratory/Chest: normal breath sounds, no respiratory distress Abdominal Exam: normal bowel sounds, non tender, soft Extremities: normal range of motion, non-tender Matt Brown NP Jan 08, 2019 11:09
[2019-01-08] MEDS: Fluconazole 100mg tab ORAL SCH (11:16)
--- NOTE | 2019-01-08 11:34 | NUR ---
*-* INSURANCE *-* UPDATED CLINICALS HAVE BEEN FAXED TO: [facility] REF#[id number] TORREY:HUSAM P:[phone] F:[phone]
--- NOTE | 2019-01-08 11:53 | NUR ---
RD ASSESSMENT & RECOMMENDATIONS SEE CARE ACTIVITY FOR COMPLETE ASSESSMENT DAILY ESTIMATED NEEDS: Needs based on DM/ 55.8kg 25-30 kcals/kg 1720-0358 total kcals 1-1.3 g protein/kg 56-73 g total protein 25-30 mL/kg 1537-4829 total fluid mLs NUTRITION DIAGNOSIS: * Altered nutrition related lab values R/T diabetes as evidenced by A1C of 13.7, elev POC glu (76 233 204 235), urine glucose 4+. * Altered GI function R/T gastroparesis, GERD as evidenced by pt admitted c/o n/v, abdominal pain, now resolved. CURRENT DIET:CCHO LOW PO DIET RECOMMENDATIONS: CCHO LOW, BLAND, LOW FAT diet ADDITIONAL RECOMMENDATIONS: * Weekly standing wts- possible recent wt loss * Monitor BGs closely- improved since adm * DM diet ed/handout provided on 01/02 * Monitor lytes, replete as needed * Monitor PO tolerance- gastroparesis, esophagitis, GERD dx * Add HS SNACK DAILY- to prevent hypoglycemia in AM
[2019-01-08 12:00] VITALS: BP 152/75
[2019-01-08 16:00] VITALS: BP 150/91
--- NOTE | 2019-01-08 16:09 | Cardiac Electrophysiology PN ---
Assessment/Plan Assessment/Plan 1. Hypotension. Better now Echocardiogram pending. Ruled out [place] It could be secondary to the patient's severe diabetic autonomic dysfunction. 2. Insulin-dependent diabetes. Further evaluation by Dr. Beaver. 3. Esophageal candidiasis, on Diflucan per Dr. Graham. 4. Gastroesophageal reflux disease. 5. Dizziness. MRI Brain was negative Subjective Subjective Feeling better. MRI brain no acute findings Objective Last 24 Hour Vital Signs Date Time Temp Pulse Resp B/P (MAP) Pulse Ox O2 Delivery O2 Flow Rate FiO2 01/08/19 16:00 97 105 01/08/19 16:00 98.2 97 21 150/91 (110) 98 01/08/19 12:00 99.0 92 20 152/75 (100) 97 01/08/19 12:00 92 102 01/08/19 09:00 Room Air 01/08/19 08:00 98 01/08/19 08:00 97 99 01/08/19 08:00 97.0 97 20 118/71 (87) 97 01/08/19 04:00 97.9 96 19 96/62 (73) 98 01/08/19 04:00 74 01/08/19 00:00 80 01/08/19 00:00 80 01/07/19 21:00 Room Air 01/07/19 20:00 86 01/07/19 20:00 97.8 86 18 134/77 (96) 99 Intake and Output 01/07/19 01/08/19 19:00 07:00 Intake Total 1300 ml 360 ml Balance 1300 ml 360 ml Intake Oral 1300 ml 360 ml # Voids 2 Laboratory Tests Test 01/08/19 05:34 White Blood Count 6.2 K/UL (4.8-10.8) Red Blood Count 4.34 M/UL (4.20-5.40) Hemoglobin 11.8 G/DL (12.0-16.0) L Hematocrit 36.2 % (37.0-47.0) L Mean Corpuscular Volume 83 FL (80-99) Mean Corpuscular Hemoglobin 27.0 PG (27.0-31.0) Mean Corpuscular Hemoglobin Concent 32.5 G/DL (32.0-36.0) Red Cell Distribution Width 12.7 % (11.6-14.8) Platelet Count 278 K/UL (150-450) Mean Platelet Volume 6.5 FL (6.5-10.1) Neutrophils (%) (Auto) 45.3 % (45.0-75.0) Lymphocytes (%) (Auto) 42.8 % (20.0-45.0) Monocytes (%) (Auto) 9.1 % (1.0-10.0) Eosinophils (%) (Auto) 1.9 % (0.0-3.0) Basophils (%) (Auto) 0.8 % (0.0-2.0) Sodium Level 143 MMOL/L (136-145) Potassium Level 3.7 MMOL/L (3.5-5.1) Chloride Level 108 MMOL/L (98-107) H Carbon Dioxide Level 30 MMOL/L (21-32) Anion Gap 5 mmol/L (5-15) Blood Urea Nitrogen 6 mg/dL (7-18) L Creatinine 0.5 MG/DL (0.55-1.30) L Estimat Glomerular Filtration Rate > 60 mL/min (>60) Glucose Level 76 MG/DL (74-106) Calcium Level 8.6 MG/DL (8.5-10.1) Phosphorus Level 4.0 MG/DL (2.5-4.9) Magnesium Level 1.8 MG/DL (1.8-2.4) Objective HEAD AND NECK: No JVD. LUNGS: Clear. CARDIOVASCULAR: Regular S1 and S2 with no murmur or gallop. ABDOMEN: Soft. EXTREMITIES: No pitting edema. Serafin Joyner MD Jan 08, 2019 16:09
--- NOTE | 2019-01-08 16:45 | Nephrology Progress Note ---
Assessment/Plan Problem List: (1) Orthostatic hypertension (2) Dehydration (3) UTI (urinary tract infection) (4) Gastroparesis (5) Nausea vomiting and diarrhea (6) Hyperglycemia due to type 1 diabetes mellitus (7) Marilyn esophagitis Assessment Dehydration UTI Electrolytre imbalance Syncope Abdominal pain Nausea vomiting and diarrhea Hyperglycemia due to type 1 diabetes mellitus Plan Trial Midodrine- seems to have been helpful fasting cortisol check- pending Off all BP meds BP check standing only K and phos and mag as needed DC IV fluid BS control Antibiotics on Fluconozol Monitor lytes Subjective ROS Limited/Unobtainable: No Objective Objective Last 24 Hour Vital Signs Date Time Temp Pulse Resp B/P (MAP) Pulse Ox O2 Delivery O2 Flow Rate FiO2 01/08/19 16:00 97 105 01/08/19 16:00 98.2 97 21 150/91 (110) 98 01/08/19 12:00 99.0 92 20 152/75 (100) 97 01/08/19 12:00 92 102 01/08/19 09:00 Room Air 01/08/19 08:00 98 01/08/19 08:00 97 99 01/08/19 08:00 97.0 97 20 118/71 (87) 97 01/08/19 04:00 97.9 96 19 96/62 (73) 98 01/08/19 04:00 74 01/08/19 00:00 80 01/08/19 00:00 80 01/07/19 21:00 Room Air 01/07/19 20:00 86 01/07/19 20:00 97.8 86 18 134/77 (96) 99 Intake and Output 01/07/19 01/08/19 19:00 07:00 Intake Total 1300 ml 360 ml Balance 1300 ml 360 ml Intake Oral 1300 ml 360 ml # Voids 2 Current Medications Medications (Trade) Dose Ordered Sig/Adalberto Route PRN Reason Start Time Stop Time Status Last Admin Dose Admin Acetaminophen (Tylenol) 500 mg Q4H PRN ORAL Mild Pain/Temp > 100.5 01/04/19 16:30 01/25/19 04:29 Acetaminophen (Tylenol) 650 mg Q6HR ORAL 01/04/19 18:00 01/29/19 11:59 01/07/19 11:39 Dextrose (Dextrose 50%) 25 ml Q30M PRN IV Hypoglycemia 01/04/19 15:30 01/25/19 04:29 Dextrose (Dextrose 50%) 50 ml Q30M PRN IV Hypoglycemia 01/04/19 15:30 01/25/19 04:29 Fluconazole (Diflucan) 200 mg DAILY ORAL 01/08/19 11:00 01/15/19 10:59 01/08/19 11:16 Gadobutrol (Gadavist) 7.5 mmol NOW PRN IV Radiology Procedure 01/06/19 19:00 01/10/19 18:47 Insulin Aspart (NovoLOG) BEFORE MEALS AND HS SUBQ 01/06/19 11:30 02/05/19 11:29 01/08/19 11:22 Insulin Detemir (Levemir) 18 units BEDTIME SUBQ 01/06/19 21:00 01/25/19 22:29 01/07/19 20:47 Magnesium Oxide (Mag-Ox 400mg) 400 mg THREE TIMES A DAY ORAL 01/05/19 13:00 02/04/19 12:59 01/08/19 14:00 Metformin HCl (Glucophage) 500 mg TIAC ORAL 01/06/19 11:30 02/05/19 11:29 01/08/19 11:16 Midodrine (Pro-Amatine) 2.5 mg THREE TIMES A DAY ORAL 01/04/19 18:00 02/03/19 17:59 01/08/19 14:00 Nateglinide (Starlix) 120 mg TIAC ORAL 01/04/19 16:30 01/29/19 11:29 01/08/19 11:16 Ondansetron HCl (Zofran) 4 mg Q6H PRN IVP Nausea & Vomiting 01/04/19 16:30 01/25/19 04:29 Pantoprazole (Protonix) 40 mg BIAC ORAL 01/04/19 16:30 01/25/19 16:29 01/08/19 06:21 Potassium Chloride (K-Dur) 40 meq TWICE A DAY ORAL 01/04/19 18:00 01/27/19 17:59 01/08/19 09:58 Laboratory Tests 01/08/19 05:34: White Blood Count 6.2, Red Blood Count 4.34, Hemoglobin 11.8L, Hematocrit 36.2L , Mean Corpuscular Volume 83, Mean Corpuscular Hemoglobin 27.0, Mean Corpuscular Hemoglobin Concent 32.5, Red Cell Distribution Width 12.7, Platelet Count 278, Mean Platelet Volume 6.5, Neutrophils (%) (Auto) 45.3, Lymphocytes (% ) (Auto) 42.8, Monocytes (%) (Auto) 9.1, Eosinophils (%) (Auto) 1.9, Basophils ( %) (Auto) 0.8, Sodium Level 143, Potassium Level 3.7, Chloride Level 108H, Carbon Dioxide Level 30, Anion Gap 5, Blood Urea Nitrogen 6L, Creatinine 0.5L, Estimat Glomerular Filtration Rate > 60, Glucose Level 76, Calcium Level 8.6, Phosphorus Level 4.0, Magnesium Level 1.8 Height (Feet): 5 Height (Inches): 5.00 Weight (Pounds): 123 General Appearance: no apparent distress Cardiovascular: normal rate Abdomen: soft Objective no change Prabhakar Bowen MD Jan 08, 2019 16:45
--- NOTE | 2019-01-08 17:04 | General Progress Note ---
Assessment/Plan Problem List: (1) Dehydration ICD Codes: E86.0 - Dehydration SNOMED: 31884199, 90697833 (2) Gastroenteritis ICD Codes: K52.9 - Noninfective gastroenteritis and colitis, unspecified SNOMED: 29698168 (3) Electrolyte imbalance ICD Codes: E87.8 - Other disorders of electrolyte and fluid balance, not elsewhere classified SNOMED: 117049499 (4) Abdominal pain ICD Codes: R10.9 - Unspecified abdominal pain SNOMED: 40572456, 53742006 Qualifiers: Qualified Codes: R10.84 - Generalized abdominal pain (5) Gastroparesis ICD Codes: K31.84 - Gastroparesis SNOMED: 934003334 (6) Nausea vomiting and diarrhea ICD Codes: R11.2 - Nausea with vomiting, unspecified; R19.7 - Diarrhea, unspecified SNOMED: 2516223 (7) Hyperglycemia due to type 1 diabetes mellitus ICD Codes: E10.65 - Type 1 diabetes mellitus with hyperglycemia; R19.7 - Diarrhea, unspecified SNOMED: 066386026326597, 79182999 (8) GERD (gastroesophageal reflux disease) ICD Codes: K21.9 - Gastro-esophageal reflux disease without esophagitis SNOMED: 880366697 Status: progressing Assessment/Plan has jessica esophagitis still dizzy hypotension is improving mri done niddm midrodine started Subjective ROS Limited/Unobtainable: Yes Allergies: Coded Allergies: No Known Allergies (Unverified , 12/26/18) Subjective dizzy when gets up Objective Last 24 Hour Vital Signs Date Time Temp Pulse Resp B/P (MAP) Pulse Ox O2 Delivery O2 Flow Rate FiO2 01/08/19 16:00 97 105 01/08/19 16:00 98.2 97 21 150/91 (110) 98 01/08/19 12:00 99.0 92 20 152/75 (100) 97 01/08/19 12:00 92 102 01/08/19 09:00 Room Air 01/08/19 08:00 98 01/08/19 08:00 97 99 01/08/19 08:00 97.0 97 20 118/71 (87) 97 01/08/19 04:00 97.9 96 19 96/62 (73) 98 01/08/19 04:00 74 01/08/19 00:00 80 01/08/19 00:00 80 01/07/19 21:00 Room Air 01/07/19 20:00 86 01/07/19 20:00 97.8 86 18 134/77 (96) 99 Intake and Output 01/07/19 01/08/19 19:00 07:00 Intake Total 1300 ml 360 ml Balance 1300 ml 360 ml Intake Oral 1300 ml 360 ml # Voids 2 Laboratory Tests 01/08/19 05:34: White Blood Count 6.2, Red Blood Count 4.34, Hemoglobin 11.8L, Hematocrit 36.2L , Mean Corpuscular Volume 83, Mean Corpuscular Hemoglobin 27.0, Mean Corpuscular Hemoglobin Concent 32.5, Red Cell Distribution Width 12.7, Platelet Count 278, Mean Platelet Volume 6.5, Neutrophils (%) (Auto) 45.3, Lymphocytes (% ) (Auto) 42.8, Monocytes (%) (Auto) 9.1, Eosinophils (%) (Auto) 1.9, Basophils ( %) (Auto) 0.8, Sodium Level 143, Potassium Level 3.7, Chloride Level 108H, Carbon Dioxide Level 30, Anion Gap 5, Blood Urea Nitrogen 6L, Creatinine 0.5L, Estimat Glomerular Filtration Rate > 60, Glucose Level 76, Calcium Level 8.6, Phosphorus Level 4.0, Magnesium Level 1.8 Height (Feet): 5 Height (Inches): 5.00 Weight (Pounds): 123 Neck: supple Cardiovascular: normal rate Respiratory/Chest: lungs clear Ondina Dailey MD Jan 08, 2019 17:04
--- NOTE | 2019-01-08 19:53 | NUR ---
HAND-OFF: Report given to Sury ROSADO. Pt is resting in bed in stable condition. Endorsed plan of care.
--- NOTE | 2019-01-08 19:56 | NUR ---
NURSE NOTES: received report from ALONZO Arriaza. Patient awake, alert and verbally responsive. No SOB, no acute distress, denies any pain nor any discomfort at this time. Bed at lowest position, call light within reach. Will continue plan of care.
[2019-01-08 20:00] VITALS: BP 138/77
[2019-01-08] MEDS: Levemir Flexpen SUBQ SCH (20:46)
--- NOTE | 2019-01-09 03:10 | NUR ---
NURSE NOTES: Patient asleep, breathing even and unlabored, no s/sx of pain nor any discomfort at this time. remains sinus rhythm at quality assurance monitor body. Bed at lowest position, call light within reach. Will continue to monitor.
[2019-01-09 05:10] VITALS: BP 90/52
--- NOTE | 2019-01-09 06:15 | NUR ---
NURSE NOTES: Patient awake, alert and verbally responsive. Patient concerned that she feels dizzy every morning for the last 4 days per pt. B/P checked, noted to be 90/52 sitting. Instructed not to get up on her own. BS checked, its 131. Snacks provided and water. Dr. Joyner updated regarding pts concern. Awaiting for any order.
[2019-01-09] MEDS: metFORMIN 500mg tab ORAL SCH ×3 (06:24→17:24)
[2019-01-09] MEDS: NovoLOG Insulin Flexpen SUBQ SCH ×4 (06:25→21:25)
--- NOTE | 2019-01-09 06:36 | General Progress Note ---
Assessment/Plan Problem List: (1) Diabetes mellitus out of control ICD Codes: E11.65 - Type 2 diabetes mellitus with hyperglycemia SNOMED: 69500836, 902518182 (2) Electrolyte imbalance ICD Codes: E87.8 - Other disorders of electrolyte and fluid balance, not elsewhere classified SNOMED: 521013195 (3) Abdominal pain ICD Codes: R10.9 - Unspecified abdominal pain SNOMED: 01225529, 77113567 Qualifiers: Qualified Codes: R10.84 - Generalized abdominal pain Assessment/Plan continue Levemir 18 units qhs continue Starlix 120 mg ac tid continue Metformin 500 mg tid continue NISS ac / hs - lower dosage Rx left in chart for diabetic medications Subjective Allergies: Coded Allergies: No Known Allergies (Unverified , 12/26/18) All Systems: reviewed and negative except above Subjective events noted Item Value Date Time Bedside Blood Glucose 131 mg/dl H 01/09/19 0625 Bedside Blood Glucose 277 mg/dl H 01/08/19 2100 Bedside Blood Glucose 143 mg/dl H 01/08/19 1744 Bedside Blood Glucose 238 mg/dl H 01/08/19 1130 Bedside Blood Glucose 76 mg/dl 01/08/19 0621 Objective Last 24 Hour Vital Signs Date Time Temp Pulse Resp B/P (MAP) Pulse Ox O2 Delivery O2 Flow Rate FiO2 01/09/19 05:10 98.2 80 17 90/52 (65) 99 01/09/19 04:00 81 01/09/19 00:00 85 01/08/19 21:00 90 101 01/08/19 21:00 Room Air 01/08/19 20:00 98.0 93 20 138/77 (97) 99 01/08/19 20:00 93 01/08/19 16:00 97 105 01/08/19 16:00 98.2 97 21 150/91 (110) 98 01/08/19 16:00 103 01/08/19 12:00 99.0 92 20 152/75 (100) 97 01/08/19 12:00 92 102 01/08/19 12:00 96 01/08/19 09:00 Room Air 01/08/19 08:00 98 01/08/19 08:00 97 99 01/08/19 08:00 97.0 97 20 118/71 (87) 97 Intake and Output 01/08/19 01/09/19 19:00 07:00 Intake Total 1300 ml 240 ml Balance 1300 ml 240 ml Intake Oral 1300 ml 240 ml # Voids 3 1 # Bowel Movements 1 Height (Feet): 5 Height (Inches): 5.00 Weight (Pounds): 123 General Appearance: no apparent distress Neck: normal alignment Cardiovascular: normal rate Respiratory/Chest: normal breath sounds Abdomen: normal bowel sounds Objective Current Medications Medications (Trade) Dose Ordered Sig/Adalberto Route PRN Reason Start Time Stop Time Status Last Admin Dose Admin Acetaminophen (Tylenol) 500 mg Q4H PRN ORAL Mild Pain/Temp > 100.5 01/04/19 16:30 01/25/19 04:29 Acetaminophen (Tylenol) 650 mg Q6HR ORAL 01/04/19 18:00 01/29/19 11:59 01/07/19 11:39 Dextrose (Dextrose 50%) 25 ml Q30M PRN IV Hypoglycemia 01/04/19 15:30 01/25/19 04:29 Dextrose (Dextrose 50%) 50 ml Q30M PRN IV Hypoglycemia 01/04/19 15:30 01/25/19 04:29 Fluconazole (Diflucan) 200 mg DAILY ORAL 01/08/19 11:00 01/15/19 10:59 01/08/19 11:16 Gadobutrol (Gadavist) 7.5 mmol NOW PRN IV Radiology Procedure 01/06/19 19:00 01/10/19 18:47 Insulin Aspart (NovoLOG) BEFORE MEALS AND HS SUBQ 01/06/19 11:30 02/05/19 11:29 01/08/19 20:42 Insulin Detemir (Levemir) 18 units BEDTIME SUBQ 01/06/19 21:00 01/25/19 22:29 01/08/19 20:46 Magnesium Oxide (Mag-Ox 400mg) 400 mg THREE TIMES A DAY ORAL 01/05/19 13:00 02/04/19 12:59 01/08/19 17:36 Metformin HCl (Glucophage) 500 mg TIAC ORAL 01/06/19 11:30 02/05/19 11:29 01/09/19 06:24 Midodrine (Pro-Amatine) 2.5 mg THREE TIMES A DAY ORAL 01/04/19 18:00 02/03/19 17:59 01/08/19 17:36 Nateglinide (Starlix) 120 mg TIAC ORAL 01/04/19 16:30 01/29/19 11:29 01/09/19 06:25 Ondansetron HCl (Zofran) 4 mg Q6H PRN IVP Nausea & Vomiting 01/04/19 16:30 01/25/19 04:29 Pantoprazole (Protonix) 40 mg BIAC ORAL 01/04/19 16:30 01/25/19 16:29 01/09/19 06:25 Potassium Chloride (K-Dur) 40 meq TWICE A DAY ORAL 01/04/19 18:00 01/27/19 17:59 01/08/19 17:36 Julio Beaver MD Jan 09, 2019 06:36
--- NOTE | 2019-01-09 06:42 | NUR ---
NURSE NOTES: Dr. Joyner with order to chnaged Midodrine to 5 mg Q 8 hours. Noted and carried out.
[2019-01-09 07:03] LABS: BASOPHILS % (AUTO) 0.6 % (0.0-2.0); EOSINOPHILS % (AUTO) 1.5 % (0.0-3.0); HEMATOCRIT 35.6 % (37.0-47.0); HEMOGLOBIN 11.6 G/DL (12.0-16.0); LYMPHOCYTES % (AUTO) 39.1 % (20.0-45.0); MEAN CORPUSCULAR VOLUME 83 FL (80-99); MONOCYTES % (AUTO) 8.3 % (1.0-10.0); NEUTROPHILS % (AUTO) 50.5 % (45.0-75.0); PLATELET COUNT 260 K/UL (150-450); RED CELL DISTRIBUTION WIDTH 12.7 % (11.6-14.8); WHITE BLOOD COUNT 6.8 K/UL (4.8-10.8)
--- NOTE | 2019-01-09 07:25 | NUR ---
NURSE NOTES: Report received from ALONZO Ga. Patient in RA, denies any SOB or pain. Having breakfast at bedside. Suggest to Patient change of IV site, patient refused. IV patent, flushed and SL. Bed on lowest position, brakes engaged, side rails upx2. Call light within easy reach.
--- NOTE | 2019-01-09 07:25 | NUR ---
HAND-OFF: Report given to ALONZO Garay. Endorsed plan of care.
[2019-01-09 07:33] LABS: ANION GAP 8 mmol/L (5-15); BLOOD UREA NITROGEN 7 mg/dL (7-18); CALCIUM 8.8 MG/DL (8.5-10.1); CARBON DIOXIDE 28 MMOL/L (21-32); CHLORIDE 105 MMOL/L (98-107); CREATININE 0.6 MG/DL (0.55-1.30); POTASSIUM 3.8 MMOL/L (3.5-5.1); SODIUM 141 MMOL/L (136-145)
[2019-01-09 08:00] VITALS: BP 134/84
[2019-01-09] MEDS: Magnesium Oxide 400mg tab ORAL SCH ×3 (08:15→17:26)
[2019-01-09] MEDS: Fluconazole 100mg tab ORAL SCH (08:15)
--- NOTE | 2019-01-09 10:39 | GI Progress Note ---
Assessment/Plan Problems: (1) GERD (gastroesophageal reflux disease) ICD Codes: K21.9 - Gastro-esophageal reflux disease without esophagitis SNOMED: 672411154 (2) Hyperglycemia due to type 1 diabetes mellitus ICD Codes: E10.65 - Type 1 diabetes mellitus with hyperglycemia; R19.7 - Diarrhea, unspecified SNOMED: 919280274950393, 44534141 (3) Nausea vomiting and diarrhea ICD Codes: R11.2 - Nausea with vomiting, unspecified; R19.7 - Diarrhea, unspecified SNOMED: 2049505 (4) Gastroparesis ICD Codes: K31.84 - Gastroparesis SNOMED: 516944425 (5) Abdominal pain ICD Codes: R10.9 - Unspecified abdominal pain SNOMED: 03421984, 96058588 Qualifiers: Qualified Codes: R10.84 - Generalized abdominal pain (6) Electrolyte imbalance ICD Codes: E87.8 - Other disorders of electrolyte and fluid balance, not elsewhere classified SNOMED: 684914939 (7) Gastroenteritis ICD Codes: K52.9 - Noninfective gastroenteritis and colitis, unspecified SNOMED: 26443636 (8) Dehydration ICD Codes: E86.0 - Dehydration SNOMED: 31920664, 62487086 (9) Orthostatic hypotension ICD Codes: I95.1 - Orthostatic hypotension SNOMED: 86763619 Status: doing well, stable Status Narrative Discussed with Dr. Graham Assessment/Plan Brain MRI negative CT AP negative Orthostatic hypotension; systolic drop of approximately 50 mmHg from sitting to standing. SUMMARY OF FINDINGS: 1. Possible Marilyn esophagitis. >> follow up biopsy 2. Gastritis, status post biopsy. RECOMMENDATION: 1. fluconazole p.o. daily for 7 to 10 days. 2. Follow up biopsy results and treat accordingly. 3.fu endocrinology Per behavioral consultant recommendations for orthostatic hypotension zofran prn, reglan for persistent N/V electrolyte correction IV/PO hydration Advance diet as tolerated The patient was seen and examined at bedside and all new and available data was reviewed in the patients chart. I agree with the above findings, impression and plan. (Patient seen earlier today. Signature stamp does not reflect patient encounter time.). - Franco Graham MD Subjective Subjective Abdominal pain is improved Overall feels better Hypotension less severe Objective Last 24 Hour Vital Signs Date Time Temp Pulse Resp B/P (MAP) Pulse Ox O2 Delivery O2 Flow Rate FiO2 01/09/19 08:00 98.4 90 18 134/84 (101) 99 01/09/19 08:00 94 01/09/19 05:10 98.2 80 17 90/52 (65) 99 01/09/19 04:00 81 01/09/19 00:00 85 01/08/19 21:00 90 101 01/08/19 21:00 Room Air 01/08/19 20:00 98.0 93 20 138/77 (97) 99 01/08/19 20:00 93 01/08/19 16:00 97 105 01/08/19 16:00 98.2 97 21 150/91 (110) 98 01/08/19 16:00 103 01/08/19 12:00 99.0 92 20 152/75 (100) 97 01/08/19 12:00 92 102 01/08/19 12:00 96 Intake and Output 01/08/19 01/09/19 19:00 07:00 Intake Total 1300 ml 240 ml Balance 1300 ml 240 ml Intake Oral 1300 ml 240 ml # Voids 3 1 # Bowel Movements 1 Laboratory Tests Test 01/09/19 06:55 White Blood Count 6.8 K/UL (4.8-10.8) Red Blood Count 4.30 M/UL (4.20-5.40) Hemoglobin 11.6 G/DL (12.0-16.0) L Hematocrit 35.6 % (37.0-47.0) L Mean Corpuscular Volume 83 FL (80-99) Mean Corpuscular Hemoglobin 27.1 PG (27.0-31.0) Mean Corpuscular Hemoglobin Concent 32.7 G/DL (32.0-36.0) Red Cell Distribution Width 12.7 % (11.6-14.8) Platelet Count 260 K/UL (150-450) Mean Platelet Volume 6.8 FL (6.5-10.1) Neutrophils (%) (Auto) 50.5 % (45.0-75.0) Lymphocytes (%) (Auto) 39.1 % (20.0-45.0) Monocytes (%) (Auto) 8.3 % (1.0-10.0) Eosinophils (%) (Auto) 1.5 % (0.0-3.0) Basophils (%) (Auto) 0.6 % (0.0-2.0) Sodium Level 141 MMOL/L (136-145) Potassium Level 3.8 MMOL/L (3.5-5.1) Chloride Level 105 MMOL/L (98-107) Carbon Dioxide Level 28 MMOL/L (21-32) Anion Gap 8 mmol/L (5-15) Blood Urea Nitrogen 7 mg/dL (7-18) Creatinine 0.6 MG/DL (0.55-1.30) Estimat Glomerular Filtration Rate > 60 mL/min (>60) Glucose Level 140 MG/DL (74-106) H Calcium Level 8.8 MG/DL (8.5-10.1) Height (Feet): 5 Height (Inches): 5.00 Weight (Pounds): 110 General Appearance: WD/WN, no apparent distress, alert Cardiovascular: normal rate Respiratory/Chest: normal breath sounds, no respiratory distress Abdominal Exam: normal bowel sounds, non tender, soft Extremities: normal range of motion, non-tender Matt Brown NP Jan 09, 2019 10:39
--- NOTE | 2019-01-09 11:50 | Infectious Diseases Prog Note ---
Assessment/Plan Assessment/Plan A; Marilyn esophagitis UTI with ESBL E. coli treated Syncope Dehydration DM Nausea/Vomiting treated Hypokalemia corrected Hypotension P: Continue Fluconazole X 4 days Subjective ROS Limited/Unobtainable: No Constitutional: Reports: no symptoms HEENT: Reports: no symptoms Cardiovascular: Reports: other - Dizziness, hypotension in am Gastrointestinal/Abdominal: Reports: no symptoms Genitourinary: Reports: no symptoms Allergies: Coded Allergies: No Known Allergies (Unverified , 12/26/18) Objective Vital Signs Last 24 Hour Vital Signs Date Time Temp Pulse Resp B/P (MAP) Pulse Ox O2 Delivery O2 Flow Rate FiO2 01/09/19 09:00 Room Air 01/09/19 08:00 98.4 90 18 134/84 (101) 99 01/09/19 08:00 94 01/09/19 05:10 98.2 80 17 90/52 (65) 99 01/09/19 04:00 81 01/09/19 00:00 85 01/08/19 21:00 90 101 01/08/19 21:00 Room Air 01/08/19 20:00 98.0 93 20 138/77 (97) 99 01/08/19 20:00 93 01/08/19 16:00 97 105 01/08/19 16:00 98.2 97 21 150/91 (110) 98 01/08/19 16:00 103 01/08/19 12:00 99.0 92 20 152/75 (100) 97 01/08/19 12:00 92 102 01/08/19 12:00 96 Height (Feet): 5 Height (Inches): 5.00 Weight (Pounds): 110 General Appearance: no acute distress HEENT: mucous membranes moist Respiratory/Chest: lungs clear Cardiovascular: normal rate Abdomen: soft, non tender Extremities: no edema Neurologic/Psychiatric: alert, oriented x 3, responsive Laboratory Tests Test 01/09/19 06:55 White Blood Count 6.8 K/UL (4.8-10.8) Red Blood Count 4.30 M/UL (4.20-5.40) Hemoglobin 11.6 G/DL (12.0-16.0) L Hematocrit 35.6 % (37.0-47.0) L Mean Corpuscular Volume 83 FL (80-99) Mean Corpuscular Hemoglobin 27.1 PG (27.0-31.0) Mean Corpuscular Hemoglobin Concent 32.7 G/DL (32.0-36.0) Red Cell Distribution Width 12.7 % (11.6-14.8) Platelet Count 260 K/UL (150-450) Mean Platelet Volume 6.8 FL (6.5-10.1) Neutrophils (%) (Auto) 50.5 % (45.0-75.0) Lymphocytes (%) (Auto) 39.1 % (20.0-45.0) Monocytes (%) (Auto) 8.3 % (1.0-10.0) Eosinophils (%) (Auto) 1.5 % (0.0-3.0) Basophils (%) (Auto) 0.6 % (0.0-2.0) Sodium Level 141 MMOL/L (136-145) Potassium Level 3.8 MMOL/L (3.5-5.1) Chloride Level 105 MMOL/L (98-107) Carbon Dioxide Level 28 MMOL/L (21-32) Anion Gap 8 mmol/L (5-15) Blood Urea Nitrogen 7 mg/dL (7-18) Creatinine 0.6 MG/DL (0.55-1.30) Estimat Glomerular Filtration Rate > 60 mL/min (>60) Glucose Level 140 MG/DL (74-106) H Calcium Level 8.8 MG/DL (8.5-10.1) Current Medications Medications (Trade) Dose Ordered Sig/Adalberto Route PRN Reason Start Time Stop Time Status Last Admin Dose Admin Acetaminophen (Tylenol) 500 mg Q4H PRN ORAL Mild Pain/Temp > 100.5 01/04/19 16:30 01/25/19 04:29 Acetaminophen (Tylenol) 650 mg Q6HR ORAL 01/04/19 18:00 01/29/19 11:59 01/07/19 11:39 Dextrose (Dextrose 50%) 25 ml Q30M PRN IV Hypoglycemia 01/04/19 15:30 01/25/19 04:29 Dextrose (Dextrose 50%) 50 ml Q30M PRN IV Hypoglycemia 01/04/19 15:30 01/25/19 04:29 Fluconazole (Diflucan) 200 mg DAILY ORAL 01/08/19 11:00 01/15/19 10:59 01/09/19 08:15 Gadobutrol (Gadavist) 7.5 mmol NOW PRN IV Radiology Procedure 01/06/19 19:00 01/10/19 18:47 Insulin Aspart (NovoLOG) BEFORE MEALS AND HS SUBQ 01/06/19 11:30 02/05/19 11:29 01/08/19 20:42 Insulin Detemir (Levemir) 18 units BEDTIME SUBQ 01/06/19 21:00 01/25/19 22:29 01/08/19 20:46 Magnesium Oxide (Mag-Ox 400mg) 400 mg THREE TIMES A DAY ORAL 01/05/19 13:00 02/04/19 12:59 01/09/19 08:15 Metformin HCl (Glucophage) 500 mg TIAC ORAL 01/06/19 11:30 02/05/19 11:29 01/09/19 06:24 Midodrine (Pro-Amatine) 5 mg Q8HR ORAL 01/09/19 07:00 02/08/19 06:59 01/09/19 06:59 Nateglinide (Starlix) 120 mg TIAC ORAL 01/04/19 16:30 01/29/19 11:29 01/09/19 06:25 Ondansetron HCl (Zofran) 4 mg Q6H PRN IVP Nausea & Vomiting 01/04/19 16:30 01/25/19 04:29 Pantoprazole (Protonix) 40 mg BIAC ORAL 01/04/19 16:30 01/25/19 16:29 01/09/19 06:25 Potassium Chloride (K-Dur) 40 meq TWICE A DAY ORAL 01/04/19 18:00 01/27/19 17:59 01/09/19 08:14 Ravi Roman MD Jan 09, 2019 11:50
[2019-01-09 12:00] VITALS: BP 141/84
--- NOTE | 2019-01-09 12:13 | Nephrology Progress Note ---
Assessment/Plan Problem List: (1) Orthostatic hypertension (2) Dehydration (3) UTI (urinary tract infection) (4) Gastroparesis (5) Nausea vomiting and diarrhea (6) Hyperglycemia due to type 1 diabetes mellitus (7) Marilyn esophagitis Assessment Dehydration UTI Electrolytre imbalance Syncope Abdominal pain Nausea vomiting and diarrhea Hyperglycemia due to type 1 diabetes mellitus Plan Trial Midodrine- seems to have been helpful fasting cortisol wnl Off all BP meds BP check standing only K and phos and mag as needed DC IV fluid BS control Antibiotics on Fluconozol Monitor lytes Subjective ROS Limited/Unobtainable: No Constitutional: Reports: malaise, other - morning dizzines Objective Objective Last 24 Hour Vital Signs Date Time Temp Pulse Resp B/P (MAP) Pulse Ox O2 Delivery O2 Flow Rate FiO2 01/09/19 09:00 Room Air 01/09/19 08:00 98.4 90 18 134/84 (101) 99 01/09/19 08:00 94 01/09/19 05:10 98.2 80 17 90/52 (65) 99 01/09/19 04:00 81 01/09/19 00:00 85 01/08/19 21:00 90 101 01/08/19 21:00 Room Air 01/08/19 20:00 98.0 93 20 138/77 (97) 99 01/08/19 20:00 93 01/08/19 16:00 97 105 01/08/19 16:00 98.2 97 21 150/91 (110) 98 01/08/19 16:00 103 Intake and Output 01/08/19 01/09/19 19:00 07:00 Intake Total 1300 ml 240 ml Balance 1300 ml 240 ml Intake Oral 1300 ml 240 ml # Voids 3 1 # Bowel Movements 1 Laboratory Tests 01/09/19 06:55: White Blood Count 6.8, Red Blood Count 4.30, Hemoglobin 11.6L, Hematocrit 35.6L , Mean Corpuscular Volume 83, Mean Corpuscular Hemoglobin 27.1, Mean Corpuscular Hemoglobin Concent 32.7, Red Cell Distribution Width 12.7, Platelet Count 260, Mean Platelet Volume 6.8, Neutrophils (%) (Auto) 50.5, Lymphocytes (% ) (Auto) 39.1, Monocytes (%) (Auto) 8.3, Eosinophils (%) (Auto) 1.5, Basophils ( %) (Auto) 0.6, Sodium Level 141, Potassium Level 3.8, Chloride Level 105, Carbon Dioxide Level 28, Anion Gap 8, Blood Urea Nitrogen 7, Creatinine 0.6, Estimat Glomerular Filtration Rate > 60, Glucose Level 140H, Calcium Level 8.8 Height (Feet): 5 Height (Inches): 5.00 Weight (Pounds): 110 Objective no change Prabhakar Bowen MD Jan 09, 2019 12:13
--- NOTE | 2019-01-09 15:20 | Cardiac Electrophysiology PN ---
Assessment/Plan Assessment/Plan 1. Hypotension. Better now. Echocardiogram EF 55%. Ruled out [place] It could be secondary to the patient's severe diabetic autonomic dysfunction. 2. Insulin-dependent diabetes. Further evaluation by Dr. Beaver. 3. Esophageal candidiasis, on Diflucan per Dr. Graham. 4. Gastroesophageal reflux disease. 5. Dizziness. MRI Brain was negative Subjective Subjective Feeling better. Still dizzy at times. MRI brain no acute findings Objective Last 24 Hour Vital Signs Date Time Temp Pulse Resp B/P (MAP) Pulse Ox O2 Delivery O2 Flow Rate FiO2 01/09/19 12:00 98.1 92 18 141/84 (103) 99 01/09/19 12:00 94 01/09/19 09:00 Room Air 01/09/19 08:00 98.4 90 18 134/84 (101) 99 01/09/19 08:00 94 01/09/19 05:10 98.2 80 17 90/52 (65) 99 01/09/19 04:00 81 01/09/19 00:00 85 01/08/19 21:00 90 101 01/08/19 21:00 Room Air 01/08/19 20:00 98.0 93 20 138/77 (97) 99 01/08/19 20:00 93 01/08/19 16:00 97 105 01/08/19 16:00 98.2 97 21 150/91 (110) 98 01/08/19 16:00 103 Intake and Output 01/08/19 01/09/19 19:00 07:00 Intake Total 1300 ml 240 ml Balance 1300 ml 240 ml Intake Oral 1300 ml 240 ml # Voids 3 1 # Bowel Movements 1 Laboratory Tests Test 01/09/19 06:55 White Blood Count 6.8 K/UL (4.8-10.8) Red Blood Count 4.30 M/UL (4.20-5.40) Hemoglobin 11.6 G/DL (12.0-16.0) L Hematocrit 35.6 % (37.0-47.0) L Mean Corpuscular Volume 83 FL (80-99) Mean Corpuscular Hemoglobin 27.1 PG (27.0-31.0) Mean Corpuscular Hemoglobin Concent 32.7 G/DL (32.0-36.0) Red Cell Distribution Width 12.7 % (11.6-14.8) Platelet Count 260 K/UL (150-450) Mean Platelet Volume 6.8 FL (6.5-10.1) Neutrophils (%) (Auto) 50.5 % (45.0-75.0) Lymphocytes (%) (Auto) 39.1 % (20.0-45.0) Monocytes (%) (Auto) 8.3 % (1.0-10.0) Eosinophils (%) (Auto) 1.5 % (0.0-3.0) Basophils (%) (Auto) 0.6 % (0.0-2.0) Sodium Level 141 MMOL/L (136-145) Potassium Level 3.8 MMOL/L (3.5-5.1) Chloride Level 105 MMOL/L (98-107) Carbon Dioxide Level 28 MMOL/L (21-32) Anion Gap 8 mmol/L (5-15) Blood Urea Nitrogen 7 mg/dL (7-18) Creatinine 0.6 MG/DL (0.55-1.30) Estimat Glomerular Filtration Rate > 60 mL/min (>60) Glucose Level 140 MG/DL (74-106) H Calcium Level 8.8 MG/DL (8.5-10.1) Objective HEAD AND NECK: No JVD. LUNGS: Clear. CARDIOVASCULAR: Regular S1 and S2 with no murmur or gallop. ABDOMEN: Soft. EXTREMITIES: No pitting edema. Serafin Joyner MD Jan 09, 2019 15:20
--- NOTE | 2019-01-09 15:47 | General Progress Note ---
Assessment/Plan Problem List: (1) Dehydration ICD Codes: E86.0 - Dehydration SNOMED: 53593706, 57875217 (2) Gastroenteritis ICD Codes: K52.9 - Noninfective gastroenteritis and colitis, unspecified SNOMED: 16726905 (3) Electrolyte imbalance ICD Codes: E87.8 - Other disorders of electrolyte and fluid balance, not elsewhere classified SNOMED: 899217744 (4) Abdominal pain ICD Codes: R10.9 - Unspecified abdominal pain SNOMED: 93815456, 64086136 Qualifiers: Qualified Codes: R10.84 - Generalized abdominal pain (5) Gastroparesis ICD Codes: K31.84 - Gastroparesis SNOMED: 225192430 (6) Nausea vomiting and diarrhea ICD Codes: R11.2 - Nausea with vomiting, unspecified; R19.7 - Diarrhea, unspecified SNOMED: 8292920 (7) Hyperglycemia due to type 1 diabetes mellitus ICD Codes: E10.65 - Type 1 diabetes mellitus with hyperglycemia; R19.7 - Diarrhea, unspecified SNOMED: 211684969223635, 26781600 (8) GERD (gastroesophageal reflux disease) ICD Codes: K21.9 - Gastro-esophageal reflux disease without esophagitis SNOMED: 382684978 Status: progressing Assessment/Plan has jessica esophagitis still dizzy hypotension is improvin autonomic instability afebrile niddm midrodine started Subjective ROS Limited/Unobtainable: Yes Allergies: Coded Allergies: No Known Allergies (Unverified , 12/26/18) Subjective dizzy when gets up Objective Last 24 Hour Vital Signs Date Time Temp Pulse Resp B/P (MAP) Pulse Ox O2 Delivery O2 Flow Rate FiO2 01/09/19 12:00 98.1 92 18 141/84 (103) 99 01/09/19 12:00 94 01/09/19 09:00 Room Air 01/09/19 08:00 98.4 90 18 134/84 (101) 99 01/09/19 08:00 94 01/09/19 05:10 98.2 80 17 90/52 (65) 99 01/09/19 04:00 81 01/09/19 00:00 85 01/08/19 21:00 90 101 01/08/19 21:00 Room Air 01/08/19 20:00 98.0 93 20 138/77 (97) 99 01/08/19 20:00 93 01/08/19 16:00 97 105 01/08/19 16:00 98.2 97 21 150/91 (110) 98 01/08/19 16:00 103 Intake and Output 01/08/19 01/09/19 19:00 07:00 Intake Total 1300 ml 240 ml Balance 1300 ml 240 ml Intake Oral 1300 ml 240 ml # Voids 3 1 # Bowel Movements 1 Laboratory Tests 01/09/19 06:55: White Blood Count 6.8, Red Blood Count 4.30, Hemoglobin 11.6L, Hematocrit 35.6L , Mean Corpuscular Volume 83, Mean Corpuscular Hemoglobin 27.1, Mean Corpuscular Hemoglobin Concent 32.7, Red Cell Distribution Width 12.7, Platelet Count 260, Mean Platelet Volume 6.8, Neutrophils (%) (Auto) 50.5, Lymphocytes (% ) (Auto) 39.1, Monocytes (%) (Auto) 8.3, Eosinophils (%) (Auto) 1.5, Basophils ( %) (Auto) 0.6, Sodium Level 141, Potassium Level 3.8, Chloride Level 105, Carbon Dioxide Level 28, Anion Gap 8, Blood Urea Nitrogen 7, Creatinine 0.6, Estimat Glomerular Filtration Rate > 60, Glucose Level 140H, Calcium Level 8.8 Height (Feet): 5 Height (Inches): 5.00 Weight (Pounds): 110 Neck: supple Cardiovascular: regular rhythm Respiratory/Chest: lungs clear Ondina Dailey MD Jan 09, 2019 15:47
[2019-01-09 16:00] VITALS: BP 137/89
--- NOTE | 2019-01-09 19:39 | NUR ---
HAND-OFF: Report given to ALONZO Leo. Patient in stable condition. Plan of care endorsed.
[2019-01-09 20:00] VITALS: BP 132/78
--- NOTE | 2019-01-09 20:46 | NUR ---
CASE MANAGEMENT: REVIEW SI: GASTROPARESIS . GERD EGD 12/28 T 98.1 HR 92 RR 18 BP 90/52 SAT 99% ROOM AIR H/H 11.6/35.6 IS: MIDODRINE PO Q8HR DIFLUCAN PO QD LEVEMIR SQ QHS K-DUR PO BID PROTONIX PO BID MED/SURG STATUS DCP: PATIENT IS FROM [facility]
[2019-01-09] MEDS: Levemir Flexpen SUBQ SCH (21:26)
--- NOTE | 2019-01-09 22:15 | NUR ---
NURSE NOTES: patient received. patient in no acute distress at this time. patient complains of no pain at this time. patient IV intact patent and asymptomatic. patient alert x4. patient bed in lowest position and locked. call light within reach. will continue to monitor.
[2019-01-10] VITALS: BP 141/84
[2019-01-10 04:00] VITALS: BP 96/58
[2019-01-10] MEDS: metFORMIN 500mg tab ORAL SCH ×3 (05:29→18:15)
[2019-01-10] MEDS: NovoLOG Insulin Flexpen SUBQ SCH ×4 (05:36→21:56)
--- NOTE | 2019-01-10 06:44 | General Progress Note ---
Assessment/Plan Problem List: (1) Diabetes mellitus out of control ICD Codes: E11.65 - Type 2 diabetes mellitus with hyperglycemia SNOMED: 31196779, 032545300 (2) Electrolyte imbalance ICD Codes: E87.8 - Other disorders of electrolyte and fluid balance, not elsewhere classified SNOMED: 277231455 (3) Abdominal pain ICD Codes: R10.9 - Unspecified abdominal pain SNOMED: 90292793, 95117466 Qualifiers: Qualified Codes: R10.84 - Generalized abdominal pain Assessment/Plan continue Levemir 18 units qhs continue Starlix 120 mg ac tid continue Metformin 500 mg tid continue NISS ac / hs - lower dosage Rx left in chart for diabetic medications Subjective Allergies: Coded Allergies: No Known Allergies (Unverified , 12/26/18) All Systems: reviewed and negative except above Subjective events noted Item Value Date Time Bedside Blood Glucose 148 mg/dl H 01/10/19 0536 Bedside Blood Glucose 171 mg/dl H 01/09/19 2126 Bedside Blood Glucose 283 mg/dl H 01/09/19 1725 Bedside Blood Glucose 299 mg/dl H 01/09/19 1215 Bedside Blood Glucose 131 mg/dl H 01/09/19 0625 Objective Last 24 Hour Vital Signs Date Time Temp Pulse Resp B/P (MAP) Pulse Ox O2 Delivery O2 Flow Rate FiO2 01/10/19 04:00 98.1 93 18 96/58 (71) 95 01/10/19 04:00 88 01/10/19 00:00 98.1 96 18 141/84 (103) 99 01/09/19 21:00 Room Air 01/09/19 20:00 98.2 95 18 132/78 (96) 100 01/09/19 20:00 99 01/09/19 16:00 98.1 95 18 137/89 (105) 100 01/09/19 16:00 94 01/09/19 12:00 98.1 92 18 141/84 (103) 99 01/09/19 12:00 94 01/09/19 09:00 Room Air 01/09/19 08:00 98.4 90 18 134/84 (101) 99 01/09/19 08:00 94 Intake and Output 01/09/19 01/10/19 18:59 06:59 Intake Total 720 ml 240 ml Balance 720 ml 240 ml Intake Oral 720 ml 240 ml # Voids 1 2 # Bowel Movements 1 Laboratory Tests 01/09/19 06:55: White Blood Count 6.8, Red Blood Count 4.30, Hemoglobin 11.6L, Hematocrit 35.6L , Mean Corpuscular Volume 83, Mean Corpuscular Hemoglobin 27.1, Mean Corpuscular Hemoglobin Concent 32.7, Red Cell Distribution Width 12.7, Platelet Count 260, Mean Platelet Volume 6.8, Neutrophils (%) (Auto) 50.5, Lymphocytes (% ) (Auto) 39.1, Monocytes (%) (Auto) 8.3, Eosinophils (%) (Auto) 1.5, Basophils ( %) (Auto) 0.6, Sodium Level 141, Potassium Level 3.8, Chloride Level 105, Carbon Dioxide Level 28, Anion Gap 8, Blood Urea Nitrogen 7, Creatinine 0.6, Estimat Glomerular Filtration Rate > 60, Glucose Level 140H, Calcium Level 8.8 Height (Feet): 5 Height (Inches): 5.00 Weight (Pounds): 110 General Appearance: no apparent distress Neck: normal alignment Cardiovascular: normal rate Respiratory/Chest: normal breath sounds Objective Current Medications Medications (Trade) Dose Ordered Sig/Adalberto Route PRN Reason Start Time Stop Time Status Last Admin Dose Admin Acetaminophen (Tylenol) 500 mg Q4H PRN ORAL Mild Pain/Temp > 100.5 01/04/19 16:30 01/25/19 04:29 Acetaminophen (Tylenol) 650 mg Q6HR ORAL 01/04/19 18:00 01/29/19 11:59 01/10/19 05:30 Dextrose (Dextrose 50%) 25 ml Q30M PRN IV Hypoglycemia 01/04/19 15:30 01/25/19 04:29 Dextrose (Dextrose 50%) 50 ml Q30M PRN IV Hypoglycemia 01/04/19 15:30 01/25/19 04:29 Fluconazole (Diflucan) 200 mg DAILY ORAL 01/08/19 11:00 01/15/19 10:59 01/09/19 08:15 Gadobutrol (Gadavist) 7.5 mmol NOW PRN IV Radiology Procedure 01/06/19 19:00 01/10/19 18:47 Insulin Aspart (NovoLOG) BEFORE MEALS AND HS SUBQ 01/06/19 11:30 02/05/19 11:29 01/09/19 21:25 Insulin Detemir (Levemir) 18 units BEDTIME SUBQ 01/06/19 21:00 01/25/19 22:29 01/09/19 21:26 Magnesium Oxide (Mag-Ox 400mg) 400 mg THREE TIMES A DAY ORAL 01/05/19 13:00 02/04/19 12:59 01/09/19 17:26 Metformin HCl (Glucophage) 500 mg TIAC ORAL 01/06/19 11:30 02/05/19 11:29 01/10/19 05:29 Midodrine (Pro-Amatine) 5 mg Q8HR ORAL 01/09/19 07:00 02/08/19 06:59 01/10/19 05:30 Nateglinide (Starlix) 120 mg TIAC ORAL 01/04/19 16:30 01/29/19 11:29 01/10/19 05:30 Ondansetron HCl (Zofran) 4 mg Q6H PRN IVP Nausea & Vomiting 01/04/19 16:30 01/25/19 04:29 Pantoprazole (Protonix) 40 mg BIAC ORAL 01/04/19 16:30 01/25/19 16:29 01/10/19 05:30 Potassium Chloride (K-Dur) 40 meq TWICE A DAY ORAL 01/04/19 18:00 01/27/19 17:59 01/09/19 17:23 Julio Beaver MD Jan 10, 2019 06:44
--- NOTE | 2019-01-10 06:54 | NUR ---
HAND-OFF: Report given to brigida nassar.
--- NOTE | 2019-01-10 07:00 | NUR ---
NURSE NOTES: Report received from ALONZO Erickson. Patient asleep comfortably. No breathing distress noted. In RA. Bed on lowest position, side rails upx2, brakes engaged. Call light within easy reach.
[2019-01-10 08:00] VITALS: BP 94/58
[2019-01-10 08:14] LABS: BASOPHILS % (AUTO) 0.7 % (0.0-2.0); EOSINOPHILS % (AUTO) 1.4 % (0.0-3.0); HEMOGLOBIN 11.8 G/DL (12.0-16.0); LYMPHOCYTES % (AUTO) 44.7 % (20.0-45.0); MEAN CORPUSCULAR VOLUME 83 FL (80-99); MONOCYTES % (AUTO) 9.1 % (1.0-10.0); NEUTROPHILS % (AUTO) 44.1 % (45.0-75.0); PLATELET COUNT 277 K/UL (150-450); RED BLOOD COUNT 4.35 M/UL (4.20-5.40); RED CELL DISTRIBUTION WIDTH 12.3 % (11.6-14.8)
[2019-01-10 08:46] LABS: ANION GAP 7 mmol/L (5-15); BLOOD UREA NITROGEN 6 mg/dL (7-18); CARBON DIOXIDE 29 MMOL/L (21-32); CHLORIDE 105 MMOL/L (98-107); CREATININE 0.6 MG/DL (0.55-1.30); POTASSIUM 3.9 MMOL/L (3.5-5.1); SODIUM 141 MMOL/L (136-145)
[2019-01-10] MEDS: Magnesium Oxide 400mg tab ORAL SCH ×3 (08:50→18:15)
[2019-01-10] MEDS: Fluconazole 100mg tab ORAL SCH (08:51)
--- NOTE | 2019-01-10 10:38 | GI Progress Note ---
Assessment/Plan Problems: (1) GERD (gastroesophageal reflux disease) ICD Codes: K21.9 - Gastro-esophageal reflux disease without esophagitis SNOMED: 772866102 (2) Hyperglycemia due to type 1 diabetes mellitus ICD Codes: E10.65 - Type 1 diabetes mellitus with hyperglycemia; R19.7 - Diarrhea, unspecified SNOMED: 064775914889557, 74908497 (3) Nausea vomiting and diarrhea ICD Codes: R11.2 - Nausea with vomiting, unspecified; R19.7 - Diarrhea, unspecified SNOMED: 1495850 (4) Gastroparesis ICD Codes: K31.84 - Gastroparesis SNOMED: 307563889 (5) Abdominal pain ICD Codes: R10.9 - Unspecified abdominal pain SNOMED: 88069146, 36896751 Qualifiers: Qualified Codes: R10.84 - Generalized abdominal pain (6) Electrolyte imbalance ICD Codes: E87.8 - Other disorders of electrolyte and fluid balance, not elsewhere classified SNOMED: 099288854 (7) Gastroenteritis ICD Codes: K52.9 - Noninfective gastroenteritis and colitis, unspecified SNOMED: 22724916 (8) Dehydration ICD Codes: E86.0 - Dehydration SNOMED: 22600789, 18865776 (9) Orthostatic hypotension ICD Codes: I95.1 - Orthostatic hypotension SNOMED: 21283931 Status: stable Status Narrative Discussed with Dr. Graham Assessment/Plan Brain MRI negative CT AP negative Orthostatic hypotension; systolic drop of approximately 50 mmHg from sitting to standing. SUMMARY OF FINDINGS: 1. Possible Marilyn esophagitis. >> follow up biopsy 2. Gastritis, status post biopsy. RECOMMENDATION: 1. fluconazole p.o. daily for 7 to 10 days. 2. Follow up biopsy results and treat accordingly. 3.fu endocrinology Per jury consultant recommendations for orthostatic hypotension zofran prn, reglan for persistent N/V electrolyte correction IV/PO hydration Advance diet as tolerated Okay for DC per GI standpoint The patient was seen and examined at bedside and all new and available data was reviewed in the patients chart. I agree with the above findings, impression and plan. (Patient seen earlier today. Signature stamp does not reflect patient encounter time.). - Franco Graham MD Subjective Subjective Abdominal pain is improved Overall feels better Hypotension less severe Objective Last 24 Hour Vital Signs Date Time Temp Pulse Resp B/P (MAP) Pulse Ox O2 Delivery O2 Flow Rate FiO2 01/10/19 08:00 83 01/10/19 08:00 98.2 97 18 94/58 (70) 97 01/10/19 04:00 98.1 93 18 96/58 (71) 95 01/10/19 04:00 88 01/10/19 00:00 98.1 96 18 141/84 (103) 99 01/09/19 21:00 Room Air 01/09/19 20:00 98.2 95 18 132/78 (96) 100 01/09/19 20:00 99 01/09/19 16:00 98.1 95 18 137/89 (105) 100 01/09/19 16:00 94 01/09/19 12:00 98.1 92 18 141/84 (103) 99 01/09/19 12:00 94 Intake and Output 01/09/19 01/10/19 19:00 07:00 Intake Total 720 ml 240 ml Balance 720 ml 240 ml Intake Oral 720 ml 240 ml # Voids 1 2 # Bowel Movements 1 Laboratory Tests Test 01/10/19 05:46 White Blood Count 6.0 K/UL (4.8-10.8) Red Blood Count 4.35 M/UL (4.20-5.40) Hemoglobin 11.8 G/DL (12.0-16.0) L Hematocrit 36.0 % (37.0-47.0) L Mean Corpuscular Volume 83 FL (80-99) Mean Corpuscular Hemoglobin 27.2 PG (27.0-31.0) Mean Corpuscular Hemoglobin Concent 32.8 G/DL (32.0-36.0) Red Cell Distribution Width 12.3 % (11.6-14.8) Platelet Count 277 K/UL (150-450) Mean Platelet Volume 6.7 FL (6.5-10.1) Neutrophils (%) (Auto) 44.1 % (45.0-75.0) L Lymphocytes (%) (Auto) 44.7 % (20.0-45.0) Monocytes (%) (Auto) 9.1 % (1.0-10.0) Eosinophils (%) (Auto) 1.4 % (0.0-3.0) Basophils (%) (Auto) 0.7 % (0.0-2.0) Sodium Level 141 MMOL/L (136-145) Potassium Level 3.9 MMOL/L (3.5-5.1) Chloride Level 105 MMOL/L (98-107) Carbon Dioxide Level 29 MMOL/L (21-32) Anion Gap 7 mmol/L (5-15) Blood Urea Nitrogen 6 mg/dL (7-18) L Creatinine 0.6 MG/DL (0.55-1.30) Estimat Glomerular Filtration Rate > 60 mL/min (>60) Glucose Level 147 MG/DL (74-106) H Calcium Level 9.0 MG/DL (8.5-10.1) Height (Feet): 5 Height (Inches): 5.00 Weight (Pounds): 110 General Appearance: WD/WN, no apparent distress, alert Cardiovascular: normal rate Respiratory/Chest: normal breath sounds, no respiratory distress Abdominal Exam: normal bowel sounds, non tender, soft Extremities: normal range of motion, non-tender Matt Brown NP Jan 10, 2019 10:38
[2019-01-10 12:00] VITALS: BP 92/51
--- NOTE | 2019-01-10 12:28 | General Progress Note ---
Assessment/Plan Problem List: (1) Dehydration ICD Codes: E86.0 - Dehydration SNOMED: 09219785, 87771179 (2) Gastroenteritis ICD Codes: K52.9 - Noninfective gastroenteritis and colitis, unspecified SNOMED: 27880130 (3) Electrolyte imbalance ICD Codes: E87.8 - Other disorders of electrolyte and fluid balance, not elsewhere classified SNOMED: 469686885 (4) Abdominal pain ICD Codes: R10.9 - Unspecified abdominal pain SNOMED: 98247596, 14699611 Qualifiers: Qualified Codes: R10.84 - Generalized abdominal pain (5) Gastroparesis ICD Codes: K31.84 - Gastroparesis SNOMED: 894761367 (6) Nausea vomiting and diarrhea ICD Codes: R11.2 - Nausea with vomiting, unspecified; R19.7 - Diarrhea, unspecified SNOMED: 2409609 (7) Hyperglycemia due to type 1 diabetes mellitus ICD Codes: E10.65 - Type 1 diabetes mellitus with hyperglycemia; R19.7 - Diarrhea, unspecified SNOMED: 426987776502576, 23959112 (8) GERD (gastroesophageal reflux disease) ICD Codes: K21.9 - Gastro-esophageal reflux disease without esophagitis SNOMED: 877097771 Status: stable, progressing Assessment/Plan gave dc order if cleared by renal and caridiology midrodine started Subjective ROS Limited/Unobtainable: Yes Allergies: Coded Allergies: No Known Allergies (Unverified , 12/26/18) Subjective dizzy when gets up Objective Last 24 Hour Vital Signs Date Time Temp Pulse Resp B/P (MAP) Pulse Ox O2 Delivery O2 Flow Rate FiO2 01/10/19 09:00 Room Air 01/10/19 08:00 83 01/10/19 08:00 98.2 97 18 94/58 (70) 97 01/10/19 04:00 98.1 93 18 96/58 (71) 95 01/10/19 04:00 88 01/10/19 00:00 98.1 96 18 141/84 (103) 99 01/09/19 21:00 Room Air 01/09/19 20:00 98.2 95 18 132/78 (96) 100 01/09/19 20:00 99 01/09/19 16:00 98.1 95 18 137/89 (105) 100 01/09/19 16:00 94 Intake and Output 2/20/19 2/21/19 19:00 07:00 Intake Total 720 ml 240 ml Balance 720 ml 240 ml Intake Oral 720 ml 240 ml # Voids 1 2 # Bowel Movements 1 Laboratory Tests 01/10/19 05:46: White Blood Count 6.0, Red Blood Count 4.35, Hemoglobin 11.8L, Hematocrit 36.0L , Mean Corpuscular Volume 83, Mean Corpuscular Hemoglobin 27.2, Mean Corpuscular Hemoglobin Concent 32.8, Red Cell Distribution Width 12.3, Platelet Count 277, Mean Platelet Volume 6.7, Neutrophils (%) (Auto) 44.1L, Lymphocytes ( %) (Auto) 44.7, Monocytes (%) (Auto) 9.1, Eosinophils (%) (Auto) 1.4, Basophils (%) (Auto) 0.7, Sodium Level 141, Potassium Level 3.9, Chloride Level 105, Carbon Dioxide Level 29, Anion Gap 7, Blood Urea Nitrogen 6L, Creatinine 0.6, Estimat Glomerular Filtration Rate > 60, Glucose Level 147H, Calcium Level 9.0 Height (Feet): 5 Height (Inches): 5.00 Weight (Pounds): 110 Neck: supple Cardiovascular: normal rate Respiratory/Chest: lungs clear Abdomen: soft Ondina Dailey MD Jan 10, 2019 12:28
--- NOTE | 2019-01-10 13:36 | Nephrology Progress Note ---
Assessment/Plan Problem List: (1) Orthostatic hypertension (2) Dehydration (3) UTI (urinary tract infection) (4) Gastroparesis (5) Nausea vomiting and diarrhea (6) Hyperglycemia due to type 1 diabetes mellitus (7) Marilyn esophagitis Assessment Dehydration UTI Electrolytre imbalance Syncope Abdominal pain Nausea vomiting and diarrhea Hyperglycemia due to type 1 diabetes mellitus Plan Trial Midodrine- seems to have been helpful fasting cortisol wnl Off all BP meds BP check standing only K and phos and mag as needed DC IV fluid BS control Antibiotics on Fluconozol Monitor lytes Subjective ROS Limited/Unobtainable: No Constitutional: Reports: malaise Objective Objective Last 24 Hour Vital Signs Date Time Temp Pulse Resp B/P (MAP) Pulse Ox O2 Delivery O2 Flow Rate FiO2 01/10/19 09:00 Room Air 01/10/19 08:00 83 01/10/19 08:00 98.2 97 18 94/58 (70) 97 01/10/19 04:00 98.1 93 18 96/58 (71) 95 01/10/19 04:00 88 01/10/19 00:00 98.1 96 18 141/84 (103) 99 01/09/19 21:00 Room Air 01/09/19 20:00 98.2 95 18 132/78 (96) 100 01/09/19 20:00 99 01/09/19 16:00 98.1 95 18 137/89 (105) 100 01/09/19 16:00 94 Intake and Output 01/09/19 01/10/19 19:00 07:00 Intake Total 720 ml 240 ml Balance 720 ml 240 ml Intake Oral 720 ml 240 ml # Voids 1 2 # Bowel Movements 1 Laboratory Tests 01/10/19 05:46: White Blood Count 6.0, Red Blood Count 4.35, Hemoglobin 11.8L, Hematocrit 36.0L , Mean Corpuscular Volume 83, Mean Corpuscular Hemoglobin 27.2, Mean Corpuscular Hemoglobin Concent 32.8, Red Cell Distribution Width 12.3, Platelet Count 277, Mean Platelet Volume 6.7, Neutrophils (%) (Auto) 44.1L, Lymphocytes ( %) (Auto) 44.7, Monocytes (%) (Auto) 9.1, Eosinophils (%) (Auto) 1.4, Basophils (%) (Auto) 0.7, Sodium Level 141, Potassium Level 3.9, Chloride Level 105, Carbon Dioxide Level 29, Anion Gap 7, Blood Urea Nitrogen 6L, Creatinine 0.6, Estimat Glomerular Filtration Rate > 60, Glucose Level 147H, Calcium Level 9.0 Height (Feet): 5 Height (Inches): 5.00 Weight (Pounds): 110 General Appearance: no apparent distress Objective no change Prabhakar Bowen MD Jan 10, 2019 13:36
--- NOTE | 2019-01-10 13:49 | Infectious Diseases Prog Note ---
Assessment/Plan Assessment/Plan A; Marilyn esophagitis UTI with ESBL E. coli treated Syncope Dehydration DM Nausea/Vomiting treated Hypokalemia corrected Hypotension P: Continue Fluconazole in hospital Agree with discharge Subjective ROS Limited/Unobtainable: No Constitutional: Reports: no symptoms Respiratory: Reports: no symptoms Cardiovascular: Reports: other - diziness Gastrointestinal/Abdominal: Reports: no symptoms Genitourinary: Reports: no symptoms Allergies: Coded Allergies: No Known Allergies (Unverified , 12/26/18) Objective Vital Signs Last 24 Hour Vital Signs Date Time Temp Pulse Resp B/P (MAP) Pulse Ox O2 Delivery O2 Flow Rate FiO2 01/10/19 09:00 Room Air 01/10/19 08:00 83 01/10/19 08:00 98.2 97 18 94/58 (70) 97 01/10/19 04:00 98.1 93 18 96/58 (71) 95 01/10/19 04:00 88 01/10/19 00:00 98.1 96 18 141/84 (103) 99 01/09/19 21:00 Room Air 01/09/19 20:00 98.2 95 18 132/78 (96) 100 01/09/19 20:00 99 01/09/19 16:00 98.1 95 18 137/89 (105) 100 01/09/19 16:00 94 Height (Feet): 5 Height (Inches): 5.00 Weight (Pounds): 110 General Appearance: no acute distress HEENT: mucous membranes moist Respiratory/Chest: lungs clear Cardiovascular: normal rate Abdomen: soft, non tender Extremities: no edema Neurologic/Psychiatric: alert, oriented x 3, responsive Laboratory Tests Test 01/10/19 05:46 White Blood Count 6.0 K/UL (4.8-10.8) Red Blood Count 4.35 M/UL (4.20-5.40) Hemoglobin 11.8 G/DL (12.0-16.0) L Hematocrit 36.0 % (37.0-47.0) L Mean Corpuscular Volume 83 FL (80-99) Mean Corpuscular Hemoglobin 27.2 PG (27.0-31.0) Mean Corpuscular Hemoglobin Concent 32.8 G/DL (32.0-36.0) Red Cell Distribution Width 12.3 % (11.6-14.8) Platelet Count 277 K/UL (150-450) Mean Platelet Volume 6.7 FL (6.5-10.1) Neutrophils (%) (Auto) 44.1 % (45.0-75.0) L Lymphocytes (%) (Auto) 44.7 % (20.0-45.0) Monocytes (%) (Auto) 9.1 % (1.0-10.0) Eosinophils (%) (Auto) 1.4 % (0.0-3.0) Basophils (%) (Auto) 0.7 % (0.0-2.0) Sodium Level 141 MMOL/L (136-145) Potassium Level 3.9 MMOL/L (3.5-5.1) Chloride Level 105 MMOL/L (98-107) Carbon Dioxide Level 29 MMOL/L (21-32) Anion Gap 7 mmol/L (5-15) Blood Urea Nitrogen 6 mg/dL (7-18) L Creatinine 0.6 MG/DL (0.55-1.30) Estimat Glomerular Filtration Rate > 60 mL/min (>60) Glucose Level 147 MG/DL (74-106) H Calcium Level 9.0 MG/DL (8.5-10.1) Current Medications Medications (Trade) Dose Ordered Sig/Adalberto Route PRN Reason Start Time Stop Time Status Last Admin Dose Admin Acetaminophen (Tylenol) 500 mg Q4H PRN ORAL Mild Pain/Temp > 100.5 01/04/19 16:30 01/25/19 04:29 Acetaminophen (Tylenol) 650 mg Q6HR ORAL 01/04/19 18:00 01/29/19 11:59 01/10/19 05:30 Dextrose (Dextrose 50%) 25 ml Q30M PRN IV Hypoglycemia 01/04/19 15:30 01/25/19 04:29 Dextrose (Dextrose 50%) 50 ml Q30M PRN IV Hypoglycemia 01/04/19 15:30 01/25/19 04:29 Fluconazole (Diflucan) 200 mg DAILY ORAL 01/08/19 11:00 01/15/19 10:59 01/10/19 08:51 Gadobutrol (Gadavist) 7.5 mmol NOW PRN IV Radiology Procedure 01/06/19 19:00 01/10/19 18:47 Insulin Aspart (NovoLOG) BEFORE MEALS AND HS SUBQ 01/06/19 11:30 02/05/19 11:29 01/10/19 12:15 Insulin Detemir (Levemir) 18 units BEDTIME SUBQ 01/06/19 21:00 01/25/19 22:29 01/09/19 21:26 Magnesium Oxide (Mag-Ox 400mg) 400 mg THREE TIMES A DAY ORAL 01/05/19 13:00 02/04/19 12:59 01/10/19 12:13 Metformin HCl (Glucophage) 500 mg TIAC ORAL 01/06/19 11:30 02/05/19 11:29 01/10/19 12:13 Midodrine (Pro-Amatine) 5 mg Q8HR ORAL 01/09/19 07:00 02/08/19 06:59 01/10/19 05:30 Nateglinide (Starlix) 120 mg TIAC ORAL 01/04/19 16:30 01/29/19 11:29 01/10/19 12:13 Ondansetron HCl (Zofran) 4 mg Q6H PRN IVP Nausea & Vomiting 01/04/19 16:30 01/25/19 04:29 Pantoprazole (Protonix) 40 mg BIAC ORAL 01/04/19 16:30 01/25/19 16:29 01/10/19 05:30 Potassium Chloride (K-Dur) 40 meq TWICE A DAY ORAL 01/04/19 18:00 01/27/19 17:59 01/10/19 08:51 Ravi Roman MD Jan 10, 2019 13:49
--- NOTE | 2019-01-10 15:06 | NUR ---
CASE MANAGEMENT:REVIEW 01/10/19 SI: DEHYDRATION. GASTROENTERITIS 97.3 97 20 92/51 97% ON RA GLUCOSE+147 IS: MIDODRINE PO Q8HRS DIFLUCAN PO QD METFORMIN PO TID AC SS INSULIN SQ MAG OXIDE PO TID K-DUR PO BID STARLIX PO TID AC PROTONIX PO BID : TELEMETRY STATUS
[2019-01-10 16:00] VITALS: BP 120/61
--- NOTE | 2019-01-10 17:08 | Cardiac Electrophysiology PN ---
Assessment/Plan Assessment/Plan 1. Hypotension. Better on Midodrine 5 q 8hr. Echocardiogram EF 55%. Ruled out [place] It could be secondary to the patient's severe diabetic autonomic dysfunction. 2. Insulin-dependent diabetes. FU by Dr. Beaver. 3. Esophageal candidiasis, on Diflucan per Dr. Graham. 4. Gastroesophageal reflux disease. 5. Dizziness. MRI Brain was negative. Follow up with Neurology DW Dr Bowen and Donal Subjective Subjective Feeling better. Still dizzy at times. Objective Last 24 Hour Vital Signs Date Time Temp Pulse Resp B/P (MAP) Pulse Ox O2 Delivery O2 Flow Rate FiO2 01/10/19 12:00 97.3 97 20 92/51 (65) 97 01/10/19 12:00 83 01/10/19 09:00 Room Air 01/10/19 08:00 83 01/10/19 08:00 98.2 97 18 94/58 (70) 97 01/10/19 04:00 98.1 93 18 96/58 (71) 95 01/10/19 04:00 88 01/10/19 00:00 98.1 96 18 141/84 (103) 99 01/09/19 21:00 Room Air 01/09/19 20:00 98.2 95 18 132/78 (96) 100 01/09/19 20:00 99 Intake and Output 01/09/19 01/10/19 19:00 07:00 Intake Total 720 ml 240 ml Balance 720 ml 240 ml Intake Oral 720 ml 240 ml # Voids 1 2 # Bowel Movements 1 Laboratory Tests Test 01/10/19 05:46 White Blood Count 6.0 K/UL (4.8-10.8) Red Blood Count 4.35 M/UL (4.20-5.40) Hemoglobin 11.8 G/DL (12.0-16.0) L Hematocrit 36.0 % (37.0-47.0) L Mean Corpuscular Volume 83 FL (80-99) Mean Corpuscular Hemoglobin 27.2 PG (27.0-31.0) Mean Corpuscular Hemoglobin Concent 32.8 G/DL (32.0-36.0) Red Cell Distribution Width 12.3 % (11.6-14.8) Platelet Count 277 K/UL (150-450) Mean Platelet Volume 6.7 FL (6.5-10.1) Neutrophils (%) (Auto) 44.1 % (45.0-75.0) L Lymphocytes (%) (Auto) 44.7 % (20.0-45.0) Monocytes (%) (Auto) 9.1 % (1.0-10.0) Eosinophils (%) (Auto) 1.4 % (0.0-3.0) Basophils (%) (Auto) 0.7 % (0.0-2.0) Sodium Level 141 MMOL/L (136-145) Potassium Level 3.9 MMOL/L (3.5-5.1) Chloride Level 105 MMOL/L (98-107) Carbon Dioxide Level 29 MMOL/L (21-32) Anion Gap 7 mmol/L (5-15) Blood Urea Nitrogen 6 mg/dL (7-18) L Creatinine 0.6 MG/DL (0.55-1.30) Estimat Glomerular Filtration Rate > 60 mL/min (>60) Glucose Level 147 MG/DL (74-106) H Calcium Level 9.0 MG/DL (8.5-10.1) Objective HEAD AND NECK: No JVD. LUNGS: Clear. CARDIOVASCULAR: Regular S1 and S2 with no murmur or gallop. ABDOMEN: Soft. EXTREMITIES: No pitting edema. Serafin Joyner MD Jan 10, 2019 17:08
--- NOTE | 2019-01-10 19:25 | NUR ---
NURSE NOTES: Received report from Manuela Ponce RN. Pt is resting in the bed w/o distress in RA. Bed alarm is on ,bed in lowest position, side rails up x2, breaks are engaged. Pt refused to have IV insertion and tack maker. Benefit and risk information was given x3 and verbalized understanding. Call light and side table are w/in reach. Will follow plans of care.
[2019-01-10 20:00] VITALS: BP 114/75
[2019-01-10] MEDS: Levemir Flexpen SUBQ SCH (21:51)
--- NOTE | 2019-01-10 23:00 | Progress Note ---
DATE: 01/10/2019 SUBJECTIVE: The patient is feeling a lot better on the midodrine and increased fluids. She still has dizziness especially in the morning. The dizziness is mainly lightheadedness. IMPRESSION: The patient is diabetic and has 2 diabetic neuropathies. 1. Sensorimotor generalized neuropathy. 2. Autonomic neuropathy. The autonomic neuropathy is causing her dizzy spells due to hypotension. The patient was told to raise the head of her bed at night, to improve her fluid intake and salt intake as well as increase her exercise level if possible, and take the midodrine 5 mg q.8 h. She also should take her diabetic medications as well. PLAN: 1. Discharge the patient. 2. The patient will have a followup appointment with me in about 10 days. 3. As above. Jaron Mansfield MD DR: CALLIE JOB#: [id number] CC:
--- NOTE | 2019-01-11 01:55 | NUR ---
NURSE NOTES: Pt is sleeping in the bed w/o distress. Pt refused midnight VS check b/c pt wanted to sleep w/o disturbance. Will continue to monitor.
[2019-01-11] MEDS: NovoLOG Insulin Flexpen SUBQ SCH ×2 (06:30→12:52)
[2019-01-11 06:46] VITALS: BP 91/59
[2019-01-11] MEDS: metFORMIN 500mg tab ORAL SCH ×2 (06:48→12:20)
--- NOTE | 2019-01-11 06:54 | NUR ---
DISCHARGE PLAN DISCHARGE ORDER NOTED FROM YESTERDAY PENDING CLEARANCE FROM DR CONNELLY AND DR SEN NURSING TO OBTAIN CLEARANCE FROM BOTH DOCTORS...THEN DISCHARGE
--- NOTE | 2019-01-11 07:28 | NUR ---
NURSE NOTES: Report received from Miguel A Erickson RN. Patient AOx4. Having breakfast at bedside. In RA. Denies any SOB or pain however feeling fatigued. No IV. Bed on lowest position, side rails upx2, brakes engaged. Call light within easy reach. Patient communicated she is ready to go home. Will follow up on discharge.
--- NOTE | 2019-01-11 07:30 | NUR ---
HAND-OFF: Report given to Michelle Ponce RN.
[2019-01-11 08:00] VITALS: BP 93/61
--- NOTE | 2019-01-11 08:51 | General Progress Note ---
Assessment/Plan Problem List: (1) Diabetes mellitus out of control ICD Codes: E11.65 - Type 2 diabetes mellitus with hyperglycemia SNOMED: 72281262, 137985925 (2) Electrolyte imbalance ICD Codes: E87.8 - Other disorders of electrolyte and fluid balance, not elsewhere classified SNOMED: 395117870 (3) Abdominal pain ICD Codes: R10.9 - Unspecified abdominal pain SNOMED: 37666853, 62810280 Qualifiers: Qualified Codes: R10.84 - Generalized abdominal pain Assessment/Plan continue Levemir 18 units qhs continue Starlix 120 mg ac tid continue Metformin 500 mg tid continue NISS ac / hs - lower dosage Rx left in chart for diabetic medications Subjective ROS Limited/Unobtainable: Yes Allergies: Coded Allergies: No Known Allergies (Unverified , 12/26/18) Subjective events noted DC delayed due to low BP Item Value Date Time Bedside Blood Glucose 128 mg/dl H 01/11/19 0630 Bedside Blood Glucose 203 mg/dl H 01/10/19 2156 Bedside Blood Glucose 164 mg/dl H 01/10/19 1630 Bedside Blood Glucose 280 mg/dl H 01/10/19 1215 Bedside Blood Glucose 148 mg/dl H 01/10/19 0536 Objective Last 24 Hour Vital Signs Date Time Temp Pulse Resp B/P (MAP) Pulse Ox O2 Delivery O2 Flow Rate FiO2 01/11/19 06:46 98.4 102 20 91/59 (70) 99 01/10/19 21:00 Room Air 01/10/19 20:00 97.9 99 20 114/75 (88) 99 01/10/19 16:00 98.0 97 20 120/61 (80) 96 01/10/19 12:00 97.3 97 20 92/51 (65) 97 01/10/19 12:00 83 01/10/19 09:00 Room Air Intake and Output 01/10/19 01/11/19 18:59 06:59 Intake Total 960 ml Balance 960 ml Intake Oral 960 ml # Voids 2 Height (Feet): 5 Height (Inches): 5.00 Weight (Pounds): 110 General Appearance: no apparent distress Neck: normal alignment Cardiovascular: normal rate Respiratory/Chest: lungs clear Abdomen: normal bowel sounds Objective Current Medications Medications (Trade) Dose Ordered Sig/Adalberto Route PRN Reason Start Time Stop Time Status Last Admin Dose Admin Acetaminophen (Tylenol) 500 mg Q4H PRN ORAL Mild Pain/Temp > 100.5 01/04/19 16:30 01/25/19 04:29 Acetaminophen (Tylenol) 650 mg Q6HR ORAL 01/04/19 18:00 01/29/19 11:59 01/10/19 05:30 Dextrose (Dextrose 50%) 25 ml Q30M PRN IV Hypoglycemia 01/04/19 15:30 01/25/19 04:29 Dextrose (Dextrose 50%) 50 ml Q30M PRN IV Hypoglycemia 01/04/19 15:30 01/25/19 04:29 Fluconazole (Diflucan) 200 mg DAILY ORAL 01/08/19 11:00 01/15/19 10:59 01/10/19 08:51 Insulin Aspart (NovoLOG) BEFORE MEALS AND HS SUBQ 01/06/19 11:30 02/05/19 11:29 01/10/19 21:56 Insulin Detemir (Levemir) 18 units BEDTIME SUBQ 01/06/19 21:00 01/25/19 22:29 01/10/19 21:51 Magnesium Oxide (Mag-Ox 400mg) 400 mg THREE TIMES A DAY ORAL 01/05/19 13:00 02/04/19 12:59 01/10/19 18:15 Metformin HCl (Glucophage) 500 mg TIAC ORAL 01/06/19 11:30 02/05/19 11:29 01/11/19 06:48 Midodrine (Pro-Amatine) 5 mg Q8HR ORAL 01/09/19 07:00 02/08/19 06:59 01/11/19 06:48 Nateglinide (Starlix) 120 mg TIAC ORAL 01/04/19 16:30 01/29/19 11:29 01/11/19 06:49 Ondansetron HCl (Zofran) 4 mg Q6H PRN IVP Nausea & Vomiting 01/04/19 16:30 01/25/19 04:29 Pantoprazole (Protonix) 40 mg BIAC ORAL 01/04/19 16:30 01/25/19 16:29 01/11/19 06:49 Potassium Chloride (K-Dur) 40 meq TWICE A DAY ORAL 01/04/19 18:00 01/27/19 17:59 01/10/19 18:14 Julio Beaver MD Jan 11, 2019 08:51
[2019-01-11] MEDS: Fluconazole 100mg tab ORAL SCH (09:11)
[2019-01-11] MEDS: Magnesium Oxide 400mg tab ORAL SCH ×2 (09:11→12:20)
--- NOTE | 2019-01-11 10:16 | GI Progress Note ---
Assessment/Plan Problems: (1) GERD (gastroesophageal reflux disease) ICD Codes: K21.9 - Gastro-esophageal reflux disease without esophagitis SNOMED: 027370869 (2) Hyperglycemia due to type 1 diabetes mellitus ICD Codes: E10.65 - Type 1 diabetes mellitus with hyperglycemia; R19.7 - Diarrhea, unspecified SNOMED: 985169559338781, 77547319 (3) Nausea vomiting and diarrhea ICD Codes: R11.2 - Nausea with vomiting, unspecified; R19.7 - Diarrhea, unspecified SNOMED: 1446439 (4) Gastroparesis ICD Codes: K31.84 - Gastroparesis SNOMED: 816435845 (5) Abdominal pain ICD Codes: R10.9 - Unspecified abdominal pain SNOMED: 99227454, 23770878 Qualifiers: Qualified Codes: R10.84 - Generalized abdominal pain (6) Electrolyte imbalance ICD Codes: E87.8 - Other disorders of electrolyte and fluid balance, not elsewhere classified SNOMED: 850948987 (7) Gastroenteritis ICD Codes: K52.9 - Noninfective gastroenteritis and colitis, unspecified SNOMED: 97376335 (8) Dehydration ICD Codes: E86.0 - Dehydration SNOMED: 32769056, 61929191 (9) Orthostatic hypotension ICD Codes: I95.1 - Orthostatic hypotension SNOMED: 30628674 Status: stable Status Narrative Discussed with Dr. Graham. Assessment/Plan Brain MRI negative CT AP negative Orthostatic hypotension; systolic drop of approximately 50 mmHg from sitting to standing. SUMMARY OF FINDINGS: 1. Possible Marilyn esophagitis. >> follow up biopsy 2. Gastritis, status post biopsy. RECOMMENDATION: 1. fluconazole p.o. daily for 7 to 10 days. 2. Follow up biopsy results and treat accordingly. 3.fu endocrinology Per java developer consultant recommendations for orthostatic hypotension zofran prn, reglan for persistent N/V electrolyte correction IV/PO hydration Advance diet as tolerated Okay for DC per GI standpoint The patient was seen and examined at bedside and all new and available data was reviewed in the patients chart. I agree with the above findings, impression and plan. (Patient seen earlier today. Signature stamp does not reflect patient encounter time.). - Franco Graham MD Subjective Subjective Abdominal pain is improved Overall feels better Hypotension less severe Objective Last 24 Hour Vital Signs Date Time Temp Pulse Resp B/P (MAP) Pulse Ox O2 Delivery O2 Flow Rate FiO2 01/11/19 09:00 Room Air 01/11/19 08:00 98.2 85 18 93/61 (72) 98 01/11/19 06:46 98.4 102 20 91/59 (70) 99 01/10/19 21:00 Room Air 01/10/19 20:00 97.9 99 20 114/75 (88) 99 01/10/19 16:00 98.0 97 20 120/61 (80) 96 01/10/19 12:00 97.3 97 20 92/51 (65) 97 01/10/19 12:00 83 Intake and Output 01/10/19 01/11/19 19:00 07:00 Intake Total 960 ml Balance 960 ml Intake Oral 960 ml # Voids 2 Height (Feet): 5 Height (Inches): 5.00 Weight (Pounds): 110 General Appearance: WD/WN, no apparent distress, alert Cardiovascular: normal rate Respiratory/Chest: normal breath sounds, no respiratory distress Abdominal Exam: normal bowel sounds, non tender, soft Extremities: normal range of motion, non-tender Matt Brown COMMUNITY LIFE DIRECTOR Jan 11, 2019 10:16
[2019-01-11] MEDS ORDERED: MAGNESIUM OXID400 M2 PO (11:46)
[2019-01-11] MEDS ORDERED: PROTONIX40 MG ORAL (11:48)
[2019-01-11] MEDS ORDERED: POTASSIUM CHLO10 MEQ ORAL (11:49)
[2019-01-11] MEDS ORDERED: MAGNESIUM OXID240 MG PO (11:50)
[2019-01-11] MEDS ORDERED: PROTONIX20 MG ORAL (11:51)
[2019-01-11] MEDS ORDERED: POTASSIUM CHLO20 ME1 ORAL (11:52)
[2019-01-11 12:00] VITALS: BP 133/52
--- NOTE | 2019-01-11 13:15 | NUR ---
NURSE NOTES: Patient VS stable. Family at bedside. name badge removed. Medication teaching done. Package given to Patient with [address] Beaver and Dr[address] Bowen. Patient confirmed receipt of prescriptions and signed. patient to follow up with primary MD, intelligent systems engineer and animal rehabilitator within a week. Patient wheeled out of the floor safely accompanied by family member and EDILIA Mathis.
--- NOTE | 2019-01-11 14:14 | Nephrology Progress Note ---
Assessment/Plan Problem List: (1) Orthostatic hypertension (2) Dehydration (3) UTI (urinary tract infection) (4) Gastroparesis (5) Nausea vomiting and diarrhea (6) Hyperglycemia due to type 1 diabetes mellitus (7) Marilyn esophagitis Assessment Dehydration UTI Electrolytre imbalance Syncope Abdominal pain Nausea vomiting and diarrhea Hyperglycemia due to type 1 diabetes mellitus Plan Trial Midodrine- seems to have been helpful fasting cortisol wnl due discharge today Off all BP meds BP check standing only K and phos and mag as needed DC IV fluid BS control Antibiotics on Fluconozol Monitor lytes Subjective ROS Limited/Unobtainable: No Interval Events/Complaints seen 9.30 in am Objective Objective Last 24 Hour Vital Signs Date Time Temp Pulse Resp B/P (MAP) Pulse Ox O2 Delivery O2 Flow Rate FiO2 01/11/19 12:00 98.6 98 18 133/52 (79) 98 01/11/19 09:00 Room Air 01/11/19 08:00 98.2 85 18 93/61 (72) 98 01/11/19 06:46 98.4 102 20 91/59 (70) 99 01/10/19 21:00 Room Air 01/10/19 20:00 97.9 99 20 114/75 (88) 99 01/10/19 16:00 98.0 97 20 120/61 (80) 96 Intake and Output 01/10/19 01/11/19 19:00 07:00 Intake Total 960 ml Balance 960 ml Intake Oral 960 ml # Voids 2 Height (Feet): 5 Height (Inches): 5.00 Weight (Pounds): 110 General Appearance: no apparent distress Cardiovascular: regular rhythm Respiratory/Chest: lungs clear Abdomen: soft Objective no change Prabhakar Bowen MD Jan 11, 2019 14:14
--- NOTE | 2019-01-14 14:19 | Discharge Summary ---
Discharge Summary Discharge Summary _ DATE OF ADMISSION: 12/26/2018 DATE OF DISCHARGE: 01/11/2019 DISCHARGED BY: Dr. Dailey REASON FOR ADMISSION: 58 years old female with past medical history of insulin-dependent diabetes mellitus, presented to emergency department with complaint of syncopal episode along with nausea , vomiting and diarrhea. Patient was visiting from [place] for her brother's birthday alliance party. Patient reported multiple episodes of nonbloody nonbilious vomiting and profuse watery diarrhea for 1 day. Patient also reported diffuse abdominal cramping. While getting up to go to the bathroom she had a syncopal episode, witnessed by her . Upon evaluation vital signs were stable. Laboratory workup revealed no leukocytosis, stable hemoglobin and hematocrit. Blood glucose 221 with elevated anion gap 17. Stable potassium and CO2. BUN 34, creatinine 1.2. AST 41, lipase 41. Troponin negative. EKG revealed sinus rhythm, no acute ischemic changes. Urinalysis demonstrated pyuria, +2 leukocyte esterase, +4 ketones , +2 protein , +4 glucose and few bacteria. Chest x-ray demonstrated no acute cardiopulmonary pathology. Patient was admitted for further management CONSULTANTS: oracle iam consultant Dr. Adams neurologist Dr. Phelps ID specialist Dr. Sanders GI specialist Dr. Graham burr bench operator Dr. Bowen ENT specialist Dr. Malave dental laboratory technology teacher Dr. Beaver [facility] COURSE: Patient admitted to telemetry floor. Patient started on aggressive IV hydration. Manager Research Development followed. Hemoglobin A1c - 13.7 , clearly not at goal. Blood sugar management was provided as per dental laboratory technology teacher with long-acting insulin /Levemir, oral anti-glycemic Starlix and metformin and sliding scale of short acting insulin of low dosage provided as needed. Prescription was left upon discharge for diabetic medication for patient. Patient will need close follow up with her primary care provider to bring HgA1c under control. ID specialist followed. Urine culture revealed E. coli ESBL . Patient completed treatment for UTI. GI consult requested initially for nausea , vomiting , diarrhea and abdominal discomfort. CT of the abdomen and pelvis revealed no acute abnormality. 2.2 cm left adrenal mass. Further evaluation with adrenal protocol ST was recommended. Patient started on clear liquid diet and was advanced as tolerated . Patient started on GI prophylaxis twice a day. Symptomatic treatment provided. Patient was on antiemetic with Zofran on as needed basis and Reglan around-the -clock for persistent vomiting. Patient was continued with IV fluids. Hemoglobin and hematocrit were closely monitored and remained stable. Prior to discharge hemoglobin 11.8, hematocrit 36. Diarrhea stopped. Initially outpatient endoscopic procedure was planned , however due to persistent nausea and vomiting, patient undergone on 12/31 upper endoscopy with biopsy. It revealed gastritis, status post biopsy and possible Marilyn esophagitis. Cytology of esophageal brushing revealed mature squamous cells, negative from malignancy and fungal elements , consistent with Marilyn. Gastric biopsy revealed mild chronic gastritis with no activity. Negative for H. pylori. Negative for intestinal metaplasia , dysplasia or malignancy. Patient started on fluconazole Diet was advanced as tolerated. Patient was able to tolerate diet. Patient was on the IV fluids. Oral fluids were pushed. Air Pumper followed. Renal parameters and electrolytes were closely monitored, electrolytes corrected as needed , and nephrotoxins were avoided. Patient had initially dehydration due to persistent nausea and vomiting. Patient was continued with IV fluids, volumes were closely monitored Potassium , phosphate and magnesium were supplemented and stabilized. Renal parameters and electrolytes stable prior to discharge. Air Pumper recommended to avoid nephrotoxic in future. Patient complained of dizziness. Patient was off all antihypertensive medications. Primer Assembler followed. Echocardiogram revealed preserved ejection fraction of 55-60% with mild left ventricular hypertrophy. No evidence of wall motion abnormality. Right ventricular systolic pressure of 13. Mild to moderate aortic regurgitation noted. Due to hypotension all antihypertensive medications were on hold. Patient noted to have orthostatic hypotension. Patient started on trial of midodrine 5 mg every 8 hours, which seemed to be helpful. Fasting cortisol was within normal limits. Blood pressure improved with midodrine. Neurology consult was requested as well for further evaluation of dizziness. MRI of the brain demonstrated no acute intracranial findings. Per neurologist, patient likely had sensorimotor generalized neuropathy along with autonomic neuropathy. Apparently autonomic neuropathy was causing patient dizzy spells due to hypotension , according to neurologist. Neurologist recommended to raise the head of the bed at night, improve fluid intake and salt intake , increase exercise level as possible and continue midodrine. Patient needs to comply with her diabetic medication regimen ENT specialist also seen patient for dizziness. After initial evaluation he determined , that the issue did not seem to be an ENT issue and recommended to follow-up with other specialist recommendations. Dizziness was multifactorial, related to initial dehydration, them orthostatic hypotension along with autonomic neuropathy. Patient clinically stabilized and was ready for discharge. Patient will need close monitoring of blood sugar to bring hemoglobin A1c under control. FINAL DIAGNOSES: Diabetes mellitus out of control with hyperglycemia Electrolyte imbalance UTI with E. coli ESBL, s/p treatment Marilyn esophagitis Syncopal episode likely due to dehydration and autonomic neuropathy Sensorimotor generalized neuropathy Autonomic neuropathy Gastroparesis Gastroenteritis GERD Orthostatic hypotension Electrolyte abnormalities DISCHARGE MEDICATIONS: See Medication Reconciliation list. DISCHARGE INSTRUCTIONS: Patient was discharged home. Follow up with primary care provider in one week. I have been assigned to dictate discharge summary for this account. I was not involved in the patient's management. Geni Muir NP Jan 14, 2019 14:19
== END 2019-01-11 13:15 | disposition home or self-care (01) | DRG 638 ==
LOC: EDBD 00:18 → EMR 00:56 → 4E 03:29 → EDBEDREQ 04:02 → 2E 01-04 15:14
PROC: 0DB78ZX Excision of Stomach, Pylorus, Via Natural or Artificial Opening Endoscopic, Diagnostic (ICD-10-PCS; principal; 2018-12-31 09:12)
DX: E10.65 Type 1 diabetes mellitus with hyperglycemia (principal); B37.81 Candidal esophagitis; N39.0 Urinary tract infection, site not specified; E10.43 Type 1 diabetes mellitus with diabetic autonomic (poly)neuropathy; Z79.4 Long term (current) use of insulin; K21.0 Gastro-esophageal reflux disease with esophagitis; E87.6 Hypokalemia; E86.0 Dehydration; B96.20 Unspecified Escherichia coli [E. coli] as the cause of diseases classified elsewhere; K29.70 Gastritis, unspecified, without bleeding; R55 Syncope and collapse; R00.1 Bradycardia, unspecified; K31.84 Gastroparesis; I95.1 Orthostatic hypotension
CPT/HCPCS: 36415; 70553; 71045; 74177; 80048; 80053; 80061; 81003; 82533; 82607; 82746; 82962; 82977; 83036; 83690; 83735; 83880; 84100; 84443; 84484; 84550; 85007; 85025; 85610; 85730; 86140; 86703; 87086; 87181; 93005; 93306; 94003; 94150; 96361; 96365; 96375; 96376; 99285; A9585; J1815; J2405; J8499; S5561